=== PATIENT | male | born 1935 | race American Indian/Alaskan Native ===

== ENCOUNTER 2018-06-23 12:01 | Inpatient (IN) | payer MEDICARE ==
[2018-06-23 12:03] VITALS: BMI 32.5
--- NOTE | 2018-06-23 12:34 | ED PDOC ---
Arrival/HPI - General Chief Complaint: Dizziness/Lightheaded Time Seen by Provider: 06/23/18 12:03 Historian: Patient, Spouse - History of Present Illness Narrative History of Present Illness (Text): 06/23/18 12:33 83 year old male, whose past medical history includes hypertension, hyperlipidemia, and arthritis, presenting to the emergency department complaining of dizziness for the past 3 weeks. He reports near syncopal episodes whenever attempting to stand or ambulate unassisted. He admits falling yesterday on his knees, but denies any head injury, neck pain or loss of consciousness. Patient reports he was seen in [facility] last week for similar complaint, was observed for 2 days and was discharged with Tramadol for secondary left sided leg pain. Patient reports secondary tingling sensation in his fingers and generalized weakness. He denies fevers, chills, headache, chest pain, shortness of breath, dyspnea on exertion, cough, abdominal pain, nausea, vomiting, diarrhea, back pain, neck pain, or any other complaint. PMD: Dr. Serna Symptom Onset: Gradual Symptom Course: Unchanged Activities at Onset: Light Context: Home Past Medical History - Provider Review Nursing Documentation Reviewed: Yes - Travel History Have you recently traveled outside [place] w/in the past 3 mons?: No - Infectious Disease Hx of Infectious Diseases: None - Cardiac Hx Cardiac Disorders: Yes Hx Hypertension: Yes - Pulmonary Hx Respiratory Disorders: No - Neurological Hx Neurological Disorder: No - HEENT Hx HEENT Disorder: No - Renal Hx Renal Disorder: No - Endocrine/Metabolic Hx Endocrine Disorders: No - Hematological/Oncological Hx Blood Disorders: No - Integumentary Hx Dermatological Disorder: No - Musculoskeletal/Rheumatological Hx Musculoskeletal Disorders: Yes Hx Arthritis: Yes - Gastrointestinal Hx Gastrointestinal Disorders: No - Genitourinary/Gynecological Hx Genitourinary Disorders: No - Psychiatric Hx Psychophysiologic Disorder: No Hx Substance Use: No - Surgical History Hx Orthopedic Surgery: Yes (L knee, R, knee, L shoulder, R shoulder) Family/Social History - Physician Review Nursing Documentation Reviewed: Yes Family/Social History: No Known Family HX Smoking Status: Never Smoked Hx Alcohol Use: No Hx Substance Use: No Allergies/Home Meds Allergies/Adverse Reactions: Allergies No Known Allergies Allergy (Verified 06/23/18 18:54) Home Medications: Home Meds Medication Instructions Recorded Confirmed RX: Labetalol [Trandate] 200 mg PO BID 06/23/18 06/23/18 RX: Meclizine [Meclizine*] 25 mg PO TID PRN 06/23/18 06/23/18 Simvastatin [Zocor] 20 mg PO DAILY 06/23/18 06/23/18 Tamsulosin [Flomax] 0.4 mg PO DAILY 06/23/18 06/23/18 Tramadol HCl [Ultram] 50 mg PO Q12 PRN 06/23/18 06/23/18 Review of Systems - Physician Review All systems were reviewed & negative as marked: Yes - Review of Systems Constitutional: Other (generalized weakness ). absent: Fevers Respiratory: absent: SOB, Cough Cardiovascular: absent: Chest Pain Gastrointestinal: absent: Diarrhea, Nausea, Vomiting Musculoskeletal: absent: Back Pain, Neck Pain Neurological: Dizziness. absent: Headache Physical Exam Vital Signs Reviewed: Yes Temperature: Afebrile Blood Pressure: Normal Pulse: Regular Respiratory Rate: Normal Appearance: Positive for: Well-Appearing, Non-Toxic, Comfortable Mental Status: Positive for: Alert and Oriented X 3 - Systems Exam Head: Present: Atraumatic, Normocephalic Pupils: Present: PERRL Extroacular Muscles: Present: EOMI Conjunctiva: Present: Normal Mouth: Present: Moist Mucous Membranes Neck: Present: Normal Range of Motion Respiratory/Chest: Present: Clear to Auscultation, Good Air Exchange. No: Respiratory Distress, Accessory Muscle Use Cardiovascular: Present: Regular Rate and Rhythm, Normal S1, S2. No: Murmurs Abdomen: Present: Tenderness (tenderness to the left lower quadrant ), Distention. No: Peritoneal Signs Back: Present: Normal Inspection Upper Extremity: Present: Normal Inspection. No: Cyanosis, Edema Lower Extremity: Present: Normal Inspection. No: Edema Neurological: Present: GCS=15, CN II-XII Intact, Speech Normal, Motor Func Grossly Intact (5/5 motor strength upper and lower extremities), Normal Sensory Function, Other (no protonator drift noted, finger to nose test is normal ) Skin: Present: Warm, Dry, Normal Color. No: Rashes Psychiatric: Present: Alert, Oriented x 3, Normal Insight, Normal Concentration Medical Decision Making ED Course and Treatment: 06/23/18 12:34 Impression: 83 year old male who presents to the emergency department complaining of dizziness. Differential Diagnosis included but are not limited to: --BPPV --Posterior circulation stroke --KIKO Plan: -- VBG -- CT of Abdomen and Pelvis -- CT of head w/o contrast -- Labs -- Antivert -- IV fluids -- Urinalysis -- Reassess and disposition Progress Notes: 06/23/18 14:04 Labs reviewed with leukocytosis of 12.9 noted and elevated creatinine of 3.2. Thrombocytosis noted of 502. CTH pending. CT a/p changed to w/o IV contrast due to renal profile. 06/23/18 15:[address] Razo(covering for Dr. Jacobs) who accepts patient under her service. - Lab Interpretations I have reviewed the lab results: Yes - RAD Interpretation Narrative RAD Interpretations (Text): 06/23/18 15:[address] reviewed, shows: Impression: No acute intracranial abnormality. moderate chronic microangiopathic changes and mild age-related global parenchymal volume loss. [employer] Service Technician: Radiologist - Scribe Statement The provider has reviewed the documentation as recorded by the Scribe Beata Pop Provider Scribe Attestation: All medical record entries made by the Scribe were at my direction and personally dictated by me. I have reviewed the chart and agree that the record accurately reflects my personal performance of the history, physical exam, medical decision making, and the department course for this patient. I have also personally directed, reviewed, and agree with the discharge instructions and disposition. Disposition/Present on Arrival - Present on Arrival Any Indicators Present on Arrival: No History of DVT/PE: No History of Uncontrolled Diabetes: No Urinary Catheter: No History of Decub. Ulcer: No History Surgical Site Infection Following: None - Disposition Have Diagnosis and Disposition been Completed?: Yes Diagnosis: KIKO (acute kidney injury), Thrombocytosis, Fall Disposition: HOSPITALIZED Disposition Time: 14:30 Patient Problems: Current Active Problems Problem Status Onset KIKO (acute kidney injury) Acute Fall Acute Thrombocytosis Acute Condition: IMPROVED
[2018-06-23] MEDS ORDERED: Sodium Chloride 0.9% 1,000 ML IV STA (12:55)
[2018-06-23 13:30] LABS: VENOUS BLOOD GAS BASE EXCESS -2.6 mmol/L (0.0-2.0); VENOUS BLOOD GAS PO2 34 mm/Hg (30-55); VENOUS BLOOD PH 7.34 (7.32-7.43)
[2018-06-23 13:39] LABS: INR 1.41; PARTIAL THROMBOPLASTIN TIME 24.5 Seconds (25.1-36.5); PROTHROMBIN TIME 16.3 SECONDS (9.4-12.5)
[2018-06-23 13:43] LABS: BASO # 0.02 K/mm3 (0.0-2.0); BASO % 0.2 % (0.0-3.0); EOS # 0.2 (0.0-0.7); EOS % 1.6 % (1.5-5.0); GRAN # 10.61 (1.4-6.5); GRAN % 82.4 % (50.0-68.0); HEMOGLOBIN 8.7 g/dL (14.0-18.0); LYMPH # 0.8 (1.2-3.4); LYMPH % 6.3 % (22.0-35.0); MEAN CELL VOLUME 94.5 fl (80.0-105.0); MEAN CORPUSCULAR HEMOGLOBIN 29.7 pg (25.0-35.0); MEAN CORPUSCULAR HGB CONC 31.4 g/dl (31.0-37.0); MEAN PLATELET VOLUME 8.8 fl (7.0-11.0); MONO # 1.2 (0.1-0.6); MONO % 9.5 % (1.0-6.0); RBC 2.93 10^6/uL (3.5-6.1); RED CELL DISTRIBUTION WIDTH 13.2 % (11.5-14.5); WHITE BLOOD COUNT 12.9 10^3/uL (4.5-11.0)
[2018-06-23 13:51] LABS: ALB/GLOB RATIO 0.8 (1.1-1.8); ALBUMIN 3.9 g/dL (3.0-4.8); CALCIUM 9.7 mg/dL (8.4-10.5); TROPONIN I 0.02 ng/mL
--- NOTE | 2018-06-23 14:53 | CT ---
Date of service: 06/23/2018 PROCEDURE: CT HEAD WITHOUT CONTRAST. HISTORY: dizziness COMPARISON: None available. TECHNIQUE: Axial computed tomography images were obtained through the head/brain without intravenous contrast. Radiation dose: Total exam DLP = 998.18 mGy-cm. This CT exam was performed using one or more of the following dose reduction techniques: Automated exposure control, adjustment of the mA and/or kV according to patient size, and/or use of iterative reconstruction technique. FINDINGS: HEMORRHAGE: No intracranial hemorrhage. BRAIN: There are moderate chronic microangiopathic changes. There is no mass, mass effect or abnormal extra-axial fluid collection. There is no territorial infarction. The midline sagittal structures are normal. VENTRICLES: There is mild age-related global parenchymal volume loss and proportionate enlargement of the ventricles and cortical sulci. CALVARIUM: There is no calvarial fracture or extracranial soft tissue swelling. PARANASAL SINUSES: Predominantly clear. MASTOID AIR CELLS: Predominantly clear. OTHER FINDINGS: None. IMPRESSION: No acute intracranial abnormality. Moderate chronic microangiopathic changes and mild age-related global parenchymal volume loss.
--- NOTE | 2018-06-23 15:23 | RAD ---
Date of service: 06/23/2018 HISTORY: abdominal pain COMPARISON: No prior. FINDINGS: LUNGS: The right lung is well inflated and clear. There is a large left pleural effusion. PLEURA: No pleural effusions or pneumothorax. CARDIOVASCULAR: The heart is normal in size. No aortic atherosclerotic calcification present. OSSEOUS STRUCTURES: Within normal limits for the patient's age. VISUALIZED UPPER ABDOMEN: Normal. OTHER FINDINGS: None. IMPRESSION: Large left pleural effusion.
--- NOTE | 2018-06-23 15:50 | CT ---
Date of service: 06/23/2018 PROCEDURE: CT Abdomen and Pelvis without intravenous contrast HISTORY: distention and LLQ pain COMPARISON: None. TECHNIQUE: Technique. Contrast dose: Radiation dose: Total exam DLP = 940.06 mGy-cm. This CT exam was performed using one or more of the following dose reduction techniques: Automated exposure control, adjustment of the mA and/or kV according to patient size, and/or use of iterative reconstruction technique. FINDINGS: LOWER THORAX: Large left pleural effusion and atelectasis at the left lung base. LIVER: Unremarkable. No gross lesion or ductal dilatation. GALLBLADDER AND BILE DUCTS: Gallstones and/or sludge. PANCREAS: Unremarkable. No gross lesion or ductal dilatation. SPLEEN: Unremarkable. ADRENALS: Unremarkable. No mass. KIDNEYS AND URETERS: Bilateral renal cysts. No hydronephrosis. No solid mass. VASCULATURE: Unremarkable. No aortic aneurysm. Aortic calcifications. BOWEL: Colonic diverticulosis. No obstruction. No gross mural thickening. APPENDIX: Unremarkable. Normal appendix. PERITONEUM: Unremarkable. No free fluid. No free air. LYMPH NODES: Unremarkable. No enlarged lymph nodes. BLADDER: Unremarkable. REPRODUCTIVE: Brachytherapy seeds in prostate gland. BONES: No acute fracture. OTHER FINDINGS: None. IMPRESSION: Large left pleural effusion and atelectasis at the left lung base. No acute pathology in the abdomen and pelvis.
[2018-06-23] MEDS ORDERED: Dextrose 5%/0.45% NS 1,000 ML IV SCH (17:45)
[2018-06-23 19:08] LABS: TROPONIN I 0.02 ng/mL
--- NOTE | 2018-06-23 20:05 | HP ---
DATE OF EXAM: 06/23/2018 HISTORY OF PRESENT ILLNESS: The patient is 83-year-old, came to emergency room because of increasing dizziness. The patient states dizziness is going on for the last 3 weeks, was feeling lightheaded as if he is going to pass out. Denies any chest pain. No recent nausea, vomiting, or diarrhea. Yesterday, because of dizziness, he fell at home, never lost consciousness. The patient states he did go to [facility] almost a week ago and was told everything is okay; however, he was given some pain medication for his left leg pain. I spoke to Dr. Serna, who is his primary care doctor that according to him, he has been recently complaining of feeling dizzy. PAST MEDICAL HISTORY: He has significant past medical history of: 1. Hypertension, but recently has been stable. He used some labetalol, but Dr. Serna stopped that. 2. History of CA, prostate. 3. Chronic kidney disease. His last creatinine in office was 2.7. 4. Peptic ulcer disease. ALLERGIES: HE IS NOT ALLERGIC TO ANY MEDICATION. MEDICATIONS AT HOME: He is on Flomax 0.4 daily, Dyazide 37.5/25 daily, omeprazole 40 mg daily, simvastatin 20 mg daily. SOCIAL HISTORY: Denies smoking or drinking. PHYSICAL EXAMINATION GENERAL: The patient is awake, alert, oriented, able to communicate. VITAL SIGNS: He is afebrile, pulse 97, respirations 17, blood pressure 137/83. LUNGS: Bilateral fair airflow. No rhonchi or crackle. HEART: S1, S2 audible. ABDOMEN: Soft, nontender. No rebound. No guarding. NEUROLOGICAL: The patient is awake, alert, oriented, communicative. No focal deficit. LABORATORY EXAM: WBC 12.9, hemoglobin 8.7, hematocrit 27, platelet of 502. PT 16.3, INR 1.41 with PTT 24.5. Chemistry: Sodium 139, potassium 5.0, chloride 103, CO2 of 23, BUN 76, creatinine 3.2, blood sugar of 115. AST 67, ALT 66, alk phos is 130. CT scan of the abdomen and pelvis done. This shows large left pleural effusion and atelectasis at the left lung base. Otherwise, no pathology noted. ASSESSMENT: 1. Acute on chronic renal failure. 2. Left pleural effusion. 3. Acute on chronic kidney disease. 4. Hyperlipidemia. 5. History of hypertension, currently running normotensive. 6. History of cancer, prostate. PLAN: We will give him small dose of IV fluid. We will resume his medications including Flomax, Lipitor. Order for carotid Doppler. We will order for echocardiogram. Cardiology consult by Dr. Davila, Nephrology consult by Dr. Spivey, and Neuro consult by Dr. Cai has been requested. Tejinder Razo MD
--- NOTE | 2018-06-23 21:42 | CARD ---
APPROVED REPORT Date of service: 06/23/2018 EKG Measurement Heart [id number] <Conclusion> Sinus tachycardia Otherwise normal ECG
[2018-06-23] MEDS ORDERED: Pneumococcal 23-Valent Vaccine IM ONE (22:03)
[2018-06-23] MEDS ORDERED: Influenza Vaccine 60 mcg/0.5 mL SYR (4YR UP) IM ONE (22:03)
[2018-06-23 22:05] LABS: URINE BILIRUBIN NEGATIVE (NEGATIVE); URINE BLOOD NEGATIVE (NEGATIVE); URINE GLUCOSE (UA) NEGATIVE (NEGATIVE); URINE LEUKOCYTE ESTERASE NEGATIVE Leu/uL (NEGATIVE); URINE PROTEIN TRACE mg/dL (<30 mg/dL)
[2018-06-23 22:06] LABS: URINE APPEARANCE CLEAR (CLEAR); URINE COLOR YELLOW (YELLOW)
[2018-06-23 22:18] LABS: URINE RBC NEGATIVE /hpf (0-2); URINE WBC NEGATIVE /hpf (0-6)
[2018-06-24 07:49] LABS: ALB/GLOB RATIO 0.9 (1.1-1.8); ALBUMIN 3.4 g/dL (3.0-4.8); CALCIUM 8.9 mg/dL (8.4-10.5)
--- NOTE | 2018-06-24 09:14 | US ---
PROCEDURE: Bilateral carotid artery duplex ultrasound HISTORY: Carotid stenosis syncope PHYSICIAN(S): Milton Roca MD. TECHNIQUE: Duplex sonography and color-flow Doppler were used to evaluate the carotid bifurcations and limited segments of the vertebral arteries bilaterally. The exam is limited by tortuous vessels. FINDINGS: There is mild smooth heterogeneous plaque noted at the carotid bifurcations bilaterally. The peak systolic velocity in the proximal right internal carotid artery is 79 cm/sec. This corresponds to a 20 to 39% proximal right ICA stenosis. Normal systolic velocities are noted in the proximal right external carotid artery. There is antegrade flow in the small right vertebral artery. The peak systolic velocity in the proximal left internal carotid artery is 90 cm/sec. This corresponds to a 20 to 39% proximal left ICA stenosis. Normal systolic velocities are noted in the proximal left external carotid artery. There is antegrade flow in the left vertebral artery. IMPRESSION: 1. Bilateral 20-39% proximal ICA stenoses. 2. Antegrade flow in both vertebral arteries. 3. Limited study due to tortuous vessels
--- NOTE | 2018-06-24 11:40 | US ---
Date of service: 06/24/2018 PROCEDURE: Ultrasound of the Kidneys HISTORY: Chronic kidney disease. COMPARISON: 06/23/2018. CT abdomen and pelvis. TECHNIQUE: Sonogram of the kidneys. FINDINGS: RIGHT KIDNEY: Measures: 4.4 x 6.3 x 10.5 cm. Normal in size, contour and echogenicity. No stone, solid mass lesion or hydronephrosis visualized. Incidental finding(s): Two small renal cysts upper pole 1.3 x 1.1 cm. Lower pole cyst 1.2 x 0.8 cm. LEFT KIDNEY: Measures: 5.6 x 10.6 cm. Normal in size, contour and echogenicity. No stone, solid mass lesion or hydronephrosis visualized. Multiple (4) simple renal cysts, the largest in the midpole 2.2 x 2 cm. OTHER FINDINGS: None. IMPRESSION: Unremarkable renal sonogram.
--- NOTE | 2018-06-24 12:11 | CON ---
DATE: 06/24/2018 CARDIOLOGY CONSULTATION HISTORY: The patient is an 83-year-old male, who presents with dyspnea and dizziness. The patient was unable to go to the doctor's office because of his progressive dizziness and shortness of breath. PAST MEDICAL HISTORY: The patient's past medical history is notable for renal insufficiency. He is on multiple medications. In addition, the patient suffers from hypercholesterolemia. He denies angina. Denies previous myocardial infarction. No diabetes mellitus noted. SOCIAL HISTORY: The patient does not currently smoke. REVIEW OF SYSTEMS: Fourteen-point review of systems is reviewed in detail. He complains of pedal edema, occasional chest pain with progressive shortness of breath. PHYSICAL EXAMINATION: VITAL SIGNS: Blood pressure is 130/90, heart rate is in the 90s, normal sinus rhythm. NECK: Negative JVD. LUNGS: Decreased breath sounds bilaterally. HEART: Reveals S1, S2 with a 2/6 systolic ejection murmur. EXTREMITIES: No edema noted. EKG shows no acute changes. LABORATORY DATA: Hemoglobin is 8.7. Chemistries, BUN and creatinine are 81 and 3.8. The troponins are negative x2. IMPRESSION: 1. Pleural effusion. 2. Congestive heart failure. 3. Renal insufficiency. 4. Anemia. 5. Hypertension. 6. Dyspnea. PLAN: Given these findings, we will check his echocardiogram. We will discuss with Dr. Razo about possible tapping his left pleural effusion. Milton Davila MD
--- NOTE | 2018-06-24 13:55 | MRI ---
Date of service: 06/24/2018 PROCEDURE: MRI BRAIN WITHOUT CONTRAST HISTORY: persistant dizziness COMPARISON: None available. TECHNIQUE: Multiplanar, multisequence MR images of the brain were obtained without intravenous contrast enhancement. FINDINGS: HEMORRHAGE: None DWI: No evidence of an acute or early subacute infarction. BRAIN PARENCHYMA: No mass effect or edema. [id number] atrophy and moderate white matter changes likely represent chronic microvascular ischemic disease. VENTRICLES: Unremarkable. No hydrocephalus. CRANIUM: Unremarkable. ORBITS: Grossly unremarkable. PARANASAL SINUSES/MASTOIDS: Clear VASCULAR SYSTEM: Skull base flow voids intact. OTHER FINDINGS: None. IMPRESSION: No evidence of acute infarct or intracranial hemorrhage. No evidence of mass lesion mass effect or midline shift. Volume loss and white matter changes likely represent chronic microvascular ischemic disease.
--- NOTE | 2018-06-24 16:07 | CON ---
DATE: 06/24/2018 NEUROLOGY CONSULT CHIEF COMPLAINT: Dizziness. HISTORY OF PRESENT ILLNESS: This is an 83-year-old -[place] male with a past medical history of hypertension, history of prostate cancer, chronic kidney disease with his baseline creatinine of 2.7, peptic ulcer disease, who came in with episodes of dizziness in terms of mild spinning sensation of room with lightheadedness. He had a carotid Doppler, which showed 29%-39% proximal ICA stenosis with antegrade flow in the vertebral arteries. CAT scan of the head showed no acute intracranial abnormality. His MRI of the brain showed no acute abnormality, some chronic ischemic changes throughout. He has left-sided pleural effusion and acute on chronic kidney disease, for which his electrolytes have been managed. Cardiology is on board. No focal weakness of the extremities as he is mildly deconditioned. PAST MEDICAL HISTORY: As above. ALLERGIES: NO KNOWN DRUG ALLERGIES. SOCIAL HISTORY: No illicit drug use, smoking or EtOH abuse. REVIEW OF SYSTEMS: Fourteen-point review of systems is as per HPI. FAMILY HISTORY: Noncontributory. MEDICATIONS: Reviewed by nurse's reconciliation sheet. PHYSICAL EXAMINATION: GENERAL: The patient is seen in bed, in no acute distress. VITAL SIGNS: Temperature of 98.3, pulse rate is 97, blood pressure of 130/89, respiratory rate 20, and oxygen saturation 97% on room air. HEENT: Atraumatic, normocephalic. PERRLA. Extraocular muscles intact. NECK: Supple. No JVD. No adenopathy noted. LUNGS: Clear to auscultation. No adventitious sounds. HEART: S1 and S2. Normal rate and rhythm. No murmurs, rubs or gallops. ABDOMEN: Soft, nontender, nondistended. Bowel sounds present. EXTREMITIES: No clubbing, no cyanosis. Peripheral pulses are 2+ felt bilaterally. NEUROLOGIC: The patient is alert and oriented to person, place, month and year. Recall after five minutes is 0/3. Poor attention span, slow thought process. Cranial nerves II through XII are intact. Motor exam: Moves all extremities equally. No pronator drift seen. Sensory: Light touch, pinprick, proprioception and vibration are intact. DTRs are 2+ throughout and 1 at both knees and ankles. Coordination: Yemaxs-sr-hizu intact. No dysmetria noted. Gait is deferred for now. LABORATORY DATA: Sodium is 138, potassium 4.7, chloride 107, carbon dioxide 21, BUN of 81, creatinine of 2.6, random glucose of 113. IMPRESSION: Dizziness, this was most likely secondary to underlying generalized medical condition such as acute on chronic kidney disease, possible mild congestive heart failure, and left-sided pleural effusion. In addition, he has some mild positional vertigo. RECOMMENDATIONS: At this time, I recommend: 1. therapy as an outpatient. 2. Keep blood pressure between 130's to 140's systolic and diastolic 70's to 80's. 3. Monitor electrolytes and correct accordingly. 4. Avoid hypertensive acceleration or hypotensive episodes. 5. PT/OT evaluation and salt restriction diet. Thank you for this consult. Bandar Cai MD
--- NOTE | 2018-06-24 17:55 | CARD ---
APPROVED REPORT Date of service: 06/24/2018 EXAM: Two-dimensional and M-mode echocardiogram with Doppler and color Doppler. INDICATION Dizziness and Vertigo 2D DIMENSIONS Left Atrium (2D)3.8 (1.6-4.0cm)IVSd1.5 (0.7-1.1cm) LVDd3.8 (3.9-5.9cm)PWd1.3 (0.7-1.1cm) M-Mode DIMENSIONS Aortic Root3.50 (2.2-3.7cm)Aortic Cusp Exc.2.10 (1.5-2.0cm) Aortic Valve AoV Peak Xqqbozir076.0cm/[place] Peak GR.6mmHg Mitral Valve E/A ratio0.0 TDI E/Lateral E'0.0E/Medial E'0.0 Pulmonary Valve PV Peak Bhaxldwh39.1cm/sPV Peak Grad.2mmHg Tricuspid Valve TR Peak [id number]/sRAP [id number] Peak Gr.11mmHg [id number] LEFT VENTRICLE The left ventricle is normal size. There is mild to moderate concentric left ventricular hypertrophy. The left ventricular function is normal. The left ventricular ejection fraction is within the normal range. There is normal LV segmental wall motion. Transmitral Doppler flow pattern is Grade I-abnormal relaxation pattern. RIGHT VENTRICLE The right ventricle is normal size. There is normal right ventricular wall thickness. The right ventricular systolic function is normal. ATRIA The left atrium size is normal. The right atrium size is normal. AORTIC VALVE The aortic valve is not well visualized. No aortic regurgitation is present. There is no aortic valvular stenosis. MITRAL VALVE The mitral valve is normal in structure. There is no mitral valve regurgitation noted. There is no mitral valve stenosis. TRICUSPID VALVE The tricuspid valve is normal in structure. There is no tricuspid valve regurgitation noted. PULMONIC VALVE The pulmonary valve is normal in structure. There is no pulmonic valvular regurgitation. GREAT VESSELS The aortic root is normal in size. PERICARDIAL EFFUSION There is large left pleural effusion. There is a trace pericardial effusion. <Conclusion> The left ventricular function is normal. The left ventricular ejection fraction is within the normal range. There is normal LV segmental wall motion. Transmitral Doppler flow pattern is Grade I-abnormal relaxation pattern. There is large left pleural effusion.
--- NOTE | 2018-06-24 18:51 | CARD ---
APPROVED REPORT Date of service: 06/24/2018 INDICATION Congestive Heart Failure EVALUATE EF PROCEDURE The above named patient recieved 29.3 millicuries of Tc99m tagged red blood cells intravenously. After achieving equilibrium, gated imaging of 16/frame/cycle was performed utillizing Gamma camera interfaced with a digital computer and gated device. Gated imaging was then performed in the left anterior oblique, anterior, and the left lateral projections. Findings Calculated LV Ejection Fraction is 52%. Impressions Calculated Ejection Fraction is 52 %.
--- NOTE | 2018-06-24 18:53 | PN ---
DATE: 06/24/2018 SUBJECTIVE: The patient is 83 years old, seen and examined, seemed to be short of breath. We will discontinue IV fluids. He complained of generalized weakness. PHYSICAL EXAMINATION: VITAL SIGNS: He is afebrile, pulse 97, respirations 20, and blood pressure 130/89. LUNGS: Bilateral decreased breath sounds, more so on the right lower lung area. HEART: S1 and S2 audible. ABDOMEN: Soft, obese, and nontender. No rebound and no guarding. NEUROLOGIC: The patient is awake, alert, and oriented, able to communicate. EXTREMITIES: Bilateral legs showed no edema. LABORATORY DATA: WBC is 12.9, hemoglobin 8.7, hematocrit 27.7, and platelets 502. Chemistry: Sodium 138, potassium 4.7, chloride 107, CO2 of 21, BUN 81, creatinine 3.6, blood sugar 113, AST 65, and ALT 59. CT scan of the head shows moderate chronic microangiopathic changes and age-related global parenchymal volume loss. Carotid Doppler is negative. CT scan of the abdomen and pelvis is done and shows large left pleural effusion and atelectasis in the left lung base. A renal ultrasound was done that shows no abnormal findings. Echocardiogram is pending. ASSESSMENT: 1. [id number] renal failure. His baseline creatinine is 2.7. I spoke to Dr. Serna, who is the primary care for this patient. 2. Large left pleural effusion. 3. History of hypertension. 4. Dizziness, etiology unclear. PLAN: We will discontinue IV fluid. I will give him a dose of Lasix. I will get MRI of the brain. Discussed with Dr. Davila, who will order for MUGA scan to see LV function. Awaiting nephrology evaluation, and follow up electrolytes in a.m. Tejinder Razo MD
[2018-06-25 06:29] LABS: ALB/GLOB RATIO 0.9 (1.1-1.8); ALBUMIN 3.6 g/dL (3.0-4.8); CALCIUM 9.2 mg/dL (8.4-10.5)
[2018-06-25 06:37] LABS: BASO # 0.02 K/mm3 (0.0-2.0); BASO % 0.2 % (0.0-3.0); EOS # 0.4 (0.0-0.7); EOS % 3.8 % (1.5-5.0); GRAN # 7.87 (1.4-6.5); GRAN % 78.4 % (50.0-68.0); HEMOGLOBIN 7.7 g/dL (14.0-18.0); LYMPH # 0.8 (1.2-3.4); MEAN CELL VOLUME 94.1 fl (80.0-105.0); MEAN CORPUSCULAR HEMOGLOBIN 28.6 pg (25.0-35.0); MEAN CORPUSCULAR HGB CONC 30.4 g/dl (31.0-37.0); MEAN PLATELET VOLUME 8.6 fl (7.0-11.0); MONO % 9.6 % (1.0-6.0); RBC 2.69 10^6/uL (3.5-6.1); RED CELL DISTRIBUTION WIDTH 13.4 % (11.5-14.5)
[2018-06-25 11:33] LABS: IRON 27 ug/dL (45-180)
[2018-06-25 11:42] LABS: % IRON SATURATION 12 % (20-55); TOTAL IRON BINDING CAPACITY 233 ug/dL (261-462)
--- NOTE | 2018-06-25 14:05 | PN ---
DATE: 06/25/2018 SUBJECTIVE: The patient complained of weakness. PHYSICAL EXAMINATION: VITAL SIGNS: Blood pressure is 133/73, heart rate is 100. NECK: Negative JVD. LUNGS: Decreased breath sounds bilaterally. HEART: Reveals S1, S2. EXTREMITIES: Without edema. LABORATORY DATA: Hemoglobin is 7.7. Chemistries: BUN and creatinine is 81 and 3.5. MUGA scan shows an ejection fraction of 52%. IMPRESSION: 1. Marked weakness. 2. Progressive anemia. 3. Renal insufficiency. 4. Hypertension. 5. Dyspnea. 6. Good LV systolic function by MUGA scan. Given these findings, we will discuss with Dr. Razo about a pleural tap as well as packed red blood cells transfusion. Milton Davila MD
--- NOTE | 2018-06-25 14:30 | CT ---
Date of service: 06/25/2018 CT chest without IV contrast Indication: sob Technique: Contiguous axial images were obtained through the chest without intravenous contrast enhancement. Sagittal and coronal reconstructions were generated and reviewed. This CT exam was performed using 1 or more of the following dose reduction techniques: Automated exposure control, adjustment of the MAA and/or kV according to patient size, and/or use of iterative reconstruction technique. Radiation dose (DLP): 775.51 MGy-cm. Comparison: Chest x-ray performed 06/23/18 Findings: Visualized portions of the inferior thyroid gland appear unremarkable. The unenhanced mediastinal and hilar vascular structures appear grossly unremarkable. The heart appears within normal limits of size. Emphysematous changes. Large left pleural effusion and associated consolidation with sparing left lung apex. Limited visualization of the noncontrast upper abdomen appears grossly unremarkable. Bilateral gynecomastia. Degenerative changes of the spine. Impression: Emphysematous changes. Large left pleural effusion and associated consolidation with sparing left lung apex.
[2018-06-25] MEDS ORDERED: Albuterol-Ipratrop 3 mg / 0.5 (3 ml) UD IH PRN (17:55)
[2018-06-25] MEDS: Albuterol-Ipratrop 3 mg / 0.5 (3 ml) UD IH SCH (20:07)
[2018-06-25] MEDS: MethylPREDNISolone 40 mg Vial IV SCH (21:43)
--- NOTE | 2018-06-25 22:26 | PN ---
DATE: 06/25/2018 SUBJECTIVE: The patient is an 83 years old, seen and examined, has shortness of breath, has left upper quadrant discomfort. Neurologically, he is awake and alert, able to communicate. PHYSICAL EXAMINATION: VITAL SIGNS: The patient had temperature of 100, pulse 102, respirations 18, and blood pressure 132/78. LUNGS: Bilateral fair airflow. No rhonchi or crackle. However, he has decreased breath sounds at bases, left more than the right. EXTREMITIES: Bilateral leg +1 edema. LABORATORY DATA: WBC 10, hemoglobin 10.7, hematocrit 25.3, and platelets 421. PT 16.3, INR 1.41. Chemistry: Sodium 138, potassium 4.8, chloride 107, CO2 of 22, BUN 81, creatinine 3.5, blood sugar of 106, iron 27, TIBC 233. CT scan of the chest shows large left pleural effusion. MRI of the brain is unremarkable. Echocardiogram shows LVH and MUGA scan shows ejection fraction of 52%. ASSESSMENT: 1. Symptomatic anemia. 2. Large left pleural effusion. 3. Hypertension. 4. Chronic kidney disease. PLAN: The patient will receive one blood transfusion today and get second one tomorrow. We will start him on nebulizer treatment. I spoke to Dr. Milton Roca. We will schedule for thoracentesis on Wednesday. Follow up with CBC and CMP in a.m. Start him on small dose of Solu-Medrol. Tejinder Razo MD
[2018-06-26] MEDS: Albuterol-Ipratrop 3 mg / 0.5 (3 ml) UD IH SCH ×4 (01:03→19:47)
[2018-06-26 07:09] LABS: EOS % 0.1 % (1.5-5.0); GRAN # 7.8 (1.4-6.5); GRAN % 89.8 % (50.0-68.0); HEMOGLOBIN 8.4 g/dL (14.0-18.0); LYMPH # 0.5 (1.2-3.4); LYMPH % 5.8 % (22.0-35.0); MEAN CELL VOLUME 93.7 fl (80.0-105.0); MEAN CORPUSCULAR HEMOGLOBIN 29.4 pg (25.0-35.0); MEAN CORPUSCULAR HGB CONC 31.3 g/dl (31.0-37.0); MEAN PLATELET VOLUME 8.5 fl (7.0-11.0); MONO # 0.4 (0.1-0.6); MONO % 4.3 % (1.0-6.0); RBC 2.86 10^6/uL (3.5-6.1); RED CELL DISTRIBUTION WIDTH 13.3 % (11.5-14.5); WHITE BLOOD COUNT 8.7 10^3/uL (4.5-11.0)
[2018-06-26 08:23] LABS: ALB/GLOB RATIO 0.9 (1.1-1.8); ALBUMIN 3.6 g/dL (3.0-4.8); CALCIUM 9.4 mg/dL (8.4-10.5)
[2018-06-26] MEDS ORDERED: Sod Polystyrene Sulf 15 gm/60 ml Susp PO ONE (09:31)
[2018-06-26] MEDS: MethylPREDNISolone 40 mg Vial IV SCH ×2 (09:43→21:45)
[2018-06-26] MEDS ORDERED: Albuterol 0.5% Inhal Sol (2.5 mg/0.5 ml) UD IH STA (10:58)
[2018-06-26] MEDS ORDERED: Morphine 4 mg/ml ISec IVP PRN (14:49)
[2018-06-26] MEDS: Morphine 2 mg/ml ISec IVP PRN (15:12)
[2018-06-26] MEDS ORDERED: Iohexol 350 MG/100 ML VIAL ONE (17:48)
--- NOTE | 2018-06-26 21:59 | PN ---
DATE: 06/26/2018 SUBJECTIVE: The patient is an 83 years old. Seen and examined. Complained of left upper quadrant pain. Had a bowel movement earlier. Also has shortness of breath. Has received one blood transfusion yesterday. PHYSICAL EXAMINATION: VITAL SIGNS: Afebrile, pulse 113, respirations 20, and blood pressure 170/91. LUNGS: Bilateral fair airflow in upper lung region, decreased at left base. HEART: S1 and S2 audible, tachycardic. ABDOMEN: Soft. Left upper quadrant discomfort. NEUROLOGIC: The patient is awake and alert, able to communicate. EXTREMITIES: Bilateral legs, no edema. LABORATORY EXAMINATION: WBC 8.7, hemoglobin 8.4, hematocrit 26.8, and platelets 414. Chemistry: Sodium 137, potassium 5.9, chloride 104, CO2 of 22, BUN 86, creatinine 3.2, and blood sugar of 130. CT scan of the chest shows large left pleural effusion. ASSESSMENT AND PLAN: 1. Generalized weakness. 2. Left pleural effusion. 3. Acute on chronic renal failure. 4. Abdominal pain, etiology unclear. 5. History of chronic obstructive pulmonary disease. Plan is because the CT of the abdomen and pelvis . He is on intravenous Lasix. Analgesic as needed. Request for Protonix. Gastrointestinal evaluation has been requested. Also request for nephrology consult. We will follow up his electrolytes in a.m. Tejinder Razo MD
[2018-06-27] MEDS: Albuterol-Ipratrop 3 mg / 0.5 (3 ml) UD IH SCH ×4 (01:07→19:18)
--- NOTE | 2018-06-27 01:22 | CON ---
DATE: 06/26/2018 REASON FOR CONSULTATION: Acute kidney injury, hyperkalemia. HISTORY OF PRESENT ILLNESS: An 83-year-old male previously unknown to me. The patient was admitted to the hospital on 06/23 with complaints of dizziness for 3 weeks. The patient reported that he was admitted to [facility] for the same complaints. He was worked up and was discharged home. As per the ER notes he also complained of some left-sided leg pain. He was given tramadol. He denies any fever or chills. He denies any shortness of breath. He denies any abdominal pain, but currently he is complaining of left lower quadrant pain, especially when he coughs. He denies any chest tightness. At the time of presentation, he was found to have elevated BUN and creatinine of 3.2, BUN of 76. But today his BUN is 86 and his creatinine is 3.2 and a potassium of 5.9. His baseline creatinine as per the PMD's note is around 2.7. A consultation is requested for acute kidney injury. PAST MEDICAL AND SURGICAL HISTORY: Hypertension. The patient denies any history of diabetes. Complains of arthritis; prostate cancer; chronic kidney disease, stage III/IV; peptic ulcer disease. FAMILY HISTORY: Noncontributory. SOCIAL HISTORY: He is an ex-smoker, quit many years ago, no alcohol use, no IV drug abuse. He is , he has eight kids. ALLERGIES: NO KNOWN DRUG ALLERGIES. MEDICATIONS AT HOME: Flomax 0.4, Dyazide /25, omeprazole 40, simvastatin 20. REVIEW OF SYSTEMS: All systems are reviewed, pertinent positives as mentioned in history of presenting illness, rest unremarkable. PHYSICAL EXAMINATION GENERAL: Obese elderly male lying in bed, currently appears to be in mild to moderate distress because of pain in the left lower quadrant. VITAL SIGNS: Blood pressure 170/91, repeat blood pressure 117/76, heart rate 122, respiratory rate 20, temperature 98. HEENT: Normocephalic, atraumatic, positive pallor. NECK: Supple, no JVD. LUNGS: Bilateral equal air entry, bilateral equal expansion, no rales appreciated. CARDIAC: S1, S2, regular rate and rhythm, no murmur, no rub. ABDOMEN: Obese, distended, soft, nontender, bowel sounds present. EXTREMITIES: No lower extremity edema. LABORATORY DATA: Sodium 137, potassium 5.9, chloride 104, CO2 of 22, BUN 86, creatinine 3.2, glucose 130, calcium 9.4, AST 69, ALT 58, albumin 3.7. Iron saturation 12, iron 27, ferritin 919. Urinalysis: Yellow, clear, pH 6.0, specific gravity 1.025, protein trace, glucose negative, ketones negative. WBC 8.7, hemoglobin 8.4, hematocrit 27, platelets 414. Status post 1 unit of PRBCs yesterday. ASSESSMENT 1. Acute kidney injury superimposed on chronic kidney disease, stage IV. 2. Hyperkalemia. 3. Severe anemia, hemoglobin has dropped from 9 to 7.7. 4. Hypertension. 5. Suspect gastrointestinal bleed. 6. Dizziness ? PLAN 1. Check stool occult. 2. Monitor H and H. 3. GI evaluation. 4. Avoid nephrotoxins. 5. Continue amlodipine for hypertension. 6. Hold Lasix. 7. Monitor daily electrolytes. 8. Monitor urine output. Jackelin Spivey MD
[2018-06-27 06:29] LABS: GRAN # 15.17 (1.4-6.5); GRAN % 93.3 % (50.0-68.0); HEMOGLOBIN 7.9 g/dL (14.0-18.0); LYMPH # 0.6 (1.2-3.4); LYMPH % 3.9 % (22.0-35.0); MEAN CELL VOLUME 93.8 fl (80.0-105.0); MEAN PLATELET VOLUME 8.8 fl (7.0-11.0); MONO # 0.5 (0.1-0.6); MONO % 2.8 % (1.0-6.0); PLATELET COUNT 422 10^3/uL (120.0-450.0); RBC 2.72 10^6/uL (3.5-6.1); RED CELL DISTRIBUTION WIDTH 13.6 % (11.5-14.5); WHITE BLOOD COUNT 16.3 10^3/uL (4.5-11.0)
[2018-06-27 07:19] LABS: ALB/GLOB RATIO 0.9 (1.1-1.8); ALBUMIN 3.4 g/dL (3.0-4.8); CALCIUM 8.8 mg/dL (8.4-10.5)
[2018-06-27 08:22] LABS: ATYPICAL LYMPHOCYTE 1 % (0.0-0.0); LYMPHOCYTE 3 % (22.0-35.0); MONOCYTE 3 % (1.0-6.0); NEUTROPHIL 93 % (50.0-70.0); PLATELET ESTIMATE NORMAL (NORMAL)
[2018-06-27] MEDS: MethylPREDNISolone 40 mg Vial IV SCH ×2 (10:34→21:40)
[2018-06-27] MEDS: Morphine 2 mg/ml ISec IVP PRN (10:35)
--- NOTE | 2018-06-27 11:13 | CP.PCM.CON ---
<[place] - Last Filed: 06/27/18 11:06> History of Present Illness - History of Present Illness History of Present Illness: PGY6 GI Fellow Consult Note Patient is an 83yo male with PMHx significant for prostate cancer s/p brachytherapy, CKD, HTN, hyperlipidemia and osteoarthritis who presented to the ED with complaint of dizziness. The patient states that for the last several weeks he has had recurrent episodes of dizziness and nausea. Was admitted to [facility] and evaluated but discharged without significant improvement in symptoms. Denies any palpitations, shortness of breath, syncopal episodes, vomiting, sick contacts. Our service has been consulted for acute onset abdominal pain. Yesterday, the patient stated that he suddenly noticed left upper quadrant abdominal pain when coughing. He was given a laxative for presumed constipation but passing bowel movement did not seem to improve the discomfort. Symptoms are worsened with coughing and deep inspiration. No bloody bowel movements or melena noted. 12 system ROS performed and negative except where stated PMHx: See HPI PSHx: Prostate radioactive seed implants FHx: Discussed with patient and he denies any significant family history Social: Denies tobacco, EtOH or illicit drug use Past Patient History - Infectious Disease Hx of Infectious Diseases: None - Past Social History Smoking Status: Never Smoked - CARDIAC Hx Cardiac Disorders: Yes (CAD) Hx Hypertension: Yes - PULMONARY Hx Respiratory Disorders: No - NEUROLOGICAL Hx Neurological Disorder: No - HEENT Hx HEENT Problems: No - RENAL Hx Chronic Kidney Disease: No - ENDOCRINE/METABOLIC Hx Endocrine Disorders: No - HEMATOLOGICAL/ONCOLOGICAL Hx Blood Disorders: No - INTEGUMENTARY Hx Dermatological Problems: No - MUSCULOSKELETAL/RHEUMATOLOGICAL Hx Musculoskeletal Disorders: Yes Hx Arthritis: Yes - GASTROINTESTINAL Hx Gastrointestinal Disorders: No - GENITOURINARY/GYNECOLOGICAL Hx Genitourinary Disorders: No - PSYCHIATRIC Hx Psychophysiologic Disorder: No Hx Substance Use: No - SURGICAL HISTORY Hx Orthopedic Surgery: Yes (L knee, R, knee, L shoulder, R shoulder) Meds Allergies/Adverse Reactions: Allergies Allergy/AdvReac Type Severity Reaction Status Date / Time No Known Allergies Allergy Verified 06/23/18 18:54 - Medications Medications: Current Medications Acetaminophen (Tylenol 325mg Tab) 650 mg PO Q6H PRN PRN Reason: Fever >100.4 F Last Admin: 06/26/18 04:38 Dose: 650 mg Albuterol/Ipratropium (Duoneb 3 Mg/0.5 Mg (3 Ml) Ud) 3 ml IH Q2H PRN PRN Reason: Shortness of Breath Albuterol/Ipratropium (Duoneb 3 Mg/0.5 Mg (3 Ml) Ud) 3 ml IH [id number] [facility] Last Admin: 06/27/18 07:52 Dose: 3 ml Amlodipine Besylate (Norvasc) 10 mg PO DAILY [facility] Last Admin: 06/27/18 10:34 Dose: 10 mg Atorvastatin Calcium (Lipitor) 10 mg PO DAILY [facility] Last Admin: 06/27/18 10:34 Dose: 10 mg Furosemide (Lasix) 40 mg IVP DAILY [facility] Last Admin: 06/26/18 09:43 Dose: 40 mg Methylprednisolone (Solu-Medrol) 30 mg IV Q12 [facility] Last Admin: 06/27/18 10:34 Dose: 30 mg Morphine Sulfate (Morphine) 2 mg IVP Q4H PRN PRN Reason: Pain, severe (8-10) Last Admin: 06/27/18 10:35 Dose: 2 mg Pantoprazole Sodium (Protonix Inj) 40 mg IVP DAILY [facility] Last Admin: 06/27/18 10:34 Dose: 40 mg Tamsulosin HCl (Flomax) 0.4 mg PO HS [facility] Last Admin: 06/26/18 21:45 Dose: 0.4 mg Physical Exam - Constitutional Appears: Non-toxic, No Acute Distress - Eye Exam Eye Exam: EOMI, PERRL - ENT Exam ENT Exam: Mucous Membranes Moist - Respiratory Exam Respiratory Exam: Decreased Breath Sounds (L>R), Rales. absent: Clear to Auscultation Bilateral, Rhonchi, Wheezes - Cardiovascular Exam Cardiovascular Exam: Tachycardia, REGULAR RHYTHM, +S1, +S2 - GI/Abdominal Exam GI & Abdominal Exam: Normal Bowel Sounds, Soft. absent: Distended, Firm, G uarding, Hernia, Organomegaly, Rigid, Tenderness - Extremities Exam Extremities exam: Positive for: normal inspection. Negative for: pedal edema - Neurological Exam Neurological exam: Alert, Oriented x3 - Psychiatric Exam Psychiatric exam: Normal Affect, Normal Mood - Skin Skin Exam: Dry, Warm Results - Vital Signs Recent Vital Signs: Last Vital Signs Temp 97.9 F 06/27/18 08:12 Pulse 98 H 06/27/18 08:12 Resp 20 06/27/18 08:12 BP 124/72 06/27/18 10:34 Pulse Ox 95 06/27/18 08:12 - Labs Result Diagrams: 06/27/18 05:45 06/27/18 05:45 Labs: Laboratory Results - last 24 hr 06/27/18 06/27/18 05:45 05:45 WBC 16.3 H D RBC 2.72 L Hgb 7.9 L Hct 25.5 L MCV 93.8 MCH 29.0 MCHC 31.0 RDW 13.6 Plt Count 422 MPV 8.8 Gran % 93.3 H Lymph % (Auto) 3.9 L Zapata % (Auto) 2.8 Eos % (Auto) 0.0 L Baso % (Auto) 0.0 Gran # 15.17 H Lymph # (Auto) 0.6 L [place] # (Auto) 0.5 Eos # (Auto) 0.0 Baso # (Auto) 0.00 Neutrophils % (Manual) 93 H Lymphocytes % (Manual) 3 L Atypical Lymphs % 1 H Monocytes % (Manual) 3 Platelet Evaluation Normal Sodium 137 Potassium 5.0 Chloride 102 Carbon Dioxide 23 Anion Gap 17 BUN 89 H Creatinine 3.3 H Est GFR ( Amer) 22 Est GFR (Non-Af Amer) 18 Random Glucose 147 H Calcium 8.8 Total Bilirubin 0.5 AST 53 ALT 55 Alkaline Phosphatase 93 Total Protein 7.4 Albumin 3.4 Globulin 4.0 Albumin/Globulin Ratio 0.9 L Assessment & Plan - Assessment and Plan (Free Text) Assessment: Patient is an 83yo male with PMHx significant for prostate cancer s/p brachytherapy, CKD, HTN, hyperlipidemia and osteoarthritis who presented to the ED with complaint of dizziness -Large left pleural effusion -Left sided abdominal pain 2/2 above -Dizziness -Anemia Plan: -No overt GI bleeding and HGB relatively unchanged day-to-day on CBC since admission -In light of very large left pleural effusion, suspect LUQ abdominal pain 2/2 collection -IR consulted for thoracentesis -Miralax 17g PO QHS PRN constipation -EGD/Colonoscopy can be offered to patient electively as an outpatient once acute medical issues resolve -Diet as tolerated - Date & Time Date: 06/27/18 Time: 08:30 <Kirk Eastman V - Last Filed: 06/28/18 00:00> Meds - Medications Medications: Current Medications Acetaminophen (Tylenol 325mg Tab) 650 mg PO Q6H PRN PRN Reason: Fever >100.4 F Last Admin: 06/26/18 04:38 Dose: 650 mg Albuterol/Ipratropium (Duoneb 3 Mg/0.5 Mg (3 Ml) Ud) 3 ml IH Q2H PRN PRN Reason: Shortness of Breath Albuterol/Ipratropium (Duoneb 3 Mg/0.5 Mg (3 Ml) Ud) 3 ml IH [id number] [facility] Last Admin: 06/27/18 19:18 Dose: 3 ml Amlodipine Besylate (Norvasc) 10 mg PO DAILY [facility] Last Admin: 06/27/18 10:34 Dose: 10 mg Atorvastatin Calcium (Lipitor) 10 mg PO DAILY [facility] Last Admin: 06/27/18 10:34 Dose: 10 mg Clonidine HCl (Catapres) 0.1 mg PO Q8 PRN PRN Reason: Other Last Admin: 06/27/18 16:05 Dose: 0.1 mg Furosemide (Lasix) 40 mg IVP DAILY [facility] Last Admin: 06/26/18 09:43 Dose: 40 mg Methylprednisolone (Solu-Medrol) 30 mg IV Q12 [facility] Last Admin: 06/27/18 21:40 Dose: 30 mg Morphine Sulfate (Morphine) 2 mg IVP Q4H PRN PRN Reason: Pain, severe (8-10) Last Admin: 06/27/18 10:35 Dose: 2 mg Pantoprazole Sodium (Protonix Ec Tab) 40 mg PO ACB MELECIO Tamsulosin HCl (Flomax) 0.4 mg PO HS [facility] Last Admin: 06/27/18 21:40 Dose: 0.4 mg Results - Vital Signs Recent Vital Signs: Last Vital Signs Temp 97.6 F 06/27/18 18:55 Pulse 98 H 06/27/18 18:55 Resp 20 06/27/18 18:55 BP 150/74 06/27/18 18:55 Pulse Ox 95 06/27/18 17:08 - Labs Result Diagrams: 06/27/18 05:45 06/27/18 05:45 Labs: Laboratory Results - last 24 hr 06/25/18 06/27/18 06/27/18 12:20 05:45 05:45 WBC 16.3 H D RBC 2.72 L Hgb 7.9 L Hct 25.5 L MCV 93.8 MCH 29.0 MCHC 31.0 RDW 13.6 Plt Count 422 MPV 8.8 Gran % 93.3 H Lymph % (Auto) 3.9 L Zapata % (Auto) 2.8 Eos % (Auto) 0.0 L Baso % (Auto) 0.0 Gran # 15.17 H Lymph # (Auto) 0.6 L Z[place] # (Auto) 0.5 Eos # (Auto) 0.0 Baso # (Auto) 0.00 Neutrophils % (Manual) 93 H Lymphocytes % (Manual) 3 L Atypical Lymphs % 1 H Monocytes % (Manual) 3 Platelet Evaluation Normal Sodium 137 Potassium 5.0 Chloride 102 Carbon Dioxide 23 Anion Gap 17 BUN 89 H Creatinine 3.3 H Est GFR ( Amer) 22 Est GFR (Non-Af Amer) 18 Random Glucose 147 H Calcium 8.8 Total Bilirubin 0.5 AST 53 ALT 55 Alkaline Phosphatase 93 Total Protein 7.4 Albumin 3.4 Globulin 4.0 Albumin/Globulin Ratio 0.9 L Fluid Source Fluid Appearance Fluid WBC Fluid RBC Fluid Tot Cell Count Fluid Mononuclear Cell Fl Polymorphonucl Cell Fluid Comment Thoracentesis Fluid pH Stool Occult Blood Blood Type A POSITIVE Antibody Screen Negative Crossmatch See Detail BBK History Checked No verified bt 06/27/18 06/27/18 06/27/18 11:10 13:30 13:30 WBC RBC Hgb Hct MCV MCH MCHC RDW Plt Count MPV Gran % Lymph % (Auto) Zapata % (Auto) Eos % (Auto) Baso % (Auto) Gran # Lymph # (Auto) Zapata # (Auto) Eos # (Auto) Baso # (Auto) Neutrophils % (Manual) Lymphocytes % (Manual) Atypical Lymphs % Monocytes % (Manual) Platelet Evaluation Sodium Potassium Chloride Carbon Dioxide Anion Gap BUN Creatinine Est GFR ( Amer) Est GFR (Non-Af Amer) Random Glucose Calcium Total Bilirubin AST ALT Alkaline Phosphatase Total Protein Albumin Globulin Albumin/Globulin Ratio Fluid Source Pleural Fluid Appearance Bloody Fluid WBC 1160.0 H Fluid RBC 339310.0 H Fluid Tot Cell Count 100 H Fluid Mononuclear Cell 75.8 H Fl Polymorphonucl Cell 24.2 H Fluid Comment Red Thoracentesis Fluid pH 8.0 Stool Occult Blood Negative Blood Type Antibody Screen Crossmatch BBK History Checked Attending/Attestation - Attestation I have personally seen and examined this patient.: Yes I have fully participated in the care of the patient.: Yes I have reviewed all pertinent clinical information: Yes Notes (Text): p 06/28/18 00:00
--- NOTE | 2018-06-27 12:34 | CT ---
Date of service: 06/26/2018 PROCEDURE: CT Abdomen and Pelvis with contrast HISTORY: abdominal pain COMPARISON: Abdomen pelvis CT without contrast 06/23/2018. TECHNIQUE: Helical CT of the abdomen and pelvis was performed following oral contrast administration only. Intravenous contrast was not administered as per referring physician request. Coronal and sagittal reformats were generated. Contrast dose: None Radiation dose: Total exam DLP = 841.23 mGy-cm. This CT exam was performed using one or more of the following dose reduction techniques: Automated exposure control, adjustment of the mA and/or kV according to patient size, and/or use of iterative reconstruction technique. FINDINGS: LOWER THORAX: Reiteration of gross left pleural effusion with none on the right. Overall effusion may have increased in volume in the interval as the mediastinum shifted over toward the right somewhat, indicating tension. No definite pericardial effusion. Marked elevation right hemidiaphragm is reiterated. LIVER: Stable lucencies anterior and posterior sub segments of the left lobe liver medially. Remainder liver is unremarkable. GALLBLADDER AND BILE DUCTS: Diminished in volume. No radiodense choledocholithiasis. Artifacted by respiratory motion. PANCREAS: Unremarkable. No gross lesion or ductal dilatation. SPLEEN: Unremarkable. ADRENALS: Unremarkable. No mass. KIDNEYS AND URETERS: Two left renal cysts unchanged. No obstructive uropathy bilaterally. No suspicious right parenchymal findings in this unenhanced CT exam. VASCULATURE: Nonaneurysmal abdominal aortic calcific atherosclerotic changes are identified. BOWEL: Extensive sigmoid diverticulosis is appreciate without acute interval changes. Nonobstructive bowel gas pattern. Opacified small bowel loops appear unremarkable. A few diverticular seen related to the cecum which are unremarkable otherwise. Stomach is unremarkable APPENDIX: Normal appendix. PERITONEUM: Unremarkable. No free fluid. No free air. LYMPH NODES: Unremarkable. No enlarged lymph nodes. BLADDER: Unremarkable. REPRODUCTIVE: Multifocal radiation seed implants are seen in the prostate gland once again. BONES: No acute fracture. OTHER FINDINGS: None. IMPRESSION: 1. No suspicious interval abdomen or pelvic findings. Sigmoid diverticulosis remains nonacute appearing. 2. No ascites, mesenteric edema, free intra peritoneal gas collection or abscess in the abdomen or pelvis. 3. Two stable left lobe hepatic lucencies unchanged in size. 4. Prominent left pleural effusion under an element of tension with rightward mediastinal shift now identified. Further clinical correlation is advised. 5. Lesser findings as discussed above. Findings discussed with Dr. Razo with written down and read back verification 06/26/2018 12:20 p.m.. Preliminary report provided by Ramiro, 06/26/2018 9:42 p.m..
[2018-06-27 13:47] LABS: BODY FLUID TYPE PLEURAL
[2018-06-27 14:19] LABS: BF GROSS APPEARANCE BLOODY (CLEAR); BODY FLUID TOTAL COUNT 100 (0-0)
--- NOTE | 2018-06-27 18:31 | PN ---
DATE: 06/27/2018 CARDIOLOGY FOLLOWUP SUBJECTIVE: The patient is comfortable today. PHYSICAL EXAMINATION VITAL SIGNS: Blood pressure 122/81, heart rates in the 90s. NECK: Negative JVD. LUNGS: Decreased breath sounds. HEART: Reveal S1, S2. EXTREMITIES: Without change. LABORATORY DATA: Hemoglobin is 7.9. INR is 1.41. IMPRESSION: 1. End-stage renal disease. 2. Weakness. 3. Marked pleural effusion. 4. Hypertension. 5. Dyspnea. Given these findings, the patient is for pleural tap today. This should help his breathing. Milton Davila MD
--- NOTE | 2018-06-27 20:24 | US ---
PROCEDURE: Ultrasound guided left thoracentesis. CLINICAL HISTORY: Large left pleural effusion with shortness of breath. Distant history prostate CA without metastatic disease. Needs diagnostic and therapeutic thoracentesis. Evaluate for malignancy. PHYSICIAN(S): Milton Roca MD. TECHNIQUE: The relative risks and indications of the procedure were explained to the patient and consent obtained. The patient was placed in a sitting position on the stretcher and sonography of the right chest performed. This revealed a moderate to large leftpleural effusion. A left posterolateral intercostal approach was selected and the area prepped and draped usual sterile fashion. 1% Xylocaine was used to anesthetize the skin and soft tissues. A 7 Mauritian thoracentesis catheter was trocared into the left pleural cavity and 2000 cc of serosanguineous fluid aspirated. The appropriate labs were sent. IMPRESSION: 1. Ultrasound guided left thoracentesis. 2000 cc of serosanguineous fluid was aspirated. The appropriate labs were sent.
--- NOTE | 2018-06-27 23:17 | PN ---
DATE: 06/27/2018 SUBJECTIVE: The patient is seen lying in bed. He is awake, he is alert, and he is comfortable. He had thoracentesis done earlier today, 2000 mL of serosanguineous fluid was aspirated. He feels much more comfortable today. He still complains of some left lower quadrant pain when he coughs much improved. PHYSICAL EXAMINATION: GENERAL: Elderly male lying in bed. VITAL SIGNS: Blood pressure 150/74, heart rate 98, respiratory rate 20, and temperature 97.6. HEENT: Normocephalic, atraumatic, positive pallor. NECK: Supple, no JVD. LUNGS: Bilateral equal air entry, bilateral equal expansion. CARDIAC: S1 and S2, regular rate and rhythm, no murmur, no rub. ABDOMEN: Obese, distended, soft, tenderness in the left lower quadrant. Bowel sounds present. EXTREMITIES: No lower extremity edema. INTAKE AND OUTPUT: 1640/1050 plus 2000 mL removed from pleural cavity. LABORATORY DATA: WBC 16, hemoglobin 7.9, hematocrit 25.5, and platelets 422. Sodium 137, potassium 5, chloride 102, CO2 of 23, BUN 89, creatinine 3.3, glucose 147, and calcium 8.8. AST 53, ALT 55, and albumin 3.4. CURRENT MEDICATIONS: DuoNeb, Flomax, Lasix on hold, Lipitor, morphine, amlodipine 10, Protonix 40, Solu-Medrol 30 IV every 12 hours, and Tylenol. ASSESSMENT: 1. Acute kidney injury superimposed on chronic kidney disease stage III. 2. Large left pleural effusion, status post thoracentesis. 3. Severe anemia, ?gastrointestinal blood loss 4. Hyperkalemia secondary to blood loss. 5. Hypertension. PLAN: 1. Agree with blood transfusion. 2. Add clonidine 0.1 mg every 8 hours p.r.n. for blood pressure greater than 160. 3. Continue to hold Lasix. 4. Monitor urine output. 5. Daily labs. Jackelin Spivey MD
--- NOTE | 2018-06-28 00:15 | PN ---
DATE: 06/27/2018 SUBJECTIVE: The patient is 83 years old. Seen and examined. Complained of left lower quadrant discomfort. No nausea or vomiting. No diarrhea. Complained of shortness of breath. PHYSICAL EXAMINATION: VITAL SIGNS: Afebrile, pulse 98, respirations 20, blood pressure 150/74. LUNGS: Bilateral good airflow in the upper lung region. Decreased breath sounds in the left base. HEART: S1 and S2 audible. ABDOMEN: Soft, obese, nontender. No rebound. No guarding. Palpable discomfort in the left lower quadrant area. EXTREMITIES: Bilateral legs, no edema. LABORATORY EXAMINATION: WBC 16.3, hemoglobin 7.9, hematocrit 25, platelets 422. Chemistry: Sodium 137, potassium 4, chloride 102, CO2 of 23, BUN 89, creatinine 3.3, blood sugar of 147. He had a CT scan of the abdomen and pelvis done that shows large left pleural effusion, and he underwent thoracentesis and had 2 L of fluid removed. ASSESSMENT: 1. Acute on chronic renal failure. 2. Renal insufficiency. 3. Generalized weakness. 4. History of hypertension. 5. Abdominal pain, probably passive congestion. 6. Chronic obstructive pulmonary disease. PLAN: Continue on nebulizer treatment and intravenous steroids. Physical therapy evaluation has been requested. We will also request for TCU evaluation. He will receive one blood transfusion. We will follow up with CBC and CMP. We will request for TCU evaluation and physical therapy. If accepted, can be transferred to TCU. Tejinder Razo MD
[2018-06-28] MEDS: Albuterol-Ipratrop 3 mg / 0.5 (3 ml) UD IH SCH ×4 (01:24→20:59)
[2018-06-28 07:17] LABS: EOS % 0.1 % (1.5-5.0); GRAN # 11.37 (1.4-6.5); HEMOGLOBIN 8.6 g/dL (14.0-18.0); LYMPH # 0.4 (1.2-3.4); LYMPH % 3.5 % (22.0-35.0); MEAN CELL VOLUME 91.7 fl (80.0-105.0); MEAN CORPUSCULAR HEMOGLOBIN 28.6 pg (25.0-35.0); MEAN CORPUSCULAR HGB CONC 31.2 g/dl (31.0-37.0); MEAN PLATELET VOLUME 8.7 fl (7.0-11.0); MONO # 0.8 (0.1-0.6); MONO % 6.4 % (1.0-6.0); RBC 3.01 10^6/uL (3.5-6.1); RED CELL DISTRIBUTION WIDTH 14.1 % (11.5-14.5); WHITE BLOOD COUNT 12.6 10^3/uL (4.5-11.0)
[2018-06-28 07:38] LABS: ALB/GLOB RATIO 0.9 (1.1-1.8); ALBUMIN 3.5 g/dL (3.0-4.8); CALCIUM 9.2 mg/dL (8.4-10.5)
--- NOTE | 2018-06-28 08:18 | RAD ---
Date of service: 06/27/2018 HISTORY: S/P Thoracentesis-lt COMPARISON: Portable chest 06/23/2018. FINDINGS: LUNGS: Right chest remains clear. Left pleural effusion diminished though significant in overall size. Improved aeration mid to superior left lung. No pneumothorax bilaterally. PLEURA: As above. CARDIOVASCULAR: No aortic atherosclerotic calcification present. Normal cardiac size. No pulmonary vascular congestion. OSSEOUS STRUCTURES: No significant abnormalities. VISUALIZED UPPER ABDOMEN: Normal. OTHER FINDINGS: None. IMPRESSION: Diminished left pleural effusion with none on the right. No pneumothorax bilaterally.
[2018-06-28] MEDS: Pantoprazole 40 mg EC Tab PO SCH (09:10)
[2018-06-28] MEDS: MethylPREDNISolone 40 mg Vial IV SCH ×2 (09:11→22:00)
--- NOTE | 2018-06-28 11:49 | CP.PCM.PN ---
<[place] - Last Filed: 06/28/18 11:45> Subjective - Date & Time of Evaluation Date of Evaluation: 06/28/18 Time of Evaluation: 08:45 - Subjective Subjective: PGY6 GI Fellow Progress Note Patient seen and examined bedside this morning. The patient states that his abdominal discomfort is improved following thoracentesis. No events overnight. Tolerating diet and passing BM. 12 system ROS performed and negative except where stated. Objective - Vital Signs/Intake and Output Vital Signs (last 24 hours): Temp Pulse Resp BP Pulse Ox 98 F 83 20 151/79 H 96 06/28/18 08:53 06/28/18 08:53 06/28/18 08:53 06/28/18 09:10 06/28/18 08:53 - Medications Medications: Current Medications Acetaminophen (Tylenol 325mg Tab) 650 mg PO Q6H PRN PRN Reason: Fever >100.4 F Last Admin: 06/26/18 04:38 Dose: 650 mg Albuterol/Ipratropium (Duoneb 3 Mg/0.5 Mg (3 Ml) Ud) 3 ml IH Q2H PRN PRN Reason: Shortness of Breath Albuterol/Ipratropium (Duoneb 3 Mg/0.5 Mg (3 Ml) Ud) 3 ml IH [id number] [facility] Last Admin: 06/28/18 08:07 Dose: 3 ml Amlodipine Besylate (Norvasc) 10 mg PO DAILY [facility] Last Admin: 06/28/18 09:10 Dose: 10 mg Atorvastatin Calcium (Lipitor) 10 mg PO DAILY [facility] Last Admin: 06/28/18 09:10 Dose: 10 mg Clonidine HCl (Catapres) 0.1 mg PO Q8 PRN PRN Reason: Other Last Admin: 06/27/18 16:05 Dose: 0.1 mg Furosemide (Lasix) 40 mg IVP DAILY [facility] Last Admin: 06/26/18 09:43 Dose: 40 mg Methylprednisolone (Solu-Medrol) 30 mg IV Q12 [facility] Last Admin: 06/28/18 09:11 Dose: 30 mg Morphine Sulfate (Morphine) 2 mg IVP Q4H PRN PRN Reason: Pain, severe (8-10) Last Admin: 06/27/18 10:35 Dose: 2 mg Pantoprazole Sodium (Protonix Ec Tab) 40 mg PO ACB [facility] Last Admin: 06/28/18 09:10 Dose: 40 mg Tamsulosin HCl (Flomax) 0.4 mg PO HS [facility] Last Admin: 06/27/18 21:40 Dose: 0.4 mg - Labs Labs: 06/28/18 06:30 06/28/18 06:30 PT 16.3 SECONDS (9.4-12.5) H 06/23/18 13:20 INR 1.41 06/23/18 13:20 APTT 24.5 Seconds (25.1-36.5) L 06/23/18 13:20 - Constitutional Appears: No Acute Distress - Eye Exam Eye Exam: EOMI, PERRL - ENT Exam ENT Exam: Mucous Membranes Moist - Respiratory Exam Respiratory Exam: Decreased Breath Sounds (L>R), Rales. absent: Rhonchi, Wheezes - Cardiovascular Exam Cardiovascular Exam: RRR, +S1, +S2 - GI/Abdominal Exam GI & Abdominal Exam: Soft, Normal Bowel Sounds. absent: Distended, Firm, Guar ding, Rigid, Tenderness, Organomegaly - Extremities Exam Extremities Exam: Normal Inspection. absent: Pedal Edema - Neurological Exam Neurological Exam: Alert, Awake, Oriented x3 - Psychiatric Exam Psychiatric exam: Normal Affect, Normal Mood - Skin Skin Exam: Dry, Warm Assessment and Plan - Assessment and Plan (Free Text) Assessment: Patient is an 83yo male with PMHx significant for prostate cancer s/p brachytherapy, CKD, HTN, hyperlipidemia and osteoarthritis who presented to the ED with complaint of dizziness -Large left pleural effusion -Left sided abdominal pain 2/2 above -Dizziness -Anemia Plan: -No overt GI bleeding and HGB relatively unchanged day-to-day on CBC since admission -Suspect discomfort 2/2 large left pleural effusion, diaphragm irritation -Ongoing work up for large effusion, 2L thoracentesis performed yesterday -Miralax 17g PO QHS PRN constipation -Elective EGD/Colonoscopy as an outpatient once acute medical issues resolve -Diet as tolerated <Raiza,Kovil V - Last Filed: 06/28/18 15:59> Objective - Vital Signs/Intake and Output Vital Signs (last 24 hours): Temp Pulse Resp BP Pulse Ox 98 F 83 20 151/79 H 96 06/28/18 08:53 06/28/18 08:53 06/28/18 08:53 06/28/18 09:10 06/28/18 08:53 - Medications Medications: Current Medications Acetaminophen (Tylenol 325mg Tab) 650 mg PO Q6H PRN PRN Reason: Fever >100.4 F Last Admin: 06/26/18 04:38 Dose: 650 mg Albuterol/Ipratropium (Duoneb 3 Mg/0.5 Mg (3 Ml) Ud) 3 ml IH Q2H PRN PRN Reason: Shortness of Breath Albuterol/Ipratropium (Duoneb 3 Mg/0.5 Mg (3 Ml) Ud) 3 ml IH [id number] [facility] Last Admin: 06/28/18 13:40 Dose: 3 ml Amlodipine Besylate (Norvasc) 10 mg PO DAILY [facility] Last Admin: 06/28/18 09:10 Dose: 10 mg Atorvastatin Calcium (Lipitor) 10 mg PO DAILY [facility] Last Admin: 06/28/18 09:10 Dose: 10 mg Clonidine HCl (Catapres) 0.1 mg PO Q8 PRN PRN Reason: Other Last Admin: 06/27/18 16:05 Dose: 0.1 mg Furosemide (Lasix) 40 mg IVP DAILY [facility] Last Admin: 06/26/18 09:43 Dose: 40 mg Methylprednisolone (Solu-Medrol) 20 mg IV Q12 [facility] Morphine Sulfate (Morphine) 2 mg IVP Q4H PRN PRN Reason: Pain, severe (8-10) Last Admin: 06/27/18 10:35 Dose: 2 mg Pantoprazole Sodium (Protonix Ec Tab) 40 mg PO ACB [facility] Last Admin: 06/28/18 09:10 Dose: 40 mg Tamsulosin HCl (Flomax) 0.4 mg PO HS [facility] Last Admin: 06/27/18 21:40 Dose: 0.4 mg - Labs Labs: 06/28/18 06:30 06/28/18 06:30 PT 16.3 SECONDS (9.4-12.5) H 06/23/18 13:20 INR 1.41 06/23/18 13:20 APTT 24.5 Seconds (25.1-36.5) L 06/23/18 13:20 Attending/Attestation - Attestation I have personally seen and examined this patient.: Yes I have fully participated in the care of the patient.: Yes I have reviewed all pertinent clinical information, including history, physical exam and plan: Yes Notes (Text): This is an addendum to GI progress report dictated by the GI Fellow. The patient was seen and examined earlier. Medical records, lab studies, imagings were reviewed. Last 24 hours events reviewed. Agreed with the above treatment plan as outlined in GI Fellow 's notes with the addition of the following Feels better. Status post thoracentesis nearly 2 liters sanguineous fluid aspirated from left chest. Anemia status post transfusion of 2 units of PRBC. Continue PPI. Followup hemoglobin. Endoscopic evaluation once medically more optimized. 06/28/18 15:56
--- NOTE | 2018-06-28 14:23 | PN ---
CARDIOLOGY FOLLOWUP DATE: 06/28/2018 SUBJECTIVE: The patient is status post thoracentesis. His breathing is better. PHYSICAL EXAMINATION VITAL SIGNS: Blood pressure 151/80, heart rates in the 80's NECK: Negative JVD. LUNGS: Decreased breath sounds. HEART: S1 and S2. EXTREMITIES: Without edema. LABORATORY DATA: Hemoglobin 8.6. BUN and creatinine are 89 and 2.9. ASSESSMENT: 1. Status post thoracentesis. 2. Hypertension. 3. Renal insufficiency. 4. History of prostate cancer. PLAN: His breathing is much improved after thoracentesis. We will need to wait for analysis of the pleural fluid. Chest x-ray post thoracentesis reveals no pneumothorax. Milton Davila MD
--- NOTE | 2018-06-28 15:02 | PN ---
DATE: 06/28/2018 SUBJECTIVE: The patient is a 83-year-old, seen and examined. He is starting to feel lot better since he has fluid drained, bleeding is better. His left lower quadrant pain is improved, eating and tolerating, gets short of breath very easily. PHYSICAL EXAMINATION: VITAL SIGNS: He is afebrile, pulse 83, respirations 20, and blood pressure 115/79. LUNGS: Bilateral fair air flow, decreased at left base. HEART: S1 and S2 audible. ABDOMEN: Soft, obese, and nontender. No rebound. No guarding. NEUROLOGIC: The patient is awake, alert, oriented, communicative. Moves all extremities. LABORATORY DATA: WBC 12.6, hemoglobin 8.6, hematocrit 27.6, and platelets 412. Chemistry; sodium 136, potassium 5.3, chloride 104, CO2 of 23, BUN 89, creatinine 2.9. Blood sugar of 122. followed by thoracentesis, negative for hemothorax. CT scan of the abdomen and pelvis shows large left pleural effusion. ASSESSMENT: 1. [id number] renal failure, improving. 2. Hyperkalemia. 3. History of hypertension and currently also running hypertensive regarding patient's PMD, was on labetalol, but has been discontinuing lately. PLAN: The patient was given one blood transfusion yesterday, continue nebulizer treatment and encourage physical therapy and we will make disposition plan and the patient need to go to subacute rehab or TCU and cutdown his IV steroid also. We will follow up patient in a.m. Tejinder Razo MD
[2018-06-28] MEDS ORDERED: Sod Polystyrene Sulf 15 gm/60 ml Susp PO ONE (16:28)
[2018-06-28] MEDS: Iron Complex Polysacch 150mg Cap PO SCH (18:29)
--- NOTE | 2018-06-28 19:22 | PN ---
DATE: 06/28/2018 SUBJECTIVE: The patient is currently seen lying comfortable supine in bed. He is status post thoracentesis with removal of 2 L of fluid. He states his breathing is better. His creatinine had fallen down to 2.9, his baseline in the outpatient setting is 2.7. The patient states that he does not know why he has chronic kidney disease. He does have a history of hypertension of many years' duration. MEDICATIONS: Medication list reviewed. The patient is currently on clonidine, DuoNeb, Flomax, Lasix is on hold, Lipitor, morphine, Norvasc, Protonix, Solu-Medrol, and Tylenol p.r.n. OBJECTIVE: INTAKE AND OUTPUT. Intake is 1640 and output is 1050. VITAL SIGNS: Blood pressure is presently 151/79, temperature 98, respiratory rate 20 with a pulse of 83. HEENT: Shows him to be normocephalic and atraumatic. Conjunctivae are pale. Sclerae nonicteric. NECK: Supple. No neck vein distention. CHEST: Clear to auscultation and percussion. No rales, rhonchi or wheezing. Slight decreased breath sounds at the left base. CARDIOVASCULAR: Shows a regular rate and rhythm without audible murmurs, rubs or gallops. ABDOMEN: Soft. Bowel sounds normal. No rebound, guarding or masses. EXTREMITIES: Show no lower extremity cyanosis, clubbing or edema. LABORATORY DATA AND IMAGING STUDIES: CBC today white blood cell count 12.6, hemoglobin 8.6 with a platelet count of 412,000. The patient is status post total of 2 units of packed red blood cells. Stools are negative for blood. Chemistries; sodium 153, potassium is improved at 5.3, chloride 104 with a CO2 of 23, BUN is 89 with a creatinine of 2.9. BUN remains slightly above baseline levels secondary to steroids and diuretics. Glucose is 122. Iron saturations were 12%. Liver enzymes are normal. Albumin is 3.5. Urine showed trace protein. Pleural fluid showed a large amount of white blood cells and red blood cells. Remainder of analysis is pending. Microbiology; pleural fluid Gram-stains were negative. No growth at 24 hours. ASSESSMENT: 1. Acute renal failure superimposed on chronic kidney disease stage III. The patient has no knowledge of why he might have chronic kidney disease, perhaps secondary to underlying hypertension. The patient remained slightly prerenal. He had been receiving diuretics and steroids. 2. Status post large left pleural effusion, status post thoracentesis with removal of 2 L of fluid. Complete analysis is pending. 3. History of severe anemia. Stool guaiacs are negative. Iron saturations are low at 12%. The patient likely will require a gastrointestinal workup for stabilization. He did receive 2 units of packed red blood cells. His hemoglobin improved from 7.7 and is now 8.6 and stable. 4. Hyperkalemia perhaps secondary to blood loss. The patient's potassium level was elevated to 5.9, it is now 5. The patient should continue a low potassium diet given the fact that he is on a renal diet. 5. History of hypertension. Blood pressure control is improving. The patient remains on clonidine p.r.n., Lasix, and Norvasc. He had received labetalol in the outpatient setting. 6. History of prostate cancer, stable. 7. Normal echocardiogram with no significant valvular pathology. Ejection fraction is normal. The patient does have [id number] concentric left ventricular hypertrophy. PLAN: 1. Continue to monitor labs. 2. Await analysis of pleural fluid. 3. Start oral iron supplements. 4. Check phosphorus level given his history of chronic kidney disease. 5. Enforce a renal diet/2 g potassium diet. 6. The patient will likely follow up in the outpatient setting with a sedimentationist he had seen in [place] and continue follow up with Dr. Serna. Marty Au MD MTDD
[2018-06-29] MEDS: Albuterol-Ipratrop 3 mg / 0.5 (3 ml) UD IH SCH ×4 (03:20→19:52)
[2018-06-29] MEDS: Pantoprazole 40 mg EC Tab PO SCH ×2 (05:24→08:03)
[2018-06-29 06:56] LABS: HEMOGLOBIN 8.3 g/dL (14.0-18.0); MEAN CELL VOLUME 92.1 fl (80.0-105.0); MEAN CORPUSCULAR HEMOGLOBIN 28.6 pg (25.0-35.0); MEAN CORPUSCULAR HGB CONC 31.1 g/dl (31.0-37.0); MEAN PLATELET VOLUME 8.8 fl (7.0-11.0); RBC 2.9 10^6/uL (3.5-6.1); RED CELL DISTRIBUTION WIDTH 13.7 % (11.5-14.5); WHITE BLOOD COUNT 11.5 10^3/uL (4.5-11.0)
[2018-06-29 07:39] LABS: ALB/GLOB RATIO 0.9 (1.1-1.8)
[2018-06-29] MEDS ORDERED: Sod Polystyrene Sulf 15 gm/60 ml Susp PO ONE (08:38)
[2018-06-29] MEDS: MethylPREDNISolone 40 mg Vial IV SCH ×2 (09:31→21:41)
[2018-06-29] MEDS: Iron Complex Polysacch 150mg Cap PO SCH (09:32)
--- NOTE | 2018-06-29 11:57 | PN ---
DATE: 06/29/2018 SUBJECTIVE: The patient's breathing is much improved on physical exam. PHYSICAL EXAMINATION: VITAL SIGNS: Blood pressure is 156/76, heart rate is in the 90s. NECK: Negative JVD. LUNGS: Decreased breath sounds. HEART: Reveal S1, S2. EXTREMITIES: Without edema. LABORATORY DATA: Hemoglobin is 8.3. Chemistries, BUN and creatinine is 82 and 2.4. IMPRESSION: 1. Dyspnea much improved after thoracentesis 2. Hypertension. 3. Renal insufficiency. 4. History of prostate cancer. Given these findings, we will add clonidine to his regimen 0.1 twice daily for better blood pressure control. Milton Davila MD
--- NOTE | 2018-06-29 23:43 | PN ---
DATE: 06/29/2018 SUBJECTIVE: The patient is 83-year-old. Seen and examined. Doing lot better. Still has left lower quadrant pain. Shortness of breath is better, but gets short of breath on walking. Has generalized weakness. PHYSICAL EXAMINATION: VITAL SIGNS: He is afebrile, pulse 103, respirations 20, blood pressure 150/82. LUNGS: Bilateral fair air flow. Decreased breath sounds at the left base. HEART: S1, S2, audible. Tachycardic. ABDOMEN: Soft, obese. Nontender. No rebound. No guarding. NEUROLOGIC: He is awake, alert, oriented. Able to communicate. Moves all extremities. LABORATORY DATA: WBC 11.5, hemoglobin 8.3, hematocrit 26.7, platelet 406. Chemistries: Sodium 136, potassium 5.3, chloride 104, CO2 24, BUN 82, creatinine 4.4, blood sugar 129. ASSESSMENT: 1. Generalized weakness. Neurologic workup negative. MRI of the brain and carotid Doppler are unremarkable. 2. Left pleural effusion, status post thoracentesis, fluid drained. 3. Acute on chronic renal failure. 4. Anemia, multifactorial, status post blood transfusion. 5. Hyperkalemia. PLAN: We will give him one dose of Kayexalate. We will continue to monitor medications. His insurance does not cover his acceptance to TCU, so subacute rehab is being arranged. We will follow up with CBC and CMP in a.m. again. Encouraged ambulation. Discussed with the patient's granddaughter, who is third-year medical student, Linda, and explained to her in detail that he still need workup as outpatient including endoscopy, colonoscopy. Dedicated CT scan of the chest and stress test as outpatient. We will re-evaluate the patient in a.m. I will order for bilateral leg Doppler. Rule out DVT, in fact the patient is not very ambulatory. Tejinder Razo MD
--- NOTE | 2018-06-29 23:51 | PN ---
DATE: 06/29/2018 SUBJECTIVE: The patient is seen sitting in bed. He is awake. He is alert. He is comfortable. He complains of cough. He complains of some left lower quadrant abdominal pain. PHYSICAL EXAMINATION: GENERAL: Elderly male sitting in bed. VITAL SIGNS: Blood pressure 162/82, heart rate 103, respiratory rate 20, and temperature 98.2. HEENT: Normocephalic, atraumatic, positive pallor. NECK: Supple, no JVD. LUNGS: Bilateral equal air entry, decreased breath sounds at left side. Right clear to auscultation. CARDIAC: S1 and S2, regular rate and rhythm, no murmur, no rub. ABDOMEN: Obese, distended, soft, and tenderness in the left lower quadrant. INTAKE AND OUTPUT: Not charted. LABORATORY DATA: WBC 11.5, hemoglobin 8.3, hematocrit 26, and platelets 406. Sodium 136, potassium 5.3, chloride 104, CO2 of 24, BUN 82, creatinine 2.4, glucose 129, calcium 9, phosphorus 5, magnesium 2.2, and albumin 3. Fluid pathology negative for malignant cells. CURRENT MEDICATIONS: Clonidine 0.1. p.o. t.i.d., DuoNeb, Flomax, Lasix 40 IV daily on hold, Lipitor, morphine, amlodipine 10, Protonix 40, Solu-Medrol, Tylenol, and Kayexalate 15 g ordered by PMD. ASSESSMENT: 1. Resolved acute kidney injury. 2. Mild hyperkalemia, no intervention needed. 3. Large left pleural effusion, status post thoracentesis, 2 L of fluid drained. 4. History of prostate cancer. 5. Uncontrolled hypertension. 6. Severe anemia likely secondary to bloody pleural effusion. PLAN: 1. Agree with clonidine. 2. Continue amlodipine. 3. No treatment needed for mild hyperkalemia, avoid Kayexalate. 4. Discharge planning. Jackelin Spivey MD
[2018-06-30] MEDS: Albuterol-Ipratrop 3 mg / 0.5 (3 ml) UD IH SCH ×3 (01:05→13:51)
[2018-06-30 06:11] VITALS: RESP 20; O2SAT 94
[2018-06-30 06:48] LABS: HEMOGLOBIN 8.7 g/dL (14.0-18.0); MEAN CELL VOLUME 92.7 fl (80.0-105.0); MEAN CORPUSCULAR HEMOGLOBIN 28.9 pg (25.0-35.0); MEAN CORPUSCULAR HGB CONC 31.2 g/dl (31.0-37.0); MEAN PLATELET VOLUME 8.6 fl (7.0-11.0); RBC 3.01 10^6/uL (3.5-6.1); RED CELL DISTRIBUTION WIDTH 13.7 % (11.5-14.5); WHITE BLOOD COUNT 11.9 10^3/uL (4.5-11.0)
[2018-06-30 07:48] LABS: ALB/GLOB RATIO 0.9 (1.1-1.8); ALBUMIN 3.3 g/dL (3.0-4.8); CALCIUM 9.2 mg/dL (8.4-10.5)
[2018-06-30] MEDS: Pantoprazole 40 mg EC Tab PO SCH (08:41)
--- NOTE | 2018-06-30 09:41 | US ---
HISTORY: Leg pain and swelling. Evaluate for DVT PHYSICIAN(S): Milton Roca MD. TECHNIQUE: Duplex sonography and color-flow Doppler with graded compression were used to evaluate the deep venous systems of both lower extremities. FINDINGS: The visualized deep venous systems of both lower extremities are sonographically normal and compressible. Normal wave forms and augmentation are seen. There is no sonographic evidence for deep venous thrombosis in the visualized segments of both lower extremities. IMPRESSION: No sonographic evidence for deep venous thrombosis in the visualized segments of both lower extremities.
[2018-06-30] MEDS: Iron Complex Polysacch 150mg Cap PO SCH (10:00)
[2018-06-30] MEDS: MethylPREDNISolone 40 mg Vial IV SCH (10:01)
[2018-06-30 14:38] VITALS: BP 150/78; PULSE 80; TEMP 98
--- NOTE | 2018-06-30 15:44 | PN ---
DATE: 06/30/2018 SUBJECTIVE: The patient is without shortness of breath at rest. PHYSICAL EXAMINATION: VITAL SIGNS: Blood pressure 142/70, heart rate in the 80s. NECK: Negative JVD. LUNGS: Decreased breath sounds. HEART: Regular S1, S2. EXTREMITIES: Without edema. LABORATORY DATA: Hemoglobin is 8.7. Chemistries, BUN and creatinine 72 and 2.2. IMPRESSION: 1. Status post thoracentesis for large pericardial effusion. 2. Hypertension. 3. Renal insufficiency. 4. History of prostate cancer. 5. Weakness. Given these findings, the patient's pleural effusion cannot be explained by his left ventricular dysfunction is a his left ventricle is within normal limits and he has no pulmonary hypertension. We will need some will need to wait for results of the pleural fluid analysis. Milton Davila MD
--- NOTE | 2018-07-01 08:23 | PN ---
DATE: 06/30/2018 SUBJECTIVE: The patient is seen sitting in bed. He is awake. He is alert. He is comfortable. He complains of some cough. He complains of some left-sided abdominal pain. PHYSICAL EXAMINATION: GENERAL: Elderly male sitting in bed. VITAL SIGNS: Blood pressure 150/78, heart rate 80, respiratory rate 18, temperature 98. HEENT: Normocephalic, atraumatic, positive pallor. NECK: Supple. No JVD. CARDIOPULMONARY: S1 and S2. Regular rate and rhythm. No murmur. No rub. LUNGS: Bilateral equal entry, decubitus on the left side. ABDOMEN: Obese, distended, soft, mild tenderness in the left side. Bowel sounds present. EXTREMITIES: Trace lower extremity edema. INTAKE AND OUTPUT: 600/1000. LABORATORY DATA: WBC 11.9, hemoglobin 8.7, hematocrit 28, platelets 379. Sodium 138, potassium 4.7, chloride 105, CO2 25, BUN 71, creatinine 2.2, glucose 124, calcium 9.2, albumin 3.3. Pleural fluid culture, no growth. Lower extremity ultrasound, no DVT. CURRENT MEDICATIONS: Catapres, 0.1 b.i.d., DuoNeb, Ferrex, Flomax, Lasix 40 IV daily on hold, Lipitor 10, morphine, amlodipine 10, prednisone 20, Protonix 40, Solu-Medrol, Tylenol. ASSESSMENT: 1. Acute kidney injury superimposed on chronic kidney disease stage III/IV, resolved acute kidney injury. 2. Hyperkalemia, resolved. 3. Anemia severe, acute on chronic, partly secondary to the hemothorax ?. 4. History of prostate cancer. 5. Hypertension. 6. Hyperphosphatemia. PLAN: 1. Currently renal parameters are back to baseline. 2. Hyperkalemia has resolved. 3. No objection to discharge, the patient needs outpatient followup with renal. Jackelin Spivey MD
--- NOTE | 2018-07-01 08:27 | DS ---
HISTORY OF PRESENT ILLNESS: The patient is an 83-year-old, seen and examined, doing a lot better. Shortness of breath is much better. Weakness is better. Getting ready to be discharged to [place] today. The patient was initially admitted with dizziness. He was found to have large pleural effusion. He was also found to be anemic; he received 2 blood transfusions. He had left chest pleural effusion tapped and 2 L of fluid was drained. The patient was also evaluated by music writer, had MUGA scan done, ejection fraction of 51%. The patient also was found to have [id number] renal failure; Nephrology has been following the case also. PHYSICAL EXAMINATION: GENERAL: Today, he is awake, alert, oriented, communicative. VITAL SIGNS: He is afebrile, pulse 57, respirations 20, blood pressure 142/70. LUNGS: Bilateral fair airflow decreased at left base. HEART: S1 and S2 audible. ABDOMEN: Soft, obese, nontender. No rebound. No guarding. NEUROLOGIC: The patient is awake, alert, oriented, communicative. LABORATORY DATA: WBC is 11.9, hemoglobin 8.7, hematocrit 27.9, platelet 379. Chemistry; sodium 138, potassium 4.7, chloride 105, CO2 of 25, BUN 71, creatinine 2.2, blood sugar of 124. ASSESSMENT: 1. Dizziness probably secondary to chronic hypoxia. 2. Left pleural effusion status post thoracentesis, 2 L fluid removed. 3. [id number] renal failure. 4. Chronic anemia. 5. History of hypertension. PLAN: We will continue the patient on nebulizer treatment. He is on iron supplementation. We will continue Flomax. He is on Lasix; it was held because of his worsening renal failure. He is on Lipitor, amlodipine. We will continue prednisone for 5 more days. Continue on Protonix. The patient will be discharged today to subacute rehab and after that he will follow up with Dr. Serna. I spoke to the patient's granddaughter, Linda, at great length who is a third year medical student. Again this time, need workup as outpatient including endoscopy, colonoscopy, and stress test, and good close followup with local company flatbed truck driver. Tejinder Razo MD [facility] # [id number]
== END 2018-06-30 15:44 | DRG 683 ==
LOC: ED 12:01 → ERH 14:32 → 3RSO 18:05
PROVIDERS: ADMIT Internal Medicine; ATTEND Internal Medicine
PROC: 30233N1 Transfusion of Nonautologous Red Blood Cells into Peripheral Vein, Percutaneous Approach (ICD-10-PCS; 2018-06-25)
PROC: 0W9B3ZX Drainage of Left Pleural Cavity, Percutaneous Approach, Diagnostic (ICD-10-PCS; principal; 2018-06-27)
DX: N17.9 Acute kidney failure, unspecified (principal); J90 Pleural effusion, not elsewhere classified; I13.2 Hypertensive heart and chronic kidney disease with heart failure and with stage 5 chronic kidney disease, or end stage renal disease; I50.9 Heart failure, unspecified; N18.4 Chronic kidney disease, stage 4 (severe); E87.5 Hyperkalemia; I65.23 Occlusion and stenosis of bilateral carotid arteries; D64.9 Anemia, unspecified; R09.02 Hypoxemia; R42 Dizziness and giddiness; E78.00 Pure hypercholesterolemia, unspecified; E78.5 Hyperlipidemia, unspecified; J44.9 Chronic obstructive pulmonary disease, unspecified; M19.90 Unspecified osteoarthritis, unspecified site; E83.39 Other disorders of phosphorus metabolism; Z85.46 Personal history of malignant neoplasm of prostate; Z87.891 Personal history of nicotine dependence; Z79.899 Other long term (current) drug therapy; Z87.11 Personal history of peptic ulcer disease

== ENCOUNTER 2018-07-12 00:51 | Inpatient (IN) | payer MEDICARE ==
[2018-07-12 00:51] VITALS: BMI 32.5
--- NOTE | 2018-07-12 01:15 | ED PDOC ---
Arrival/HPI - General Chief Complaint: Abnormal Labs Time Seen by Provider: 07/12/18 00:57 Historian: Patient - History of Present Illness Narrative History of Present Illness (Text): 07/12/18 01:07 83 year old male, whose past medical history includes hypertension, hx prostate CA, Chronic Kidney Disease, Peptic ulcer disease, Renal Disease, Anemia, and history of left pleural effusion s/p thoracentesis, [facility] emergency department from [facility] for abnormal labs and left-sided abdominal discomfort,and some increased shortness of breath at times.Patient denies any fever, chills, chest pain, nausea, vomiting, diarrhea, urinary symptoms, back pain, neck pain, headache, dizziness, or any other complaints. Symptom Onset: Gradual Symptom Course: Unchanged Activities at Onset: Light Context: Home ([facility]) Past Medical History - Provider Review Nursing Documentation Reviewed: Yes - Infectious Disease Hx of Infectious Diseases: None - Cardiac Hx Cardiac Disorders: Yes (CAD) Hx Hypertension: Yes - Pulmonary Hx Respiratory Disorders: No - Neurological Hx Neurological Disorder: No - HEENT Hx HEENT Disorder: No - Renal Hx Renal Disorder: No - Endocrine/Metabolic Hx Endocrine Disorders: No - Hematological/Oncological Hx Blood Disorders: No - Integumentary Hx Dermatological Disorder: No - Musculoskeletal/Rheumatological Hx Musculoskeletal Disorders: Yes Hx Arthritis: Yes - Gastrointestinal Hx Gastrointestinal Disorders: No - Genitourinary/Gynecological Hx Genitourinary Disorders: No - Psychiatric Hx Psychophysiologic Disorder: No Hx Substance Use: No - Surgical History Hx Orthopedic Surgery: Yes (L knee, R, knee, L shoulder, R shoulder) Family/Social History - Physician Review Nursing Documentation Reviewed: Yes Family/Social History: No Known Family HX Smoking Status: Never Smoked Hx Alcohol Use: No Hx Substance Use: No Allergies/Home Meds Allergies/Adverse Reactions: Allergies No Known Allergies Allergy (Verified 06/23/18 18:54) Home Medications: Home Meds Medication Instructions Recorded Confirmed Tamsulosin [Flomax] 0.4 mg PO DAILY 06/23/18 06/23/18 Tramadol HCl [Ultram] 50 mg PO Q12 PRN 06/23/18 06/23/18 Review of Systems - Physician Review All systems were reviewed & negative as marked: Yes - Review of Systems Constitutional: absent: Fevers, Other (Chills) Respiratory: absent: SOB Cardiovascular: absent: Chest Pain Gastrointestinal: Abdominal Pain. absent: Diarrhea, Nausea, Vomiting Genitourinary Male: absent: Dysuria, Frequency, Hematuria Musculoskeletal: absent: Back Pain, Neck Pain Neurological: absent: Headache, Dizziness Physical Exam Vital Signs Reviewed: Yes Vital Signs Pulse Resp BP Pulse Ox 07/12/18 01:00 109 H 18 117/73 97 Blood Pressure: Normal Pulse: Tachycardic Respiratory Rate: Normal Appearance: Positive for: Well-Appearing, Non-Toxic, Comfortable Pain Distress: None Mental Status: Positive for: Alert and Oriented X 3 - Systems Exam Head: Present: Atraumatic, Normocephalic Pupils: Present: PERRL Extroacular Muscles: Present: EOMI Conjunctiva: Present: Normal Mouth: Present: Moist Mucous Membranes Neck: Present: Normal Range of Motion Respiratory/Chest: Present: Decreased Breath Sounds (decrease breath sounds in the left lung field). No: Respiratory Distress, Accessory Muscle Use Cardiovascular: Present: Regular Rate and Rhythm, Normal S1, S2. No: Murmurs Abdomen: Present: Tenderness (palpable tenderness to the left abdomen). No: Distention, Peritoneal Signs Back: Present: Normal Inspection Upper Extremity: Present: Normal Inspection. No: Cyanosis, Edema Lower Extremity: Present: Normal Inspection. No: Edema Neurological: Present: GCS=15, CN II-XII Intact, Speech Normal Skin: Present: Warm, Dry, Normal Color. No: Rashes Psychiatric: Present: Alert, Oriented x 3, Normal Insight, Normal Concentration Medical Decision Making ED Course and Treatment: 07/12/18 01:07 Impression: 83 year old male presents for evaluation of abnormal labs and abdominal discomfort. PE shows palpable tenderness to left abdomen and decrease breath sounds to the left lung field. Plan: -- Labs -- EKG -- Chest X-ray -- Lasix, IV Fluids -- CT Chest, Abdomen and Pelvis w/o Contrast -- Reassess and disposition Prior Visits: Notes and results from previous visits were reviewed. Progress Notes: 07/12/18 02:01 EKG shows sinus tachycardic at 106 BPM with 1st depress AV block. Non-specific ST/T changes. Interpreted by me. 07/12/18 03:03 CXR Impression: As read by me, left-sided pleural effusion. EXAM: CT of the chest, abdomen and pelvis without contrast Electronically signed on Jul 12, 2018 3:55:05 AM EST by: Guanako Echevarria M.D. Impression: 1. Stable large left-sided pleural effusion. Infiltrate/atelectasis of the left lung is noted. Underlying pneumonia cannot be excluded 2. Moderate bilateral emphysema. 3. Cholelithiasis without evidence of acute cholecystitis. 4. Low attenuation lesions within the liver and left kidney is stable, likely representing simple cysts. 5. No obstructive or inflammatory bowel changes. Sigmoid diverticulosis without evidence of diverticulitis. 6. Moderate spondylosis of the spine as described. 07/12/18 04:[address] Yeung covering Dr. Razo who is aware and agrees with the plan. Accepts patient into Dr. Razo's service. Case had been discussed earlier with who recommended transfusion of 1 unit PRBC given patients Hg level. - Lab Interpretations I have reviewed the lab results: Yes - RAD Interpretation Automotive Refinisher: ED Physician - EKG Interpretation Interpreted by ED Physician: Yes Type: 12 lead EKG - Scribe Statement The provider has reviewed the documentation as recorded by the Monicaibremigio Jean Provider Scribe Attestation: All medical record entries made by the Scribe were at my direction and personally dictated by me. I have reviewed the chart and agree that the record accurately reflects my personal performance of the history, physical exam, medical decision making, and the department course for this patient. I have also personally directed, reviewed, and agree with the discharge instructions and disposition. Disposition/Present on Arrival - Present on Arrival Any Indicators Present on Arrival: No History of DVT/PE: No History of Uncontrolled Diabetes: No Urinary Catheter: No History of Decub. Ulcer: No History Surgical Site Infection Following: None - Disposition Have Diagnosis and Disposition been Completed?: Yes Diagnosis: Pleural effusion, Anemia, Renal insufficiency, Abdominal pain Disposition: HOSPITALIZED Disposition Time: 04:33 Patient Plan: Admission Patient Problems: Current Active Problems Problem Status Onset Anemia Acute Pleural effusion Acute Condition: STABLE Referrals: Tayo Serna MD [Primary Care Provider] - Follow up with primary Forms: [employer] (Kyrgyz)
[2018-07-12] MEDS ORDERED: Sodium Chloride 0.9% 1,000 ML IV SCH (01:30)
[2018-07-12 01:44] LABS: HEMOGLOBIN 7.9 g/dL (14.0-18.0); MEAN CELL VOLUME 93.5 fl (80.0-105.0); MEAN CORPUSCULAR HEMOGLOBIN 28.6 pg (25.0-35.0); MEAN CORPUSCULAR HGB CONC 30.6 g/dl (31.0-37.0); MEAN PLATELET VOLUME 8.3 fl (7.0-11.0); RBC 2.76 10^6/uL (3.5-6.1); RED CELL DISTRIBUTION WIDTH 14.2 % (11.5-14.5); WHITE BLOOD COUNT 9.6 10^3/uL (4.5-11.0)
[2018-07-12 01:51] LABS: INR 1.28; PARTIAL THROMBOPLASTIN TIME 27.3 Seconds (25.1-36.5); PROTHROMBIN TIME 14.7 SECONDS (9.4-12.5)
[2018-07-12 02:02] LABS: ALB/GLOB RATIO 0.9 (1.1-1.8); ALBUMIN 3.3 g/dL (3.0-4.8); CALCIUM 8.9 mg/dL (8.4-10.5)
[2018-07-12 09:42] LABS: HEMOGLOBIN 8.8 g/dL (14.0-18.0); MEAN CELL VOLUME 91.3 fl (80.0-105.0); MEAN CORPUSCULAR HEMOGLOBIN 28.4 pg (25.0-35.0); MEAN CORPUSCULAR HGB CONC 31.1 g/dl (31.0-37.0); MEAN PLATELET VOLUME 8.4 fl (7.0-11.0); RBC 3.1 10^6/uL (3.5-6.1); RED CELL DISTRIBUTION WIDTH 14.6 % (11.5-14.5); WHITE BLOOD COUNT 8.9 10^3/uL (4.5-11.0)
[2018-07-12 09:50] LABS: ALBUMIN 3.4 g/dL (3.0-4.8); CALCIUM 8.8 mg/dL (8.4-10.5)
[2018-07-12] MEDS: Iron Complex Polysacch 150mg Cap PO SCH (10:01)
--- NOTE | 2018-07-12 10:19 | RAD ---
Date of service: 07/12/2018 HISTORY: abdominal pain COMPARISON: Chest radiograph dated 06/27/2018. FINDINGS: LUNGS: Left lung atelectasis and/or consolidation PLEURA: Increased size of now large left pleural effusion. No appreciable pneumothorax. CARDIOVASCULAR: Aortic atherosclerotic calcifications. Cardiomediastinal silhouette stably enlarged OSSEOUS STRUCTURES: Unchanged. VISUALIZED UPPER ABDOMEN: Normal. OTHER FINDINGS: None. IMPRESSION: Increased size of now large left pleural effusion.
--- NOTE | 2018-07-12 10:35 | CARD ---
APPROVED REPORT Date of service: 07/12/2018 EKG Measurement Heart [id number] VA 250P [id number] <Conclusion> Sinus tachycardia with 1st degree AV block T wave abnormality, consider lateral ischemia Abnormal ECG
--- NOTE | 2018-07-12 10:48 | CT ---
Date of service: 07/12/2018 PROCEDURE: CT Chest, Abdomen and Pelvis without intravenous contrast HISTORY: sob/abdominal pain COMPARISON: CT chest dated 06/25/2018; CT scan of the abdomen and pelvis dated 06/26/2018 TECHNIQUE: Radiation dose: Total exam DLP = 1363.0 mGy-cm. This CT exam was performed using one or more of the following dose reduction techniques: Automated exposure control, adjustment of the mA and/or kV according to patient size, and/or use of iterative reconstruction technique. FINDINGS: CT CHEST WITHOUT CONTRAST: LUNGS: Partial left upper and complete left lower lobe atelectasis. Low density within the medial portion of the collapsed left lower lobe which may be related to necrosis. No nodule, mass or consolidation. MEDIASTINUM: Shift to the right due to volume of left pleural effusion. Normal caliber aorta and pulmonary arterial trunk. Normal size heart. LYMPH NODES: Unremarkable. PLEURA: Large left pleural effusion. Similar appearance of probable blood products posteriorly and inferiorly BONES: Unremarkable. OTHER FINDINGS: None. CT ABDOMEN AND PELVIS: LIVER: Stable left hepatic lobe cyst. No gross lesion or ductal dilatation. GALLBLADDER AND BILE DUCTS: Cholelithiasis without gallbladder wall thickening or pericholecystic fluid. PANCREAS: Unremarkable. No gross lesion or ductal dilatation. SPLEEN: Unremarkable. ADRENALS: Unremarkable. No mass. KIDNEYS AND URETERS: Stable left midpole renal cyst. No hydronephrosis. No solid mass. VASCULATURE: No aortic atherosclerotic calcification or mural plaque present. Unremarkable. No aortic aneurysm. BOWEL: Colonic diverticulosis. No obstruction. No gross mural thickening. APPENDIX: Normal appendix. PERITONEUM: Unremarkable. No free fluid. No free air. LYMPH NODES: Unremarkable. No enlarged lymph nodes. BLADDER: Unremarkable. REPRODUCTIVE: Radiation seeds within the prostate.. BONES: Degenerative changes. No acute fracture. OTHER FINDINGS: None. IMPRESSION: Large left pleural effusion causing mild mediastinal shift to the right. Small areas of high density within the posterior inferior aspect of the pleural effusions may be related to blood products. Complete left lower lobe and partial left upper lobe atelectasis. Small area of low density within the medial portion of the collapsed left lower lobe which may be related to necrosis. Additional stable findings as above.
[2018-07-12] MEDS: Pantoprazole 40 mg EC Tab PO SCH (12:42)
[2018-07-12 14:20] LABS: IRON 21 ug/dL (45-180)
[2018-07-12 14:30] LABS: % IRON SATURATION 9 % (20-55); TOTAL IRON BINDING CAPACITY 227 ug/dL (261-462)
--- NOTE | 2018-07-12 15:42 | HP ---
DATE OF EXAM: 07/12/2018 CHIEF COMPLAINT AND HISTORY OF PRESENT ILLNESS: This is an 83-year-old male, who is coming into the hospital sent in from [facility]. The patient had abnormal labs and was sent in for further evaluation. The patient says that he has been having worsening shortness of breath. He does have a history of left-sided pleural effusion that was tapped a few weeks ago when he was in the hospital by Dr. Milton Roca. He also has a history of prostate cancer, hypertension, CKD. The patient says that he feels that his abdomen is bloated. He has no nausea, no vomiting, no fevers or chills. No headaches. The patient has the weakness in the arms and legs. He says he has been eating okay. He does not feel he is doing well with physical therapy because he sometimes is not able to participate. He says he has not seen a lung doctor for his effusions. The patient had been at in the past as well for some of his symptoms. REVIEW OF SYSTEMS: All review of symptoms are within normal limits except as mentioned. ALLERGIES: NO KNOW DRUG ALLERGIES. PAST MEDICAL HISTORY: 1. Prostate cancer status post brachytherapy. 2. CKD. 3. Osteoarthritis. 4. Dyslipidemia. PAST SURGICAL HISTORY: Prostate . HOME MEDICATIONS: Nebulizer treatments with DuoNebs, tamsulosin, Lasix, prednisone, Tylenol, iron, atorvastatin, amlodipine and tramadol. PRIMARY DOCTOR: Dr. Serna. PHYSICAL EXAMINATION: VITAL SIGNS: Temperature is 98.3, pulse of 100, blood pressure is 144/84, respirations 20. Height is 6 feet, weight is 225 pounds, BMI is 30.5. GENERAL: The patient is lying in bed, comfortable, and in no acute distress. HEENT: Atraumatic and normocephalic. Anicteric sclerae. Moist mucosa. [place] conjunctivae. No oral lesions. NECK: No JVD, anterior and posterior adenopathy, thyromegaly, or bruits. CARDIOVASCULAR: S1 and S2 regular. No murmurs, rubs or gallops. LUNGS: Left-sided decreased air entry. Right-sided good air entry; no wheezing, rales or rhonchi. Lungs are clear. ABDOMEN: Bowel sounds are positive. Soft, nontender and mild distention. No hepatosplenomegaly. No rebound and no guarding. EXTREMITIES: No cyanosis, clubbing, or edema. NEUROLOGIC: No facial asymmetry. Tongue is midline. No uvula deviation. Power is 5/5 upper extremities and lower extremities. Sensation intact in upper extremities and lower extremities. PSYCHIATRIC: She is awake, alert and oriented x3. No anxiety or depression. She has normal affect. GENITOURINARY: No CVA tenderness. VASCULAR: 2+ pulses in the carotid pulses and pedal pulses. SKIN: No erythema or nodules SPINE: Shows normal curvature. LABORATORY DATA: Sodium is 135, potassium is 5.3, creatinine is 2.4, alkaline phosphatase is 68. White count of 9.6, hemoglobin 7.9, platelet count is 221. INR is 1.28. CT of the chest shows a large left-sided pleural effusion. Bilateral emphysema with cholelithiasis. There is a lesion in the liver and left kidney representing simple cyst with moderate spondylosis of the spine. EKG: Shows sinus tachycardia at 106. There are no ST changes. QTC is 462. ASSESSMENT: 1. Acute anemia. Unknown etiology, possibly from chronic kidney disease. 2. Chronic kidney disease stage III. 3. Left-sided pleural effusion. 4. Hypertension. 5. Prostate cancer. 6. Benign prostatic hyperplasia. 7. Dyslipidemia. PLAN: The patient is going to be admitted to the hospital. The patient had acute anemia possibly from underlying prostate cancer plus or minus CKD. The patient was given 1 unit of transfusion. Chest x-ray that was done that I reviewed also showed a large left-sided pleural effusion. The patient had about 2 liters of fluid removed about 2 weeks ago. The patient was sent to [facility] for subacute rehab. The patient is going to need further evaluation for the pleural effusion that is recurrent. I will get Pulmonary to evaluate the patient. The patient will most likely need Dr. Milton Roca to do another tap. The patient is on Flomax for his BPH, this will be continued. I will continue the patient on iron. The patient was given IV fluids. I will discontinue the patient's IV fluids at this point. The patient is on tramadol for pain. The patient is on a heart-healthy diet. He will need repeat blood work tomorrow. I will continue his blood pressure medication with Norvasc. The patient is going to need physical therapy. He was placed on telemetry. I will discontinue telemetry. Christopher Yeung MD [facility] # [id number]
[2018-07-13] MEDS: Pantoprazole 40 mg EC Tab PO SCH (05:58)
[2018-07-13 07:11] LABS: HEMOGLOBIN 8.6 g/dL (14.0-18.0); MEAN CELL VOLUME 92.1 fl (80.0-105.0); MEAN CORPUSCULAR HEMOGLOBIN 28.5 pg (25.0-35.0); MEAN CORPUSCULAR HGB CONC 30.9 g/dl (31.0-37.0); MEAN PLATELET VOLUME 8.6 fl (7.0-11.0); RBC 3.02 10^6/uL (3.5-6.1); RED CELL DISTRIBUTION WIDTH 14.8 % (11.5-14.5); WHITE BLOOD COUNT 10.1 10^3/uL (4.5-11.0)
[2018-07-13 07:23] LABS: ALB/GLOB RATIO 0.9 (1.1-1.8); ALBUMIN 3.3 g/dL (3.0-4.8); CALCIUM 8.8 mg/dL (8.4-10.5)
[2018-07-13] MEDS: Iron Complex Polysacch 150mg Cap PO SCH (09:08)
--- NOTE | 2018-07-13 14:04 | CP.PCM.CON ---
<Ignacio Mendoza - Last Filed: 07/13/18 18:27> History of Present Illness - History of Present Illness History of Present Illness: Ignacio Mendoza DO, PGY1. GI consult note for Dr Eastman 83 y/o male with PMH of prostate cancer s/p brachytherapy, CKD, HTN, HLD, GERD and osteoarthritis admitted to [facility] for left chest/abdominal pain. Patient states that abdominal pain started few weeks ago on left side in LUQ and LLQ areas, 8/10 at worst, intermittent, pinching in quality, not related to food ingestion, with no alleviating or exacerbation factors. Patient was admitted to [facility] with the same symptoms and was found to have pleural effusion, s/p thoracocentesis 2L of fluid that was negative for infection. Patient was also transfused 2 units of PRBC. Patient was discharge to [facility] but soon he started to feel same symptoms again with SOB, LANGE and abdominal pain that's getting worse. He admits to recent 20 pound weight loss in the past few weeks, muscles weakness, fatigue but no fever or other constitutional symptoms. He reported vomiting x1 yesterday that was bloody, nausea. He denied changes of bowel movement, blood per rectum, chest pain, leg swelling. patient denied liver disease, heart disease, h/o TB, recent travel or sick contacts. ROS reviewed with pertinent positives as above PMH: as above PSH: b/l knee surgery, b/l shoulder surgery Meds: as per EMR All: NKDA SH: former smoker, used to smoke 1ppd x20 years, quit 25 years ago. denied alcohol or drug use. 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 FH: non contributory Endo: had EGD/CSPY >10 years ago with normal results Past Patient History - Infectious Disease Hx of Infectious Diseases: None - Past Social History Smoking Status: Never Smoked - CARDIAC Hx Cardiac Disorders: Yes Hx Angina: No Hx Cardia Arrhythmia: No Hx Circulatory Problems: No Hx Congestive Heart Failure: No Hx Heart Murmur: No Hx Heart Transplant: No Hx Hypercholesterolemia: Yes Hx Hypertension: Yes Hx Internal Defibrillator: No Hx Mitral Valve Prolapse: No Hx Pacemaker: No Hx Peripheral Edema: No Hx Peripheral Vascular Disease: No - PULMONARY Hx Respiratory Disorders: Yes (pleural effusion) Hx Asthma: No Hx Bronchitis: No Hx Chronic Obstructive Pulmonary Disease (COPD): No Hx Emphysema: No Hx Pneumonia: No Hx Respiratory Aspiration: No Hx Respiratory Tract Infection: No Hx Sleep Apnea: No Hx Tuberculosis: No - NEUROLOGICAL Hx Neurological Disorder: Yes Hx Alzheimer's Disease: No HX Cerebrovascular Accident: No Hx Dementia: No Hx Dizziness: Yes Hx Meningitis: No Hx Migraine: No Hx Parkinson's Disease: No Hx Seizures: No Hx Transient Ischemic Attacks (TIA): No - HEENT Hx HEENT Problems: Yes Hx Blind: No Hx Cataracts: Yes Hx Deafness: No Hx Difficulty Chewing: No Hx Epistaxis: No Hx Glaucoma: No Hx Macular Degeneration: No - RENAL Hx Chronic Kidney Disease: No - ENDOCRINE/METABOLIC Hx Endocrine Disorders: No Hx Adrenal Cancer: No Hx Diabetes Insipidus: No Hx Diabetes Mellitus Type 1: No Hx Diabetes Mellitus Type 2: No Hx Hyperthyroidism: No Hx Hypothyroidism: No Hx Systemic Lupus Erythematosus: No - HEMATOLOGICAL/ONCOLOGICAL Hx Blood Disorders: Yes Hx AIDS: No Hx Anemia: Yes Hx Cancer: Yes (prostate) Hx Chemotherapy: No Hx Cirrhosis: No Hx Hemophilia: No Hx Hepatitis A: No Hx Hepatitis B: No Hx Hepatitis C: No Hx Human Immunodeficiency Virus (HIV): No Hx Metastesis: No Hx Shingles: No Hx Sickle Cell Disease: No Hx Unexplained Bleeding: No - INTEGUMENTARY Hx Dermatological Problems: No Hx Basil Cell: No Hx Eczema: No Hx Melanoma: No Hx Psoriasis: No Hx Squamous Cell: No - MUSCULOSKELETAL/RHEUMATOLOGICAL Hx Musculoskeletal Disorders: Yes Hx Arthritis: Yes Hx Back Pain: No Hx Degenerative Joint Disease: No Hx Falls: Yes Hx Fractures: No Hx Gout: No Hx Herniated Disk: No Hx Myasthenia Gravis: No Hx Osteoarthritis: No Hx Osteomyelitis: No Hx Osteoporosis: No Hx Rhabdomyolysis: No Hx Spinal Stenosis: No Hx Unsteady Gait: Yes - GASTROINTESTINAL Hx Gastrointestinal Disorders: Yes Hx Colostomy: No Hx Crohn's Disease: No Hx Diverticulitis: No Hx Gall Bladder Disease: No Hx Gastroesophageal Reflux: Yes Hx Ileostomy: No Hx Liver Failure: No Hx Pancreatitis: No HX Swallowing Problems: No Hx Ulcer: No - GENITOURINARY/GYNECOLOGICAL Hx Genitourinary Disorders: No Hx Hematuria: No Hx Incontinence: No Hx Prostate Problems: No Hx Sexually Transmitted Disorders: No Hx Urinary Tract Infection: No - PSYCHIATRIC Hx Psychophysiologic Disorder: No Hx Anxiety: No Hx Bipolar Disorder: No Hx Depression: No Hx Emotional Abuse: No Hx Hallucinations: No Hx Panic Symptoms: No Hx Paranoia: No Hx Post Traumatic Stress Disorder: No Hx Psychosis: No Hx Physical Abuse: No Hx Schizophrenia: No Hx Sexual Abuse: No Hx Substance Use: No - SURGICAL HISTORY Hx Surgeries: Yes Hx Amputation: No Hx Appendectomy: No Hx Cardiac Catheterization: No Hx Cholecystectomy: No Hx Coronary Stent: No Hx Gastric Bypass Surgery: No Hx Hysterectomy: No Hx Joint Replacement: No Hx Kidney Transplant: No Hx Liver Transplant: No Hx Mastectomy: No Hx Musculoskeletal Surgery: No Hx Open Heart Surgery: No Hx Orthopedic Surgery: Yes (b/ shoulder, b/l knee) Hx Splenectomy: No Hx Valve Replacement: No Meds Allergies/Adverse Reactions: Allergies Allergy/AdvReac Type Severity Reaction Status Date / Time No Known Allergies Allergy Verified 06/23/18 18:54 - Medications Medications: Current Medications Amlodipine Besylate (Norvasc) 10 mg PO DAILY [facility] Last Admin: 07/13/18 09:09 Dose: 10 mg Atorvastatin Calcium (Lipitor) 10 mg PO DIN [facility] Last Admin: 07/12/18 17:26 Dose: 10 mg Ondansetron HCl (Zofran Inj) 4 mg IVP Q4H PRN PRN Reason: Nausea/Vomiting Last Admin: 07/13/18 06:01 Dose: 4 mg Pantoprazole Sodium (Protonix Ec Tab) 40 mg PO 0600 [facility] Last Admin: 07/13/18 05:58 Dose: 40 mg Polysaccharide Iron Complex (Ferrex-150) 150 mg PO DAILY [facility] Last Admin: 07/13/18 09:08 Dose: 150 mg Tamsulosin HCl (Flomax) 0.4 mg PO DAILY [facility] Last Admin: 07/13/18 09:08 Dose: 0.4 mg Tramadol HCl (Ultram) 50 mg PO Q6 PRN PRN Reason: Pain, moderate (4-7) Last Admin: 07/12/18 17:26 Dose: 50 mg Physical Exam - Constitutional Appears: Well, No Acute Distress - Head Exam Head Exam: ATRAUMATIC, NORMAL INSPECTION, NORMOCEPHALIC - Eye Exam Eye Exam: EOMI, Normal appearance, PERRL Pupil Exam: NORMAL ACCOMODATION, PERRL - ENT Exam ENT Exam: Mucous Membranes Moist, Normal Exam - Neck Exam Neck exam: Positive for: Normal Inspection - Respiratory Exam Respiratory Exam: Clear to Auscultation Bilateral, NORMAL BREATHING PATTERN - Cardiovascular Exam Cardiovascular Exam: REGULAR RHYTHM, +S1, +S2. absent: Gallop, Rubs - GI/Abdominal Exam GI & Abdominal Exam: Distended, Normal Bowel Sounds, Soft, Tenderness (left abdomen ). absent: Firm, Guarding, Mass, Organomegaly, Rebound - Extremities Exam Extremities exam: Positive for: normal capillary refill, normal inspection, pedal pulses present - Back Exam Back exam: NORMAL INSPECTION - Neurological Exam Neurological exam: Alert, CN II-XII Intact, Oriented x3, Reflexes Normal - Psychiatric Exam Psychiatric exam: Normal Affect, Normal Mood - Skin Skin Exam: Dry, Intact, Normal Color, Warm Results - Vital Signs Recent Vital Signs: Last Vital Signs Temp 99.2 F 07/13/18 12:00 Pulse 83 07/13/18 12:00 Resp 20 07/13/18 12:00 BP 135/72 07/13/18 12:00 Pulse Ox 98 07/13/18 06:00 - Labs Result Diagrams: 07/13/18 06:45 07/13/18 06:45 Labs: Laboratory Results - last 24 hr 07/12/18 07/12/18 07/13/18 10:26 10:26 06:45 WBC 10.1 RBC 3.02 L Hgb 8.6 L Hct 27.8 L MCV 92.1 MCH 28.5 MCHC 30.9 L RDW 14.8 H Plt Count 233 MPV 8.6 Sodium Potassium Chloride Carbon Dioxide Anion Gap BUN Creatinine Est GFR ( Amer) Est GFR (Non-Af Amer) Random Glucose Calcium Iron 21 L TIBC 227 L % Saturation 9 L Ferritin 986.0 Total Bilirubin AST ALT Alkaline Phosphatase Total Protein Albumin Globulin Albumin/Globulin Ratio 07/13/18 06:45 WBC RBC Hgb Hct MCV MCH MCHC RDW Plt Count MPV Sodium 136 Potassium 5.3 H Chloride 106 Carbon Dioxide 23 Anion Gap 12 BUN 51 H Creatinine 2.7 H Est GFR ( Amer) 28 Est GFR (Non-Af Amer) 23 Random Glucose 103 Calcium 8.8 Iron TIBC % Saturation Ferritin Total Bilirubin 0.7 AST 50 ALT 49 Alkaline Phosphatase 73 Total Protein 6.9 Albumin 3.3 Globulin 3.6 Albumin/Globulin Ratio 0.9 L Assessment & Plan - Assessment and Plan (Free Text) Assessment: 83 y/o male with PMH of prostate cancer s/p brachytherapy, CKD, HTN, HLD, GERD and osteoarthritis admitted to [facility] for left chest/abdominal pain left pleaual effusion s/p thoracocentesis with 2L of fluid and 2 units of PRBC transfusion 2 weeks ago recurrent plearal effusion acute anemia s/p 1 unit of PRBC transfusion prostate ca s/p brachytherapy HTN CKD Plan: -patient is hemodynamically stable, afebrile, tolerating regular diet, in NAD -CT chest, abdomen and pelvis: left large pleural effusion. no acute intra abdominal pathology -IR consulted for thoracocentesis -continue PPI, zofran -patient needs EGD/CSPY at later time after thoracocentesis -it is important to r/o malignancy in this case given h/o prostate cancer and recurrent pleural effusion Case reviewed and plan discussed with Dr Raiza Mendoza, <Kirk Eastman V - Last Filed: 07/13/18 23:07> Meds - Medications Medications: Current Medications Amlodipine Besylate (Norvasc) 10 mg PO DAILY [facility] Last Admin: 07/13/18 09:09 Dose: 10 mg Atorvastatin Calcium (Lipitor) 10 mg PO DIN [facility] Last Admin: 07/13/18 16:50 Dose: 10 mg Ondansetron HCl (Zofran Inj) 4 mg IVP Q4H PRN PRN Reason: Nausea/Vomiting Last Admin: 07/13/18 06:01 Dose: 4 mg Pantoprazole Sodium (Protonix Ec Tab) 40 mg PO 0600 [facility] Last Admin: 07/13/18 05:58 Dose: 40 mg Polysaccharide Iron Complex (Ferrex-150) 150 mg PO DAILY [facility] Last Admin: 07/13/18 09:08 Dose: 150 mg Tamsulosin HCl (Flomax) 0.4 mg PO DAILY [facility] Last Admin: 07/13/18 09:08 Dose: 0.4 mg Tramadol HCl (Ultram) 50 mg PO Q6 PRN PRN Reason: Pain, moderate (4-7) Last Admin: 07/12/18 17:26 Dose: 50 mg Results - Vital Signs Recent Vital Signs: Last Vital Signs Temp 99.7 F H 07/13/18 17:50 Pulse 85 07/13/18 17:50 Resp 20 07/13/18 17:50 BP 159/79 H 07/13/18 17:50 Pulse Ox 98 07/13/18 06:00 - Labs Result Diagrams: 07/13/18 06:45 07/13/18 06:45 Labs: Laboratory Results - last 24 hr 07/13/18 07/13/18 06:45 06:45 WBC 10.1 RBC 3.02 L Hgb 8.6 L Hct 27.8 L MCV 92.1 MCH 28.5 MCHC 30.9 L RDW 14.8 H Plt Count 233 MPV 8.6 Sodium 136 Potassium 5.3 H Chloride 106 Carbon Dioxide 23 Anion Gap 12 BUN 51 H Creatinine 2.7 H Est GFR ( Amer) 28 Est GFR (Non-Af Amer) 23 Random Glucose 103 Calcium 8.8 Total Bilirubin 0.7 AST 50 ALT 49 Alkaline Phosphatase 73 Total Protein 6.9 Albumin 3.3 Globulin 3.6 Albumin/Globulin Ratio 0.9 L Attending/Attestation - Attestation I have personally seen and examined this patient.: Yes I have fully participated in the care of the patient.: Yes I have reviewed all pertinent clinical information: Yes Notes (Text): This is an addendum to Resident consult report dictated..The patient was seen and examined earlier. Medical records, lab studies, imagings were reviewed. Last 24 hours events reviewed. Agreed with the above treatment plan as outlined in resident's notes with the addition of the following 07/13/18 23:06
--- NOTE | 2018-07-13 15:29 | PN ---
DATE: 07/13/2018 SUBJECTIVE: The patient is 83 years old, known to me from previous admission, was transferred from [facility] because of abdominal discomfort and occasional shortness of breath, feeling weak. The patient was found to be anemic, so he was transferred, had received blood transfusions, still has shortness of breath, scheduled for thoracentesis today. PHYSICAL EXAMINATION: VITAL SIGNS: He is afebrile, pulse 104, respirations 20, blood pressure 168/70. LUNGS: Decreased breath sounds in the left lower lung area. HEART: S1, S2, audible. ABDOMEN: Soft, obese. Nontender. No rebound. No guarding. NEUROLOGIC: The patient is awake, alert, oriented. Able to communicate. Bilateral leg, no edema. LABORATORY DATA: WBC 7.1, hemoglobin 8.6, hematocrit 27.8, platelet 233. Chemistries: Sodium 136, potassium 5.3, chloride 106, CO2 23, BUN 51, creatinine 2.7, blood sugar 103. ASSESSMENT: 1. Symptomatic anemia. 2. Exertional shortness of breath. 3. Large left pleural effusion, etiology has been unclear. 4. Renal insufficiency. 5. Non-insulin dependent diabetes. 6. Hyperlipidemia. 7. History of cancer of prostate. PLAN: We will continue the patient on current medication. He is scheduled for thoracentesis today, we will get Dr. Eastman's input. We need to do anemia workup and follow up the patient. Tejinder Razo MD
--- NOTE | 2018-07-13 15:54 | CON ---
DATE: 07/13/2018 PULMONARY CONSULTATION REASON FOR THIS PULMONARY CONSULTATION: Pleural effusion. REFERRING PHYSICIAN: Christopher Yeung MD HISTORY OF PRESENT ILLNESS: The patient is a chronically ill 83-year-old male, with past medical history significant for left pleural effusion (status post thoracentesis 2 weeks ago), hypertension, history of prostate cancer, chronic kidney disease, peptic ulcer disease, who [facility] - with increasing shortness of breath at rest and dyspnea on exertion for the past 3 days. The patient also states to a minimal nonproductive cough. There is no history of chest pain, coughing up of blood, or chest pain - brought on with deep respirations. There is no history of temperatures, chills, or infectious exposure. There is no history of night sweats, weight loss, or appetite change prior to the above events. No history of leg or calf pains. No history of syncope or diaphoresis. No history of recent travel or trauma. REVIEW OF SYSTEMS: The patient does state to some abdominal bloating. No nausea, vomiting, or diarrhea. No acute urinary symptoms. No new musculoskeletal complaints. Rest of the review of systems is negative. ALLERGIES: NO KNOWN ALLERGIES. SOCIAL HISTORY: Positive for former tobacco usage. No alcohol. FAMILY HISTORY: No inheritable diseases. HOME MEDICATIONS: Include Norvasc, Ultram, Flomax, Lipitor, prednisone, Catapres, Lasix, DuoNebs. PHYSICAL EXAMINATION: GENERAL: The patient appears comfortable this morning. He is not short of breath at rest. VITAL SIGNS: Temperature is 98.2, pulse 104, respirations 18/20, blood pressure 168/77. Oxygen saturation on nasal cannula is 98%. HEENT: Normocephalic, atraumatic. No JVD. CARDIOVASCULAR: Systolic ejection murmur at the lower left sternal border. No S3 gallop. LUNGS: Decreased breath sounds - left lower lobe. No rhonchi. No wheezing. EXTREMITIES: Mild edema. No cyanosis. No clubbing. Calves are nontender to palpation. GI: Abdomen is soft, nontender, and nondistended. Bowel sounds are positive. SKIN: No acute rash. NEUROLOGIC: Exam limited at the present time. PERTINENT LABORATORY DATA: CAT scan of the chest, abdomen, and pelvis was done. There is, again, a large left pleural effusion - with adjacent compressive atelectasis. There is no nodule, mass, or consolidation noted. There is no lymphadenopathy. CBC: White count 10.1K, hemoglobin 8.6, hematocrit 27.8, platelets of 233,000. Complete metabolic profile: Potassium 5.3, BUN 51, creatinine 2.7. Rest of the metabolic profile is within normal limits. IMPRESSION: 1. Recurrent left pleural effusion. 2. Chronic kidney disease. 3. Anemia. 4. Hypertension. PLAN: I did discuss the case with the night nurse at length. I have also reviewed the chart at length, and discussed the case with the patient at length. The patient is a chronically ill 83-year-old male, who [facility] because of increasing pulmonary symptoms for the past 3 days. I did review the CAT scan of the chest. There is again a large left pleural effusion noted. The patient did have a thoracentesis (approximately 2 liters) on 06/27/2018. The cytology was negative for malignant cells. Dr. Milton Roca (Interventional Radiology) has been called on the case for consultation/repeat thoracentesis.. The patient does state to feeling better this morning - compared to the past few days. Again, Dr. Milton Roca has been called on the case for removal of the pleural effusion. I will discuss the case with Dr. Milton Roca later this morning. I will also discuss the case with the attending physician later this morning. Thank you very much for this pulmonary consultation. Keegan Hadley MD MTDTk
--- NOTE | 2018-07-13 19:53 | US ---
PROCEDURE: Ultrasound guided left thoracentesis. CLINICAL HISTORY: Recurrent large left pleural effusion with shortness of breath history prostate CA PHYSICIAN(S): Milton Roca MD. TECHNIQUE: The relative risks and indications of the procedure were explained to the patient and consent obtained. The patient was placed in a sitting position on the stretcher and sonography of the left chest performed. This revealed a moderate to large leftpleural effusion. A left posterolateral intercostal approach was selected and the area prepped and draped usual sterile fashion. 1% Xylocaine was used to anesthetize the skin and soft tissues. A 7 Icelandic thoracentesis catheter was trocared into the left pleural cavity and 1600 ccof bloody fluid aspirated. A cytology specimen was sent IMPRESSION: 1. Ultrasound guided left thoracentesis. 1600 cc of bloody fluid was aspirated. A cytology specimen was sent
[2018-07-14] MEDS: Pantoprazole 40 mg EC Tab PO SCH (05:46)
[2018-07-14 07:21] LABS: BASO # 0.02 K/mm3 (0.0-2.0); BASO % 0.3 % (0.0-3.0); EOS # 0.2 (0.0-0.7); GRAN # 6.49 (1.4-6.5); GRAN % 82.7 % (50.0-68.0); HEMOGLOBIN 8.5 g/dL (14.0-18.0); LYMPH # 0.7 (1.2-3.4); LYMPH % 8.4 % (22.0-35.0); MEAN CELL VOLUME 91.7 fl (80.0-105.0); MEAN CORPUSCULAR HEMOGLOBIN 28.1 pg (25.0-35.0); MEAN CORPUSCULAR HGB CONC 30.6 g/dl (31.0-37.0); MEAN PLATELET VOLUME 8.6 fl (7.0-11.0); MONO # 0.5 (0.1-0.6); MONO % 6.6 % (1.0-6.0); RBC 3.03 10^6/uL (3.5-6.1); RED CELL DISTRIBUTION WIDTH 14.3 % (11.5-14.5); WHITE BLOOD COUNT 7.9 10^3/uL (4.5-11.0)
[2018-07-14 07:51] LABS: ALB/GLOB RATIO 0.9 (1.1-1.8); ALBUMIN 3.2 g/dL (3.0-4.8); CALCIUM 8.8 mg/dL (8.4-10.5)
--- NOTE | 2018-07-14 08:24 | CP.PCM.PN ---
<Ignacio Mendoza - Last Filed: 07/14/18 18:42> Subjective - Date & Time of Evaluation Date of Evaluation: 07/14/18 Time of Evaluation: 07:25 - Subjective Subjective: Ignacio Mendoza DO, PGY1. GI progress note for Dr Eastman Patient seen and examined at bedside. No acute events overnight. SOB improved s/p thoracocentesis of 1.6L bloody fluid yesterday. Tolerating his regular diet. No BM for 2 days. He feels abdominal bloating. Denied vomiting, diarrhea, fever, chills, blood per rectum Objective - Vital Signs/Intake and Output Vital Signs (last 24 hours): Temp Pulse Resp BP Pulse Ox 97.0 F L 102 H 18 162/81 H 97 07/14/18 06:00 07/14/18 06:00 07/14/18 06:00 07/14/18 06:00 07/14/18 06:00 - Medications Medications: Current Medications Amlodipine Besylate (Norvasc) 10 mg PO DAILY [facility] Last Admin: 07/13/18 09:09 Dose: 10 mg Atorvastatin Calcium (Lipitor) 10 mg PO DIN [facility] Last Admin: 07/13/18 16:50 Dose: 10 mg Docusate Sodium (Colace) 100 mg PO BID [facility] Ondansetron HCl (Zofran Inj) 4 mg IVP Q4H PRN PRN Reason: Nausea/Vomiting Last Admin: 07/13/18 06:01 Dose: 4 mg Pantoprazole Sodium (Protonix Ec Tab) 40 mg PO 0600 [facility] Last Admin: 07/14/18 05:46 Dose: 40 mg Polysaccharide Iron Complex (Ferrex-150) 150 mg PO DAILY [facility] Last Admin: 07/13/18 09:08 Dose: 150 mg Simethicone (Mylicon Liq) 40 mg PO QID [facility] Tamsulosin HCl (Flomax) 0.4 mg PO DAILY [facility] Last Admin: 07/13/18 09:08 Dose: 0.4 mg Tramadol HCl (Ultram) 50 mg PO Q6 PRN PRN Reason: Pain, moderate (4-7) Last Admin: 07/12/18 17:26 Dose: 50 mg - Labs Labs: 07/14/18 06:45 07/14/18 06:45 PT 14.7 SECONDS (9.4-12.5) H 07/12/18 01:34 INR 1.28 07/12/18 01:34 APTT 27.3 Seconds (25.1-36.5) 07/12/18 01:34 - Constitutional Appears: Well, No Acute Distress - Head Exam Head Exam: ATRAUMATIC, NORMAL INSPECTION, NORMOCEPHALIC - Eye Exam Eye Exam: EOMI, Normal appearance, PERRL Pupil Exam: NORMAL ACCOMODATION, PERRL - ENT Exam ENT Exam: Mucous Membranes Moist, Normal Exam - Neck Exam Neck Exam: Full ROM, Normal Inspection. absent: Lymphadenopathy - Respiratory Exam Respiratory Exam: Clear to Ausculation Bilateral, NORMAL BREATHING PATTERN - Cardiovascular Exam Cardiovascular Exam: REGULAR RHYTHM, +S1, +S2. absent: Gallop, Rubs, Murmur - GI/Abdominal Exam GI & Abdominal Exam: Distended (air distension with abdominal percussion), Soft, Normal Bowel Sounds. absent: Tenderness, Organomegaly, Pulsatile Mass, Rebound - Back Exam Back Exam: NORMAL INSPECTION - Neurological Exam Neurological Exam: Alert, Awake, CN II-XII Intact, Oriented x3 - Psychiatric Exam Psychiatric exam: Normal Affect, Normal Mood - Skin Skin Exam: Dry, Intact, Normal Color, Warm Assessment and Plan - Assessment and Plan (Free Text) Assessment: 83 y/o male with PMH of prostate cancer s/p brachytherapy, CKD, HTN, HLD, GERD and osteoarthritis [place] [facility] [place] chest/abdominal pain left pleaual effusion s/p thoracocentesis with 2L of fluid and 2 units of PRBC transfusion 2 weeks ago recurrent plearal effusion acute anemia s/p 1 unit of PRBC transfusion prostate ca s/p brachytherapy HTN CKD Plan: -patient is hemodynamically stable, afebrile, tolerating regular diet, in NAD, SOB improved but still have abd discomfort with air distension during exam -CT chest, abdomen and pelvis: left large pleural effusion. no acute intra abdominal pathology -s/p thoracocentesis with 1.6L of bloody fluid aspirated. f/u cytology (07/13/17) -continue PPI, zofran -started on simethicone -patient needs EGD/CSPY at later time after thoracocentesis -it is important to r/o malignancy in this case given h/o prostate cancer and recurrent pleural effusion Case reviewed and plan discussed with Dr Raiza Mendoza, DO <Kirk Eastman V - Last Filed: 07/14/18 23:44> Objective - Vital Signs/Intake and Output Vital Signs (last 24 hours): Temp Pulse Resp BP Pulse Ox 99.4 F 106 H 20 126/71 97 07/14/18 18:00 07/14/18 18:00 07/14/18 18:00 07/14/18 18:00 07/14/18 06:00 Intake and Output: 07/14/18 07/15/18 18:59 06:59 Intake Total 940 Output Total 600 Balance 340 - Medications Medications: Current Medications Albuterol/Ipratropium (Duoneb 3 Mg/0.5 Mg (3 Ml) Ud) 3 ml IH [id number] [facility] Last Admin: 07/14/18 20:34 Dose: 3 ml Albuterol/Ipratropium (Duoneb 3 Mg/0.5 Mg (3 Ml) Ud) 3 ml IH Q2H PRN PRN Reason: Shortness of Breath Amlodipine Besylate (Norvasc) 10 mg PO DAILY [facility] Last Admin: 07/14/18 09:19 Dose: 10 mg Atorvastatin Calcium (Lipitor) 10 mg PO DIN [facility] Last Admin: 07/14/18 17:49 Dose: 10 mg Docusate Sodium (Colace) 100 mg PO BID [facility] Last Admin: 07/14/18 17:49 Dose: 100 mg Methylprednisolone (Solu-Medrol) 20 mg IV Q12 [facility] Last Admin: 07/14/18 21:17 Dose: 20 mg Ondansetron HCl (Zofran Inj) 4 mg IVP Q4H PRN PRN Reason: Nausea/Vomiting Last Admin: 07/13/18 06:01 Dose: 4 mg Pantoprazole Sodium (Protonix Ec Tab) 40 mg PO 0600 [facility] Last Admin: 07/14/18 05:46 Dose: 40 mg Polysaccharide Iron Complex (Ferrex-150) 150 mg PO DAILY [facility] Last Admin: 07/14/18 09:20 Dose: 150 mg Simethicone (Mylicon Liq) 40 mg PO QID [facility] Last Admin: 07/14/18 21:17 Dose: 1 dose Tamsulosin HCl (Flomax) 0.4 mg PO DAILY [facility] Last Admin: 07/14/18 09:20 Dose: 0.4 mg Tramadol HCl (Ultram) 50 mg PO Q6 PRN PRN Reason: Pain, moderate (4-7) Last Admin: 07/12/18 17:26 Dose: 50 mg - Labs Labs: 07/14/18 06:45 07/14/18 06:45 PT 14.7 SECONDS (9.4-12.5) H 07/12/18 01:34 INR 1.28 07/12/18 01:34 APTT 27.3 Seconds (25.1-36.5) 07/12/18 01:34 Attending/Attestation - Attestation I have personally seen and examined this patient.: Yes I have fully participated in the care of the patient.: Yes I have reviewed all pertinent clinical information, including history, physical exam and plan: Yes Notes (Text): This is an addendum to GI followup report dictated by the Machine Shop Specialist. The patient was seen and evaluated earlier. Medical records, lab studies, imagings were reviewed. Last 24 hours events reviewed. Agreed with the above treatment plan as outlined in Machine Shop Specialist 's notes with the addition of the following 07/14/18 23:43
[2018-07-14] MEDS: Iron Complex Polysacch 150mg Cap PO SCH (09:20)
[2018-07-14] MEDS: Simethicone 40 mg/0.6 ml Liquid (30 ml) PO SCH ×4 (11:33→21:17)
--- NOTE | 2018-07-14 11:37 | RAD ---
Date of service: 07/14/2018 HISTORY: lt thora COMPARISON: 07/12/2018 TECHNIQUE: Chest PA and lateral FINDINGS: LUNGS: No active pulmonary disease. PLEURA: Large left pleural effusion slightly decreased from prior study. No pneumothorax CARDIOVASCULAR: No aortic atherosclerotic calcification present. Normal cardiac size. No pulmonary vascular congestion. OSSEOUS STRUCTURES: No significant abnormalities. VISUALIZED UPPER ABDOMEN: Normal. OTHER FINDINGS: None. IMPRESSION: Large left pleural effusion slightly decreased from prior study. No pneumothorax
--- NOTE | 2018-07-14 12:48 | PN ---
DATE: 07/14/2018 SUBJECTIVE: The patient appears comfortable this morning. He is not short of breath at rest. PHYSICAL EXAMINATION: VITAL SIGNS: Temperature 98.8, pulse 74, respirations 18/20, blood pressure 154/89. Oxygen saturation on nasal cannula is 98%. HEENT: Normocephalic, atraumatic. NECK: No JVD. CARDIOVASCULAR: Systolic ejection murmur at the lower left sternal border. No S3 gallop. LUNGS: Improved breath sounds - left lower lobe. No rhonchi. No wheezing. EXTREMITIES: Mild edema. No cyanosis. No clubbing. Calves are nontender to palpation. GASTROINTESTINAL: Abdomen is soft, nontender and nondistended. Bowel sounds are positive. SKIN: No acute rash. NEUROLOGIC: Limited at the present time. IMPRESSION: 1. Recurrent left pleural effusion. 2. Chronic kidney disease. 3. Anemia. 4. Hypertension. PLAN: The patient appears much more comfortable this morning. He is not short of breath at rest. He does state to feeling much, much better overall. I did discuss the case with the night nurse at length. The night nurse stated the patient had an uneventful night. The patient did undergo a thoracentesis with Dr. Milton Roca yesterday. I did review the note by Dr. Roca. Apparently, 1600 mL of bloody fluid were obtained, and sent for additional studies (Cytology). We are awaiting the results. I will discuss the case with Dr. Phillips (Pathology) later today. Clinical status of the patient is certainly improved - compared to the initial presentation. However, given the above, the patient's future status/prognosis does appear very guarded. I will discuss the above with the attending physician. Keegan Hadley MD MTDD
--- NOTE | 2018-07-14 19:04 | CP.PCM.CON ---
History of Present Illness - History of Present Illness History of Present Illness: THoracic surgery 83 y/o male with PMH of prostate cancer s/p brachytherapy, CKD, HTN, HLD, GERD and osteoarthritis came with SOB, weakness and dizziness for few weeks. Pt is found to have large L side pleural effusion. THoracenthesis is performed on 06/27 and 07/13. There was 1.6L of bloody fluids from 07/13. Patient was also transfused 2 units of PRBC. Cytology shows no malignant cells and shows mesothelial cells, histiocytes. Pt continues to have L pleural effusion. PT also complains of L sided abdominal pain. Denies fever diarrhea. He admits to recent 20 pound weight loss in the past few weeks. Per record, pt had bloody emesis. He denied changes of bowel movement, blood per rectum, chest pain, leg swelling. patient denied liver disease, heart disease, h/o TB, recent travel or sick contacts. PMH: prostate cancer s/p brachytherapy, CKD, HTN, HLD, GERD and osteoarthritis PSH: b/l knee surgery, b/l shoulder surgery SH: former smoker, used to smoke 1ppd x20 years, quit 25 years ago. denied alcohol or drug use. 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 FH: non contributory Review of Systems - Review of Systems Review of Systems: See HPI Past Patient History - Infectious Disease Hx of Infectious Diseases: None - Past Social History Smoking Status: Never Smoked - CARDIAC Hx Cardiac Disorders: Yes Hx Angina: No Hx Cardia Arrhythmia: No Hx Circulatory Problems: No Hx Congestive Heart Failure: No Hx Heart Murmur: No Hx Heart Transplant: No Hx Hypercholesterolemia: Yes Hx Hypertension: Yes Hx Internal Defibrillator: No Hx Mitral Valve Prolapse: No Hx Pacemaker: No Hx Peripheral Edema: No Hx Peripheral Vascular Disease: No - PULMONARY Hx Respiratory Disorders: Yes (pleural effusion) Hx Asthma: No Hx Bronchitis: No Hx Chronic Obstructive Pulmonary Disease (COPD): No Hx Emphysema: No Hx Pneumonia: No Hx Respiratory Aspiration: No Hx Respiratory Tract Infection: No Hx Sleep Apnea: No Hx Tuberculosis: No - NEUROLOGICAL Hx Neurological Disorder: Yes Hx Alzheimer's Disease: No HX Cerebrovascular Accident: No Hx Dementia: No Hx Dizziness: Yes Hx Meningitis: No Hx Migraine: No Hx Parkinson's Disease: No Hx Seizures: No Hx Transient Ischemic Attacks (TIA): No - HEENT Hx HEENT Problems: Yes Hx Blind: No Hx Cataracts: Yes Hx Deafness: No Hx Difficulty Chewing: No Hx Epistaxis: No Hx Glaucoma: No Hx Macular Degeneration: No - RENAL Hx Chronic Kidney Disease: No - ENDOCRINE/METABOLIC Hx Endocrine Disorders: No Hx Adrenal Cancer: No Hx Diabetes Insipidus: No Hx Diabetes Mellitus Type 1: No Hx Diabetes Mellitus Type 2: No Hx Hyperthyroidism: No Hx Hypothyroidism: No Hx Systemic Lupus Erythematosus: No - HEMATOLOGICAL/ONCOLOGICAL Hx Blood Disorders: Yes Hx AIDS: No Hx Anemia: Yes Hx Cancer: Yes (prostate) Hx Chemotherapy: No Hx Cirrhosis: No Hx Hemophilia: No Hx Hepatitis A: No Hx Hepatitis B: No Hx Hepatitis C: No Hx Human Immunodeficiency Virus (HIV): No Hx Metastesis: No Hx Shingles: No Hx Sickle Cell Disease: No Hx Unexplained Bleeding: No - INTEGUMENTARY Hx Dermatological Problems: No Hx Basil Cell: No Hx Eczema: No Hx Melanoma: No Hx Psoriasis: No Hx Squamous Cell: No - MUSCULOSKELETAL/RHEUMATOLOGICAL Hx Musculoskeletal Disorders: Yes Hx Arthritis: Yes Hx Back Pain: No Hx Degenerative Joint Disease: No Hx Falls: Yes Hx Fractures: No Hx Gout: No Hx Herniated Disk: No Hx Myasthenia Gravis: No Hx Osteoarthritis: No Hx Osteomyelitis: No Hx Osteoporosis: No Hx Rhabdomyolysis: No Hx Spinal Stenosis: No Hx Unsteady Gait: Yes - GASTROINTESTINAL Hx Gastrointestinal Disorders: Yes Hx Colostomy: No Hx Crohn's Disease: No Hx Diverticulitis: No Hx Gall Bladder Disease: No Hx Gastroesophageal Reflux: Yes Hx Ileostomy: No Hx Liver Failure: No Hx Pancreatitis: No HX Swallowing Problems: No Hx Ulcer: No - GENITOURINARY/GYNECOLOGICAL Hx Genitourinary Disorders: No Hx Hematuria: No Hx Incontinence: No Hx Prostate Problems: No Hx Sexually Transmitted Disorders: No Hx Urinary Tract Infection: No - PSYCHIATRIC Hx Psychophysiologic Disorder: No Hx Anxiety: No Hx Bipolar Disorder: No Hx Depression: No Hx Emotional Abuse: No Hx Hallucinations: No Hx Panic Symptoms: No Hx Paranoia: No Hx Post Traumatic Stress Disorder: No Hx Psychosis: No Hx Physical Abuse: No Hx Schizophrenia: No Hx Sexual Abuse: No Hx Substance Use: No - SURGICAL HISTORY Hx Surgeries: Yes Hx Amputation: No Hx Appendectomy: No Hx Cardiac Catheterization: No Hx Cholecystectomy: No Hx Coronary Stent: No Hx Gastric Bypass Surgery: No Hx Hysterectomy: No Hx Joint Replacement: No Hx Kidney Transplant: No Hx Liver Transplant: No Hx Mastectomy: No Hx Musculoskeletal Surgery: No Hx Open Heart Surgery: No Hx Orthopedic Surgery: Yes (b/ shoulder, b/l knee) Hx Splenectomy: No Hx Valve Replacement: No Meds Allergies/Adverse Reactions: Allergies Allergy/AdvReac Type Severity Reaction Status Date / Time No Known Allergies Allergy Verified 06/23/18 18:54 - Medications Medications: Current Medications Amlodipine Besylate (Norvasc) 10 mg PO DAILY [facility] Last Admin: 07/14/18 09:19 Dose: 10 mg Atorvastatin Calcium (Lipitor) 10 mg PO DIN [facility] Last Admin: 07/14/18 17:49 Dose: 10 mg Docusate Sodium (Colace) 100 mg PO BID [facility] Last Admin: 07/14/18 17:49 Dose: 100 mg Ondansetron HCl (Zofran Inj) 4 mg IVP Q4H PRN PRN Reason: Nausea/Vomiting Last Admin: 07/13/18 06:01 Dose: 4 mg Pantoprazole Sodium (Protonix Ec Tab) 40 mg PO 0600 [facility] Last Admin: 07/14/18 05:46 Dose: 40 mg Polysaccharide Iron Complex (Ferrex-150) 150 mg PO DAILY [facility] Last Admin: 07/14/18 09:20 Dose: 150 mg Simethicone (Mylicon Liq) 40 mg PO QID [facility] Last Admin: 07/14/18 17:47 Dose: 1 dose Tamsulosin HCl (Flomax) 0.4 mg PO DAILY [facility] Last Admin: 07/14/18 09:20 Dose: 0.4 mg Tramadol HCl (Ultram) 50 mg PO Q6 PRN PRN Reason: Pain, moderate (4-7) Last Admin: 07/12/18 17:26 Dose: 50 mg Physical Exam - Constitutional Appears: No Acute Distress - Head Exam Head Exam: ATRAUMATIC, NORMAL INSPECTION, NORMOCEPHALIC - Eye Exam Eye Exam: EOMI, Normal appearance, PERRL Pupil Exam: NORMAL ACCOMODATION, PERRL - ENT Exam ENT Exam: Mucous Membranes Moist, Normal Exam - Neck Exam Neck exam: Positive for: Normal Inspection - Respiratory Exam Respiratory Exam: NORMAL BREATHING PATTERN. absent: Accessory Muscle Use, Respiratory Distress - Cardiovascular Exam Cardiovascular Exam: REGULAR RHYTHM - GI/Abdominal Exam GI & Abdominal Exam: Soft, Tenderness. absent: Distended, Firm, Guarding, Hernia, Rigid - Extremities Exam Extremities exam: Positive for: full ROM, normal inspection - Back Exam Back exam: NORMAL INSPECTION - Neurological Exam Neurological exam: Alert, CN II-XII Intact, Normal Gait, Oriented x3, Reflexes Normal - Psychiatric Exam Psychiatric exam: Normal Affect, Normal Mood - Skin Skin Exam: Dry, Intact, Normal Color, Warm Results - Vital Signs Recent Vital Signs: Last Vital Signs Temp 99.4 F 07/14/18 18:00 Pulse 106 H 07/14/18 18:00 Resp 20 07/14/18 18:00 BP 126/71 07/14/18 18:00 Pulse Ox 97 07/14/18 06:00 - Labs Result Diagrams: 07/14/18 06:45 07/14/18 06:45 Labs: Laboratory Results - last 24 hr 07/14/18 07/14/18 06:45 06:45 WBC 7.9 D RBC 3.03 L Hgb 8.5 L Hct 27.8 L MCV 91.7 MCH 28.1 MCHC 30.6 L RDW 14.3 Plt Count 231 MPV 8.6 Gran % 82.7 H Lymph % (Auto) 8.4 L Briscoe % (Auto) 6.6 H Eos % (Auto) 2.0 Baso % (Auto) 0.3 Gran # 6.49 Lymph # (Auto) 0.7 L [place]iscoe # (Auto) 0.5 Eos # (Auto) 0.2 Baso # (Auto) 0.02 Sodium 136 Potassium 4.8 Chloride 106 Carbon Dioxide 25 Anion Gap 11 BUN 53 H Creatinine 2.7 H Est GFR ( Amer) 28 Est GFR (Non-Af Amer) 23 Random Glucose 85 Calcium 8.8 Total Bilirubin 0.7 AST 52 ALT 46 Alkaline Phosphatase 70 Total Protein 6.6 Albumin 3.2 Globulin 3.4 Albumin/Globulin Ratio 0.9 L Assessment & Plan - Assessment and Plan (Free Text) Assessment: L Recurrent pleural effusion w h/o Prostate CA. Likely malignant pleural effusion s/p thoracentesis 06/27 2L s/p thoracentesis 07/13 1.6L bloody Post tap CXR 07/14 moderate L pleural effusion, L atelectasis Cytology: no malignant cells. Histiocyte, mesothelial cells. -f/u Repeat chest CT to see if there is a rind or free flowing fluids -Based on patients functional status, pt would benefit from pleurodesis or pleurx catheter for sx relief. -Pt family and pt are agreeable for surgical intervention -Possible VATs pleurodesis with bx to r/o malignant effusion ATUL singer
[2018-07-14] MEDS ORDERED: Albuterol-Ipratrop 3 mg / 0.5 (3 ml) UD IH PRN (19:56)
[2018-07-14] MEDS: Albuterol-Ipratrop 3 mg / 0.5 (3 ml) UD IH SCH (20:34)
[2018-07-14] MEDS: MethylPREDNISolone 40 mg Vial IV SCH (21:17)
--- NOTE | 2018-07-15 01:29 | PN ---
DATE: 07/14/2018 SUBJECTIVE: The patient is an 83-year-old, seen and examined. Had thoracentesis done yesterday; 1600 mL fluid removed. The patient states he feels much comfortable. His belly pain is improved. He is still short of breath. PHYSICAL EXAMINATION VITAL SIGNS: He is afebrile. Pulse 106, respirations 20, blood pressure 126/71. LUNGS: Decreased breath sound in the left lower lung. HEART: S1 and S2 audible, tachycardic. ABDOMEN: Soft, obese, nontender. No rebound, no guarding. NEUROLOGICAL: The patient is awake, alert, oriented, communicative. Moves all extremities. LABORATORY DATA: WBC is 7.9, hemoglobin 8.5, hematocrit 27.8, platelets 231. Chemistries: Sodium 136, potassium 4.8, chloride 106, CO2 of 25, BUN 53, creatinine 2.7, blood sugar 85. ASSESSMENT: 1. Exertional dyspnea because of large pleural effusion and underlying atelectasis. 2. Hypertension. 3. Chronic kidney disease. 4. History of cancer of the prostate, status post brachytherapy. 5. Chronic anemia. PLAN: I discussed with Dr. Milton Roca. We will continue the patient on nebulizer treatment. I will order for AFP, CEA level and PSA for the morning and start him on small dose of steroid. Thoracic surgical evaluation has been requested. Family will discuss with them also that how comfortable they feel. The patient's one family member is a medical student. I will discuss with them also that if they want this procedure done here or they want him to be transferred out. Tejinder Razo MD
[2018-07-15] MEDS: Albuterol-Ipratrop 3 mg / 0.5 (3 ml) UD IH SCH ×4 (01:47→19:54)
[2018-07-15] MEDS: Pantoprazole 40 mg EC Tab PO SCH (08:13)
--- NOTE | 2018-07-15 08:57 | CP.PCM.PN ---
Subjective - Date & Time of Evaluation Date of Evaluation: 07/15/18 Time of Evaluation: 08:52 - Subjective Subjective: Surgery Progress note- Dr. Hernandez Patient seen and examined at bedside. no new complaints at this time. Denies chest pain, shortness of breath. tolerating regular diet. + OOB and ambulation. Denies fevers, chills Objective - Vital Signs/Intake and Output Vital Signs (last 24 hours): Temp Pulse Resp BP Pulse Ox 97.6 F 93 H 21 151/77 H 94 L 07/15/18 05:53 07/15/18 05:53 07/15/18 05:53 07/15/18 05:53 07/15/18 07:24 Intake and Output: 07/15/18 07/15/18 06:59 18:59 Intake Total 1240 Output Total 1100 Balance 140 - Medications Medications: Current Medications Albuterol/Ipratropium (Duoneb 3 Mg/0.5 Mg (3 Ml) Ud) 3 ml IH [id number] [facility] Last Admin: 07/15/18 07:21 Dose: 3 ml Albuterol/Ipratropium (Duoneb 3 Mg/0.5 Mg (3 Ml) Ud) 3 ml IH Q2H PRN PRN Reason: Shortness of Breath Amlodipine Besylate (Norvasc) 10 mg PO DAILY [facility] Last Admin: 07/14/18 09:19 Dose: 10 mg Atorvastatin Calcium (Lipitor) 10 mg PO DIN [facility] Last Admin: 07/14/18 17:49 Dose: 10 mg Docusate Sodium (Colace) 100 mg PO BID [facility] Last Admin: 07/14/18 17:49 Dose: 100 mg Methylprednisolone (Solu-Medrol) 20 mg IV Q12 [facility] Last Admin: 07/14/18 21:17 Dose: 20 mg Ondansetron HCl (Zofran Inj) 4 mg IVP Q4H PRN PRN Reason: Nausea/Vomiting Last Admin: 07/13/18 06:01 Dose: 4 mg Pantoprazole Sodium (Protonix Ec Tab) 40 mg PO 0600 [facility] Last Admin: 07/15/18 08:13 Dose: 40 mg Polysaccharide Iron Complex (Ferrex-150) 150 mg PO DAILY [facility] Last Admin: 07/14/18 09:20 Dose: 150 mg Simethicone (Mylicon Liq) 40 mg PO QID [facility] Last Admin: 07/14/18 21:17 Dose: 1 dose Tamsulosin HCl (Flomax) 0.4 mg PO DAILY [facility] Last Admin: 07/14/18 09:20 Dose: 0.4 mg Tramadol HCl (Ultram) 50 mg PO Q6 PRN PRN Reason: Pain, moderate (4-7) Last Admin: 07/12/18 17:26 Dose: 50 mg - Labs Labs: 07/14/18 06:45 07/14/18 06:45 PT 14.7 SECONDS (9.4-12.5) H 07/12/18 01:34 INR 1.28 07/12/18 01:34 APTT 27.3 Seconds (25.1-36.5) 07/12/18 01:34 - Constitutional Appears: Non-toxic, No Acute Distress - Head Exam Head Exam: ATRAUMATIC - Eye Exam Eye Exam: EOMI. absent: Scleral icterus - ENT Exam ENT Exam: Mucous Membranes Moist - Respiratory Exam Respiratory Exam: Decreased Breath Sounds, NORMAL BREATHING PATTERN. absent: Accessory Muscle Use, Respiratory Distress - Cardiovascular Exam Cardiovascular Exam: REGULAR RHYTHM. absent: Bradycardia, Tachycardia - GI/Abdominal Exam GI & Abdominal Exam: Soft. absent: Distended, Firm, Guarding, Rigid, Tenderness - Neurological Exam Neurological Exam: Alert, Awake, Oriented x3 - Psychiatric Exam Psychiatric exam: Normal Affect - Skin Skin Exam: Intact, Warm Assessment and Plan - Assessment and Plan (Free Text) Assessment: 83M w/ recurrent L pleural effusion Plan: - f/u CT scan - management pending results of imaging - maintain O2 saturation > 92% - surgical intervention pending - further recs per Dr. Mary Melendez PGY2
[2018-07-15] MEDS: Iron Complex Polysacch 150mg Cap PO SCH (09:15)
[2018-07-15] MEDS: MethylPREDNISolone 40 mg Vial IV SCH ×2 (09:16→21:48)
--- NOTE | 2018-07-15 09:31 | PN ---
DATE: 07/15/2018 PULMONARY NOTE SUBJECTIVE: The patient appears comfortable this morning. He is not short of breath at rest. OBJECTIVE: VITAL SIGNS: Temperature is 97.6, pulse 93, respirations 18/20, blood pressure 151/77. Oxygen saturation on nasal cannula is 95%. HEENT: Normocephalic, atraumatic. NECK: No JVD. CARDIOVASCULAR: Systolic ejection murmur at the lower left sternal border. No S3 gallop. LUNGS: Decreased breath sounds - left lower lobe (improved from admission). No rhonchi. No wheezing. EXTREMITIES: Mild edema. No cyanosis, no clubbing. Calves are nontender to palpation. GASTROINTESTINAL: Abdomen is soft, nontender, and nondistended. Bowel sounds are positive. SKIN: No acute rash. NEUROLOGIC: Limited at the present time. PERTINENT LABORATORY DATA: CAT scan of the chest was repeated yesterday and reviewed. There remains a large left pleural effusion (decreased from the previous study) with adjacent compressive atelectasis. The left lower lobe bronchi reveal no evidence of endobronchial obstruction. In addition, there is no lymphadenopathy. IMPRESSION: 1. Recurrent left pleural effusion. 2. Chronic kidney disease. 3. Anemia. 4. Hypertension. PLAN: The patient appears comfortable this morning. He is not short of breath at rest. He does state to feeling better overall. I did discuss the case with night nurse at length. The night nurse stated the patient had an uneventful night. I did have a long discussion with Dr. Milton Roca (Interventional Radiology) last night - regarding the patient's clinical status and CAT scan findings. As above, there is no evidence of endobronchial obstruction or tumor mass in the lungs. There remains a large left pleural effusion with abnormal pleural surface. I did discuss the case with Dr. Phillips (Pathology) at length yesterday. If the cytopathology (on the thoracentesis) is unrevealing, I would consider a cardiothoracic evaluation for video-assisted thorascopic surgery. There was a consultation done by one of the surgical residents last night. Inputs are noted. We are awaiting input from the thoracic surgeon. Clinical status of the patient is improved - compared to the initial presentation. However, given the above, the future status/prognosis for this patient remains very guarded. I will discuss the above with the attending physician. Keegan Hadley MD [facility] # [id number] [facility]UDA[facility]
[2018-07-15] MEDS: Simethicone 40 mg/0.6 ml Liquid (30 ml) PO SCH ×4 (11:41→21:49)
[2018-07-15] MEDS ORDERED: Magnesium Sulfate 1 gm in D5W 1 GM/100 ML BAG IV ONE (12:13)
--- NOTE | 2018-07-15 13:24 | CT ---
Date of service: 07/14/2018 PROCEDURE: CT Chest without contrast HISTORY: pre-op. post tap for pleural effusion COMPARISON: 07/12/2018 TECHNIQUE: Contiguous axial images were obtained through the chest without intravenous contrast enhancement. Sagittal and coronal reconstructions were performed. Radiation dose: Total exam DLP = 841.55 mGy-cm. This CT exam was performed using one or more of the following dose reduction techniques: Automated exposure control, adjustment of the mA and/or kV according to patient size, and/or use of iterative reconstruction technique. FINDINGS: LUNGS: There is atelectasis in the left lower lobe adjacent to the large effusion. There is no obvious endobronchial obstruction. MEDIASTINUM: Unremarkable thoracic aorta. No aneurysm. Normal sized heart. Main pulmonary artery unremarkable. No vascular congestion. No lymphadenopathy. Minimal aortic calcification PLEURA: There is a slight decrease in the size of the left effusion. A large effusion persists. BONES: No fracture. No destructive lesion. UPPER ABDOMEN: Grossly unremarkable. OTHER FINDINGS: The report concurs with the preliminary [facility] report IMPRESSION: There is atelectasis in the left lower lobe adjacent to the large effusion. There is no obvious endobronchial obstruction. Slight decrease in the size of the left effusion.
--- NOTE | 2018-07-15 13:26 | CP.PCM.PN ---
Subjective - Date & Time of Evaluation Date of Evaluation: 07/15/18 Time of Evaluation: 10:45 - Subjective Subjective: S&E at bedside, chart reviewed, no acute overnight events reported. No N/V or abdominal pain, or overt GI bleed. No BM x2 days, passing flatus. No SOB or chest pain. Ct scan of chest noted. Left pleural effusion decrease, LLL consolidation, atelectasis, ? mass or pneumonia. Objective - Vital Signs/Intake and Output Vital Signs (last 24 hours): Temp Pulse Resp BP Pulse Ox 98.4 F 102 H 18 133/73 94 L 07/15/18 12:00 07/15/18 12:00 07/15/18 12:00 07/15/18 12:00 07/15/18 07:24 Intake and Output: 07/15/18 07/15/18 06:59 18:59 Intake Total 1240 Output Total 1100 Balance 140 - Medications Medications: Current Medications Albuterol/Ipratropium (Duoneb 3 Mg/0.5 Mg (3 Ml) Ud) 3 ml IH [id number] [facility] Last Admin: 07/15/18 07:21 Dose: 3 ml Albuterol/Ipratropium (Duoneb 3 Mg/0.5 Mg (3 Ml) Ud) 3 ml IH Q2H PRN PRN Reason: Shortness of Breath Amlodipine Besylate (Norvasc) 10 mg PO DAILY [facility] Last Admin: 07/15/18 09:15 Dose: 10 mg Atorvastatin Calcium (Lipitor) 10 mg PO DIN [facility] Last Admin: 07/14/18 17:49 Dose: 10 mg Docusate Sodium (Colace) 100 mg PO BID [facility] Last Admin: 07/15/18 09:15 Dose: 100 mg Magnesium Sulfate/Dextrose (Magnesium Sulfate 1 Gm/100 Ml D5w) 1 gm in 100 mls @ 100 mls/hr IV ONCE ONE Stop: 07/15/18 13:12 Methylprednisolone (Solu-Medrol) 20 mg IV Q12 [facility] Last Admin: 07/15/18 09:16 Dose: 20 mg Ondansetron HCl (Zofran Inj) 4 mg IVP Q4H PRN PRN Reason: Nausea/Vomiting Last Admin: 07/13/18 06:01 Dose: 4 mg Pantoprazole Sodium (Protonix Ec Tab) 40 mg PO 0600 [facility] Last Admin: 07/15/18 08:13 Dose: 40 mg Polyethylene Glycol (Miralax) 17 gm PO ONCE ONE Stop: 07/15/18 14:01 Polysaccharide Iron Complex (Ferrex-150) 150 mg PO DAILY [facility] Last Admin: 07/15/18 09:15 Dose: 150 mg Simethicone (Mylicon Liq) 40 mg PO QID [facility] Last Admin: 07/15/18 11:41 Dose: 1 dose Tamsulosin HCl (Flomax) 0.4 mg PO DAILY [facility] Last Admin: 07/15/18 09:16 Dose: 0.4 mg Tramadol HCl (Ultram) 50 mg PO Q6 PRN PRN Reason: Pain, moderate (4-7) Last Admin: 07/12/18 17:26 Dose: 50 mg - Labs Labs: 07/14/18 06:45 07/14/18 06:45 PT 14.7 SECONDS (9.4-12.5) H 07/12/18 01:34 INR 1.28 07/12/18 01:34 APTT 27.3 Seconds (25.1-36.5) 07/12/18 01:34 - Constitutional Appears: No Acute Distress - Eye Exam Eye Exam: PERRL. absent: Scleral icterus - ENT Exam ENT Exam: Mucous Membranes Moist - Neck Exam Neck Exam: Normal Inspection - Respiratory Exam Respiratory Exam: NORMAL BREATHING PATTERN. absent: Respiratory Distress - Cardiovascular Exam Cardiovascular Exam: +S1, +S2 - GI/Abdominal Exam GI & Abdominal Exam: Distended, Soft, Normal Bowel Sounds. absent: Guarding, Tenderness, Rebound - Extremities Exam Extremities Exam: absent: Calf Tenderness, Pedal Edema - Neurological Exam Neurological Exam: Alert, Awake, Oriented x3 Assessment and Plan - Assessment and Plan (Free Text) Assessment: ASSESSMENT: Recurrent pleural effusion, L pleural effusion, s/p thorocentesis Hepatic lesion, stable as reported on ct scan Anemia, s/p PRBC GERD H/o Prostate Cancer, s/p brachetherapy Constipation PLAN: continue Colace BID, no BM, will give a dose of Miralax today if no BM this afternoon continue PPI diet as tolerated would benefit from EGD/colon when optimal pulmonary FU monitor h/h and for overt GI bleeding Seen and discussed w/ Dr. Thakkar covering Dr. Eastman.
[2018-07-15] MEDS ORDERED: POLYETHYLENE GLYCOL 3350 17 GM/Dose PACKET PO ONE (14:00)
--- NOTE | 2018-07-15 15:37 | PN ---
DATE: 07/15/2018 SUBJECTIVE: The patient is 83-year-old, seen and examined. He states he feels lot better. Shortness of breath is better. Still has left upper quadrant and middle quadrant pain, but much better than before. Denies any nausea or vomiting. Does complain of constipation. PHYSICAL EXAMINATION: VITAL SIGNS: The patient is afebrile. Pulse 72, respirations 18 and blood pressure 123/73. LUNGS: Decreased breath sounds at the left base. There is soft crackle. HEART: S1 and S2 audible. ABDOMEN: Soft, obese and nontender. No rebound. No guarding. NEUROLOGIC: The patient is awake, alert, oriented and communicative. LABORATORY DATA: Had CT scan of the chest done, discussed with . There is some irregular requiring video-assisted thoracoscopy. Surgical team was consulted, I spoke to Dr. Melendez, who will discuss with cardiothoracic surgeon to evaluate the patient. Laboratory exam otherwise CEA is 1.4 and PSA is 0.1. ASSESSMENT: 1. Left pleural effusion status post thoracentesis, 1600 mL fluid was removed. Awaiting for CAT scan results. Awaiting for followup CT scan of the chest. 2. History of carcinoma of prostate. 3. Chronic kidney disease. 4. Hypertension. 5. Hyperlipidemia. 6. Deconditioning, difficulty walking. 7. Constipation. PLAN: We will continue patient on IV steroids, continue on nebulizer treatment. Awaiting thoracic surgeon's evaluation. Awaiting thoracentesis, pleural fluid cytology results and we will reevaluate patient in a.m. Tejinder Razo MD
--- NOTE | 2018-07-15 16:38 | PCM.PROC ---
Procedures Attestation:: I certify that I have explained the specified Operation(s) or Procedure(s), risks, benefits and reasonable alternatives to the Patient and/or other person responsible. The opportunity was given to ask questions and all questions answered - Chest Tube Chest Tube Location: Lateral Chest Left, Mid-Axillary Left Size of Tube (cm): 4 Chest Tube Procedure: Chlorhexidine Tube Sutured to Skin: Yes Sterile Dressing Applied: Yes Anesthesia: Lidocaine 1% Volume Anesthetic (mls): 5 Incision Made With: #11 blade Post Procedure: sutured to skin, sterile dressing applied, air occlusive dressing Tube Drainage: fluid Amount of Initial Drainage: 200 Post Procedure CXR?: Yes Patient Tolerated Procedure: Yes
[2018-07-15 16:53] LABS: BODY FLUID TYPE PLEURAL/THORACENTESI
--- NOTE | 2018-07-15 17:14 | RAD ---
Date of service: 07/15/2018 HISTORY: s/p L pigtail Relevant interventional procedure(s): 07/13/2018 left thoracentesis with retrieval of 1.6 L of fluid COMPARISON: Postprocedural chest radiographs including 07/14/2018 FINDINGS: LUNGS: Low lung volumes. Atelectasis/infiltrate a new finding right lung. Stable left lower lobe and lingular infiltrate. PLEURA: Stable left pleural effusion. No pneumothorax. CARDIOVASCULAR: No atherosclerotic calcification present Normal. OSSEOUS STRUCTURES: No significant abnormalities. VISUALIZED UPPER ABDOMEN: Normal. OTHER FINDINGS: None. IMPRESSION: Low lung volumes are contributing to findings in the right lung/right lower lobe. Stable findings left lung. Stable left pleural effusion.
[2018-07-15 17:27] LABS: BF GROSS APPEARANCE BLOODY (CLEAR); BODY FLUID TOTAL COUNT 100 (0-0)
[2018-07-16] MEDS: Albuterol-Ipratrop 3 mg / 0.5 (3 ml) UD IH SCH ×4 (01:38→21:45)
[2018-07-16] MEDS: Pantoprazole 40 mg EC Tab PO SCH (06:51)
--- NOTE | 2018-07-16 07:16 | CP.PCM.PN ---
Subjective - Date & Time of Evaluation Date of Evaluation: 07/16/18 Time of Evaluation: 07:13 - Subjective Subjective: CT Surgery Progress Note for Dr. James This 83M was seen and examined this AM at bedside no acute events overnight. Denies chest pain or SOB. CT output 100 upon insertion 1200cc serosanguinous output total on suction without air leaks. Objective - Vital Signs/Intake and Output Vital Signs (last 24 hours): Temp Pulse Resp BP Pulse Ox 100.6 F H 91 H 20 143/71 96 07/16/18 06:00 07/16/18 06:00 07/16/18 06:00 07/16/18 06:00 07/16/18 06:00 Intake and Output: 07/16/18 07/16/18 06:59 18:59 Intake Total 540 Output Total 800 Balance -260 - Medications Medications: Current Medications Albuterol/Ipratropium (Duoneb 3 Mg/0.5 Mg (3 Ml) Ud) 3 ml IH [id number] [facility] Last Admin: 07/16/18 01:38 Dose: Not Given Albuterol/Ipratropium (Duoneb 3 Mg/0.5 Mg (3 Ml) Ud) 3 ml IH Q2H PRN PRN Reason: Shortness of Breath Amlodipine Besylate (Norvasc) 10 mg PO DAILY [facility] Last Admin: 07/15/18 09:15 Dose: 10 mg Atorvastatin Calcium (Lipitor) 10 mg PO DIN [facility] Last Admin: 07/15/18 18:00 Dose: 10 mg Docusate Sodium (Colace) 100 mg PO BID [facility] Last Admin: 07/15/18 18:00 Dose: 100 mg Methylprednisolone (Solu-Medrol) 20 mg IV Q12 [facility] Last Admin: 07/15/18 21:48 Dose: 20 mg Ondansetron HCl (Zofran Inj) 4 mg IVP Q4H PRN PRN Reason: Nausea/Vomiting Last Admin: 07/13/18 06:01 Dose: 4 mg Pantoprazole Sodium (Protonix Ec Tab) 40 mg PO 0600 [facility] Last Admin: 07/16/18 06:51 Dose: 40 mg Polysaccharide Iron Complex (Ferrex-150) 150 mg PO DAILY [facility] Last Admin: 07/15/18 09:15 Dose: 150 mg Simethicone (Mylicon Liq) 40 mg PO QID [facility] Last Admin: 07/15/18 21:49 Dose: 40 mg Tamsulosin HCl (Flomax) 0.4 mg PO DAILY [facility] Last Admin: 07/15/18 09:16 Dose: 0.4 mg Tramadol HCl (Ultram) 50 mg PO Q6 PRN PRN Reason: Pain, moderate (4-7) Last Admin: 07/12/18 17:26 Dose: 50 mg - Labs Labs: 07/14/18 06:45 07/14/18 06:45 PT 14.7 SECONDS (9.4-12.5) H 07/12/18 01:34 INR 1.28 07/12/18 01:34 APTT 27.3 Seconds (25.1-36.5) 07/12/18 01:34 - Constitutional Appears: Non-toxic, No Acute Distress - Head Exam Head Exam: ATRAUMATIC, NORMOCEPHALIC - Eye Exam Eye Exam: EOMI - ENT Exam ENT Exam: Mucous Membranes Moist - Respiratory Exam Respiratory Exam: NORMAL BREATHING PATTERN - Cardiovascular Exam Cardiovascular Exam: +S1, +S2 - GI/Abdominal Exam GI & Abdominal Exam: Soft. absent: Tenderness - Neurological Exam Neurological Exam: Alert, Awake - Psychiatric Exam Psychiatric exam: Normal Affect, Normal Mood - Skin Skin Exam: Dry, Intact Assessment and Plan - Assessment and Plan (Free Text) Assessment: 83M with pleural effusions POD#1 s/p thoracostomy with pigtail Monitor outputs follow up AM CXR Continue medical management per primary team Further recs per Dr. Erika Aparicio PGY3
--- NOTE | 2018-07-16 08:12 | PN ---
DATE: 07/16/2018 PULMONARY NOTE SUBJECTIVE: The patient appears comfortable this morning. He is not short of breath at rest. PHYSICAL EXAMINATION: VITALS: The temperature is 100.6, pulse 91, respirations 18-20, and blood pressure 143/71. Oxygen saturation on nasal cannula is 96-98%. HEENT: Normocephalic, atraumatic. No JVD. CARDIOVASCULAR: Systolic ejection murmur at the lower left sternal border. No S3 gallop. LUNGS: Decreased breath sounds - left lower lobe. Minimal crackles, right base. No rhonchi. No wheezing. EXTREMITIES: Mild edema. No cyanosis, no clubbing. Calves are nontender to palpation. GASTROINTESTINAL: Abdomen is soft, nontender, and nondistended. Bowel sounds are positive. SKIN: No acute rash. NEUROLOGIC EXAM: Limited at the present time. PERTINENT LABORATORY DATA: Chest x-ray was done yesterday afternoon and reviewed. The left pleural effusion remains large and is not significantly changed from the previous film. There is now a minimal infiltrate noted at the right base. IMPRESSION: 1. Recurrent left pleural effusion. 2. Rule out pneumonia - right lower lobe. 3. Chronic kidney disease. 4. Anemia. PLAN: The patient appears comfortable this morning. He is not short of breath at rest. He does state to feeling better overall. I did discuss the case with the night nurse at length. Apparently, a chest tube was placed - with approximately 1000 mL of fluid drainage. As noted above, the patient also had a low-grade temperature this morning. I did review the chest x-ray done yesterday afternoon. The chest x-ray done yesterday afternoon is not significantly changed - as far as the left pleural effusion is concerned. However, as above, there is a new small right lower lobe infiltrate. Given the new finding on chest x-ray, and low grade temperatures, I will consult Dr. Bonilla for antibiotic usage. Inputs by Surgery are noted. We are awaiting the cytopathology on the pleural fluid. If the cytopathology (on the pleural fluid) is negative, video-assisted thorascopic surgery should be done. Thoracic intervention may still be warranted (even if the pleural fluid is positive), as the effusion does appear partially loculated. Clinical status of the patient appears very guarded at this point in time. I did have a long discussion with Dr. Razo yesterday. I will also discuss the case with her today. Keegan Hadley MD JUDA[facility]
[2018-07-16] MEDS: Iron Complex Polysacch 150mg Cap PO SCH (10:39)
[2018-07-16] MEDS: MethylPREDNISolone 40 mg Vial IV SCH ×2 (10:40→22:13)
[2018-07-16] MEDS: Meropenem IV 1 gm in NS 1 GM/50 ML BAG IVPB SCH ×2 (10:53→22:13)
[2018-07-16] MEDS: Simethicone 40 mg/0.6 ml Liquid (30 ml) PO SCH ×4 (11:40→22:12)
[2018-07-16] MEDS: POLYETHYLENE GLYCOL 3350 17 GM/Dose PACKET PO SCH ×2 (11:40→18:32)
[2018-07-16 12:12] LABS: URINE APPEARANCE CLEAR (CLEAR); URINE BILIRUBIN NEGATIVE (NEGATIVE); URINE BLOOD TRACE-LYSED (NEGATIVE); URINE COLOR YELLOW (YELLOW); URINE GLUCOSE (UA) NEGATIVE (NEGATIVE); URINE LEUKOCYTE ESTERASE NEGATIVE Leu/uL (NEGATIVE); URINE PROTEIN NEGATIVE mg/dL (<30 mg/dL); URINE UROBILINOGEN 0.2 E.U./dL (<1 E.U./dL)
[2018-07-16 12:16] LABS: URINE RBC 0 - 2 /hpf (0-2); URINE WBC 0 - 2 /hpf (0-6)
--- NOTE | 2018-07-16 12:35 | RAD ---
Date of service: 07/16/2018 HISTORY: comparison COMPARISON: 07/15/2018 FINDINGS: LUNGS: No active pulmonary disease. PLEURA: There is a moderate to large left pleural effusion extending along the left chest wall. This is unchanged. CARDIOVASCULAR: No aortic atherosclerotic calcification present. Mild cardiomegaly no pulmonary vascular congestion. OSSEOUS STRUCTURES: No significant abnormalities. VISUALIZED UPPER ABDOMEN: Normal. OTHER FINDINGS: None. IMPRESSION: There is a moderate to large left pleural effusion extending along the left chest wall. This is unchanged.
--- NOTE | 2018-07-16 17:15 | CON ---
DATE OF CONSULTATION: 07/16/2018 The patient was seen earlier today in 272. CHIEF COMPLAINT: Possible pneumonia times several days. HISTORY OF PRESENT ILLNESS: This is an 83-year-old male with a history of hypertension, prostate cancer, kidney disease, peptic ulcer disease, anemia, history of left pleural effusion, has had thoracentesis, [facility] with left-sided abdominal discomfort and shortness of breath. Infectious disease consultation requested for possible pneumonia. PAST MEDICAL HISTORY: Significant for anemia, kidney disease, hypertension, coronary artery disease, prostate cancer, peptic ulcer disease, arthritis, and cataracts. PAST SURGICAL HISTORY: Significant for a knee surgery and bilateral shoulder surgery. MEDICATIONS AT HOME: Include the patient to be on tamsulosin, Lasix, inhalers, Lipitor. ALLERGIES: THE PATIENT HAS NO KNOWN ALLERGIES. REVIEW OF SYSTEMS: The patient has low-grade fevers. The patient has been admitted since 07/12/2018; however, he had a fever today. The patient has been having shortness of breath and weakness and no fevers earlier, did have some fevers at home. No abdominal pain, diarrhea, or constipation. Review of systems reveals the patient has a 14-point review of systems as noted. PHYSICAL EXAMINATION: GENERAL: The patient is in bed, no acute distress, mild shortness of breath. VITAL SIGNS: Temperature of 100.6, heart rate of 110, respiratory rate of 21 yesterday and 20 today, blood pressure is 127/70. HEENT: Unremarkable. NECK: Supple. LUNGS: Decreased breath sounds. HEART: Normal S1, S2. ABDOMEN: Soft, nontender. LABORATORY EXAMINATION: White count of 7.9, hemoglobin of 8, platelets of 231,000, and coagulation is noted. Chemistries reveal the creatinine is 2.7 and the patient has had high creatinine in 06/2018. Pleural fluid reveals a white count of 945, cell count is 100, and 76% monos, unable to see a pH on the pleural fluid. No LDH is available on the pleural fluid and no protein is available on the pleural fluid. Dr. Hadley's progress note from today is reviewed. He states that there is now an infiltrate noted new at the right base and a chest tube is noted. Chest x-ray is reviewed. The patient had a CAT scan, which is also reviewed. Review of microbiology reveals the pleural fluid cultures are pending. CAT scan of the chest is also reviewed. ASSESSMENT AND PLAN: This is an 83-year-old male with hypertension, coronary artery disease, prostate disease, kidney disease, peptic ulcer disease, anemia, arthritis, and cataract, who was admitted with diagnosis of pleural effusion, etiology of which is not entirely clear. We will discuss with Dr. Hadley. #1 is sepsis with right lower lobe healthcare-associated pneumonia in a patient with effusion and chest tube placement. We will order pancultures, blood cultures, urine cultures. We will start the patient on meropenem and doxycycline, pending panculture results. We will also do vasculitis, Goodpasture's and Nell's workup in the patient with renal disease and lung disease. We will make further recommendations upon availability. We will follow with you. Case discussed with the nursing staff caring for this patient. Juan Bonilla MD
--- NOTE | 2018-07-16 17:48 | PN ---
DATE: 07/16/2018 This note is for Dr. Eastman, Dr. Thakkar covering. SUBJECTIVE: The patient is sitting in a chair, comfortable. He underwent a left chest tube placement yesterday for hemorrhagic pleural effusion. He states that his abdominal pain is improved. He denies any nausea or vomiting. PHYSICAL EXAMINATION: VITAL SIGNS: Reveal temperature of 100.6, blood pressure 147/73, heart rate 91. HEENT: Reveal sclerae to be white. Conjunctivae pale. NECK: Supple. CHEST: Reveal decreased breath sounds at the left lung field. There are some scattered rhonchi on the right. HEART: Reveals a regular rate and rhythm. He has a chest tube in his left thorax. ABDOMEN: Soft, nontender. EXTREMITIES: No edema. LABORATORY DATA: Reveal white blood cell count 7.9, hemoglobin 8.5. Chemistries reveal BUN 53, creatinine 2.7. CEA is 1.4. PSA is less than 0.1 AFB is 2.1 IMPRESSION: A 83-year-old male with a hemorrhagic left pleural effusion with secondary abdominal pain status post left chest tube placement. RECOMMENDATIONS: 1. Await results of cytology from his pleural effusion. 2. Follow CBC. 3. Continue supportive care. Robert Thakkar MD
--- NOTE | 2018-07-16 18:28 | PN ---
DATE: 07/16/2018 SUBJECTIVE: The patient is an 83-year-old seen and examined, sitting in chair, seems to be comfortable with less shortness of breath. The patient has video-assisted thoracoscopy and chest tube placement yesterday by a surgical coder. PHYSICAL EXAMINATION GENERAL: He is awake, alert, oriented and communicative. VITAL SIGNS: He is afebrile, pulse 104, respirations 20, blood pressure 165/75. LUNGS: Decreased breath sounds in the left base. HEART: S1, S2, audible. ABDOMEN: Soft, obese. Nontender. No rebound. No guarding. NEUROLOGIC: The patient is awake, alert, oriented and communicative. EXTREMITIES: Bilateral leg, no edema. LABORATORY DATA: There is no new lab available today, we will order for tomorrow. ASSESSMENT AND PLAN: 1. Left pleural effusion status post thoracentesis followed by chest tube placement, awaiting cytology report. 2. Chronic anemia, etiology unclear. 3. Chronic kidney disease. 4. Hypertension. PLAN: Currently, the patient is on doxycycline as per IDs recommendation. He is getting nebulizer treatment. He is on meropenem. We will continue on IV steroid. We will follow up patient. Tejinder Razo MD
[2018-07-17] MEDS: Pantoprazole 40 mg EC Tab PO SCH (05:35)
[2018-07-17] MEDS: Albuterol-Ipratrop 3 mg / 0.5 (3 ml) UD IH SCH ×3 (07:31→19:54)
--- NOTE | 2018-07-17 07:58 | PN ---
DATE: 07/17/2018 PULMONARY NOTE SUBJECTIVE: The patient appears more comfortable this morning. He is not short of breath at rest. PHYSICAL EXAMINATION: VITALS: Temperature is 98.6, pulse 98, respirations 18, blood pressure 160/79. Oxygen saturation on nasal cannula is 96%. HEENT: Normocephalic, atraumatic. No JVD. CARDIOVASCULAR: Systolic ejection murmur at the lower left sternal border. No S3 gallop. LUNGS: Decreased breath sounds - left lower lobe. Less crackles - right base. No rhonchi. No wheezing. EXTREMITIES: Mild edema. No cyanosis, no clubbing. Calves are nontender to palpation. GASTROINTESTINAL: Abdomen is soft, nontender, and nondistended. Bowel sounds are positive. SKIN: No acute rash. NEUROLOGIC: Exam limited at the present time. PERTINENT LABORATORY DATA: Chest x-ray was done this morning and reviewed. There is now resolution of the previously seen right lower lobe infiltrate. There is also a decrease in the left pleural effusion. Official results are pending. IMPRESSION: 1. Recurrent left pleural effusion. 2. Rule out pneumonia - right lower lobe - resolved. 3. Chronic kidney disease. 4. Anemia. PLAN: The patient appears more comfortable this morning. He is not short of breath at rest. He does state to feeling much better overall. I did discuss the case with the night nurse at length. The night nurse stated that the patient had a very good night. Approximately 550 mL have been drained from the chest catheter over the past day. I did review the chest x-ray from this morning. Again, official results are pending. The previously seen right lower lobe infiltrate has primarily resolved. There is also a decrease in the left pleural effusion. There remains a mild contralateral tracheal shift. Input by the surgical team is also noted. Again, we are awaiting the pleural fluid cytology results. Hopefully, we will have some results tomorrow. Again, the patient may very well need thorascopic surgery - depending on the clinical status and cytology results. Clinical status of the patient shows definite improvement - compared to the initial presentation. However, given the above, the future status/prognosis for this patient does remain very guarded. I will discuss the above with the attending physician. Keegan Hadley MD [facility] # [id number]
--- NOTE | 2018-07-17 08:15 | CP.PCM.PN ---
Subjective - Date & Time of Evaluation Date of Evaluation: 07/17/18 Time of Evaluation: 08:12 - Subjective Subjective: CT Surgery Progress Note- Dr. James Pt seen and examined this AM at bedside no acute events overnight. Denies chest pain or SOB. CT 200cc serosanguinous output over 24 hours. on suction no air leaks. Objective - Vital Signs/Intake and Output Vital Signs (last 24 hours): Temp Pulse Resp BP Pulse Ox 98.6 F 98 H 20 160/79 H 96 07/17/18 06:00 07/17/18 06:00 07/17/18 06:00 07/17/18 06:00 07/17/18 06:00 Intake and Output: 07/17/18 07/17/18 06:59 18:59 Intake Total 270 Output Total 1620 180 Balance -1350 -180 - Medications Medications: Current Medications Albuterol/Ipratropium (Duoneb 3 Mg/0.5 Mg (3 Ml) Ud) 3 ml IH [id number] [facility] Last Admin: 07/17/18 07:31 Dose: 3 ml Albuterol/Ipratropium (Duoneb 3 Mg/0.5 Mg (3 Ml) Ud) 3 ml IH Q2H PRN PRN Reason: Shortness of Breath Amlodipine Besylate (Norvasc) 10 mg PO DAILY [facility] Last Admin: 07/16/18 10:39 Dose: 10 mg Atorvastatin Calcium (Lipitor) 10 mg PO DIN [facility] Last Admin: 07/16/18 18:32 Dose: 10 mg Docusate Sodium (Colace) 100 mg PO BID [facility] Last Admin: 07/16/18 18:32 Dose: 100 mg Doxycycline Hyclate 100 mg/ (Sodium Chloride) 100 mls @ 100 mls/hr IVPB Q12 [facility]; Protocol Stop: 07/25/18 10:01 Last Admin: 07/16/18 22:11 Dose: 100 mls/hr Meropenem (Merrem Iv 1 Gm Premix) 1 gm in 50 mls @ 100 mls/hr IVPB Q12 [facility]; Protocol Stop: 07/25/18 10:01 Last Admin: 07/16/18 22:13 Dose: 100 mls/hr Methylprednisolone (Solu-Medrol) 20 mg IV Q12 [facility] Last Admin: 07/16/18 22:13 Dose: 20 mg Ondansetron HCl (Zofran Inj) 4 mg IVP Q4H PRN PRN Reason: Nausea/Vomiting Last Admin: 07/13/18 06:01 Dose: 4 mg Pantoprazole Sodium (Protonix Ec Tab) 40 mg PO 0600 [facility] Last Admin: 07/17/18 05:35 Dose: 40 mg Polyethylene Glycol (Miralax) 17 gm PO BID [facility] Last Admin: 07/16/18 18:32 Dose: Not Given Polysaccharide Iron Complex (Ferrex-150) 150 mg PO DAILY [facility] Last Admin: 07/16/18 10:39 Dose: 150 mg Simethicone (Mylicon Liq) 40 mg PO QID [facility] Last Admin: 07/16/18 22:12 Dose: 40 mg Tamsulosin HCl (Flomax) 0.4 mg PO DAILY [facility] Last Admin: 07/16/18 10:40 Dose: 0.4 mg Tramadol HCl (Ultram) 50 mg PO Q6 PRN PRN Reason: Pain, moderate (4-7) Last Admin: 07/12/18 17:26 Dose: 50 mg - Labs Labs: 07/14/18 06:45 07/14/18 06:45 PT 14.7 SECONDS (9.4-12.5) H 07/12/18 01:34 INR 1.28 07/12/18 01:34 APTT 27.3 Seconds (25.1-36.5) 07/12/18 01:34 - Constitutional Appears: Non-toxic, No Acute Distress - Head Exam Head Exam: ATRAUMATIC - Eye Exam Eye Exam: EOMI. absent: Scleral icterus - ENT Exam ENT Exam: Mucous Membranes Moist - Respiratory Exam Respiratory Exam: NORMAL BREATHING PATTERN. absent: Accessory Muscle Use, Respiratory Distress Additional comments: Pigtial in place w/ serosang output, no airleak detected - Cardiovascular Exam Cardiovascular Exam: REGULAR RHYTHM, +S1, +S2. absent: Bradycardia, Tachycardia - GI/Abdominal Exam GI & Abdominal Exam: Soft. absent: Distended, Firm, Guarding, Rigid, Tenderness - Extremities Exam Extremities Exam: absent: Calf Tenderness - Neurological Exam Neurological Exam: Alert, Awake, Oriented x3 - Psychiatric Exam Psychiatric exam: Normal Affect - Skin Skin Exam: Intact, Warm Assessment and Plan - Assessment and Plan (Free Text) Assessment: 83M with pleural effusions s/p thoracostomy with pigtail on 07/15/18 Plan: Monitor outputs f/u AM CXR path and cytology pending Further recs per Dr. Erika Melendez PGY2
--- NOTE | 2018-07-17 10:30 | RAD ---
Date of service: 07/17/2018 HISTORY: comparison COMPARISON: 07/16/2018 FINDINGS: LUNGS: No active pulmonary disease. PLEURA: Large left pleural effusion unchanged CARDIOVASCULAR: No aortic atherosclerotic calcification present. Mild cardiomegaly no pulmonary vascular congestion. OSSEOUS STRUCTURES: No significant abnormalities. VISUALIZED UPPER ABDOMEN: Normal. OTHER FINDINGS: None. IMPRESSION: Large left pleural effusion unchanged
[2018-07-17] MEDS: POLYETHYLENE GLYCOL 3350 17 GM/Dose PACKET PO SCH ×2 (10:35→17:46)
[2018-07-17] MEDS: Iron Complex Polysacch 150mg Cap PO SCH (10:35)
[2018-07-17] MEDS: MethylPREDNISolone 40 mg Vial IV SCH ×2 (10:37→22:35)
[2018-07-17] MEDS: Meropenem IV 1 gm in NS 1 GM/50 ML BAG IVPB SCH ×2 (11:38→22:32)
[2018-07-17] MEDS: Simethicone 40 mg/0.6 ml Liquid (30 ml) PO SCH ×3 (11:47→22:37)
--- NOTE | 2018-07-18 01:50 | PN ---
DATE: 07/17/2018 SUBJECTIVE: The patient is bed, in no acute distress, nontoxic. PHYSICAL EXAMINATION: VITAL SIGNS: Temperature is 98, blood pressure is 150/70, respiratory rate is 16, heart rate of 98. HEENT: Unremarkable. NECK: Supple. LUNGS: Have decreased breath sounds. HEART: Normal, S1, S2. ABDOMEN: Soft. LABORATORY DATA: Examination reveals a white count of 7.9, hemoglobin is 8. Procalcitonin is 0.59. Microbiology reveals blood cultures no growth, urine culture no growth. The sputum culture is pending. ASSESSMENT AND PLAN: An 83-year-old male with history of hypertension, prostate cancer, kidney disease, peptic ulcer disease, anemia, history of left pleural effusion, thoracentesis, admitted from the [facility] with left-sided abdominal discomfort. The patient's left pleural effusion which was described grossly as bloody sepsis, healthcare-associated pneumonia in a patient with chest tube and chronic left effusion which is bloody, most likely a malignancy although cytology is pending. We will follow with you. Juan Bonilla MD
[2018-07-18] MEDS: Albuterol-Ipratrop 3 mg / 0.5 (3 ml) UD IH SCH ×4 (04:59→19:25)
[2018-07-18] MEDS: Pantoprazole 40 mg EC Tab PO SCH (05:33)
[2018-07-18 07:19] LABS: BASO # 0.01 K/mm3 (0.0-2.0); BASO % 0.1 % (0.0-3.0); EOS % 0.1 % (1.5-5.0); GRAN # 8.06 (1.4-6.5); GRAN % 85.4 % (50.0-68.0); HEMOGLOBIN 8.5 g/dL (14.0-18.0); LYMPH # 0.7 (1.2-3.4); LYMPH % 7.1 % (22.0-35.0); MEAN CELL VOLUME 90.8 fl (80.0-105.0); MEAN CORPUSCULAR HEMOGLOBIN 28.1 pg (25.0-35.0); MEAN CORPUSCULAR HGB CONC 30.9 g/dl (31.0-37.0); MEAN PLATELET VOLUME 8.3 fl (7.0-11.0); MONO # 0.7 (0.1-0.6); MONO % 7.3 % (1.0-6.0); RBC 3.03 10^6/uL (3.5-6.1); WHITE BLOOD COUNT 9.4 10^3/uL (4.5-11.0)
--- NOTE | 2018-07-18 08:08 | CP.PCM.PN ---
Subjective - Date & Time of Evaluation Date of Evaluation: 07/18/18 Time of Evaluation: 08:06 - Subjective Subjective: Surgery Pt seen and examined. No acute events. Drain in place. 200cc overnight. 400cc 24hrs. ss. Resting comfortably. Denies SOB, CP. Objective - Vital Signs/Intake and Output Vital Signs (last 24 hours): Temp Pulse Resp BP Pulse Ox 98.6 F 100 H 16 152/75 H 95 07/17/18 22:00 07/17/18 22:00 07/17/18 22:00 07/17/18 22:00 07/17/18 22:00 Intake and Output: 07/18/18 07/18/18 06:59 18:59 Intake Total 0 Output Total 525 Balance -525 - Medications Medications: Current Medications Albuterol/Ipratropium (Duoneb 3 Mg/0.5 Mg (3 Ml) Ud) 3 ml IH [id number] [facility] Last Admin: 07/18/18 08:00 Dose: 3 ml Albuterol/Ipratropium (Duoneb 3 Mg/0.5 Mg (3 Ml) Ud) 3 ml IH Q2H PRN PRN Reason: Shortness of Breath Amlodipine Besylate (Norvasc) 10 mg PO DAILY [facility] Last Admin: 07/17/18 10:36 Dose: 10 mg Atorvastatin Calcium (Lipitor) 10 mg PO DIN [facility] Last Admin: 07/17/18 17:46 Dose: 10 mg Docusate Sodium (Colace) 100 mg PO BID [facility] Last Admin: 07/17/18 17:46 Dose: 100 mg Doxycycline Hyclate 100 mg/ (Sodium Chloride) 100 mls @ 100 mls/hr IVPB Q12 [facility]; Protocol Stop: 07/25/18 10:01 Last Admin: 07/17/18 22:33 Dose: 100 mls/hr Meropenem (Merrem Iv 1 Gm Premix) 1 gm in 50 mls @ 100 mls/hr IVPB Q12 [facility]; Protocol Stop: 07/25/18 10:01 Last Admin: 07/17/18 22:32 Dose: 100 mls/hr Methylprednisolone (Solu-Medrol) 20 mg IV Q12 [facility] Last Admin: 07/17/18 22:35 Dose: 20 mg Ondansetron HCl (Zofran Inj) 4 mg IVP Q4H PRN PRN Reason: Nausea/Vomiting Last Admin: 07/13/18 06:01 Dose: 4 mg Pantoprazole Sodium (Protonix Ec Tab) 40 mg PO 0600 [facility] Last Admin: 07/18/18 05:33 Dose: 40 mg Polyethylene Glycol (Miralax) 17 gm PO BID [facility] Last Admin: 07/17/18 17:46 Dose: 17 gm Polysaccharide Iron Complex (Ferrex-150) 150 mg PO DAILY [facility] Last Admin: 07/17/18 10:35 Dose: 150 mg Simethicone (Mylicon Liq) 40 mg PO QID [facility] Last Admin: 07/17/18 22:37 Dose: 40 mg Tamsulosin HCl (Flomax) 0.4 mg PO DAILY [facility] Last Admin: 07/17/18 10:35 Dose: 0.4 mg Tramadol HCl (Ultram) 50 mg PO Q6 PRN PRN Reason: Pain, moderate (4-7) Last Admin: 07/17/18 10:37 Dose: 50 mg - Labs Labs: 07/18/18 06:55 07/14/18 06:45 PT 14.7 SECONDS (9.4-12.5) H 07/12/18 01:34 INR 1.28 07/12/18 01:34 APTT 27.3 Seconds (25.1-36.5) 07/12/18 01:34 - Constitutional Appears: No Acute Distress - Head Exam Head Exam: ATRAUMATIC, NORMAL INSPECTION, NORMOCEPHALIC - Eye Exam Eye Exam: EOMI, Normal appearance, PERRL Pupil Exam: NORMAL ACCOMODATION, PERRL - ENT Exam ENT Exam: Mucous Membranes Moist, Normal Exam - Neck Exam Neck Exam: Full ROM - Respiratory Exam Respiratory Exam: NORMAL BREATHING PATTERN Additional comments: L chest drain in place 200cc ss 12hrs . No leak - Cardiovascular Exam Cardiovascular Exam: REGULAR RHYTHM - GI/Abdominal Exam GI & Abdominal Exam: Soft, Normal Bowel Sounds. absent: Distended, Tenderness - Neurological Exam Neurological Exam: Alert, Awake, CN II-XII Intact, Normal Gait, Oriented x3 - Psychiatric Exam Psychiatric exam: Normal Affect, Normal Mood - Skin Skin Exam: Dry, Intact, Normal Color, Warm Assessment and Plan - Assessment and Plan (Free Text) Assessment: 83M with pleural effusions s/p thoracostomy with pigtail on 07/15/18 Plan: Monitor outputs f/u AM CXR f/u Chest CT path pending Further recs per Dr. James
--- NOTE | 2018-07-18 08:58 | PN ---
DATE: 07/15/2018 An addendum to a progress note on Gaston Morris performed by aDnielle Talley APN. This progress note is for Dr. Eastman, Dr. Thakkar covering. I have personally examined this patient myself. The patient denies any further abdominal pain or overt GI bleeding. The patient has a hemorrhagic pleural effusion status post thoracentesis. His abdominal pain is most likely secondary to the pleural effusion and has improved. I agree with Danielle Talley' assessment and recommendations. Robert Thakkar MD
[2018-07-18] MEDS: Iron Complex Polysacch 150mg Cap PO SCH (09:09)
[2018-07-18] MEDS: MethylPREDNISolone 40 mg Vial IV SCH ×2 (09:11→22:15)
[2018-07-18] MEDS: POLYETHYLENE GLYCOL 3350 17 GM/Dose PACKET PO SCH ×2 (09:12→17:33)
[2018-07-18] MEDS: Meropenem IV 1 gm in NS 1 GM/50 ML BAG IVPB SCH ×2 (09:12→21:13)
[2018-07-18 09:28] LABS: ALB/GLOB RATIO 0.9 (1.1-1.8); ALBUMIN 3.1 g/dL (3.0-4.8); CALCIUM 9.4 mg/dL (8.4-10.5)
--- NOTE | 2018-07-18 09:35 | PN ---
DATE: 07/18/2018 SUBJECTIVE: The patient appears comfortable this morning. He is not short of breath at rest. PHYSICAL EXAMINATION: VITAL SIGNS: (Last noted in the computer): Temperature is 98.6, pulse this morning is 88, respiratory rate 16/18, blood pressure 152/75. Oxygen saturation on nasal cannula is 95%. HEENT: Normocephalic, atraumatic. NECK: No JVD. CARDIOVASCULAR: Systolic ejection murmur at the lower left sternal border. No S3 gallop. LUNGS: Decreased breath sounds - left lower lobe. Minimal/less crackles - right base. No rhonchi. No wheezing. EXTREMITIES: Mild edema. No cyanosis. No clubbing. Calves are nontender to palpation. GI: Abdomen is soft, nontender and nondistended. Bowel sounds are positive. SKIN: No acute rash. NEUROLOGIC: Exam limited at the present time. PERTINENT LABORATORY DATA: Chest x-ray was done this morning and reviewed. The chest x-ray shows a persistent left pleural effusion with mild contralateral tracheal shift. There is no obvious right lower lobe infiltrate. IMPRESSION: 1. Recurrent left pleural effusion. 2. Possible right lower lobe pneumonia - now resolved. 3. Chronic kidney disease. 4. Anemia. PLAN: The patient appears quite comfortable this morning. He is not short of breath at rest. He does state to feeling much better overall. I discussed the case with the night nurse at length. The night nurse stated the patient had a good night. Approximately 200 mL of fluid has drained over the past shift. I did review the chest x-ray from this morning. A persistent left pleural effusion remains, with a mild contralateral tracheal shift. There is no obvious right lower lobe infiltrate. A repeat CT scan has been ordered for today. Input by the surgical team is noted. Pleural fluid cytology - is still pending. I will discuss the case with Dr. Phillips (Pathology) later this morning. Clinical status of the patient is certainly improved - compared to his initial presentation. However, given the above, the future status/prognosis of this patient does remain guarded. I will discuss the above with the attending physician. Keegan Hadley MD [facility] # [id number]
--- NOTE | 2018-07-18 09:45 | PN ---
DATE: 07/17/2018 SUBJECTIVE: The patient is 83-year-old, seen and examined, lying in bed, still has mild shortness of breath, but better than before. PHYSICAL EXAMINATION: VITAL SIGNS: He is afebrile, pulse 100, respirations 16, and blood pressure 145/76. LUNGS: Bilateral upper lung region fair flow, but decreased breath sounds on the left lower lung region. CHEST: Reveals draining hemorrhagic fluid. EXTREMITIES: Bilateral legs no edema. LABORATORY DATA: Procalcitonin 0.59. Urine culture and blood cultures are negative. ASSESSMENT: 1. Left pleural effusion, status post chest tube placement, initially 1600 mL fluid was drained. The patient is still draining blood tinged fluid. 2. Chronic obstructive pulmonary disease. 3. Hypertension. 4. Chronic kidney disease. PLAN: Awaiting pathology and cytology report, I will order for CBC and CMP for morning. Highly suspicious for malignancy. Chronic anemia, multifactorial. Once we have the pathology report available, we will make further management plan. Tejindre Razo MD
[2018-07-18] MEDS: Simethicone 40 mg/0.6 ml Liquid (30 ml) PO SCH ×4 (10:00→22:28)
--- NOTE | 2018-07-18 10:04 | RAD ---
Date of service: 07/18/2018 HISTORY: comparison COMPARISON: 07/17/2018 FINDINGS: LUNGS: No active pulmonary disease. PLEURA: Slight decrease in large left effusion CARDIOVASCULAR: No aortic atherosclerotic calcification present. Mild cardiomegaly no pulmonary vascular congestion. OSSEOUS STRUCTURES: No significant abnormalities. VISUALIZED UPPER ABDOMEN: Normal. OTHER FINDINGS: None. IMPRESSION: Slight decrease in large left pleural effusion
[2018-07-18] MEDS ORDERED: Albuterol 0.083% Inhal Sol (2.5 mg/3 mL) UD INH STA (10:06)
[2018-07-18] MEDS ORDERED: Sod Polystyrene Sulf 15 gm/60 ml Susp PO ONE ×3 (10:08→15:45)
[2018-07-18] MEDS ORDERED: Insulin Regular 1 UNITS/0.01 ML ML IV STA (10:09)
[2018-07-18] MEDS ORDERED: Dextrose 50% SYRINGE Inj (50 ml) IVP ONE (10:11)
--- NOTE | 2018-07-18 10:39 | CON ---
DATE: 07/18/2018 REASON FOR CONSULTATION: Left pleural effusion, recurrent; possible mesothelioma. HISTORY OF PRESENT ILLNESS: Mr. Morris is an 83-year-old male sent to the [facility] from [facility] for evaluation for progressive shortness of breath. CT of chest, abdomen, and pelvis showed partial collapse of the left lung with left-sided pleural effusion and mediastinal shift. He underwent thoracocentesis. Pleural fluid cytology is pending. He also has history of prostate cancer in the remote past, had radioactive seed implanted. PSA is not elevated during this admission. Shortness of breath has decreased after thoracocentesis. He is being followed by Pulmonary Dr. Hadley. PAST MEDICAL HISTORY: Recurrent left-sided pleural effusion, prostate cancer, hypertension, chronic kidney disease, osteoarthritis, and dyslipidemia. PAST SURGICAL HISTORY: Seed implant in the prostate. HOME MEDICATIONS: Nebulizer, DuoNeb, tamsulosin, Lasix, prednisone, atorvastatin, amlodipine, and tramadol. REVIEW OF SYSTEMS: As per HPI. Rest of 12-point review of systems reviewed negative. PHYSICAL EXAMINATION: GENERAL: Comfortable in bed, in no acute distress. VITAL SIGNS: Temperature 98.3, heart rate 100 per minute, blood pressure 140/80, and respiratory 16 per minute. HEENT: Pallor positive. NECK: No lymphadenopathy. CHEST: Air entry decreased on the left side. No rhonchi. No crepitation. ABDOMEN: Soft and nontender. No hepatosplenomegaly. EXTREMITIES: No edema. NEUROLOGY: Alert and oriented x3. No focal, sensory, or motor deficits. SKIN: No petechiae. No rash. SPINE: Nontender. LABORATORY DATA: Sodium 135, potassium 5.3, and . Hemoglobin 8.5, hematocrit 27.5, and platelet 322. Creatinine 2.7. LFTs within normal limits. Iron 21, iron saturation 9%. Legionella negative. Pleural fluid cytology showed increased RBC. ASSESSMENT: 1. Recurrent left-sided pleural effusion, status post thoracocentesis. 2. Hypertension. 3. History of prostate cancer. 4. Anemia, chronic. PLAN: Pleural fluid cytology awaited. He might need pleural biopsy for definitive diagnosis. He has anemia, multifactorial iron deficiency. Blood iron is 26, iron saturation 9% only, also related to chronic kidney disease with elevated creatinine of 2.7. We will replace the iron, 100 mg IV iron for three days. He might need erythropoietin support to maintain normal hemoglobin. Chronic kidney disease; creatinine is stable at 2.7 during this hospitalization. History of prostate cancer, status post seed implant in the prostate. PSA is less than 0.1, it is unlikely he has metastatic prostate cancer in the lung. Thank you Dr. Razo for allowing us to participate in Mr. Morris's care. Nyiah Greenwood MD
--- NOTE | 2018-07-18 13:27 | CARD ---
APPROVED REPORT Date of service: 07/18/2018 EKG Measurement Heart [id number] <Conclusion> Normal sinus rhythm Normal ECG
--- NOTE | 2018-07-18 13:49 | CT ---
Date of service: 07/18/2018 PROCEDURE: CT Chest without contrast HISTORY: comparison COMPARISON: 07/14/2018 TECHNIQUE: Contiguous axial images were obtained through the chest without intravenous contrast enhancement. Sagittal and coronal reconstructions were performed. Radiation dose: Total exam DLP = 581.4 mGy-cm. This CT exam was performed using one or more of the following dose reduction techniques: Automated exposure control, adjustment of the mA and/or kV according to patient size, and/or use of iterative reconstruction technique. FINDINGS: LUNGS: There is a significant decrease in the size of the left pleural effusion after placement of a drainage catheter. There is improved atelectasis adjacent to the fusion MEDIASTINUM: Unremarkable thoracic aorta. No aneurysm. Normal sized heart. Main pulmonary artery unremarkable. No vascular congestion. No lymphadenopathy. Aortic calcification PLEURA: As above BONES: No fracture. No destructive lesion. UPPER ABDOMEN: Grossly unremarkable. OTHER FINDINGS: IMPRESSION: Decreased size of left pleural effusion after placement of catheter. A moderate effusion remains. There is improved atelectasis of the adjacent lung.
[2018-07-18 15:50] LABS: ALB/GLOB RATIO 0.9 (1.1-1.8); ALBUMIN 3.1 g/dL (3.0-4.8); CALCIUM 9.1 mg/dL (8.4-10.5)
--- NOTE | 2018-07-18 16:49 | CP.PCM.PN ---
Subjective - Date & Time of Evaluation Date of Evaluation: 07/18/18 Time of Evaluation: 09:40 - Subjective Subjective: Shortness of breath at rest has improved, no fevers, no nausea, no chest pain. Objective - Vital Signs/Intake and Output Vital Signs (last 24 hours): Temp Pulse Resp BP Pulse Ox 98.2 F 100 H 18 166/90 H 95 07/18/18 06:00 07/18/18 06:00 07/18/18 06:00 07/18/18 09:30 07/18/18 06:00 Intake and Output: 07/18/18 07/18/18 06:59 18:59 Intake Total 0 Output Total 525 Balance -525 - Medications Medications: Current Medications Albuterol/Ipratropium (Duoneb 3 Mg/0.5 Mg (3 Ml) Ud) 3 ml IH [id number] [facility] Last Admin: 07/18/18 13:43 Dose: Not Given Albuterol/Ipratropium (Duoneb 3 Mg/0.5 Mg (3 Ml) Ud) 3 ml IH Q2H PRN PRN Reason: Shortness of Breath Amlodipine Besylate (Norvasc) 10 mg PO DAILY [facility] Last Admin: 07/18/18 09:30 Dose: 10 mg Atorvastatin Calcium (Lipitor) 10 mg PO DIN [facility] Last Admin: 07/17/18 17:46 Dose: 10 mg Docusate Sodium (Colace) 100 mg PO BID [facility] Last Admin: 07/18/18 09:09 Dose: 100 mg Doxycycline Hyclate 100 mg/ (Sodium Chloride) 100 mls @ 100 mls/hr IVPB Q12 [facility]; Protocol Stop: 07/25/18 10:01 Last Admin: 07/18/18 09:11 Dose: 100 mls/hr Meropenem (Merrem Iv 1 Gm Premix) 1 gm in 50 mls @ 100 mls/hr IVPB Q12 [facility]; Protocol Stop: 07/25/18 10:01 Last Admin: 07/18/18 09:12 Dose: 100 mls/hr Iron Sucrose 200 mg/ Sodium (Chloride) 110 mls @ 110 mls/hr IVPB DAILY [facility] Stop: 07/20/18 10:00 Last Admin: 07/18/18 11:04 Dose: 110 mls/hr Sodium Chloride (Sodium Chloride 0.9%) 1,000 mls @ 125 mls/hr IV .Q8H [facility] Methylprednisolone (Solu-Medrol) 20 mg IV Q12 [facility] Last Admin: 07/18/18 09:11 Dose: 20 mg Ondansetron HCl (Zofran Inj) 4 mg IVP Q4H PRN PRN Reason: Nausea/Vomiting Last Admin: 07/13/18 06:01 Dose: 4 mg Pantoprazole Sodium (Protonix Ec Tab) 40 mg PO 0600 [facility] Last Admin: 07/18/18 05:33 Dose: 40 mg Polyethylene Glycol (Miralax) 17 gm PO BID [facility] Last Admin: 07/18/18 09:12 Dose: 17 gm Polysaccharide Iron Complex (Ferrex-150) 150 mg PO DAILY [facility] Last Admin: 07/18/18 09:09 Dose: 150 mg Simethicone (Mylicon Liq) 40 mg PO QID [facility] Last Admin: 07/18/18 14:00 Dose: 40 mg Tamsulosin HCl (Flomax) 0.4 mg PO DAILY [facility] Last Admin: 07/18/18 09:09 Dose: 0.4 mg Tramadol HCl (Ultram) 50 mg PO Q6 PRN PRN Reason: Pain, moderate (4-7) Last Admin: 07/17/18 10:37 Dose: 50 mg - Labs Labs: 07/18/18 06:55 07/18/18 15:30 PT 14.7 SECONDS (9.4-12.5) H 07/12/18 01:34 INR 1.28 07/12/18 01:34 APTT 27.3 Seconds (25.1-36.5) 07/12/18 01:34 - Constitutional Appears: Chronically Ill - Head Exam Head Exam: NORMAL INSPECTION - Neck Exam Neck Exam: absent: Meningismus - Respiratory Exam Respiratory Exam: Decreased Breath Sounds - Cardiovascular Exam Cardiovascular Exam: +S1, +S2 - GI/Abdominal Exam GI & Abdominal Exam: Soft. absent: Tenderness Assessment and Plan - Assessment and Plan (Free Text) Plan: Assessment Sepsis due to right lower lobe HCAP left sided pleural effusion S/P chest tube placement, R/O malignancy HTN prostate CA PUD chronic anemia Plan continue Doxycycline and Merrem day 3 for 4-7 days pleural effusion is bloody - follow up cytology and pathology
[2018-07-19] MEDS: Albuterol-Ipratrop 3 mg / 0.5 (3 ml) UD IH SCH ×4 (01:11→19:23)
[2018-07-19] MEDS: Sodium Chloride 0.9% 1,000 ML IV SCH ×2 (03:56→18:30)
[2018-07-19] MEDS: Pantoprazole 40 mg EC Tab PO SCH (05:51)
[2018-07-19 07:04] LABS: BASO # 0.01 K/mm3 (0.0-2.0); BASO % 0.1 % (0.0-3.0); EOS % 0.4 % (1.5-5.0); GRAN # 8.41 (1.4-6.5); GRAN % 83.6 % (50.0-68.0); HEMOGLOBIN 8.1 g/dL (14.0-18.0); LYMPH # 0.7 (1.2-3.4); LYMPH % 7.4 % (22.0-35.0); MEAN CELL VOLUME 90.7 fl (80.0-105.0); MEAN CORPUSCULAR HEMOGLOBIN 27.9 pg (25.0-35.0); MEAN CORPUSCULAR HGB CONC 30.8 g/dl (31.0-37.0); MEAN PLATELET VOLUME 8.4 fl (7.0-11.0); MONO # 0.9 (0.1-0.6); MONO % 8.5 % (1.0-6.0); RBC 2.9 10^6/uL (3.5-6.1); WHITE BLOOD COUNT 10.1 10^3/uL (4.5-11.0)
[2018-07-19 07:05] LABS: INR 1.3; PARTIAL THROMBOPLASTIN TIME 25.3 Seconds (25.1-36.5)
[2018-07-19 07:37] LABS: ALB/GLOB RATIO 0.9 (1.1-1.8); CALCIUM 8.9 mg/dL (8.4-10.5)
[2018-07-19] MEDS: Meropenem IV 1 gm in NS 1 GM/50 ML BAG IVPB SCH ×3 (07:44→21:08)
--- NOTE | 2018-07-19 08:09 | PN ---
DATE: 07/18/2018 SUBJECTIVE: The patient is 83 years old, seen and examined, lying in bed, seems to be comfortable, complaining of generalized weakness, complaining of mild shortness of breath. PHYSICAL EXAMINATION: GENERAL: Otherwise, awake, alert, oriented, communicative. VITAL SIGNS: He is afebrile, pulse 100, respirations 19, blood pressure 166/90. LUNGS: Decreased breath sounds at bases, right more than the left. HEART: S1 and S2 audible. ABDOMEN: Soft, obese, nontender. No rebound. No guarding. NEUROLOGICAL: The patient is awake, alert, oriented, communicative. LABORATORY DATA: WBC is 9.4, hemoglobin 8.5, hematocrit 27, platelets 322. Chemistries: Sodium 137, potassium 6.1, chloride 108, CO2 25, BUN 45, creatinine 2, blood sugar 204. ASSESSMENT: 1. Right pleural effusion seems to be hemorrhagic, rule out malignancy. 2. Chronic anemia. 3. Hypertension. 4. Chronic kidney disease. 5. History of carcinoma of prostate. 6. Chronic anemia seems to be multifactorial. 7. Hyperkalemia. PLAN: The patient is given cholestyramine, will be given another dose around 3 o'clock. Then we will follow up with chem-7 at 6 p.m. The patient will be n.p.o. after midnight. The plan is for possible video-assisted laparoscopy. We will follow up this patient in the a.m. Tejinder Razo MD
--- NOTE | 2018-07-19 08:35 | PN ---
DATE: 07/19/2018 PULMONARY NOTE SUBJECTIVE: The patient appears more comfortable this morning. He is not short of breath at rest. OBJECTIVE: VITALS: Temperature is 98.2, pulse this morning is 88, respiratory rate 18, blood pressure 147/85. Oxygen saturation on room air is 95%. HEENT: Normocephalic, atraumatic. No JVD. CARDIOVASCULAR: Systolic ejection murmur at the lower left sternal border. No S3 gallop. LUNGS: Somewhat improved breath sounds - left lower lobe. No rhonchi. No wheezing. EXTREMITIES: Mild edema. No cyanosis, no clubbing. Calves are nontender to palpation. GASTROINTESTINAL: Abdomen is soft, nontender, and nondistended. Bowel sounds are positive. SKIN: No acute rash. NEUROLOGIC: Limited at the present time. PERTINENT LABORATORY DATA: CAT scan of the chest was done yesterday and reviewed. There is a significant decrease in the size of the left pleural effusion - compared to the initial CAT scan. There is also a significant decrease in the adjacent compressive atelectasis. The lower lobe bronchi appear patent. A moderate left pleural effusion remains - possibly partially loculated. Pleural fluid cytology on the initial thoracentesis - negative for malignant cells. IMPRESSION: 1. Recurrent left pleural effusion. 2. Chronic kidney disease. 3. Anemia. 4. Hypertension. PLAN: The patient appears much more comfortable this morning. He is not short of breath at rest. He does state to feeling much better overall. I did discuss the case with the night nurse at length. The night nurse stated the patient had an uneventful night. Approximately 800 mL of drainage is reported over the past shift. I did review the CAT scan of the chest - done yesterday. There is certainly a decrease in left pleural effusion, as well as a significant decrease in the adjacent compressive atelectasis. Again, the left lower lobe bronchi appear patent. A moderate (possibly partially loculated) left pleural effusion remains. We are awaiting additional decisions by Surgery/Cardiothoracic surgery. Their input is noted. Clinical status of the patient is certainly improved - compared to his initial presentation. However, given the above, the future status/prognosis for this patient definitely remains guarded. I will discuss the above with the attending physician. Keegan Hadley MD [facility] # [id number] JUDAH
[2018-07-19] MEDS ORDERED: Midazolam 2 MG/2 ML VIAL ONE (11:32)
[2018-07-19] MEDS ORDERED: Propofol 10 mg/ml Inj (20 ML) ONE (11:32)
[2018-07-19] MEDS: Bupivacaine 0.25% 50 ML INJ IJ ONE ×2 (11:54→12:14)
[2018-07-19] MEDS: Bupivacaine Liposomal Inj 20 ml ONE ×2 (11:56→12:14)
[2018-07-19] MEDS: Lidocaine 1% Inj (20ml) ONE ×2 (11:56→12:14)
--- NOTE | 2018-07-19 12:34 | PCM.SURG1 ---
Surgeon's Initial Post Op Note - Surgeon's Notes Surgeon: Naya School Bus Mechanic: Katie PGY4 Type of Anesthesia: IV Sedation, Local Pre-Operative Diagnosis: Recurrent L side pleural effusion Operative Findings: serosang pleural fluid Post-Operative Diagnosis: same Operation Performed: Removal of pigtail catheter, pleural bx, placement of pleurex catheter Specimen/Specimens Removed: Parietal pleura Estimated Blood Loss: EBL {In ML}: 10 Blood Products Given: N/A Drains Used: Chest Tubes (pleurex catheter) Post-Op Condition: Good Date of Surgery/Procedure: 07/19/18 Time of Surgery/Procedure: 12:34
[2018-07-19] MEDS ORDERED: Lactated Ringer's 1,000 ML IV SCH (12:45)
--- NOTE | 2018-07-19 13:53 | RAD ---
Date of service: 07/19/2018 HISTORY: s/p Pleurex catheter COMPARISON: 07/18/2018 FINDINGS: LUNGS: The right lung is clear. There is airspace disease in the left lower lobe.. PLEURA: Status post left Pleurex catheter, interval decrease in size of left pleural effusion with residual small effusion. No pneumothorax. CARDIOVASCULAR: Persistent mild cardiomegaly. No aortic atherosclerotic calcification present. OSSEOUS STRUCTURES: Within normal limits for the patient's age. VISUALIZED UPPER ABDOMEN: Normal. OTHER FINDINGS: None. IMPRESSION: Status post left Pleurex catheter, interval decrease in size of left pleural effusion with residual small effusion and subsegmental atelectasis/pneumonia in the left lower lobe.
[2018-07-19] MEDS: Simethicone 40 mg/0.6 ml Liquid (30 ml) PO SCH ×4 (14:00→22:29)
--- NOTE | 2018-07-19 16:52 | RAD ---
Date of service: 07/19/2018 PROCEDURE: Fluoroscopy up to 1 hr HISTORY: ASPIRA CATH. INSERTION (LT. SIDE) COMPARISON: TECHNIQUE: 90.6 sec of fluoro time. Cumulative dose 0.559 mGy meter squared. Five images submitted FINDINGS: The study shows placement of a catheter in the left lower chest IMPRESSION: As above
[2018-07-19] MEDS: Iron Complex Polysacch 150mg Cap PO SCH (17:37)
[2018-07-19] MEDS: MethylPREDNISolone 40 mg Vial IV SCH ×2 (17:54→21:07)
[2018-07-19] MEDS: POLYETHYLENE GLYCOL 3350 17 GM/Dose PACKET PO SCH ×2 (18:11→18:13)
--- NOTE | 2018-07-19 19:30 | PN ---
DATE: 07/19/2018 SUBJECTIVE: He is comfortable in bed, in no acute distress. Underwent Aspira catheter placement. Today, chest tube removed. CT chest done yesterday showed decreasing pleural effusion. Pleural fluid cytology is negative for malignancy. Denies any chest pain. MEDICATIONS: Reviewed. PHYSICAL EXAMINATION GENERAL: In no acute distress. VITAL SIGNS: Temperature 98.5, heart rate 80 per minute, blood pressure 140/70 and respiratory is 16 per minute. HEENT: Pallor positive. NECK: No lymphadenopathy. CHEST: Air entry decreased on the left side. Aspira catheter draining serosanguineous fluid. ABDOMEN: Soft and nontender. EXTREMITY: No edema. CREDIT COLLECTIONS CLERK: Alert and oriented x3. No focal sensory motor deficit. LABORATORY DATA: White count 10, hemoglobin 8.1, hematocrit 26.3 and platelet 348. Sodium 139, potassium 5.1, creatinine 2. PSA is less than 0.1. ASSESSMENT AND PLAN: 1. Left pleural effusion status post Aspira catheter placement. Pleural fluid cytology negative for malignant cells. He will need pleural biopsy. We will discuss with cardiothoracic surgery. Discussed with surgical product sales consultant today. Waiting to hear back from the team regarding the plan for pleural biopsy. He has severe iron deficiency anemia. We will continue to replete IV iron 200 mg for 3 days IV over 1 hour. 2. Chronic kidney disease stable. 3. History of prostate cancer. No active issues right now, in complete remission status post radiotherapy seed implant in prostate. Thank you, Dr. Razo, for allowing us to participate in Mr. Morris's care. Niyah Greenwood MD
--- NOTE | 2018-07-19 20:09 | PN ---
DATE: 07/19/2018 SUBJECTIVE: The patient is in bed in no acute distress. PHYSICAL EXAMINATION: VITAL SIGNS: Temperature is 97, blood pressure is 150/80, respiratory 16. HEENT: Unremarkable. NECK: Supple. HEART: Normal S1, S2. LUNGS: Have decreased breath sounds. ABDOMEN: Soft and nontender. LABORATORY DATA: Reveals the patient with white count of 10,000, hemoglobin of 8. Platelets are noted. Chemistries reveals a creatinine of 2.0, procalcitonin 0.59. Urinalysis is noted and pleural fluid is reviewed. HIV is negative. Urine Legionella antigen is negative and DERECK is negative. Microbiology reveals the cultures are negative. Urine culture and blood cultures negative and the are negative. ASSESSMENT AND PLAN: The patient is a 83-year-old with sepsis due to right lower lobe healthcare-associated pneumonia, left-sided pleural effusion, status post chest tube placement, rule out malignancy, hypertension, prostate cancer, chronic anemia and peptic ulcer disease, on doxycycline and meropenem day #4. The patient is also on Solu-Medrol. We will follow with you. Juan Bonilla MD
--- NOTE | 2018-07-19 21:43 | PN ---
DATE: 07/19/2018 SUBJECTIVE: The patient is an 83-year-old seen and examined, complained of generalized weakness, complained of shortness of breath. PHYSICAL EXAMINATION: VITAL SIGNS: The patient is afebrile, pulse 96, respiration 18, blood pressure 165/81. HEART: S1 and S2 audible. LUNGS: Decreased breath sounds on left lung base. ABDOMEN: Soft, obese, and nontender. No rebound. No guarding. NEUROLOGIC: The patient is awake, alert, oriented, communicative. LABORATORY DATA: WBC 10.1, hemoglobin 8.1, hematocrit 26.3, platelet of 348. Chemistry, sodium 139, potassium 5.1, chloride 108, CO2 23 and 45, creatinine 2.0, blood sugar of 109. Blood culture, urine cultures are negative. ASSESSMENT: 1. Left pleural effusion, status post thoracentesis followed by chest tube insertion, has bloody hemorrhagic drain. 2. History of cancer of the prostate. 3. History of acute on chronic renal failure and chronic obstructive pulmonary disease. PLAN: The patient is currently on IV antibiotic, IV steroids. He was scheduled for PleurX catheter placement today and hopefully we will get pleural biopsy. We will continue on nebulizer treatment. I will monitor his CBC, CMP and potassium level in a.m. Tejinder Razo MD
[2018-07-20] MEDS: Albuterol-Ipratrop 3 mg / 0.5 (3 ml) UD IH SCH ×4 (01:11→20:50)
[2018-07-20] MEDS: Pantoprazole 40 mg EC Tab PO SCH (06:13)
[2018-07-20 06:46] LABS: BASO # 0.01 K/mm3 (0.0-2.0); BASO % 0.1 % (0.0-3.0); EOS % 0.3 % (1.5-5.0); GRAN # 8.8 (1.4-6.5); GRAN % 81.2 % (50.0-68.0); HEMOGLOBIN 8.2 g/dL (14.0-18.0); LYMPH % 9.3 % (22.0-35.0); MEAN CELL VOLUME 91.2 fl (80.0-105.0); MEAN CORPUSCULAR HEMOGLOBIN 27.7 pg (25.0-35.0); MEAN CORPUSCULAR HGB CONC 30.4 g/dl (31.0-37.0); MEAN PLATELET VOLUME 8.2 fl (7.0-11.0); MONO % 9.1 % (1.0-6.0); RBC 2.96 10^6/uL (3.5-6.1); RED CELL DISTRIBUTION WIDTH 14.3 % (11.5-14.5); WHITE BLOOD COUNT 10.8 10^3/uL (4.5-11.0)
[2018-07-20 07:11] LABS: ALB/GLOB RATIO 0.9 (1.1-1.8); ALBUMIN 2.9 g/dL (3.0-4.8); CALCIUM 8.9 mg/dL (8.4-10.5)
--- NOTE | 2018-07-20 08:19 | PN ---
DATE: 07/20/2018 PULMONARY NOTE SUBJECTIVE: The patient appears quite comfortable this morning. He is not short of breath at rest. PHYSICAL EXAMINATION: VITALS: Temperature is 98.3, pulse is 80, respiratory rate 18, blood pressure 153/79. Oxygen saturation on nasal cannula is 97%. HEENT: Normocephalic, atraumatic. No JVD. CARDIOVASCULAR: Systolic ejection murmur at the lower left sternal border. No S3 gallop. LUNGS: Improved breath sounds - left lower lobe. No rhonchi. No wheezing. EXTREMITIES: Mild edema. No cyanosis, no clubbing. Calves are nontender to palpation. GASTROINTESTINAL: Abdomen is soft, nontender, and nondistended. Bowel sounds are positive. SKIN: No acute rash. NEUROLOGIC: Exam limited at the present time. PERTINENT LABORATORY DATA: Chest x-ray was done yesterday and reviewed. There is a significant decrease in the left pleural effusion. The pleural effusion is now small. There is also just minimal atelectasis noted at the left base. The chest x-ray has improved significantly overall. IMPRESSION: 1. Recurrent left pleural effusion. 2. Chronic kidney disease. 3. Anemia. 4. Hypertension. PLAN: The patient appears very comfortable this morning. He is not short of breath at rest. He does state to feeling much, much better overall. I did discuss the case with the night nurse at length. The night nurse stated that the patient had an uneventful night. I have also reviewed the notes. A PleurX catheter was placed yesterday. I did review the last chest x-ray done. There is a significant decrease in the left pleural effusion noted. There is also a significant decrease in the atelectasis at the left base. Again, the patient is status post PleurX catheter placement. I will discuss further plans with Surgery. At this point in time, we have no etiology for this very large, bloody effusion. I have also reviewed the note by Oncology (Dr. Greenwood). Clinical status of the patient is significantly improved - compared to the initial presentation. However, given the above, the future status/prognosis for this patient does remain guarded. I will discuss the above with Surgery this morning. I will also discuss the above with the attending physician later this morning. Keegan Hadley MD [facility] # [id number] JUDAH
--- NOTE | 2018-07-20 08:26 | CP.PCM.PN ---
Subjective - Date & Time of Evaluation Date of Evaluation: 07/20/18 Time of Evaluation: 08:23 - Subjective Subjective: Surgery: Dr. James Pt seen and examined. Resting comfortably in bed. No complaints overnight. Breathing improved. Objective - Vital Signs/Intake and Output Vital Signs (last 24 hours): Temp Pulse Resp BP Pulse Ox 98.3 F 64 20 153/79 H 93 L 07/19/18 22:13 07/19/18 22:13 07/19/18 22:13 07/19/18 22:13 07/19/18 22:13 Intake and Output: 07/20/18 07/20/18 06:59 18:59 Intake Total 480 Output Total 1000 Balance -520 - Medications Medications: Current Medications Acetaminophen (Tylenol 325mg Tab) 650 mg PO Q6H PRN PRN Reason: Pain, Mild (1-3) Albuterol/Ipratropium (Duoneb 3 Mg/0.5 Mg (3 Ml) Ud) 3 ml IH [id number] [facility] Last Admin: 07/20/18 07:49 Dose: 3 ml Albuterol/Ipratropium (Duoneb 3 Mg/0.5 Mg (3 Ml) Ud) 3 ml IH Q2H PRN PRN Reason: Shortness of Breath Amlodipine Besylate (Norvasc) 10 mg PO DAILY [facility] Last Admin: 07/19/18 17:54 Dose: Not Given Atorvastatin Calcium (Lipitor) 10 mg PO DIN [facility] Last Admin: 07/19/18 18:13 Dose: 10 mg Docusate Sodium (Colace) 100 mg PO BID [facility] Last Admin: 07/19/18 18:13 Dose: 100 mg Doxycycline Hyclate 100 mg/ (Sodium Chloride) 100 mls @ 100 mls/hr IVPB Q12 [facility]; Protocol Stop: 07/25/18 10:01 Last Admin: 07/19/18 21:19 Dose: 100 mls/hr Meropenem (Merrem Iv 1 Gm Premix) 1 gm in 50 mls @ 100 mls/hr IVPB Q12 [facility]; Protocol Stop: 07/25/18 10:01 Last Admin: 07/19/18 21:08 Dose: 100 mls/hr Iron Sucrose 200 mg/ Sodium (Chloride) 110 mls @ 110 mls/hr IVPB DAILY [facility] Stop: 07/20/18 10:00 Last Admin: 07/19/18 17:55 Dose: 110 mls/hr Ibuprofen (Motrin Tab) 600 mg PO Q6H PRN PRN Reason: Pain, moderate (4-7) Methylprednisolone (Solu-Medrol) 20 mg IV Q12 [facility] Last Admin: 07/19/18 21:07 Dose: 20 mg Ondansetron HCl (Zofran Inj) 4 mg IVP Q4H PRN PRN Reason: Nausea/Vomiting Last Admin: 07/13/18 06:01 Dose: 4 mg Pantoprazole Sodium (Protonix Ec Tab) 40 mg PO 0600 [facility] Last Admin: 07/20/18 06:13 Dose: 40 mg Polyethylene Glycol (Miralax) 17 gm PO BID [facility] Last Admin: 07/19/18 18:13 Dose: 17 gm Polysaccharide Iron Complex (Ferrex-150) 150 mg PO DAILY [facility] Last Admin: 07/19/18 17:37 Dose: Not Given Simethicone (Mylicon Liq) 40 mg PO QID [facility] Last Admin: 07/19/18 22:29 Dose: 40 mg Tamsulosin HCl (Flomax) 0.4 mg PO DAILY [facility] Last Admin: 07/19/18 17:37 Dose: Not Given Tramadol HCl (Ultram) 50 mg PO Q6 PRN PRN Reason: Pain, severe (8-10) Last Admin: 07/19/18 18:17 Dose: 50 mg - Labs Labs: 07/20/18 06:10 07/20/18 06:10 PT 15.0 SECONDS (9.4-12.5) H 07/19/18 06:30 INR 1.30 07/19/18 06:30 APTT 25.3 Seconds (25.1-36.5) 07/19/18 06:30 - Constitutional Appears: Non-toxic, No Acute Distress - Head Exam Head Exam: ATRAUMATIC, NORMOCEPHALIC - Eye Exam Eye Exam: EOMI - ENT Exam ENT Exam: Mucous Membranes Moist - Neck Exam Neck Exam: Full ROM - Respiratory Exam Respiratory Exam: NORMAL BREATHING PATTERN. absent: Accessory Muscle Use, Respiratory Distress Additional comments: L side pleurex catheter in place. Dressing C/D/I - GI/Abdominal Exam GI & Abdominal Exam: Soft. absent: Distended, Firm, Guarding, Rigid, Tenderness - Extremities Exam Extremities Exam: absent: Calf Tenderness, Pedal Edema - Neurological Exam Neurological Exam: Alert, Awake, Oriented x3 Assessment and Plan - Assessment and Plan (Free Text) Assessment: 83M w. recurrent L side pleural effusion, s/p Pleural bx and placement of pleurex catheter, POD#1 -F/U AM CXR, if stable pt clear for D/C from surgical stand point -Pt can have catheter drained by VNS 1x/week -F/U out pt in office in 1-2 weeks -d/w attending Katie PGY4
[2018-07-20] MEDS: POLYETHYLENE GLYCOL 3350 17 GM/Dose PACKET PO SCH ×2 (09:23→18:04)
[2018-07-20] MEDS: Meropenem IV 1 gm in NS 1 GM/50 ML BAG IVPB SCH (09:23)
[2018-07-20] MEDS: Iron Complex Polysacch 150mg Cap PO SCH (09:23)
[2018-07-20] MEDS: Simethicone 40 mg/0.6 ml Liquid (30 ml) PO SCH ×4 (09:24→21:55)
[2018-07-20] MEDS: MethylPREDNISolone 40 mg Vial IV SCH ×2 (09:25→21:55)
--- NOTE | 2018-07-20 11:56 | RAD ---
Date of service: 07/20/2018 HISTORY: comparison COMPARISON: Multiple serial examinations preceding the most recent study: July 19, 2018. FINDINGS: LUNGS: Persistent consolidative changes left lung. PLEURA: Stable findings in the left pleural space, the left PleurX catheter unchanged in position. No pneumothorax identified. CARDIOVASCULAR: No atherosclerotic or calcified plaque identified. No significant interval change compared to the prior examination(s). OSSEOUS STRUCTURES: No significant abnormalities. VISUALIZED UPPER ABDOMEN: Normal. OTHER FINDINGS: None. IMPRESSION: Stable findings in the left pleural space and left lung.
--- NOTE | 2018-07-20 14:38 | CP.PCM.PN ---
Subjective - Date & Time of Evaluation Date of Evaluation: 07/20/18 Time of Evaluation: 14:35 - Subjective Subjective: ID Progress note PGY-[address] Bonilla Pt states breathing was the same. tolerated plerux placement and bx yesterday. (+) dizziness, worsen after blood drawn, Per RN, primary team aware of dizziness. No cough. No other acute complaint per 12 point ROS Objective - Vital Signs/Intake and Output Vital Signs (last 24 hours): Temp Pulse Resp BP Pulse Ox 98.7 F 101 H 20 142/81 99 07/20/18 14:22 07/20/18 14:22 07/20/18 14:22 07/20/18 14:22 07/20/18 14:22 Intake and Output: 07/20/18 07/20/18 06:59 18:59 Intake Total 480 Output Total 1000 Balance -520 - Medications Medications: Current Medications Acetaminophen (Tylenol 325mg Tab) 650 mg PO Q6H PRN PRN Reason: Pain, Mild (1-3) Albuterol/Ipratropium (Duoneb 3 Mg/0.5 Mg (3 Ml) Ud) 3 ml IH [id number] [facility] Last Admin: 07/20/18 13:43 Dose: 3 ml Albuterol/Ipratropium (Duoneb 3 Mg/0.5 Mg (3 Ml) Ud) 3 ml IH Q2H PRN PRN Reason: Shortness of Breath Amlodipine Besylate (Norvasc) 10 mg PO DAILY [facility] Last Admin: 07/20/18 09:25 Dose: 10 mg Atorvastatin Calcium (Lipitor) 10 mg PO DIN [facility] Last Admin: 07/19/18 18:13 Dose: 10 mg Docusate Sodium (Colace) 100 mg PO BID [facility] Last Admin: 07/20/18 09:23 Dose: 100 mg Doxycycline Hyclate (Doryx) 100 mg PO Q12 [facility]; Protocol Stop: 07/27/18 22:01 Ibuprofen (Motrin Tab) 600 mg PO Q6H PRN PRN Reason: Pain, moderate (4-7) Methylprednisolone (Solu-Medrol) 20 mg IV Q12 [facility] Last Admin: 07/20/18 09:25 Dose: 20 mg Ondansetron HCl (Zofran Inj) 4 mg IVP Q4H PRN PRN Reason: Nausea/Vomiting Last Admin: 07/13/18 06:01 Dose: 4 mg Pantoprazole Sodium (Protonix Ec Tab) 40 mg PO 0600 [facility] Last Admin: 07/20/18 06:13 Dose: 40 mg Polyethylene Glycol (Miralax) 17 gm PO BID [facility] Last Admin: 07/20/18 09:23 Dose: 17 gm Polysaccharide Iron Complex (Ferrex-150) 150 mg PO DAILY [facility] Last Admin: 07/20/18 09:23 Dose: 150 mg Simethicone (Mylicon Liq) 40 mg PO QID [facility] Last Admin: 07/20/18 09:24 Dose: 40 mg Tamsulosin HCl (Flomax) 0.4 mg PO DAILY [facility] Last Admin: 07/20/18 09:23 Dose: 0.4 mg Tramadol HCl (Ultram) 50 mg PO Q6 PRN PRN Reason: Pain, severe (8-10) Last Admin: 07/20/18 09:26 Dose: 50 mg - Labs Labs: 07/20/18 06:10 07/20/18 06:10 PT 15.0 SECONDS (9.4-12.5) H 07/19/18 06:30 INR 1.30 07/19/18 06:30 APTT 25.3 Seconds (25.1-36.5) 07/19/18 06:30 - Constitutional Appears: No Acute Distress - Head Exam Head Exam: ATRAUMATIC, NORMAL INSPECTION, NORMOCEPHALIC - Eye Exam Eye Exam: EOMI, Normal appearance, PERRL. absent: Scleral icterus Pupil Exam: NORMAL ACCOMODATION - ENT Exam ENT Exam: Mucous Membranes Moist - Neck Exam Additional comments: supple - Respiratory Exam Respiratory Exam: Decreased Breath Sounds (L), Clear to Ausculation Bilateral, Rhonchi, Wheezes (mild). absent: Rales - Cardiovascular Exam Cardiovascular Exam: REGULAR RHYTHM, +S1, +S2 - GI/Abdominal Exam GI & Abdominal Exam: Soft. absent: Tenderness - Back Exam Back Exam: absent: CVA tenderness (L), CVA tenderness (R) Additional comments: dressing d/c/i - Neurological Exam Neurological Exam: Alert, Awake, Oriented x3 - Skin Skin Exam: Dry, Warm Assessment and Plan - Assessment and Plan (Free Text) Plan: Mr Morris, 83 M, with PMH of prostate cancer s/p brachytherapy, CKD, HTN, HLD, GERD and osteoarthritis admitted for left chest/abdominal pain. He had recurrent L pleural effusion, s/p thoracocentesis #1 (06/27/18) and #2 (07/13/18). He had L pleural biopsy, removal of pleural catheter, insertion of aspira catheter (07/19/18) A: Sepsis due to RLL HCAP complicated by recurrent pleural effusion R/O malignancy Recurrent L side pleural effusion, bloody - improving s/p Pleural biopsy and placement of aspira catheter, POD#1 Severe iron deficiency anemia on venofar CKD Hx prostate cancer s/p radiotherapy seed implant P: Merem and doxy day 5 On solumedrol per pulm follow on pleural biopsy lab/imaging: Pleural fluid: Neg for malignant cells x 2 (06/2018, 07/13/18) Pleural biopsy:____pending___ Procalc 0.59 HIV, Legionella, DERECK: negative UCx, BCx: neg
--- NOTE | 2018-07-20 16:49 | PN ---
DATE: 07/20/2018 SUBJECTIVE: The patient is in bed, in no acute distress, nontoxic. PHYSICAL EXAMINATION: VITAL SIGNS: Temperature is 98, blood pressure is 150/70, and respiratory rate 18. HEENT: Unremarkable. NECK: Supple. LUNGS: Decreased breath sounds. HEART: Normal S1 and S2. ABDOMEN: Soft. LABORATORY DATA: Examination reveals a white count of 10,000, hemoglobin of 8, and platelets of 322. Chemistry reveals a BUN of 46 and creatinine of 1.8. Urinalysis is noted. ASSESSMENT AND PLAN: An 83-year-old male with sepsis, right lower lobe healthcare-associated pneumonia with a left-sided pleural effusion, status post chest tube placement with bloody effusion, prostate cancer, chronic anemia, must rule out underlying malignancy as the cause. Today is day #5 of doxycycline and meropenem. We will change the doxycycline to p.o. The patient is also on meropenem. He has elevated procalcitonin of 0.59. Most likely, we will discontinue the antibiotics tomorrow, at least the meropenem, today is day #5. Juan Bonilla MD
--- NOTE | 2018-07-20 23:32 | PN ---
DATE: 07/20/2018 SUBJECTIVE: The patient is 83 years old. Seen and examined. Seems to be much comfortable. No nausea or vomiting. No diarrhea. Eating and tolerating. He still feels weak and he can walk. PHYSICAL EXAMINATION: VITAL SIGNS: He is afebrile, pulse 101, respiration 20, blood pressure 142/81. LUNG: Bilateral fair airflow. No rhonchi or crackle. He has decreased breath sounds at the left lower lung area. HEART: S1 and S2 audible. ABDOMEN: Soft, obese, and nontender. No rebound. No guarding. NEUROLOGIC: He is awake, alert, oriented, communicative. LABORATORY EXAMINATION: WBC 10.8, hemoglobin 8.2, hematocrit 27, platelet of 322. Chemistry: Sodium 138, potassium 5.1, chloride 107, CO2 of 23, BUN 46, creatinine 1.8, blood sugar of 99. Blood culture, urine cultures and pleural fluid cultures are pending. ASSESSMENT: 1. Left pleural effusion, status post pleural biopsy and PleurX catheter placement. 2. Chronic kidney disease. 3. Hyperkalemia. 4. Recurrent pleural effusion. 5. Hypertension. 6. Chronic kidney disease. 7. Anemia. PLAN: Currently, the patient is on meropenem and doxycycline. He is on IV steroid. He is on nebulizer treatment. The patient will follow up pleural biopsy. We will reach out to the facility. They can drain retained pleural effusion through PleurX. Then, he will be transferred to . Tejinder Razo MD
[2018-07-21] MEDS: Albuterol-Ipratrop 3 mg / 0.5 (3 ml) UD IH SCH ×4 (01:04→20:11)
[2018-07-21] MEDS: Pantoprazole 40 mg EC Tab PO SCH (05:56)
--- NOTE | 2018-07-21 08:37 | PN ---
DATE: 07/21/2018 SUBJECTIVE: The patient appears very comfortable this morning. He is not short of breath at rest. PHYSICAL EXAMINATION: VITAL SIGNS: Last temperature recorded is 98.7, pulse this morning is 80, respiratory rate 18/20, blood pressure 142/81. Oxygen saturation on nasal cannula is 99%. HEENT: Normocephalic, atraumatic. No JVD. CARDIOVASCULAR: Systolic ejection murmur at the lower left sternal border. No S3 gallop. LUNGS: Improved breath sounds - left lower lobe. No rhonchi. No wheezing. EXTREMITIES: Mild edema. No cyanosis, no clubbing. Calves are nontender to palpation. GASTROINTESTINAL: Abdomen is soft, nontender and nondistended. Bowel sounds are positive. SKIN: No acute rash. NEUROLOGIC: Exam limited at the present time. PERTINENT LABORATORY DATA: Chest x-ray was done yesterday and reviewed. The chest x-ray is similar to the day before, but significantly improved overall. IMPRESSION: 1. Recurrent left pleural effusion. 2. Chronic kidney disease. 3. Anemia. 4. Hypertension. PLAN: The patient appears very comfortable this morning. He is not short of breath at rest. He does state to feeling much, much better overall. I did discuss the case with the night nurse at length. The night nurse stated that the patient had a good night. I did review the last chest x-ray done. The chest x-ray done yesterday is similar to the previous x-ray, but significantly improved from the initial films. I did review the notes by Surgery. The patient is status post PleurX catheter placement. The patient is also status post pleural biopsy. We are awaiting the results. Clinical status of the patient is significantly improved - compared to the initial presentation. However, given the above, the future status/prognosis for this patient remains guarded. I did discuss the case with the son at length yesterday. I will discuss the above with the attending physician this morning. Keegan Hadley MD JUDAH
[2018-07-21] MEDS: Iron Complex Polysacch 150mg Cap PO SCH (10:49)
[2018-07-21] MEDS: POLYETHYLENE GLYCOL 3350 17 GM/Dose PACKET PO SCH ×2 (10:49→17:38)
[2018-07-21] MEDS: MethylPREDNISolone 40 mg Vial IV SCH (10:50)
[2018-07-21] MEDS ORDERED: HYDROmorphone 1 mg/ml ISec IVP STA (12:31)
[2018-07-21] MEDS: Simethicone 40 mg/0.6 ml Liquid (30 ml) PO SCH ×3 (13:35→21:23)
--- NOTE | 2018-07-21 14:54 | PN ---
DATE: 07/21/2018 SUBJECTIVE: Mr. Gaston Morris was seen earlier today in 566, bed 3. No fevers and chills. PHYSICAL EXAMINATION: VITAL SIGNS: On exam, temperature is 98, blood pressure is 140/80, respiratory rate of 18. HEENT: Examination of HEENT is unremarkable. NECK: Supple. LUNGS: Have decreased breath sounds. HEART: Normal S1, S2. ABDOMEN: Soft. LABORATORY DATA: Laboratory examination reveals a white count of 10,000, hemoglobin of 8, BUN of 46, creatinine of 1.8. Urinalysis is noted and immunology is noted. Serology is negative. Microbiology reveals acid fast is not seen. Review of orders reveals the patient to be on doxycycline, prednisone and Solu-Medrol. The patient's meropenem was discontinued by pharmacy and Dr. Hadley's note is reviewed from today. ASSESSMENT/PLAN: This is a 83-year-old with sepsis, right lower lobe healthcare-associated pneumonia with the chest tube placement, bloody effusion and history of prostate cancer, chronic anemia, probable underlying malignancy. We will discontinue the antibiotics and thus far the cultures have been negative. Cytology is pending. We will follow the patient off of antibiotics. Juan Bonilla MD
[2018-07-21] MEDS ORDERED: HYDROmorphone 1 mg/ml ISec IVP PRN (17:50)
[2018-07-22] MEDS: Albuterol-Ipratrop 3 mg / 0.5 (3 ml) UD IH SCH ×3 (01:27→13:10)
[2018-07-22] MEDS: Pantoprazole 40 mg EC Tab PO SCH (05:48)
--- NOTE | 2018-07-22 09:51 | PN ---
DATE: 07/22/2018 SUBJECTIVE: The patient appears very comfortable this morning. He is not short of breath at rest. PHYSICAL EXAMINATION: VITAL SIGNS (Last noted in the computer): Temperature 98.6, pulse 96, respirations 18/20, blood pressure 139/72. Oxygen saturation on nasal cannula is 98-99%. HEENT: Normocephalic, atraumatic. NECK: No JVD. CARDIOVASCULAR: Systolic ejection murmur at the lower left sternal border. No S3 gallop. LUNGS: Improved breath sounds - left lower lobe. No rhonchi. No wheezing. EXTREMITIES: Mild edema. No cyanosis. No clubbing. Calves are nontender to palpation. GI: Abdomen is soft, nontender and nondistended. Bowel sounds are positive. SKIN: No acute rash. NEUROLOGIC: Exam limited at the present time of IMPRESSION: 1. Recurrent left pleural effusion. 2. Chronic kidney disease. 3. Anemia. 4. Hypertension. PLAN: The patient appears very comfortable this morning. He is not short of breath at rest. He does state to feeling much better overall. On physical exam, there is no significant bronchospasm noted. In addition, the alveolar-arterial gradient is now much less. I will continue with the current nebulizer treatments for now. Inputs by Surgery are noted. The patient is status post PleurX catheter placement, as well as pleural biopsy. We are awaiting the pleural biopsy pathology results. I will meet with Dr. Phillips (Pathology) later this morning. Depending on the results, we will await additional decisions by Cardiothoracic Surgery. Clinical status of the patient is significantly improved - compared to his initial presentation. However, given the above, the future status/prognosis for this patient remains guarded. I will discuss the above with the attending physician. Keegan Hadley MD JUDAH
[2018-07-22] MEDS: POLYETHYLENE GLYCOL 3350 17 GM/Dose PACKET PO SCH (10:23)
[2018-07-22] MEDS: Iron Complex Polysacch 150mg Cap PO SCH (10:24)
[2018-07-22] MEDS: Simethicone 40 mg/0.6 ml Liquid (30 ml) PO SCH ×2 (10:48→13:22)
[2018-07-22 12:00] VITALS: RESP 20; TEMP 98.6
[2018-07-22] MEDS ORDERED: Oxycodone/Acetaminophen 5/325 mg Tab PO PRN (12:39)
--- NOTE | 2018-07-22 13:40 | CP.PCM.PN ---
Subjective - Date & Time of Evaluation Date of Evaluation: 07/22/18 Time of Evaluation: 10:55 - Subjective Subjective: Comfortable, afebrile, not in distress. Objective - Vital Signs/Intake and Output Vital Signs (last 24 hours): Temp Pulse Resp BP Pulse Ox 98.6 F 96 H 20 139/72 98 07/21/18 22:37 07/21/18 22:37 07/21/18 22:37 07/21/18 22:37 07/21/18 22:37 Intake and Output: 07/21/18 07/22/18 18:59 06:59 Output Total 600 Balance -600 - Medications Medications: Current Medications Acetaminophen (Tylenol 325mg Tab) 650 mg PO Q6H PRN PRN Reason: Pain, Mild (1-3) Albuterol/Ipratropium (Duoneb 3 Mg/0.5 Mg (3 Ml) Ud) 3 ml IH [id number] [facility] Last Admin: 07/22/18 01:27 Dose: Not Given Albuterol/Ipratropium (Duoneb 3 Mg/0.5 Mg (3 Ml) Ud) 3 ml IH Q2H PRN PRN Reason: Shortness of Breath Amlodipine Besylate (Norvasc) 10 mg PO DAILY [facility] Last Admin: 07/21/18 10:49 Dose: 10 mg Atorvastatin Calcium (Lipitor) 10 mg PO DIN [facility] Last Admin: 07/21/18 16:51 Dose: 10 mg Docusate Sodium (Colace) 100 mg PO BID [facility] Last Admin: 07/21/18 17:38 Dose: 100 mg Hydromorphone HCl (Dilaudid) 1 mg IVP Q4H PRN PRN Reason: Pain, moderate (4-7) Ondansetron HCl (Zofran Inj) 4 mg IVP Q4H PRN PRN Reason: Nausea/Vomiting Last Admin: 07/13/18 06:01 Dose: 4 mg Pantoprazole Sodium (Protonix Ec Tab) 40 mg PO 0600 [facility] Last Admin: 07/22/18 05:48 Dose: 40 mg Polyethylene Glycol (Miralax) 17 gm PO BID [facility] Last Admin: 07/21/18 17:38 Dose: 17 gm Polysaccharide Iron Complex (Ferrex-150) 150 mg PO DAILY [facility] Last Admin: 07/21/18 10:49 Dose: 150 mg Simethicone (Mylicon Liq) 40 mg PO QID [facility] Last Admin: 07/21/18 21:23 Dose: 40 mg Tamsulosin HCl (Flomax) 0.4 mg PO DAILY [facility] Last Admin: 07/21/18 10:49 Dose: 0.4 mg Tramadol HCl (Ultram) 50 mg PO Q6 PRN PRN Reason: Pain, severe (8-10) Last Admin: 07/20/18 09:26 Dose: 50 mg - Labs Labs: 07/20/18 06:10 07/20/18 06:10 PT 15.0 SECONDS (9.4-12.5) H 07/19/18 06:30 INR 1.30 07/19/18 06:30 APTT 25.3 Seconds (25.1-36.5) 07/19/18 06:30 - Constitutional Appears: Chronically Ill - Head Exam Head Exam: NORMAL INSPECTION - Neck Exam Neck Exam: absent: Meningismus - Respiratory Exam Respiratory Exam: Decreased Breath Sounds - Cardiovascular Exam Cardiovascular Exam: +S1, +S2 - GI/Abdominal Exam GI & Abdominal Exam: Soft. absent: Tenderness Assessment and Plan - Assessment and Plan (Free Text) Plan: Assessment S/P sepsis due to right lower lobe HCAP left sided pleural effusion S/P chest tube placement, R/O malignancy HTN prostate CA PUD chronic anemia Plan continue to monitor off antibiotics since he is at risk for nosocomial infections
[2018-07-22 13:55] LABS: CALCIUM 9.3 mg/dL (8.4-10.5)
[2018-07-22 16:11] VITALS: O2SAT 98
[2018-07-22 16:49] VITALS: BP 145/80; PULSE 100
--- NOTE | 2018-07-23 00:13 | DS ---
HISTORY OF PRESENT ILLNESS: The patient is an 83-year-old, seen and examined, doing well, eating and tolerating. No nausea or vomiting. No diarrhea. Appetite is fair. PHYSICAL EXAMINATION: VITAL SIGNS: He is afebrile, pulse 100, respirations 20, and blood pressure 137/81. LUNGS: Decreased breath sounds at the left lower lung area. HEART: S1 and S2 audible. ABDOMEN: Soft, obese, and nontender. No rebound. No guarding. NEUROLOGIC: He is awake and alert, able to communicate, moves all extremities, and has generalized weakness. Had Aspira catheter placed 2 days ago after he had pleural biopsy done. ASSESSMENT: 1. Large left pleural effusion, status post Aspira catheter placement. 2. Acute on chronic kidney disease. 3. Hypertension. 4. Hyperlipidemia. 5. Generalized weakness. 6. Chronic anemia. PLAN: The patient will be discharged back to the subacute rehab, Percocet as needed. He is off of antibiotic. We will follow up his pleural biopsy and further management will be done as outpatient after he goes to [facility]. Tejinder Razo MD
== END 2018-07-22 18:03 | DRG 186 ==
LOC: ED 00:51 → ERH 04:21 → 2RSO 04:56 → 5RNO 07-17 16:01
PROVIDERS: ADMIT Internal Medicine; ATTEND Internal Medicine
PROC: 30233N1 Transfusion of Nonautologous Red Blood Cells into Peripheral Vein, Percutaneous Approach (ICD-10-PCS; 2018-07-12)
PROC: 0W9B3ZX Drainage of Left Pleural Cavity, Percutaneous Approach, Diagnostic (ICD-10-PCS; 2018-07-13)
PROC: 0BBP3ZX Excision of Left Pleura, Percutaneous Approach, Diagnostic (ICD-10-PCS; principal; 2018-07-19 10:30)
PROC: 0B9P30Z Drainage of Left Pleura with Drainage Device, Percutaneous Approach (ICD-10-PCS; 2018-07-19 10:30)
DX: J90 Pleural effusion, not elsewhere classified (principal); A41.9 Sepsis, unspecified organism; J18.1 Lobar pneumonia, unspecified organism; J44.0 Chronic obstructive pulmonary disease with (acute) lower respiratory infection; J98.11 Atelectasis; N18.3 Chronic kidney disease, stage 3 (moderate); I12.9 Hypertensive chronic kidney disease with stage 1 through stage 4 chronic kidney disease, or unspecified chronic kidney disease; E11.22 Type 2 diabetes mellitus with diabetic chronic kidney disease; E11.36 Type 2 diabetes mellitus with diabetic cataract; E87.5 Hyperkalemia; N40.0 Benign prostatic hyperplasia without lower urinary tract symptoms; M47.9 Spondylosis, unspecified; K59.00 Constipation, unspecified; K21.9 Gastro-esophageal reflux disease without esophagitis; I25.10 Atherosclerotic heart disease of native coronary artery without angina pectoris; D50.9 Iron deficiency anemia, unspecified; E78.00 Pure hypercholesterolemia, unspecified; E78.5 Hyperlipidemia, unspecified; Z87.11 Personal history of peptic ulcer disease; Z85.46 Personal history of malignant neoplasm of prostate; Z87.891 Personal history of nicotine dependence

== ENCOUNTER 2018-07-30 17:12 | Inpatient (IN) | payer MEDICARE ==
[2018-07-30 17:20] VITALS: BMI 28.2
--- NOTE | 2018-07-30 17:32 | ED PDOC ---
Arrival/HPI - General Chief Complaint: Abnormal Labs Time Seen by Provider: 07/30/18 17:15 Historian: Patient - History of Present Illness Narrative History of Present Illness (Text): 07/30/18 17:26 83 year old male, whose past medical history includes recurrent left sided pleural effusion, hypertension, hx prostate CA, Chronic Kidney Disease, Peptic ulcer disease, Anemia presents to the emergency department from [facility] for abnormal labs. Hemoglobin reported as less than 8. Pt states he takes iron pills daily. Has been experiencing intermittent lightheadedness and SOB for the last 3-4 days, worse with ambulation and changes in position. Denies dizziness or SOB currently. Last admitted 07/12/18 for SOB secondary to left sided pleural effusion. Left sided chest tube placed 07/19/18, which is still in place. Discharged 07/22/18. Currently c/o pain at left chest tube insertion site. Patient denies any fever, chills, chest pain, palpitations, nausea, vomiting, diarrhea, abdominal pain, cough, congestion, urinary symptoms, back pain, neck pain, headache, vision changes, numbness, weakness, paresthesias, or any other complaints. PMD: Dr. Serna Heme/Onc: Dr. Greenwood Past Medical History - Provider Review Nursing Documentation Reviewed: Yes - Infectious Disease Hx of Infectious Diseases: None - Cardiac Hx Pacemaker: No - Pulmonary Hx Respiratory Disorders: Yes (pleural effusion) Hx Asthma: No Hx Bronchitis: No Hx Chronic Obstructive Pulmonary Disease (COPD): No Hx Emphysema: No Hx Pneumonia: No Hx Respiratory Aspiration: No Hx Respiratory Tract Infection: No Hx Sleep Apnea: No Hx Tuberculosis: No - Neurological Hx Neurological Disorder: Yes Hx Alzheimer's Disease: No HX Cerebrovascular Accident: No Hx Dementia: No Hx Dizziness: Yes Hx Meningitis: No Hx Migraine: No Hx Parkinson's Disease: No Hx Seizures: No Hx Transient Ischemic Attacks (TIA): No - HEENT Hx HEENT Disorder: Yes Hx Blind: No Hx Cataracts: Yes Hx Deafness: No Hx Difficulty Chewing: No Hx Epistaxis: No Hx Glaucoma: No Hx Macular Degeneration: No - Renal Hx Renal Disorder: No - Endocrine/Metabolic Hx Endocrine Disorders: No Hx Adrenal Cancer: No Hx Diabetes Insipidus: No Hx Diabetes Mellitus Type 1: No Hx Diabetes Mellitus Type 2: No Hx Hyperthyroidism: No Hx Hypothyroidism: No Hx Systemic Lupus Erythematosus: No - Hematological/Oncological Hx Blood Transfusions: Yes Hx Blood Transfusion Reaction: No - Integumentary Hx Dermatological Disorder: No Hx Basal Cell Carcinoma: No Hx Eczema: No Hx Melanoma: No Hx Psoriasis: No Hx Squamous Cell Carcinoma: No - Musculoskeletal/Rheumatological Hx Musculoskeletal Disorders: Yes - Gastrointestinal Hx Gastrointestinal Disorders: Yes Hx Colostomy: No Hx Crohn's Disease: No Hx Diverticulitis: No Hx Gall Bladder Disease: No Hx Gastroesophageal Reflux: Yes Hx Ileostomy: No Hx Liver Failure: No Hx Pancreatitis: No HX Swallowing Problems: No - Genitourinary/Gynecological Hx Genitourinary Disorders: No Hx Hematuria: No Hx Incontinence: No Hx Prostate Problems: No Hx Sexually Transmitted Diseases: No Hx Urinary Tract Infection: No - Psychiatric Hx Emotional Abuse: No Hx Physical Abuse: No Hx Substance Use: No - Surgical History Hx Amputation: No Hx Appendectomy: No Hx Cardiac Catheterization: No Hx Cholecystectomy: No Hx Coronary Stent: No Hx Gastric Bypass Surgery: No Hx Hysterectomy: No Hx Joint Replacement: No Hx Kidney Transplant: No Hx Liver Transplant: No Hx Mastectomy: No Hx Musculoskeletal Surgery: No Hx Open Heart Surgery: No Hx Orthopedic Surgery: Yes (b/ shoulder, b/l knee) Hx Splenectomy: No Hx Valve Replacement: No - Anesthesia Hx Anesthesia Reactions: No Hx Malignant Hyperthermia: No Family/Social History - Physician Review Nursing Documentation Reviewed: Yes Family/Social History: No Known Family HX Smoking Status: Never Smoked Hx Alcohol Use: No Hx Substance Use: No Allergies/Home Meds Allergies/Adverse Reactions: Allergies No Known Allergies Allergy (Verified 07/30/18 21:03) Review of Systems - Physician Review All systems were reviewed & negative as marked: Yes - Review of Systems Constitutional: Fatigue, Weight Change (weight loss over the last few months) Eyes: Normal. absent: Vision Changes ENT: Normal. absent: Sore Throat, Sinus Congestion Respiratory: SOB (intermittent when ambulating). absent: Cough, Sputum Cardiovascular: Other (lightheadedness). absent: Chest Pain, Palpitations, Calf Pain, Syncope Gastrointestinal: Normal. absent: Abdominal Pain, Stool Changes, Constipation, Diarrhea, Nausea, Vomiting, Appetite Changes Genitourinary Male: Normal. absent: Dysuria, Frequency Musculoskeletal: Other (pain at left chest tube insertion site). absent: Arthralgias, Back Pain Skin: Other (left sided chest tube in place). absent: Rash Neurological: Normal. absent: Headache, Dizziness Endocrine: Normal Hemo/Lymphatic: Normal Psychiatric: Normal Physical Exam Vital Signs Reviewed: Yes Vital Signs Temp Pulse Resp BP Pulse Ox 07/30/18 21:00 98.1 F 104 H 17 156/93 H 07/30/18 20:52 105 H 16 166/72 H 98 07/30/18 20:24 159/79 H 07/30/18 20:15 99.1 F 99 H 17 159/79 H 07/30/18 20:00 98.2 F 101 H 16 150/83 07/30/18 19:13 104 H 16 156/78 H 99 07/30/18 17:13 98.2 F 111 H 16 149/82 99 Temperature: Afebrile Blood Pressure: Normal Pulse: Tachycardic Respiratory Rate: Normal Appearance: Positive for: Well-Appearing, Non-Toxic, Comfortable Pain Distress: None Mental Status: Positive for: Alert and Oriented X 3 - Systems Exam Head: Present: Atraumatic, Normocephalic Pupils: Present: PERRL Extroacular Muscles: Present: EOMI Conjunctiva: Present: Normal Mouth: Present: Moist Mucous Membranes Nose (External): Present: Atraumatic Neck: Present: Normal Range of Motion. No: Meningeal Signs, MIDLINE TENDERNESS, Lymphadenopathy Respiratory/Chest: Present: Decreased Breath Sounds (left sided), Other (left sided chest tube in place, dressing intact, no signs of secondary infection). No: Respiratory Distress, Accessory Muscle Use Cardiovascular: Present: Regular Rate and Rhythm, Normal S1, S2, Peripheal Pulses Present. No: Murmurs Abdomen: Present: Normal Bowel Sounds. No: Tenderness, Distention, Peritoneal Signs, Rebound, Guarding Rectal: Present: Normal Rectal Tone. No: Occult Blood, Rectal Tenderness, Gross Blood, Hemorrhoids Back: Present: Normal Inspection. No: Midline Tenderness, Paraspinal Tenderness Upper Extremity: Present: Normal Inspection, Normal ROM, NORMAL PULSES, Neurovascularly Intact, Capillary Refill < 2s. No: Cyanosis, Edema Lower Extremity: Present: Normal Inspection, NORMAL PULSES, Normal ROM, Neurovascularly Intact, Capillary Refill < 2 s. No: Edema Neurological: Present: GCS=15, CN II-XII Intact, Speech Normal, Motor Func Grossly Intact, Normal Sensory Function, Gait Normal Skin: Present: Warm, Dry, Normal Color. No: Rashes Lymphatic: No: Cervical Adenopathy Psychiatric: Present: Alert, Oriented x 3, Normal Insight, Normal Concentration, Normal Affect, Normal Mood Medical Decision Making ED Course and Treatment: 07/30/18 18:05 Initial Plan: * CBC, CMP * Coags * Mg, Phos * UA * Type and Crossmatch * VBG * EKG * CXR EKG shows rate 108, sinus tach; normal intervals; no STEMI, nonspecific ST/T changes [address] Razo who was made aware of patient's probable admission. Advises consult with Dr. Jensen. 1844 Labwork significant for hgb 7.2, hct 23.5, wbc 13.9, k 5.2, BUN 34 creat 1.5 IV Zosyn and Vanco ordered secondary to recent admission Albuterol, bicarb, dextrose, and insulin ordered for hyperkalemia Risks vs. benefits of blood transfusion discussed with patient, who verbalizes understanding. Consent for transfusion obtained. Urinalysis shows trace blood and leuk esterase troponin neg coags unremarkable lactate < 2 CXR read by me as left sided pleural effusion with probable left sided pneumonia (HAP) [address] Razo and updated her on diagnostic testing results. Agrees with plan of care and orders for hyperkalemia and blood transfusion. Accepts patient for inpatient telemetry admission with diagnosis of PNA, Anemia, Pleural Effusion, and Hyperkalemia. Pt is tachycardic and on oxygen with symptoms of SOB, discussed ruling out PE. Requests call to Dr Greenwood, who is familiar with pt care. [address] Greenwood, who states she has low suspicion for PE. Recommends prophylactic lovenox at 40sc daily and asks for lasix 20mg IVP before each unit of PRBC. - Lab Interpretations Lab Results: 07/30/18 18:15 07/30/18 18:15 Lab Results 07/30/18 19:12: pO2 135 H, VBG pH 7.41, VBG pCO2 40.0, VBG HCO3 25.4, VBG Total CO2 26.6, VBG O2 Sat (Calc) 100.2 H, VBG Base Excess 0.7, VBG Potassium 5.1, Glucose 123 H, Lactate 1.5, FiO2 21.0, Sodium 136.0, Chloride 105.0, Venous Blood Potassium 5.1 07/30/18 18:56: Influenza Typ A,B (EIA) Negative for flu a/b 07/30/18 18:56: Urine Color Yellow, Urine Appearance Clear, Urine pH 6.0, Ur Specific Varnell 1.020, Urine Protein Trace H, Urine Glucose (UA) Negative, Urine Ketones Negative, Urine Blood Trace-lysed H, Urine Nitrate Negative, Urine Bilirubin Negative, Urine Urobilinogen 0.2, Ur Leukocyte Esterase Trace H, Urine RBC 0 - 2, Urine WBC 0 - 2, Ur Epithelial Cells None 07/30/18 18:15: Blood Type A POSITIVE, Antibody Screen Negative, Crossmatch See Detail, BBK History Checked Patient has bt 07/30/18 18:15: Sodium 138, Potassium 5.2 H, Chloride 103, Carbon Dioxide 26, Anion Gap 14, BUN 34 H, Creatinine 1.5, Est GFR ( Amer) 54, Est GFR (Non- Af Amer) 45, Random Glucose 120 H, Calcium 9.6, Phosphorus 4.2, Magnesium 2.0, Total Bilirubin 0.3, AST 36, ALT 41, Alkaline Phosphatase 81, Total Protein 7.0, Albumin 3.3, Globulin 3.7, Albumin/Globulin Ratio 0.9 L 07/30/18 18:15: PT 15.2 H, INR 1.33 07/30/18 18:15: WBC 13.9 H D, RBC 2.59 L, Hgb 7.2 L, Hct 23.5 L, MCV 90.7, MCH 2 7.8, MCHC 30.6 L, RDW 14.8 H, Plt Count 341, MPV 8.3, Gran % 93.4 H, Lymph % (Auto) 3.2 L, Waller % (Auto) 3.2, Eos % (Auto) 0.1 L, Baso % (Auto) 0.1, Gran # 12.97 H, Lymph # (Auto) 0.4 L, Waller # (Auto) 0.4, Eos # (Auto) 0.0, Baso # (Auto) 0.01, Neutrophils % (Manual) 92 H, Lymphocytes % (Manual) 4 L, Monocytes % (Manual) 4, Platelet Evaluation Normal, Hypochromasia Slight I have reviewed the lab results: Yes Interpretation: Abnormal lab values - RAD Interpretation Narrative RAD Interpretations (Text): CXR: Large left sided pleural effusion with possible left sided basilar pneumonia 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 Physician - EKG Interpretation EKG Interpretation (Text): Rate 108, sinus tachycardia; normal intervals; no STEMI, nonspecific ST/T changes Interpreted by ED Physician: Yes Type: 12 lead EKG Comparison: Com.w/previous EKG Disposition/Present on Arrival - Present on Arrival Any Indicators Present on Arrival: No History of DVT/PE: No History of Uncontrolled Diabetes: No Urinary Catheter: No History Surgical Site Infection Following: None - Disposition Have Diagnosis and Disposition been Completed?: Yes Diagnosis: Pleural effusion, Anemia, Leukocytosis, Hyperkalemia, Pneumonia Disposition: HOSPITALIZED Disposition Time: 19:45 Patient Plan: Admission, Telemetry Patient Problems: Current Active Problems Problem Status Onset Anemia Acute Hyperkalemia Acute Leukocytosis Acute Pleural effusion Acute Pneumonia Acute Condition: STABLE
[2018-07-30 18:38] LABS: BASO # 0.01 K/mm3 (0.0-2.0); BASO % 0.1 % (0.0-3.0); EOS % 0.1 % (1.5-5.0); GRAN # 12.97 (1.4-6.5); GRAN % 93.4 % (50.0-68.0); HEMOGLOBIN 7.2 g/dL (14.0-18.0); LYMPH # 0.4 (1.2-3.4); LYMPH % 3.2 % (22.0-35.0); MEAN CELL VOLUME 90.7 fl (80.0-105.0); MEAN CORPUSCULAR HEMOGLOBIN 27.8 pg (25.0-35.0); MEAN CORPUSCULAR HGB CONC 30.6 g/dl (31.0-37.0); MEAN PLATELET VOLUME 8.3 fl (7.0-11.0); MONO # 0.4 (0.1-0.6); MONO % 3.2 % (1.0-6.0); PLATELET COUNT 341 10^3/uL (120.0-450.0); RBC 2.59 10^6/uL (3.5-6.1); RED CELL DISTRIBUTION WIDTH 14.8 % (11.5-14.5); WHITE BLOOD COUNT 13.9 10^3/uL (4.5-11.0)
[2018-07-30 18:43] LABS: INR 1.33; PROTHROMBIN TIME 15.2 SECONDS (9.4-12.5)
[2018-07-30] MEDS ORDERED: Piperacillin/Tazobact 3.375 gm 100 ML IVPB STA (18:45)
[2018-07-30] MEDS ORDERED: Vancomycin 1gm in NS 250ml 1 GM/250 ML BAG IVPB STA (18:45)
[2018-07-30 18:48] LABS: ALB/GLOB RATIO 0.9 (1.1-1.8); ALBUMIN 3.3 g/dL (3.0-4.8); CALCIUM 9.6 mg/dL (8.4-10.5)
[2018-07-30 18:57] LABS: HYPOCHROMIA SLIGHT; LYMPHOCYTE 4 % (22.0-35.0); MONOCYTE 4 % (1.0-6.0); NEUTROPHIL 92 % (50.0-70.0); PLATELET ESTIMATE NORMAL (NORMAL)
[2018-07-30 19:00] LABS: URINE BILIRUBIN NEGATIVE (NEGATIVE); URINE BLOOD TRACE-LYSED (NEGATIVE); URINE GLUCOSE (UA) NEGATIVE (NEGATIVE); URINE LEUKOCYTE ESTERASE TRACE Leu/uL (NEGATIVE); URINE PROTEIN TRACE mg/dL (<30 mg/dL); URINE UROBILINOGEN 0.2 E.U./dL (<1 E.U./dL)
[2018-07-30 19:01] LABS: URINE APPEARANCE CLEAR (CLEAR); URINE COLOR YELLOW (YELLOW)
[2018-07-30 19:06] LABS: URINE RBC 0 - 2 /hpf (0-2); URINE WBC 0 - 2 /hpf (0-6)
[2018-07-30 19:18] LABS: VENOUS BLOOD GAS BASE EXCESS 0.7 mmol/L (0.0-2.0); VENOUS BLOOD GAS PO2 135 mm/Hg (30-55); VENOUS BLOOD PH 7.41 (7.32-7.43)
[2018-07-30] MEDS ORDERED: Albuterol 0.083% Inhal Sol (2.5 mg/3 mL) UD INH STA (19:40)
[2018-07-30] MEDS ORDERED: Dextrose 50% SYRINGE Inj (50 ml) IVP STA (19:41)
[2018-07-30] MEDS ORDERED: Sodium Bicarbonate (8.4%) 50 Meq Syringe IVP ONE ×2 (19:42→20:21)
[2018-07-30] MEDS ORDERED: Insulin Regular 1 UNITS/0.01 ML ML SC STA (19:42)
[2018-07-30] MEDS ORDERED: Enoxaparin 30 mg Syringe SC SCH (20:00)
[2018-07-30] MEDS ORDERED: Albuterol-Ipratrop 3 mg / 0.5 (3 ml) UD IH PRN (21:06)
[2018-07-30] MEDS: Oxycodone/Acetaminophen 5/325 mg Tab PO PRN (22:03)
[2018-07-30] MEDS ORDERED: Influenza Vaccine 60 mcg/0.5 mL SYR (4YR UP) IM ONE (22:12)
[2018-07-30] MEDS ORDERED: Pneumococcal 23-Valent Vaccine IM ONE (22:12)
--- NOTE | 2018-07-31 02:11 | HP ---
DATE OF EXAM: 07/30/2018 HISTORY OF PRESENT ILLNESS: The patient is an 83-year-old who was sent from [facility] because of low hemoglobin of 7.1. The patient has been complaining of feeling tired, weak, and short of breath. There is no fever or chills. Complained of some sinus pressure and feeling of crackling in the ears. The patient has 2 admissions in the past because of recurrent left pleural effusion and abdominal pain. The patient had thoracentesis done twice; first time, he had 2 L fluid drained and second time 1600 mL fluid drained and after that, he had Aspira catheter placed. Complaining of having generalized weakness, otherwise, no fever or chills. No history of nausea or vomiting. Does complain of constipation. PAST MEDICAL HISTORY: Significant for: 1. Hypertension. 2. Chronic kidney disease. 3. Anemia. 4. Hypertension. 5. History of CA prostate, status post surgical excision. ALLERGIES: NOT ALLERGIC TO ANY MEDICATIONS. MEDICATIONS IN THE CORRECTION: He is on Percocet. He is on clonidine 0.1 three times a day, Norvasc 10 mg daily, Flomax 0.4 daily, Colace 100 mg twice a day, Lipitor 10 mg daily, nebulizer treatment. He is on Flomax 0.4 daily and MiraLAX daily for constipation. SOCIAL HISTORY: He used to be a smoker in the remote past. 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 REVIEW OF SYSTEMS: Generalized weakness, easy fatigability, and shortness of breath. PHYSICAL EXAMINATION: GENERAL: He is awake, alert, oriented, able to communicate. VITAL SIGNS: He is afebrile, pulse 104, respirations 17, blood pressure 156/93. LUNGS: Decreased breath sounds at the bases, left more than the right. HEART: S1 and S2 audible. ABDOMEN: Soft, nontender, obese. No hepatosplenomegaly. NEUROLOGICAL: The patient is awake, alert, oriented, communicative. EXTREMITIES: Bilateral legs, no edema. LABORATORY EXAMINATION: WBC 13.9, hemoglobin 7.2, hematocrit 23.5, platelets 341. PT 15.2, INR 1.33. Chemistry: Sodium 138, potassium 5.2, chloride 103, CO2 of 26, BUN 34, creatinine 1.5, blood sugar of 120. Urinalysis shows trace blood and trace leukocytes. Flu test is negative. ASSESSMENT: 1. Symptomatic anemia, etiology is still unclear for anemia. 2. Recurrent pleural effusion, etiology unclear. 3. Hypertension. 4. Chronic kidney disease. 5. Chronic obstructive pulmonary disease. PLAN: The patient will receive 2 blood transfusions. Start him on nebulizer treatment. Treat him for hyperkalemia, history of CA prostate. We will continue on Flomax. Followup CBC and CMP in a.m. Tejinder Razo MD
[2018-07-31 07:17] LABS: EOS # 0.1 (0.0-0.7); EOS % 0.5 % (1.5-5.0); GRAN # 10.61 (1.4-6.5); GRAN % 84.3 % (50.0-68.0); LYMPH # 1.2 (1.2-3.4); LYMPH % 9.2 % (22.0-35.0); MEAN CELL VOLUME 88.5 fl (80.0-105.0); MEAN CORPUSCULAR HEMOGLOBIN 27.9 pg (25.0-35.0); MEAN CORPUSCULAR HGB CONC 31.6 g/dl (31.0-37.0); MEAN PLATELET VOLUME 8.5 fl (7.0-11.0); MONO # 0.8 (0.1-0.6); RBC 3.4 10^6/uL (3.5-6.1); WHITE BLOOD COUNT 12.6 10^3/uL (4.5-11.0)
[2018-07-31] MEDS: Oxycodone/Acetaminophen 5/325 mg Tab PO PRN ×2 (07:34→13:12)
[2018-07-31 07:41] LABS: HEMOGLOBIN 9.5 g/dL (14.0-18.0)
[2018-07-31 07:47] LABS: ALB/GLOB RATIO 0.9 (1.1-1.8); ALBUMIN 3.2 g/dL (3.0-4.8); CALCIUM 9.5 mg/dL (8.4-10.5)
[2018-07-31] MEDS: Albuterol-Ipratrop 3 mg / 0.5 (3 ml) UD IH SCH ×3 (07:48→22:17)
[2018-07-31] MEDS: Enoxaparin 40 mg Syringe SC SCH (09:38)
[2018-07-31] MEDS: Cefepime 1gm in NS 100ml 1 GM/100 ML BAG IVPB SCH ×2 (09:39→21:31)
--- NOTE | 2018-07-31 12:54 | CP.PCM.CON ---
History of Present Illness - History of Present Illness History of Present Illness: 83 year old male with PMH of recurrent left sided pleural effusion, HTN, prostate CA, PUD, chronic anemia was brought back in to [place] because of SOB and some weakness for the past 3-4 days, associated with dry cough and occasional lightheadedness. He denies fever or chills, no nausea or vomiting, no chest pain, no abdominal pain, no diarrhea, no dysuria, no sore throat, no rhinorrhea. He has a left sided indwelling pleural catheter and they will drain fluid tomorrow. Infectious diseases consult is requested to see if the patient is having pneumonia. Review of Systems - Review of Systems All systems: reviewed and no additional remarkable complaints except (as per HPI) Past Patient History - Infectious Disease Hx of Infectious Diseases: None - Past Social History Smoking Status: Former Smoker - CARDIAC Hx Cardiac Disorders: No Hx Pacemaker: No - PULMONARY Hx Respiratory Disorders: Yes (pleural effusion) Hx Asthma: No Hx Bronchitis: No Hx Chronic Obstructive Pulmonary Disease (COPD): No Hx Emphysema: No Hx Pneumonia: No Hx Respiratory Aspiration: No Hx Respiratory Tract Infection: No Hx Sleep Apnea: No Hx Tuberculosis: No - NEUROLOGICAL Hx Neurological Disorder: Yes Hx Alzheimer's Disease: No HX Cerebrovascular Accident: No Hx Dementia: No Hx Dizziness: Yes Hx Meningitis: No Hx Migraine: No Hx Parkinson's Disease: No Hx Seizures: No Hx Transient Ischemic Attacks (TIA): No - HEENT Hx HEENT Problems: Yes Hx Blind: No Hx Cataracts: Yes Hx Deafness: No Hx Difficulty Chewing: No Hx Epistaxis: No Hx Glaucoma: No Hx Macular Degeneration: No - RENAL Hx Chronic Kidney Disease: No - ENDOCRINE/METABOLIC Hx Endocrine Disorders: No Hx Adrenal Cancer: No Hx Diabetes Insipidus: No Hx Diabetes Mellitus Type 1: No Hx Diabetes Mellitus Type 2: No Hx Hyperthyroidism: No Hx Hypothyroidism: No Hx Systemic Lupus Erythematosus: No - HEMATOLOGICAL/ONCOLOGICAL Hx Blood Disorders: Yes Hx Cancer: Yes (PROSTATE WITH CHEMO ,SEEDING AND RADIATION) Hx Chemotherapy: Yes - INTEGUMENTARY Hx Dermatological Problems: Yes Hx Basil Cell: No Hx Eczema: No Hx Melanoma: No Hx Psoriasis: No Hx Squamous Cell: No Other/Comment: 07-30-18 LEFT LATERAL SIDE OF CHEST W/ INSCISION-PLEURAL CATHETER - MUSCULOSKELETAL/RHEUMATOLOGICAL Hx Musculoskeletal Disorders: Yes Hx Falls: Yes Hx Unsteady Gait: Yes (CANE) - GASTROINTESTINAL Hx Gastrointestinal Disorders: Yes Hx Colostomy: No Hx Crohn's Disease: No Hx Diverticulitis: No Hx Gall Bladder Disease: No Hx Gastroesophageal Reflux: Yes Hx Ileostomy: No Hx Liver Failure: No Hx Pancreatitis: No HX Swallowing Problems: No - GENITOURINARY/GYNECOLOGICAL Hx Genitourinary Disorders: No Hx Hematuria: No Hx Incontinence: No Hx Prostate Problems: No Hx Sexually Transmitted Disorders: No Hx Urinary Tract Infection: No - PSYCHIATRIC Hx Psychophysiologic Disorder: Yes (SMOKED 1/2 PPD ,DRANK ALCOHOL -[email or web address].) Hx Emotional Abuse: No Hx Physical Abuse: No Hx Substance Use: No - SURGICAL HISTORY Hx Surgeries: Yes Hx Amputation: No Hx Appendectomy: No Hx Cardiac Catheterization: No Hx Cholecystectomy: No Hx Coronary Stent: No Hx Gastric Bypass Surgery: No Hx Hysterectomy: No Hx Joint Replacement: No Hx Kidney Transplant: No Hx Liver Transplant: No Hx Mastectomy: No Hx Musculoskeletal Surgery: No Hx Open Heart Surgery: No Hx Orthopedic Surgery: Yes (b/ shoulder, b/l knee) Hx Splenectomy: No Hx Valve Replacement: No - ANESTHESIA Hx Anesthesia Reactions: No Hx Malignant Hyperthermia: No Meds Allergies/Adverse Reactions: Allergies Allergy/AdvReac Type Severity Reaction Status Date / Time No Known Allergies Allergy Verified 07/30/18 21:03 - Medications Medications: Current Medications Albuterol/Ipratropium (Duoneb 3 Mg/0.5 Mg (3 Ml) Ud) 3 ml IH Q2H PRN PRN Reason: Shortness of Breath Albuterol/Ipratropium (Duoneb 3 Mg/0.5 Mg (3 Ml) Ud) 3 ml IH [id number] [facility] Amlodipine Besylate (Norvasc) 10 mg PO DAILY [facility] Atorvastatin Calcium (Lipitor) 10 mg PO DIN [facility] Last Admin: 07/30/18 22:03 Dose: 10 mg Clonidine HCl (Catapres) 0.1 mg PO TID [facility] Docusate Sodium (Colace) 100 mg PO BID [facility] Enoxaparin Sodium (Lovenox) 40 mg SC DAILY [facility]; Protocol Furosemide (Lasix) 20 mg IVP ONCE PRN PRN Reason: transfusion Last Admin: 07/30/18 20:24 Dose: 20 mg Furosemide (Lasix) 20 mg IVP ONCE PRN PRN Reason: transfusion Last Admin: 07/31/18 00:15 Dose: 20 mg Cefepime HCl (Maxipime 1gm) 1 gm in 100 mls @ 100 mls/hr IVPB Q12 [facility]; Protocol Oxycodone/Acetaminophen (Percocet 5/325 Mg Tab) 1 tab PO Q6H PRN PRN Reason: Pain, severe (8-10) Stop: 08/02/18 21:07 Last Admin: 07/30/18 22:03 Dose: 1 tab Tamsulosin HCl (Flomax) 0.4 mg PO DAILY [facility] Physical Exam - Constitutional Appears: Chronically Ill - Head Exam Head Exam: NORMAL INSPECTION - Neck Exam Neck exam: Negative for: Meningismus - Respiratory Exam Respiratory Exam: Decreased Breath Sounds Additional comments: left sided pleural catheter in place - Cardiovascular Exam Cardiovascular Exam: +S1, +S2 - GI/Abdominal Exam GI & Abdominal Exam: Soft. absent: Tenderness Results - Vital Signs Recent Vital Signs: Last Vital Signs Temp 97.7 F 07/31/18 05:31 Pulse 95 H 07/31/18 05:31 Resp 19 07/31/18 05:31 BP 161/88 H 07/31/18 05:31 Pulse Ox 98 07/31/18 05:31 - Labs Result Diagrams: 07/31/18 06:35 07/31/18 06:35 Labs: Laboratory Results - last 24 hr 07/30/18 07/30/18 07/30/18 18:15 18:15 18:15 WBC 13.9 H D RBC 2.59 L Hgb 7.2 L Hct 23.5 L MCV 90.7 MCH 27.8 MCHC 30.6 L RDW 14.8 H Plt Count 341 MPV 8.3 Gran % 93.4 H Lymph % (Auto) 3.2 L Bond % (Auto) 3.2 Eos % (Auto) 0.1 L Baso % (Auto) 0.1 Gran # 12.97 H Lymph # (Auto) 0.4 L Bond # (Auto) 0.4 Eos # (Auto) 0.0 Baso # (Auto) 0.01 Neutrophils % (Manual) 92 H Lymphocytes % (Manual) 4 L Monocytes % (Manual) 4 Platelet Evaluation Normal Hypochromasia Slight PT 15.2 H INR 1.33 pO2 VBG pH VBG pCO2 VBG HCO3 VBG Total CO2 VBG O2 Sat (Calc) VBG Base Excess VBG Potassium Glucose Lactate FiO2 Sodium 138 Potassium 5.2 H Chloride 103 Carbon Dioxide 26 Anion Gap 14 BUN 34 H Creatinine 1.5 Est GFR ( Amer) 54 Est GFR (Non-Af Amer) 45 Random Glucose 120 H Calcium 9.6 Phosphorus 4.2 Magnesium 2.0 Total Bilirubin 0.3 AST 36 ALT 41 Alkaline Phosphatase 81 Total Protein 7.0 Albumin 3.3 Globulin 3.7 Albumin/Globulin Ratio 0.9 L Venous Blood Potassium Urine Color Urine Appearance Urine pH Ur Specific [place] Urine Protein Urine Glucose (UA) Urine Ketones Urine Blood Urine Nitrate Urine Bilirubin Urine Urobilinogen Ur Leukocyte Esterase Urine RBC Urine WBC Ur Epithelial Cells Influenza Typ A,B (EIA) Blood Type Antibody Screen Crossmatch BBK History Checked 07/30/18 07/30/18 07/30/18 18:15 18:56 18:56 WBC RBC Hgb Hct MCV MCH MCHC RDW Plt Count MPV Gran % Lymph % (Auto) Bond % (Auto) Eos % (Auto) Baso % (Auto) Gran # Lymph # (Auto) Bond # (Auto) Eos # (Auto) Baso # (Auto) Neutrophils % (Manual) Lymphocytes % (Manual) Monocytes % (Manual) Platelet Evaluation Hypochromasia PT INR pO2 VBG pH VBG pCO2 VBG HCO3 VBG Total CO2 VBG O2 Sat (Calc) VBG Base Excess VBG Potassium Glucose Lactate FiO2 Sodium Potassium Chloride Carbon Dioxide Anion Gap BUN Creatinine Est GFR ( Amer) Est GFR (Non-Af Amer) Random Glucose Calcium Phosphorus Magnesium Total Bilirubin AST ALT Alkaline Phosphatase Total Protein Albumin Globulin Albumin/Globulin Ratio Venous Blood Potassium Urine Color Yellow Urine Appearance Clear Urine pH 6.0 Ur Specific [place] 1.020 Urine Protein Trace H Urine Glucose (UA) Negative Urine Ketones Negative Urine Blood Trace-lysed H Urine Nitrate Negative Urine Bilirubin Negative Urine Urobilinogen 0.2 Ur Leukocyte Esterase Trace H Urine RBC 0 - 2 Urine WBC 0 - 2 Ur Epithelial Cells None Influenza Typ A,B (EIA) Negative for flu a/b Blood Type A POSITIVE Antibody Screen Negative Crossmatch See Detail BBK History Checked Patient has bt 07/30/18 19:12 WBC RBC Hgb Hct MCV MCH MCHC RDW Plt Count MPV Gran % Lymph % (Auto) Bond % (Auto) Eos % (Auto) Baso % (Auto) Gran # Lymph # (Auto) Bond # (Auto) Eos # (Auto) Baso # (Auto) Neutrophils % (Manual) Lymphocytes % (Manual) Monocytes % (Manual) Platelet Evaluation Hypochromasia PT INR pO2 135 H VBG pH 7.41 VBG pCO2 40.0 VBG HCO3 25.4 VBG Total CO2 26.6 VBG O2 Sat (Calc) 100.2 H VBG Base Excess 0.7 VBG Potassium 5.1 Glucose 123 H Lactate 1.5 FiO2 21.0 Sodium 136.0 Potassium Chloride 105.0 Carbon Dioxide Anion Gap BUN Creatinine Est GFR ( Amer) Est GFR (Non-Af Amer) Random Glucose Calcium Phosphorus Magnesium Total Bilirubin AST ALT Alkaline Phosphatase Total Protein Albumin Globulin Albumin/Globulin Ratio Venous Blood Potassium 5.1 Urine Color Urine Appearance Urine pH Ur Specific [place] Urine Protein Urine Glucose (UA) Urine Ketones Urine Blood Urine Nitrate Urine Bilirubin Urine Urobilinogen Ur Leukocyte Esterase Urine RBC Urine WBC Ur Epithelial Cells Influenza Typ A,B (EIA) Blood Type Antibody Screen Crossmatch BBK History Checked Assessment & Plan - Assessment and Plan (Free Text) Plan: Assessment left sided pleural effusion S/P pleural catheter placement, R/O left sided HCAP history of sepsis due to right lower lobe HCAP HTN prostate CA PUD chronic anemia Plan gave a dose of IV Vancomycin and started cefepime pending blood cx, PCT; reviewed CXR; will follow up pleural fluid analysis and cultures will get Crypt Ag, Fungitell, serum Galactomannan will monitor clinically
--- NOTE | 2018-07-31 15:09 | CP.PCM.CON ---
<Alexia Santos - Last Filed: 07/31/18 15:03> History of Present Illness - History of Present Illness History of Present Illness: Gastroenterology Fellow/PGY6 Consult Note 83 year old male with PMH of Prostate cancer s/p brachytherapy, CKD, HTN, HLD, and recurrent left pleural effusion s/p Aspira catheter 07/19/18 presenting with shortness of breath. Patient notes recent discharge 07/22/18 after catheter placement for pleural effusion and denies drainage of fluid since discharge. Admits to associated catheter site discomfort. Denies nausea, vomiting, hematemesis abdominal pain, diarrhea, constipation, melena, hematochezia, or unintentional weight loss. Admits to darker stools since being on iron supplementation for the last month. Family History- denies stomach cancer, colon cancer Social History- former tobacco use; denies alcohol or illicit drug use Surgical History- prostate brachytherapy, orthropedic procedures of B/L knees and shoulders Review of Systems - Review of Systems Review of Systems: 12-point review of systems negative except for as above Past Patient History - Infectious Disease Hx of Infectious Diseases: None - Past Social History Smoking Status: Former Smoker - CARDIAC Hx Cardiac Disorders: No Hx Pacemaker: No - PULMONARY Hx Respiratory Disorders: Yes (pleural effusion) Hx Asthma: No Hx Bronchitis: No Hx Chronic Obstructive Pulmonary Disease (COPD): No Hx Emphysema: No Hx Pneumonia: No Hx Respiratory Aspiration: No Hx Respiratory Tract Infection: No Hx Sleep Apnea: No Hx Tuberculosis: No - NEUROLOGICAL Hx Neurological Disorder: Yes Hx Alzheimer's Disease: No HX Cerebrovascular Accident: No Hx Dementia: No Hx Dizziness: Yes Hx Meningitis: No Hx Migraine: No Hx Parkinson's Disease: No Hx Seizures: No Hx Transient Ischemic Attacks (TIA): No - HEENT Hx HEENT Problems: Yes Hx Blind: No Hx Cataracts: Yes Hx Deafness: No Hx Difficulty Chewing: No Hx Epistaxis: No Hx Glaucoma: No Hx Macular Degeneration: No - RENAL Hx Chronic Kidney Disease: No - ENDOCRINE/METABOLIC Hx Endocrine Disorders: No Hx Adrenal Cancer: No Hx Diabetes Insipidus: No Hx Diabetes Mellitus Type 1: No Hx Diabetes Mellitus Type 2: No Hx Hyperthyroidism: No Hx Hypothyroidism: No Hx Systemic Lupus Erythematosus: No - HEMATOLOGICAL/ONCOLOGICAL Hx Blood Disorders: Yes Hx Cancer: Yes (PROSTATE WITH CHEMO ,SEEDING AND RADIATION) Hx Chemotherapy: Yes - INTEGUMENTARY Hx Dermatological Problems: Yes Hx Basil Cell: No Hx Eczema: No Hx Melanoma: No Hx Psoriasis: No Hx Squamous Cell: No Other/Comment: 07-30-18 LEFT LATERAL SIDE OF CHEST W/ INSCISION-PLEURAL CATHETER - MUSCULOSKELETAL/RHEUMATOLOGICAL Hx Musculoskeletal Disorders: Yes Hx Falls: Yes Hx Unsteady Gait: Yes (CANE) - GASTROINTESTINAL Hx Gastrointestinal Disorders: Yes Hx Colostomy: No Hx Crohn's Disease: No Hx Diverticulitis: No Hx Gall Bladder Disease: No Hx Gastroesophageal Reflux: Yes Hx Ileostomy: No Hx Liver Failure: No Hx Pancreatitis: No HX Swallowing Problems: No - GENITOURINARY/GYNECOLOGICAL Hx Genitourinary Disorders: No Hx Hematuria: No Hx Incontinence: No Hx Prostate Problems: No Hx Sexually Transmitted Disorders: No Hx Urinary Tract Infection: No - PSYCHIATRIC Hx Psychophysiologic Disorder: Yes (SMOKED 1/2 PPD ,DRANK ALCOHOL -SCOTCH.QUIT.) Hx Emotional Abuse: No Hx Physical Abuse: No Hx Substance Use: No - SURGICAL HISTORY Hx Surgeries: Yes Hx Amputation: No Hx Appendectomy: No Hx Cardiac Catheterization: No Hx Cholecystectomy: No Hx Coronary Stent: No Hx Gastric Bypass Surgery: No Hx Hysterectomy: No Hx Joint Replacement: No Hx Kidney Transplant: No Hx Liver Transplant: No Hx Mastectomy: No Hx Musculoskeletal Surgery: No Hx Open Heart Surgery: No Hx Orthopedic Surgery: Yes (b/ shoulder, b/l knee) Hx Splenectomy: No Hx Valve Replacement: No - ANESTHESIA Hx Anesthesia Reactions: No Hx Malignant Hyperthermia: No Meds Allergies/Adverse Reactions: Allergies Allergy/AdvReac Type Severity Reaction Status Date / Time No Known Allergies Allergy Verified 07/30/18 21:03 - Medications Medications: Current Medications Albuterol/Ipratropium (Duoneb 3 Mg/0.5 Mg (3 Ml) Ud) 3 ml IH Q2H PRN PRN Reason: Shortness of Breath Albuterol/Ipratropium (Duoneb 3 Mg/0.5 Mg (3 Ml) Ud) 3 ml IH [id number] [facility] [place] Last Admin: 07/31/18 13:24 Dose: 3 ml Amlodipine Besylate (Norvasc) 10 mg PO DAILY [facility] [place] Last Admin: 07/31/18 09:38 Dose: 10 mg Atorvastatin Calcium (Lipitor) 10 mg PO DIN [facility] [place] Last Admin: 07/30/18 22:03 Dose: 10 mg Clonidine HCl (Catapres) 0.1 mg PO TID [facility] [place] Last Admin: 07/31/18 14:27 Dose: 0.1 mg Docusate Sodium (Colace) 100 mg PO BID [facility] [place] Last Admin: 07/31/18 09:38 Dose: 100 mg Enoxaparin Sodium (Lovenox) 40 mg SC DAILY [facility] [place]; Protocol Last Admin: 07/31/18 09:38 Dose: 40 mg Furosemide (Lasix) 20 mg IVP ONCE PRN PRN Reason: transfusion Last Admin: 07/30/18 20:24 Dose: 20 mg Furosemide (Lasix) 20 mg IVP ONCE PRN PRN Reason: transfusion Last Admin: 07/31/18 00:15 Dose: 20 mg Cefepime HCl (Maxipime 1gm) 1 gm in 100 mls @ 100 mls/hr IVPB Q12 [facility] [place]; Protocol Last Admin: 07/31/18 09:39 Dose: 100 mls/hr Oxycodone/Acetaminophen (Percocet 5/325 Mg Tab) 1 tab PO Q6H PRN PRN Reason: Pain, severe (8-10) Stop: 08/02/18 21:07 Last Admin: 07/31/18 13:12 Dose: 1 tab Tamsulosin HCl (Flomax) 0.4 mg PO DAILY [facility] [place] Last Admin: 07/31/18 09:38 Dose: 0.4 mg Physical Exam - Constitutional Appears: Non-toxic, No Acute Distress - Head Exam Head Exam: ATRAUMATIC, NORMOCEPHALIC - Eye Exam Eye Exam: EOMI, PERRL. absent: Scleral icterus Pupil Exam: PERRL. absent: Miosis, Mydriatic - ENT Exam ENT Exam: Mucous Membranes Moist, Normal Oropharynx - Neck Exam Neck exam: Positive for: Full Rom, Normal Inspection - Respiratory Exam Respiratory Exam: Decreased Breath Sounds. absent: Rales, Rhonchi, Wheezes Additional comments: decreased breath sounds of left lung field - Cardiovascular Exam Cardiovascular Exam: RRR, +S1, +S2. absent: Gallop, Rubs - GI/Abdominal Exam GI & Abdominal Exam: Normal Bowel Sounds, Soft. absent: Distended, Firm, Guarding, Organomegaly, Rebound, Rigid, Tenderness - Extremities Exam Extremities exam: Positive for: normal inspection. Negative for: pedal edema - Neurological Exam Neurological exam: Alert - Psychiatric Exam Psychiatric exam: Normal Affect, Normal Mood - Skin Skin Exam: Dry, Intact, Normal Color, Warm Results - Vital Signs Recent Vital Signs: Last Vital Signs Temp 97.9 F 07/31/18 12:00 Pulse 101 H 07/31/18 14:27 Resp 20 07/31/18 12:00 BP 152/85 H 07/31/18 14:27 Pulse Ox 98 07/31/18 05:31 - Labs Result Diagrams: 07/31/18 06:35 07/31/18 06:35 Labs: Laboratory Results - last 24 hr 07/30/18 07/30/18 07/30/18 18:15 18:15 18:15 WBC 13.9 H D RBC 2.59 L Hgb 7.2 L Hct 23.5 L MCV 90.7 MCH 27.8 MCHC 30.6 L RDW 14.8 H Plt Count 341 MPV 8.3 Gran % 93.4 H Lymph % (Auto) 3.2 L C[place] % (Auto) 3.2 Eos % (Auto) 0.1 L Baso % (Auto) 0.1 Gran # 12.97 H Lymph # (Auto) 0.4 L C[place] # (Auto) 0.4 Eos # (Auto) 0.0 Baso # (Auto) 0.01 Neutrophils % (Manual) 92 H Lymphocytes % (Manual) 4 L Monocytes % (Manual) 4 Platelet Evaluation Normal Hypochromasia Slight PT 15.2 H INR 1.33 pO2 VBG pH VBG pCO2 VBG HCO3 VBG Total CO2 VBG O2 Sat (Calc) VBG Base Excess VBG Potassium Glucose Lactate FiO2 Sodium 138 Potassium 5.2 H Chloride 103 Carbon Dioxide 26 Anion Gap 14 BUN 34 H Creatinine 1.5 Est GFR ( Amer) 54 Est GFR (Non-Af Amer) 45 Random Glucose 120 H Calcium 9.6 Phosphorus 4.2 Magnesium 2.0 Total Bilirubin 0.3 AST 36 ALT 41 Alkaline Phosphatase 81 Total Protein 7.0 Albumin 3.3 Globulin 3.7 Albumin/Globulin Ratio 0.9 L Carcinoembryonic Ag Venous Blood Potassium Urine Color Urine Appearance Urine pH Ur Specific [place] Urine Protein Urine Glucose (UA) Urine Ketones Urine Blood Urine Nitrate Urine Bilirubin Urine Urobilinogen Ur Leukocyte Esterase Urine RBC Urine WBC Ur Epithelial Cells Influenza Typ A,B (EIA) Blood Type Antibody Screen Crossmatch BBK History Checked 07/30/18 07/30/18 07/30/18 18:15 18:56 18:56 WBC RBC Hgb Hct MCV MCH MCHC RDW Plt Count MPV Gran % Lymph % (Auto) Crenshaw % (Auto) Eos % (Auto) Baso % (Auto) Gran # Lymph # (Auto) C[place] # (Auto) Eos # (Auto) Baso # (Auto) Neutrophils % (Manual) Lymphocytes % (Manual) Monocytes % (Manual) Platelet Evaluation Hypochromasia PT INR pO2 VBG pH VBG pCO2 VBG HCO3 VBG Total CO2 VBG O2 Sat (Calc) VBG Base Excess VBG Potassium Glucose Lactate FiO2 Sodium Potassium Chloride Carbon Dioxide Anion Gap BUN Creatinine Est GFR ( Amer) Est GFR (Non-Af Amer) Random Glucose Calcium Phosphorus Magnesium Total Bilirubin AST ALT Alkaline Phosphatase Total Protein Albumin Globulin Albumin/Globulin Ratio Carcinoembryonic Ag Venous Blood Potassium Urine Color Yellow Urine Appearance Clear Urine pH 6.0 Ur Specific [place] 1.020 Urine Protein Trace H Urine Glucose (UA) Negative Urine Ketones Negative Urine Blood Trace-lysed H Urine Nitrate Negative Urine Bilirubin Negative Urine Urobilinogen 0.2 Ur Leukocyte Esterase Trace H Urine RBC 0 - 2 Urine WBC 0 - 2 Ur Epithelial Cells None Influenza Typ A,B (EIA) Negative for flu a/b Blood Type A POSITIVE Antibody Screen Negative Crossmatch See Detail BBK History Checked Patient has bt 07/30/18 07/31/18 07/31/18 19:12 06:35 06:35 WBC 12.6 H RBC 3.40 L Hgb 9.5 L D Hct 30.1 L MCV 88.5 MCH 27.9 MCHC 31.6 RDW 15.0 H Plt Count 316 MPV 8.5 Gran % 84.3 H Lymph % (Auto) 9.2 L Crenshaw % (Auto) 6.0 Eos % (Auto) 0.5 L Baso % (Auto) 0.0 Gran # 10.61 H Lymph # (Auto) 1.2 Crenshaw # (Auto) 0.8 H Eos # (Auto) 0.1 Baso # (Auto) 0.00 Neutrophils % (Manual) Lymphocytes % (Manual) Monocytes % (Manual) Platelet Evaluation Hypochromasia PT INR pO2 135 H VBG pH 7.41 VBG pCO2 40.0 VBG HCO3 25.4 VBG Total CO2 26.6 VBG O2 Sat (Calc) 100.2 H VBG Base Excess 0.7 VBG Potassium 5.1 Glucose 123 H Lactate 1.5 FiO2 21.0 Sodium 136.0 Potassium Chloride 105.0 Carbon Dioxide Anion Gap BUN Creatinine Est GFR ( Amer) Est GFR (Non-Af Amer) Random Glucose Calcium Phosphorus Magnesium Total Bilirubin AST ALT Alkaline Phosphatase Total Protein Albumin Globulin Albumin/Globulin Ratio Carcinoembryonic Ag 1.6 Venous Blood Potassium 5.1 Urine Color Urine Appearance Urine pH Ur Specific [place] Urine Protein Urine Glucose (UA) Urine Ketones Urine Blood Urine Nitrate Urine Bilirubin Urine Urobilinogen Ur Leukocyte Esterase Urine RBC Urine WBC Ur Epithelial Cells Influenza Typ A,B (EIA) Blood Type Antibody Screen Crossmatch BBK History Checked 07/31/18 06:35 WBC RBC Hgb Hct MCV MCH MCHC RDW Plt Count MPV Gran % Lymph % (Auto) C[place] % (Auto) Eos % (Auto) Baso % (Auto) Gran # Lymph # (Auto) C[place] # (Auto) Eos # (Auto) Baso # (Auto) Neutrophils % (Manual) Lymphocytes % (Manual) Monocytes % (Manual) Platelet Evaluation Hypochromasia PT INR pO2 VBG pH VBG pCO2 VBG HCO3 VBG Total CO2 VBG O2 Sat (Calc) VBG Base Excess VBG Potassium Glucose Lactate FiO2 Sodium 138 Potassium 4.6 Chloride 103 Carbon Dioxide 28 Anion Gap 12 BUN 35 H Creatinine 1.6 H Est GFR ( Amer) 50 Est GFR (Non-Af Amer) 42 Random Glucose 85 Calcium 9.5 Phosphorus Magnesium Total Bilirubin 0.6 AST 36 ALT 34 Alkaline Phosphatase 76 Total Protein 7.0 Albumin 3.2 Globulin 3.7 Albumin/Globulin Ratio 0.9 L Carcinoembryonic Ag Venous Blood Potassium Urine Color Urine Appearance Urine pH Ur Specific [place] Urine Protein Urine Glucose (UA) Urine Ketones Urine Blood Urine Nitrate Urine Bilirubin Urine Urobilinogen Ur Leukocyte Esterase Urine RBC Urine WBC Ur Epithelial Cells Influenza Typ A,B (EIA) Blood Type Antibody Screen Crossmatch BBK History Checked Assessment & Plan - Assessment and Plan (Free Text) Assessment: 83 year old male with PMH of Prostate cancer s/p brachytherapy, CKD, HTN, HLD, and recurrent left pleural effusion s/p Aspira catheter 07/19/18 presenting with shortness of breath. GI consultation for anemia. Plan: -no overt signs of GI bleed -received 2 Units pRBCs -monitor H/H -PPI ACB -pulmonology managing pleural effusion -will benefit from EGD and colonoscopy once pulmonology clearance obtained and medically optimized <Kirk Eastman V - Last Filed: 07/31/18 23:53> Meds - Medications Medications: Current Medications Albuterol/Ipratropium (Duoneb 3 Mg/0.5 Mg (3 Ml) Ud) 3 ml IH Q2H PRN PRN Reason: Shortness of Breath Albuterol/Ipratropium (Duoneb 3 Mg/0.5 Mg (3 Ml) Ud) 3 ml IH [id number] [facility] [place] Last Admin: 07/31/18 22:17 Dose: 3 ml Amlodipine Besylate (Norvasc) 10 mg PO DAILY [facility] [place] Last Admin: 07/31/18 09:38 Dose: 10 mg Atorvastatin Calcium (Lipitor) 10 mg PO DIN [facility] [place] Last Admin: 07/31/18 17:47 Dose: 10 mg Clonidine HCl (Catapres) 0.1 mg PO TID [facility] [place] Last Admin: 07/31/18 17:47 Dose: 0.1 mg Docusate Sodium (Colace) 100 mg PO BID [facility] [place] Last Admin: 07/31/18 17:47 Dose: 100 mg Enoxaparin Sodium (Lovenox) 40 mg SC DAILY [facility] [place]; Protocol Last Admin: 07/31/18 09:38 Dose: 40 mg Furosemide (Lasix) 20 mg IVP ONCE PRN PRN Reason: transfusion Last Admin: 07/30/18 20:24 Dose: 20 mg Furosemide (Lasix) 20 mg IVP ONCE PRN PRN Reason: transfusion Last Admin: 07/31/18 00:15 Dose: 20 mg Cefepime HCl (Maxipime 1gm) 1 gm in 100 mls @ 100 mls/hr IVPB Q12 [facility] [place]; Protocol Last Admin: 07/31/18 21:31 Dose: 100 mls/hr Oxycodone/Acetaminophen (Percocet 5/325 Mg Tab) 1 tab PO Q6H PRN PRN Reason: Pain, severe (8-10) Stop: 08/02/18 21:07 Last Admin: 07/31/18 13:12 Dose: 1 tab Pantoprazole Sodium (Protonix Ec Tab) 40 mg PO 0600 [facility] [place] Tamsulosin HCl (Flomax) 0.4 mg PO DAILY [facility] [place] Last Admin: 07/31/18 09:38 Dose: 0.4 mg Results - Vital Signs Recent Vital Signs: Last Vital Signs Temp 97.7 F 07/31/18 17:15 Pulse 99 H 07/31/18 22:00 Resp 20 07/31/18 17:15 BP 127/86 07/31/18 17:47 Pulse Ox 98 07/31/18 05:31 - Labs Result Diagrams: 07/31/18 06:35 07/31/18 06:35 Labs: Laboratory Results - last 24 hr 07/30/18 07/31/18 07/31/18 18:15 06:35 06:35 WBC 12.6 H RBC 3.40 L Hgb 9.5 L D Hct 30.1 L MCV 88.5 MCH 27.9 MCHC 31.6 RDW 15.0 H Plt Count 316 MPV 8.5 Gran % 84.3 H Lymph % (Auto) 9.2 L C[place] % (Auto) 6.0 Eos % (Auto) 0.5 L Baso % (Auto) 0.0 Gran # 10.61 H Lymph # (Auto) 1.2 C[place]shaw # (Auto) 0.8 H Eos # (Auto) 0.1 Baso # (Auto) 0.00 Sodium Potassium Chloride Carbon Dioxide Anion Gap BUN Creatinine Est GFR ( Amer) Est GFR (Non-Af Amer) Random Glucose Calcium Total Bilirubin AST ALT Alkaline Phosphatase Total Protein Albumin Globulin Albumin/Globulin Ratio Carcinoembryonic Ag 1.6 Procalcitonin Blood Type A POSITIVE Antibody Screen Negative Crossmatch See Detail BBK History Checked Patient has bt 07/31/18 07/31/18 06:35 11:24 WBC RBC Hgb Hct MCV MCH MCHC RDW Plt Count MPV Gran % Lymph % (Auto) [place] % (Auto) Eos % (Auto) Baso % (Auto) Gran # Lymph # (Auto) [place] # (Auto) Eos # (Auto) Baso # (Auto) Sodium 138 Potassium 4.6 Chloride 103 Carbon Dioxide 28 Anion Gap 12 BUN 35 H Creatinine 1.6 H Est GFR ( Amer) 50 Est GFR (Non-Af Amer) 42 Random Glucose 85 Calcium 9.5 Total Bilirubin 0.6 AST 36 ALT 34 Alkaline Phosphatase 76 Total Protein 7.0 Albumin 3.2 Globulin 3.7 Albumin/Globulin Ratio 0.9 L Carcinoembryonic Ag Procalcitonin 0.51 H Blood Type Antibody Screen Crossmatch BBK History Checked Attending/Attestation - Attestation I have personally seen and examined this patient.: Yes I have fully participated in the care of the patient.: Yes I have reviewed all pertinent clinical information: Yes Notes (Text): This is an addendum to GI progress report dictated by the GI Fellow.The patient was seen and examined earlier. Medical records, lab studies, imagings were reviewed. Last 24 hours events reviewed. Agreed with the above treatment plan as outlined in GI Fellow 's notes with the addition of the following 07/31/18 23:53
--- NOTE | 2018-07-31 16:45 | CT ---
Date of service: 07/31/2018 PROCEDURE: CT Chest without contrast HISTORY: pleural effusion COMPARISON: 07/18/2018 TECHNIQUE: Contiguous axial images were obtained through the chest without intravenous contrast enhancement. Sagittal and coronal reconstructions were performed. Radiation dose (DLP): 736.74 mGy-cm. This CT exam was performed using one or more of the following dose reduction techniques: Automated exposure control, adjustment of the mA and/or kV according to patient size, and/or use of iterative reconstruction technique. FINDINGS: LUNGS: No pulmonary infiltrate. There is left lower lobe and lingular subsegmental atelectasis secondary to a large left pleural effusion. There is no pulmonary mass MEDIASTINUM: Unremarkable thoracic aorta. No aneurysm. Normal heart size. Trace pericardial effusion. Main pulmonary artery unremarkable. No vascular congestion. No lymphadenopathy. There is atherosclerotic calcification of thoracic aorta. PLEURA: There is a large left pleural effusion. There is soft tissue density in the posterior dependent left pleural space extending from approximately the T5 level to the T12 level. There is a small caliber left pleural drainage catheter. There is direct trans pleural invasion with destruction of several left posterior ribs, including posterior medial 11th rib, the posterior articulating portion of the 10th rib, and the posterior 9th rib. There sclerosis over a long segment of the left posterior 8th rib suspicious for metastasis. There is sclerosis also noted in the right posterior 8th rib overall long segment suspicious for metastasis. There is no destructive lesion of any right rib. There is a very small left pneumothorax. There is no right pleural effusion or pneumothorax.. BONES: See above regarding the ribs. There is no lytic or blastic vertebral lesion. There is a small sclerotic lesion of the inferior manubrium sternum, nonspecific UPPER ABDOMEN: Grossly unremarkable. 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 Small left pneumothorax. Small caliber left pleural drainage catheter. Left lower lobe and lingular subsegmental atelectasis.
--- NOTE | 2018-07-31 17:09 | RAD ---
Date of service: 07/30/2018 HISTORY: SOB COMPARISON: 07/20/2018 FINDINGS: LUNGS: No definite infiltrate. Cannot exclude consolidation at left base due to superimposed density of pleural effusion. PLEURA: Moderate to large left pleural effusion. No right pleural effusion. No pneumothorax. CARDIOVASCULAR: No aortic atherosclerotic calcification present. Normal cardiac size. No pulmonary vascular congestion. OSSEOUS STRUCTURES: No significant abnormalities. VISUALIZED UPPER ABDOMEN: Normal. OTHER FINDINGS: None. IMPRESSION: Moderate to large left pleural effusion. Cannot rule out left basilar consolidation.
--- NOTE | 2018-07-31 18:49 | PN ---
DATE: 07/31/2018 SUBJECTIVE: The patient is an 83-year-old, seen and examined. He states he feels lot better, since he got blood transfusion. He was feeling, very weak, tired and easily short of breath when he was doing physical therapy in [place]. The patient received three blood transfusion. PHYSICAL EXAMINATION: GENERAL: He is awake, alert and oriented, was able to eat better. VITAL SIGNS: He is afebrile. Pulse 101, respiration 20 and blood pressure 150/82. LUNGS: Decreased breath sounds left lower lung. HEART: S1 and S2, audible. Tachycardic. ABDOMEN: Soft, obese and nontender. No rebound. No guarding. NEUROLOGICAL: He is awake, alert and able to communicate. . LABORATORY DATA: WBC 12.6, hemoglobin 9.5, hematocrit 30 and platelet of 316. Chemistry; sodium 138, potassium 4.6, chloride 103, CO2 of 28, BUN 35, creatinine 1.6 and blood sugar of 85. Flu test is negative. ASSESSMENT: 1. Symptomatic anemia, status post blood transfusion, etiology unclear. 2. Hypertension. 3. Chronic kidney disease. 4. Recurrent pleural effusion, status post thoracentesis twice and had Aspira catheter placed. 5. History of cancer prostate. PLAN: We will continue the patient on nebulizer treatment. Continue him on stool softener. He is on Flomax. Continue on Lipitor. I will order for CT of the chest to see how much if he had reaccumulated the effusion. Tejinder Razo MD
[2018-08-01] MEDS: Albuterol-Ipratrop 3 mg / 0.5 (3 ml) UD IH SCH ×4 (02:47→22:18)
[2018-08-01] MEDS: Pantoprazole 40 mg EC Tab PO SCH (05:12)
[2018-08-01 06:47] LABS: BASO # 0.01 K/mm3 (0.0-2.0); BASO % 0.1 % (0.0-3.0); EOS # 0.2 (0.0-0.7); EOS % 1.3 % (1.5-5.0); GRAN # 11.21 (1.4-6.5); GRAN % 84.3 % (50.0-68.0); HEMOGLOBIN 9.4 g/dL (14.0-18.0); LYMPH % 7.2 % (22.0-35.0); MEAN CELL VOLUME 89.6 fl (80.0-105.0); MEAN CORPUSCULAR HEMOGLOBIN 27.8 pg (25.0-35.0); MEAN PLATELET VOLUME 8.4 fl (7.0-11.0); MONO % 7.1 % (1.0-6.0); RBC 3.38 10^6/uL (3.5-6.1); RED CELL DISTRIBUTION WIDTH 15.2 % (11.5-14.5); WHITE BLOOD COUNT 13.3 10^3/uL (4.5-11.0)
[2018-08-01 06:56] LABS: ALB/GLOB RATIO 0.9 (1.1-1.8); ALBUMIN 3.2 g/dL (3.0-4.8); CALCIUM 9.5 mg/dL (8.4-10.5)
--- NOTE | 2018-08-01 07:51 | CARD ---
APPROVED REPORT Date of service: 07/30/2018 EKG Measurement Heart [id number] <Conclusion> Sinus tachycardia Otherwise normal ECG
--- NOTE | 2018-08-01 09:39 | CP.PCM.PN ---
<Madi Flowers - Last Filed: 08/01/18 17:40> Subjective - Date & Time of Evaluation Date of Evaluation: 08/01/18 Time of Evaluation: 09:33 - Subjective Subjective: GI Progress Note for Dr. Eastman Patient seen and examined at bedside. No acute overnight events. Patient states that SOB and fatigue have improved. Patient states that Aspira catheter is uncomfortable. 12 point ROS reviewed and is negative other than what is stated. Objective - Vital Signs/Intake and Output Vital Signs (last 24 hours): Temp Pulse Resp BP Pulse Ox 99.6 F 104 H 19 124/79 95 08/01/18 05:52 08/01/18 05:52 08/01/18 05:52 08/01/18 05:52 08/01/18 05:52 Intake and Output: 08/01/18 08/01/18 06:59 18:59 Intake Total 280 Output Total 400 Balance -120 - Medications Medications: Current Medications Albuterol/Ipratropium (Duoneb 3 Mg/0.5 Mg (3 Ml) Ud) 3 ml IH Q2H PRN PRN Reason: Shortness of Breath Albuterol/Ipratropium (Duoneb 3 Mg/0.5 Mg (3 Ml) Ud) 3 ml IH [id number] [facility] Last Admin: 08/01/18 08:07 Dose: 3 ml Amlodipine Besylate (Norvasc) 10 mg PO DAILY [facility] Last Admin: 07/31/18 09:38 Dose: 10 mg Atorvastatin Calcium (Lipitor) 10 mg PO DIN [facility] Last Admin: 07/31/18 17:47 Dose: 10 mg Clonidine HCl (Catapres) 0.1 mg PO TID [facility] Last Admin: 07/31/18 17:47 Dose: 0.1 mg Docusate Sodium (Colace) 100 mg PO BID [facility] Last Admin: 07/31/18 17:47 Dose: 100 mg Enoxaparin Sodium (Lovenox) 40 mg SC DAILY [facility]; Protocol Last Admin: 07/31/18 09:38 Dose: 40 mg Furosemide (Lasix) 20 mg IVP ONCE PRN PRN Reason: transfusion Last Admin: 07/30/18 20:24 Dose: 20 mg Furosemide (Lasix) 20 mg IVP ONCE PRN PRN Reason: transfusion Last Admin: 07/31/18 00:15 Dose: 20 mg Cefepime HCl (Maxipime 1gm) 1 gm in 100 mls @ 100 mls/hr IVPB Q12 [facility]; Protocol Last Admin: 07/31/18 21:31 Dose: 100 mls/hr Oxycodone/Acetaminophen (Percocet 5/325 Mg Tab) 1 tab PO Q6H PRN PRN Reason: Pain, severe (8-10) Stop: 08/02/18 21:07 Last Admin: 07/31/18 13:12 Dose: 1 tab Pantoprazole Sodium (Protonix Ec Tab) 40 mg PO 0600 [facility] Last Admin: 08/01/18 05:12 Dose: 40 mg Tamsulosin HCl (Flomax) 0.4 mg PO DAILY [facility] Last Admin: 07/31/18 09:38 Dose: 0.4 mg - Labs Labs: 08/01/18 06:30 08/01/18 06:30 PT 15.2 SECONDS (9.4-12.5) H 07/30/18 18:15 INR 1.33 07/30/18 18:15 APTT 25.6 Seconds (25.1-36.5) 08/01/18 06:30 - Constitutional Appears: No Acute Distress - Head Exam Head Exam: NORMAL INSPECTION - Eye Exam Eye Exam: Normal appearance Pupil Exam: NORMAL ACCOMODATION - ENT Exam ENT Exam: Mucous Membranes Moist - Respiratory Exam Respiratory Exam: Decreased Breath Sounds (left base). absent: Rales, Rhonchi, Wheezes Additional comments: Aspira catheter in place left chest; no signs of leak, discharge, erythema - Cardiovascular Exam Cardiovascular Exam: RRR, +S1, +S2. absent: Gallop, Rubs, Murmur - GI/Abdominal Exam GI & Abdominal Exam: Soft. absent: Distended, Guarding, Tenderness, Rebound - Extremities Exam Extremities Exam: Normal Inspection - Back Exam Back Exam: NORMAL INSPECTION - Neurological Exam Neurological Exam: Alert, Awake, Oriented x3 - Psychiatric Exam Psychiatric exam: Normal Affect - Skin Skin Exam: Normal Color Assessment and Plan - Assessment and Plan (Free Text) Assessment: 83 year old male with PMH of Prostate cancer s/p brachytherapy, CKD, HTN, HLD, and recurrent left pleural effusion s/p Aspira catheter 07/19/18 presenting with shortness of breath. GI consultation for anemia. 1. Symptomatic Anemia Plan: -no overt signs of GI bleed -received 2 Units pRBCs with appropriate response -H/H stable since transfusion -PPI ACB -pulmonology managing pleural effusion -will benefit from EGD and colonoscopy once medically cleared and optimized by pulmonology Patient discussed in detail with Dr. Eastman. Getachew Flowers, DO PGY2 <Kirk Eastman V - Last Filed: 08/01/18 23:59> Objective - Vital Signs/Intake and Output Vital Signs (last 24 hours): Temp Pulse Resp BP Pulse Ox 100.8 F H 97 H 20 150/76 97 08/01/18 23:52 08/01/18 23:40 08/01/18 23:40 08/01/18 23:40 08/01/18 23:40 Intake and Output: 08/01/18 08/02/18 18:59 06:59 Intake Total 1200 Output Total 375 Balance 825 - Medications Medications: Current Medications Albuterol/Ipratropium (Duoneb 3 Mg/0.5 Mg (3 Ml) Ud) 3 ml IH Q2H PRN PRN Reason: Shortness of Breath Albuterol/Ipratropium (Duoneb 3 Mg/0.5 Mg (3 Ml) Ud) 3 ml IH [id number] [facility] Last Admin: 08/01/18 22:18 Dose: 3 ml Amlodipine Besylate (Norvasc) 10 mg PO DAILY [facility] Last Admin: 08/01/18 10:02 Dose: 10 mg Atorvastatin Calcium (Lipitor) 10 mg PO DIN [facility] Last Admin: 08/01/18 17:21 Dose: 10 mg Clonidine HCl (Catapres) 0.1 mg PO TID [facility] Last Admin: 08/01/18 17:21 Dose: 0.1 mg Docusate Sodium (Colace) 100 mg PO BID [facility] Last Admin: 08/01/18 17:21 Dose: 100 mg Enoxaparin Sodium (Lovenox) 40 mg SC DAILY [facility]; Protocol Last Admin: 08/01/18 10:03 Dose: 40 mg Furosemide (Lasix) 20 mg IVP ONCE PRN PRN Reason: transfusion Last Admin: 07/30/18 20:24 Dose: 20 mg Furosemide (Lasix) 20 mg IVP ONCE PRN PRN Reason: transfusion Last Admin: 07/31/18 00:15 Dose: 20 mg Cefepime HCl (Maxipime 1gm) 1 gm in 100 mls @ 100 mls/hr IVPB Q12 [facility]; Protocol Last Admin: 08/01/18 22:54 Dose: 100 mls/hr Oxycodone/Acetaminophen (Percocet 5/325 Mg Tab) 1 tab PO Q6H PRN PRN Reason: Pain, severe (8-10) Stop: 08/02/18 21:07 Last Admin: 08/01/18 10:14 Dose: 1 tab Pantoprazole Sodium (Protonix Ec Tab) 40 mg PO 0600 [facility] Last Admin: 08/01/18 05:12 Dose: 40 mg Tamsulosin HCl (Flomax) 0.4 mg PO DAILY [facility] Last Admin: 08/01/18 10:03 Dose: 0.4 mg - Labs Labs: 08/01/18 06:30 08/01/18 06:30 PT 15.2 SECONDS (9.4-12.5) H 07/30/18 18:15 INR 1.33 07/30/18 18:15 APTT 25.6 Seconds (25.1-36.5) 08/01/18 06:30 Attending/Attestation - Attestation I have personally seen and examined this patient.: Yes I have fully participated in the care of the patient.: Yes I have reviewed all pertinent clinical information, including history, physical exam and plan: Yes Notes (Text): gideon 08/01/18 23:59 p
[2018-08-01] MEDS: Enoxaparin 40 mg Syringe SC SCH (10:03)
[2018-08-01] MEDS: Cefepime 1gm in NS 100ml 1 GM/100 ML BAG IVPB SCH ×2 (10:03→22:54)
[2018-08-01] MEDS: Oxycodone/Acetaminophen 5/325 mg Tab PO PRN (10:14)
--- NOTE | 2018-08-01 15:45 | PN ---
DATE: 08/01/2018 SUBJECTIVE: The patient is 83-year-old, seen and examined, lying in bed, seems to be comfortable, complain of left upper quadrant pain and complain of mild shortness of breath. PHYSICAL EXAMINATION: VITAL SIGNS: He is afebrile. Pulse 112, respiration 20 and blood pressure 143/68. LUNGS: Decreased breath sounds bilaterally, left more than the right. Has Aspira Catheter in place left lower chest. EXTREMITIES: Bilateral leg no edema. LABORATORY DATA: WBC 13.3, hemoglobin 9.4, hematocrit 30 and platelets of 296. Sodium 135, potassium 4.8, chloride 103, CO2 of 27, BUN 35, creatinine 1.6 and blood sugar of 92. Flu test is negative. Urine positive for gram-negative rods. 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 ASSESSMENT: 1. Symptomatic anemia, status post blood transfusion. 2. Large left pleural effusion. 3. Hypertension. 4. Chronic kidney disease. PLAN: We will continue the patient on current medication. We will get left pleural effusion drained today. I spoke to Dr. Milton Roca if he will be able to do biopsy or we have to involve thoracic surgeon for VAT. Currently, he is on antibiotic. We will give him analgesic as needed. Followup his CBC and CMP in a.m. Tejinder Razo MD
[2018-08-02] MEDS: Albuterol-Ipratrop 3 mg / 0.5 (3 ml) UD IH SCH ×4 (03:22→19:57)
[2018-08-02] MEDS: Pantoprazole 40 mg EC Tab PO SCH (05:52)
[2018-08-02 06:38] LABS: BASO # 0.01 K/mm3 (0.0-2.0); BASO % 0.1 % (0.0-3.0); EOS # 0.2 (0.0-0.7); EOS % 1.4 % (1.5-5.0); GRAN # 11.82 (1.4-6.5); GRAN % 84.5 % (50.0-68.0); LYMPH # 1.1 (1.2-3.4); LYMPH % 8.1 % (22.0-35.0); MEAN CELL VOLUME 90.4 fl (80.0-105.0); MEAN CORPUSCULAR HGB CONC 30.9 g/dl (31.0-37.0); MEAN PLATELET VOLUME 8.4 fl (7.0-11.0); MONO # 0.8 (0.1-0.6); MONO % 5.9 % (1.0-6.0); RBC 3.22 10^6/uL (3.5-6.1); RED CELL DISTRIBUTION WIDTH 15.1 % (11.5-14.5)
[2018-08-02 07:22] LABS: ALB/GLOB RATIO 0.9 (1.1-1.8); ALBUMIN 3.1 g/dL (3.0-4.8); CALCIUM 9.3 mg/dL (8.4-10.5)
--- NOTE | 2018-08-02 08:46 | NM ---
Date of service: 08/01/2018 COMPARISON: Chest CT dated 07/31/2018 TECHNIQUE: 36.4 mCi technetium 99-m DTPA aerosol. 4.2 mCI technetium 99-m MAA administered intravenously. FINDINGS: VENTILATION COMPONENT: The CT shows a large left pleural effusion. There is diminished ventilation and perfusion in the left lower lobe PERFUSION COMPONENT: The ventilation and perfusion defects are matched. IMPRESSION: Lowprobability ventilation perfusion scan for pulmonary embolism.
--- NOTE | 2018-08-02 08:54 | CON ---
PULMONARY CONSULTATION DATE OF CONSULTATION: 08/02/2018 REASON FOR PULMONARY CONSULTATION: Left pleural effusion. REFERRING PHYSICIAN: Tejinder Razo MD HISTORY OF PRESENT ILLNESS: The patient is a chronically ill 83-year-old male, with past medical history significant for recurrent left-sided pleural effusion (status post multiple thoracenteses, status post PleurX catheter placement, status post pleural biopsy), history of prostate cancer, chronic kidney disease, hypertension, peptic ulcer disease, who presented to [facility] - originally on 07/30/2018 - after outpatient laboratory testing revealed a severe anemia (hemoglobin 7.1). The patient was then transferred to [facility] for additional evaluation and treatment. The patient is not short of breath at rest. He does state to some mild dyspnea on exertion. The patient also states to a minimal occasional cough with no sputum production. There is no history of chest pain, coughing up of blood, or chest pain - brought on with deep respirations. There is no history of temperatures, chills or infectious exposure. There is no history of night sweats, weight loss or appetite change prior to the above events. No history of calf pains. No history of syncope or diaphoresis. No history of recent travel or trauma. FAMILY HISTORY: No inheritable diseases. SOCIAL HISTORY: Positive for former tobacco usage. No alcohol. OUTPATIENT MEDICATIONS: Ultram, prednisone, Catapres, Norvasc, Flomax, Zofran, Lasix, Colace, Lipitor, DuoNebs, Tylenol. ALLERGIES: NO KNOWN ALLERGIES. REVIEW OF SYSTEMS: No history of nausea, vomiting or diarrhea. No acute urinary symptoms. No new neurologic complaints. Rest of the review of systems is negative. PHYSICAL EXAMINATION: GENERAL: The patient appears comfortable this morning. He is not short of breath at rest. He is not using accessory muscles for breathing. VITAL SIGNS: Temperature is 98.9, pulse 63, respirations 18, blood pressure 199/54. Oxygen saturation on nasal cannula is 97%. HEENT: Normocephalic, atraumatic. No JVD. CARDIOVASCULAR: Systolic ejection murmur at the lower left sternal border. No S3 gallop. LUNGS: Decreased breath sounds - left lower lobe. No rhonchi. No wheezing. EXTREMITIES: Mild edema. No cyanosis, no clubbing. Calves are nontender to palpation. GI: Abdomen is soft, nontender and nondistended. Bowel sounds are positive. SKIN: No acute rash. NEUROLOGIC: Exam limited at the present time. PERTINENT LABORATORY DATA: CAT scan of the chest was done on 07/31/2018 and reviewed. There is reaccumulation of a moderately large left pleural effusion. Adjacent to the pleural effusion is subsegmental compressive atelectasis. There is no pulmonary mass or nodule noted. There is no obvious endobronchial involvement. There is no lymphadenopathy. There is a possible soft tissue density in the posterior left pleural space - which appears to invade into some of the vertebrae. There are multiple posterior rib abnormalities - possibly consistent with metastatic disease. CBC: White count 14.0K, hemoglobin 9.0, hematocrit 29.1, platelets of 308,000. Initial hemoglobin 7.2. Complete metabolic profile: BUN 35, creatinine 1.6. Rest of the metabolic profile is within normal limits. IMPRESSION: 1. Severe anemia. 2. Recurrent left pleural effusion. 3. Rule out underlying malignancy. 4. Chronic kidney disease. PLAN: I did discuss the case with the nurse at length. I have also reviewed the chart at length, and discussed the case with the patient at length. The patient presented to [facility] - originally on 07/30/2018 - when outpatient laboratory testing revealed a severe anemia (hemoglobin 7.1). The patient was then transferred to [facility] for additional evaluation. As above, the patient does have a history of recurrent left pleural effusion. He is status post multiple thoracenteses, as well as status post pleural biopsy. All of the cytopathology results have been negative for malignancy. The patient is also status post PleurX catheter placement. CAT scan of the chest is noted above. Findings are explained in detail. It does appear that this pleural effusion may very well be malignant. Dr. Milton Roca (Interventional Radiology) has been called on the case for CAT scan guided biopsy. Depending on the results, video-assisted thorascopic surgery may be warranted. At this point in time, the patient does appear comfortable. There is no significant bronchospasm on physical exam. There is no significant alveolar-arterial gradient. I will continue the current nebulizer treatments for now. The patient also remains on antibiotic therapy. There are no temperatures noted. There is a mild leukocytosis. The patient does state to feeling much better - compared to his initial presentation. However, given the above, the future status/prognosis for this patient remains very guarded. I will discuss the above with Dr. Razo this morning. Thank you very much for this pulmonary consultation. Keegan Hadley MD JUDAH
[2018-08-02] MEDS: Oxycodone/Acetaminophen 5/325 mg Tab PO PRN (09:32)
[2018-08-02] MEDS: Cefepime 1gm in NS 100ml 1 GM/100 ML BAG IVPB SCH ×2 (09:33→21:47)
[2018-08-02] MEDS: Enoxaparin 40 mg Syringe SC SCH (09:34)
--- NOTE | 2018-08-02 13:17 | CP.PCM.PN ---
Subjective - Date & Time of Evaluation Date of Evaluation: 08/01/18 Time of Evaluation: 11:50 - Subjective Subjective: Not short of breath at rest, no cough currently but has occasionally, no chest pain, no fevers. Objective - Vital Signs/Intake and Output Vital Signs (last 24 hours): Temp Pulse Resp BP Pulse Ox 97.9 F 101 H 20 150/82 98 07/31/18 12:00 07/31/18 12:00 07/31/18 12:00 07/31/18 12:00 07/31/18 05:31 Intake and Output: 07/31/18 07/31/18 06:59 18:59 Intake Total 1420 Output Total 900 Balance 520 - Medications Medications: Current Medications Albuterol/Ipratropium (Duoneb 3 Mg/0.5 Mg (3 Ml) Ud) 3 ml IH Q2H PRN PRN Reason: Shortness of Breath Albuterol/Ipratropium (Duoneb 3 Mg/0.5 Mg (3 Ml) Ud) 3 ml IH [id number] [facility] Last Admin: 07/31/18 07:48 Dose: 3 ml Amlodipine Besylate (Norvasc) 10 mg PO DAILY [facility] Last Admin: 07/31/18 09:38 Dose: 10 mg Atorvastatin Calcium (Lipitor) 10 mg PO DIN [facility] Last Admin: 07/30/18 22:03 Dose: 10 mg Clonidine HCl (Catapres) 0.1 mg PO TID [facility] Last Admin: 07/31/18 09:38 Dose: 0.1 mg Docusate Sodium (Colace) 100 mg PO BID [facility] Last Admin: 07/31/18 09:38 Dose: 100 mg Enoxaparin Sodium (Lovenox) 40 mg SC DAILY [facility]; Protocol Last Admin: 07/31/18 09:38 Dose: 40 mg Furosemide (Lasix) 20 mg IVP ONCE PRN PRN Reason: transfusion Last Admin: 07/30/18 20:24 Dose: 20 mg Furosemide (Lasix) 20 mg IVP ONCE PRN PRN Reason: transfusion Last Admin: 07/31/18 00:15 Dose: 20 mg Cefepime HCl (Maxipime 1gm) 1 gm in 100 mls @ 100 mls/hr IVPB Q12 [facility]; Protocol Last Admin: 07/31/18 09:39 Dose: 100 mls/hr Oxycodone/Acetaminophen (Percocet 5/325 Mg Tab) 1 tab PO Q6H PRN PRN Reason: Pain, severe (8-10) Stop: 08/02/18 21:07 Last Admin: 07/31/18 07:34 Dose: 1 tab Tamsulosin HCl (Flomax) 0.4 mg PO DAILY [facility] Last Admin: 07/31/18 09:38 Dose: 0.4 mg - Labs Labs: 07/31/18 06:35 07/31/18 06:35 PT 15.2 SECONDS (9.4-12.5) H 07/30/18 18:15 INR 1.33 07/30/18 18:15 - Constitutional Appears: Chronically Ill - Head Exam Head Exam: NORMAL INSPECTION - Respiratory Exam Respiratory Exam: Decreased Breath Sounds - Cardiovascular Exam Cardiovascular Exam: +S1, +S2 - GI/Abdominal Exam GI & Abdominal Exam: Soft. absent: Tenderness Assessment and Plan - Assessment and Plan (Free Text) Plan: Assessment left sided pleural effusion S/P pleural catheter placement, R/O left sided HCAP history of sepsis due to right lower lobe HCAP HTN prostate CA PUD chronic anemia Plan gave a dose of IV Vancomycin and continue cefepime day 3 for 4-7 days pending blood cx; PCT is 0.51; reviewed CXR; patient will get biopsy again of pleura and may need thoracic surgery on board - discussed this with Dr. Hadley and Dr. Razo follow up Crypt Ag, Fungitell, serum Galactomannan will continue to monitor clinically
--- NOTE | 2018-08-02 16:05 | PN ---
DATE: 08/02/2018 SUBJECTIVE: The patient is 83-year-old, seen and examined. Spiked fever this morning, denies any chest pain. No shortness of breath. Complains of feeling tired. PHYSICAL EXAMINATION: VITAL SIGNS: The patient has temperature 100.3, pulse 110, respirations 18, and blood pressure 136/72. LUNGS: Bilateral decreased breath sounds right bases, left more than the right. HEART: S1 and S2 audible. ABDOMEN: Soft, obese and nontender. No rebound. No guarding. NEUROLOGIC: The patient is awake and alert; able to communicate. LABORATORY DATA: WBC 14, hemoglobin 9, hematocrit 29, and platelets of 308. Chemistry; sodium 138, potassium 5.4, chloride 103, CO2 of 28, BUN 41, creatinine 2.0, and blood sugar of 92. ASSESSMENT: 1. Left pleural effusion. 2. Symptomatic anemia. 3. Hypertension. 4. Chronic kidney disease status post blood transfusion. PLAN: The patient is going for possible biopsy and thoracentesis, and removal of Aspira catheter today. Tejinder Razo MD
[2018-08-03] MEDS: Albuterol-Ipratrop 3 mg / 0.5 (3 ml) UD IH SCH ×4 (01:00→20:58)
[2018-08-03] MEDS: Pantoprazole 40 mg EC Tab PO SCH (07:03)
[2018-08-03 08:49] LABS: BASO # 0.01 K/mm3 (0.0-2.0); BASO % 0.1 % (0.0-3.0); EOS # 0.2 (0.0-0.7); EOS % 1.1 % (1.5-5.0); GRAN # 12.08 (1.4-6.5); HEMOGLOBIN 8.9 g/dL (14.0-18.0); LYMPH # 2.1 (1.2-3.4); LYMPH % 13.9 % (22.0-35.0); MEAN CELL VOLUME 89.7 fl (80.0-105.0); MEAN CORPUSCULAR HEMOGLOBIN 27.9 pg (25.0-35.0); MEAN CORPUSCULAR HGB CONC 31.1 g/dl (31.0-37.0); MEAN PLATELET VOLUME 8.3 fl (7.0-11.0); MONO # 0.9 (0.1-0.6); MONO % 5.9 % (1.0-6.0); RBC 3.19 10^6/uL (3.5-6.1); RED CELL DISTRIBUTION WIDTH 14.9 % (11.5-14.5); WHITE BLOOD COUNT 15.3 10^3/uL (4.5-11.0)
[2018-08-03 09:00] LABS: ALB/GLOB RATIO 0.8 (1.1-1.8); ALBUMIN 3.1 g/dL (3.0-4.8)
[2018-08-03] MEDS: Enoxaparin 40 mg Syringe SC SCH (09:26)
[2018-08-03] MEDS: Cefepime 1gm in NS 100ml 1 GM/100 ML BAG IVPB SCH ×2 (09:27→21:00)
--- NOTE | 2018-08-03 10:32 | PN ---
DATE: 08/03/2018 SUBJECTIVE: The patient appears quite comfortable this morning. He is not short of breath at rest. PHYSICAL EXAMINATION: VITAL SIGNS: (Last noted in the computer): Temperature 98.8, pulse 94, respirations 18, blood pressure 142/77. Oxygen saturation on nasal cannula is 96-100%. HEENT: Normocephalic, atraumatic. NECK: No JVD. CARDIOVASCULAR: Systolic ejection murmur at the lower left sternal border. No S3 gallop. LUNGS: Decreased breath sounds - left lower lobe. No rhonchi. No wheezing. EXTREMITIES: Mild edema. No cyanosis. No clubbing. Calves are nontender to palpation. GI: Abdomen is soft, nontender and nondistended. Bowel sounds are positive. SKIN: No acute rash. NEUROLOGIC: Exam limited at the present time. IMPRESSION: 1. Severe anemia. 2. Recurrent left pleural effusion. 3. Rule out underlying malignancy. 4. Chronic kidney disease. PLAN: The patient appears quite comfortable this morning. He is not short of breath at rest. He does state to feeling better overall. On physical exam, there is no bronchospasm noted. In addition, there is no significant alveolar-arterial gradient. I will continue with the current nebulizer treatments for now. The patient remains on antibiotic therapy - as per Infectious Disease. Input by Dr. Stuart is noted. The patient is now afebrile. Repeat a.m. labs are pending. The patient is for a CAT scan guided biopsy later today with Dr. Milton Roca. Depending on the results, video-assisted thorascopic surgery may be warranted. Clinical status of the patient is certainly improved - compared to the initial presentation. However, again, given the above, the future status/prognosis for this patient remains very guarded. I will discuss the above with the attending physician. Keegan Hadley MD MTDD
[2018-08-03] MEDS: Oxycodone/Acetaminophen 5/325 mg Tab PO PRN (14:00)
--- NOTE | 2018-08-03 16:19 | PN ---
DATE: 08/03/2018 SUBJECTIVE: The patient has no complaints of any chest pain, no shortness of breath. No headaches or dizziness. PHYSICAL EXAMINATION VITAL SIGNS: Temperature is 98.2, pulse is 74, blood pressure is 135/73, respirations 19. GENERAL: The patient is lying in bed, flat, comfortable. HEENT: No oral lesion. Anicteric sclerae. Moist mucosa. NECK: No JVD, adenopathy, or thyromegaly. CARDIOVASCULAR: S1 and S2, regular. No murmurs, rubs, or gallops. LUNGS: Clear to auscultation bilaterally. No wheeze, rales, or rhonchi. ABDOMEN: Bowel sounds are positive, soft, nontender and nondistended. EXTREMITIES: No cyanosis, clubbing or edema. LABORATORY DATA: White count of 15.3, hemoglobin 8.9, creatinine is 2.0. ASSESSMENT: 1. Left pleural effusion. 2. Hypertension. 3. Prostate cancer. 4. Chronic anemia. 5. Dyslipidemia. 6. Chronic kidney disease, stage III. PLAN: The patient is currently receiving clonidine for hypertension. He is on Colace for constipation. He is going to be on Flomax for his BPH. The patient is on Lovenox for DVT prophylaxis and Lipitor for dyslipidemia. The patient is on liquid diet. He is being followed by Infectious Disease, I appreciate their note. The patient's white count remains elevated. The patient's creatinine is 2. Christopher Yeung MD
[2018-08-03] MEDS ORDERED: Midazolam 2 MG/2 ML VIAL ONE (17:14)
[2018-08-03] MEDS ORDERED: Lidocaine 1% Inj (20ml) ONE (17:15)
[2018-08-03] MEDS ORDERED: Sodium Chloride 0.45% 1,000 ML IV SCH (18:00)
--- NOTE | 2018-08-03 19:04 | CT ---
PROCEDURE: CT guided left pleural biopsy. HISTORY: Recurrent bloody left pleural effusion. Multi focal pleural mass with associated posterior wall invasion. Evaluate for malignancy PHYSICIAN(S): Milton Roca MD. TECHNIQUE: The relative risks and indications of the procedure were explained to the patient and his family and consent obtained. The patient was placed prone on the CT scanner and preliminary images through the lung bases obtained. Conscious sedation and monitoring were provided throughout the procedure by a nurse. There is an oblong 4 cm invasive left pleural mass posteriorly and inferiorly. A left posterior oblique approach was selected and the area prepped and draped in the usual sterile fashion. 1% Xylocaine was used to anesthetize the skin and soft tissues. A 17-gauge guiding needle was advanced into the 4 cm left pleural mass. Its position was confirmed with CT. Using coaxial technique, multiple core biopsies were obtained. The postprocedure images show no evidence of large pneumothorax or significant hemorrhage.. IMPRESSION: 1. CT-guided left pleural biopsy as described above.
--- NOTE | 2018-08-03 22:40 | CP.PCM.CON ---
History of Present Illness - History of Present Illness History of Present Illness: Pt. is a 83 year old male was recently discharged for [facility]. He had pleurex cath placed and had pleural biopsy done on last admission. Biopsy is negative for malignancy. Cytology is negative for malignancy. Pleurex cath is not draining. No fever cough. C/O fatigue. Review of Systems - Constitutional Constitutional: As Per HPI - EENT Eyes: absent: As Per HPI, Blind Spots, Blurred Vision, Change in Vision, Decreased Night Vision, Diplopia, Discharge, Dry Eye, Exophthalmos, Floaters, Irritation, Itchy Eyes, Loss of Peripheral Vision, Pain, Photophobia, Requires Corrective Lenses, Sees Flashes, Spots in Vision, Tunnel Vision, Other Visual Disturbances, Loss of Vision, Other Ears: absent: As Per HPI, Decreased Hearing, Ear Discharge, Ear Pain, Tinnitus, Abnormal Hearing, Disequilibrium, Dizziness, Other Nose/Mouth/Throat: absent: As Per HPI, Epistaxis, Nasal Congestion, Nasal Discharge, Nasal Obstruction, Nasal Trauma, Nose Pain, Post Nasal Drip, Sinus Pain, Sinus Pressure, Bleeding Gums, Change in Voice, Dental Pain, Dry Mouth, Dysphagia, Halitosis, Hoarsness, Lip Swelling, Mouth Lesions, Mouth Pain, Odynophagia, Sore Throat, Throat Swelling, Tongue Swelling, Facial Pain, Neck Pain, Neck Mass, Other - Cardiovascular Cardiovascular: absent: As Per HPI, Acrocyanosis, Chest Pain, Chest Pain at Rest, Chest Pain with Activity, Claudication, Diaphoresis, Dyspnea, Dyspnea on Exertion, Edema, Irregular Heart Rhythm, Pain Radiating to Arm/Neck/Jaw, Leg Edema, Leg Ulcers, Lightheadedness, Orthopnea, Palpitations, Paroxysmal Noc turnal Dyspnea, Pedal Edema, Radiating Pain, Rapid Heart Rate, Slow Heart Rate, Syncope, Other - Respiratory Respiratory: As Per HPI - Gastrointestinal Gastrointestinal: absent: As Per HPI, Abdominal Pain, Belching, Bloating, Change in Bowel Habits, Change in Stool Character, Coffee Ground Emesis, Constipation, Cramping, Diarrhea, Dyspepsia, Dysphagia, Early Satiety, Excessive Flatus, Fecal Incontinence, Heartburn, Hematemesis, Hematochezia, Loose Stools, Melena, Nausea, Odynophagia, Temesmus, Vomiting, Other - Genitourinary Genitourinary: absent: As Per HPI, Change in Urinary Stream, Difficulty Urinating, Dysuria, Flank Pain, Hematuria, Pyuria, Nocturia, Urinary Incontinenc e, Urinary Frequency, Urinary Hesitance, Urinary Urgency, Voiding Freq/Small Amts, Freq UTI, Hx Renal/Bladder Calculi, Hx /Renal Surgery, Bladder Distension, Other - Musculoskeletal Musculoskeletal: absent: As Per HPI, Abnormal Gait, Arthralgias, Atrophy, Back Pain, Deformity, Joint Swelling, Limited Range of Motion, Loss of Height, Muscle Cramps, Muscle Weakness, Myalgias, Neck Pain, Numbness, Radiating Pain into Limb, Stiffness, Tingling, Other - Integumentary Integumentary: absent: As Per HPI, Acne, Alopecia, Bleeding Lesions, Change in Hair, Change in Nails, Change in Pigmentation, Changing Lesions, Dry Skin, Erythema, Furuncle, Hirsutism, Lesions, New Lesions, Non-Healing Lesions, Photosensitivity, Pruritus, Rash, Skin Pain, Skin Ulcer, Sores, Striae, Swelling, Unusual Bruising, Wounds, Jaundice, Other - Neurological Neurological: absent: As Per HPI, Abnormal Gait, Abnormal Hearing, Abnormal Movements, Abnormal Speech, Behavioral Changes, Burning Sensations, Confusion, Convulsions, Disequilibrium, Dizziness, Numbness, Focal Weakness, Frequent Falls, Headaches, Lack of Coordination, Loss of Vision, Memory Loss, Paresthesias, Radicular Pain, Restless Legs, Sensory Deficit, Syncope, Tingling, Tremor, Vertigo, Weakness, Other Visual Disturbances, Other - Psychiatric Psychiatric: absent: As Per HPI, Abnormal Sleep Pattern, Anhedonia, Anxiety, Auditory Hallucinations, Behavioral Changes, Change in Appetite, Change in Li arelis, Confusion, Depression, Difficulty Concentrating, Hallucinations, Homicidal Ideation, Hopelessness, Irritability, Memory Loss, Mood Swings, Panic Attacks, Paranoia, Suicidal Ideation, Visual Hallucinations, Tactile Hallucinations, Other - Endocrine Endocrine: absent: As Per HPI, Change in Body Appearance, Change in Libido, Cold Intolorance, Deepening of Voice, Excessive Sweating, Fatigue, Flushing, Heat Intolorance, Increase in Ring/Shoe/Hat Size, Palpitations, Polydipsia, Polyphagia, Polyuria, Other - Hematologic/Lymphatic Hematologic: As Per HPI Past Patient History - Infectious Disease Hx of Infectious Diseases: None - Past Social History Smoking Status: Never Smoked - CARDIAC Hx Pacemaker: No - PULMONARY Hx Respiratory Disorders: Yes (pleural effusion) Hx Asthma: No Hx Bronchitis: No Hx Chronic Obstructive Pulmonary Disease (COPD): No Hx Emphysema: No Hx Pneumonia: No Hx Respiratory Aspiration: No Hx Respiratory Tract Infection: No Hx Sleep Apnea: No Hx Tuberculosis: No - NEUROLOGICAL Hx Neurological Disorder: Yes Hx Alzheimer's Disease: No HX Cerebrovascular Accident: No Hx Dementia: No Hx Dizziness: Yes Hx Meningitis: No Hx Migraine: No Hx Parkinson's Disease: No Hx Seizures: No Hx Transient Ischemic Attacks (TIA): No - HEENT Hx HEENT Problems: Yes Hx Blind: No Hx Cataracts: Yes Hx Deafness: No Hx Difficulty Chewing: No Hx Epistaxis: No Hx Glaucoma: No Hx Macular Degeneration: No - RENAL Hx Chronic Kidney Disease: No - ENDOCRINE/METABOLIC Hx Endocrine Disorders: No Hx Adrenal Cancer: No Hx Diabetes Insipidus: No Hx Diabetes Mellitus Type 1: No Hx Diabetes Mellitus Type 2: No Hx Hyperthyroidism: No Hx Hypothyroidism: No Hx Systemic Lupus Erythematosus: No - HEMATOLOGICAL/ONCOLOGICAL Hx Blood Transfusions: Yes Hx Blood Transfusion Reaction: No - INTEGUMENTARY Hx Dermatological Problems: No Hx Basil Cell: No Hx Eczema: No Hx Melanoma: No Hx Psoriasis: No Hx Squamous Cell: No - MUSCULOSKELETAL/RHEUMATOLOGICAL Hx Musculoskeletal Disorders: Yes - GASTROINTESTINAL Hx Gastrointestinal Disorders: Yes Hx Colostomy: No Hx Crohn's Disease: No Hx Diverticulitis: No Hx Gall Bladder Disease: No Hx Gastroesophageal Reflux: Yes Hx Ileostomy: No Hx Liver Failure: No Hx Pancreatitis: No HX Swallowing Problems: No - GENITOURINARY/GYNECOLOGICAL Hx Genitourinary Disorders: No Hx Hematuria: No Hx Incontinence: No Hx Prostate Problems: No Hx Sexually Transmitted Disorders: No Hx Urinary Tract Infection: No - PSYCHIATRIC Hx Emotional Abuse: No Hx Physical Abuse: No Hx Substance Use: No - SURGICAL HISTORY Hx Amputation: No Hx Appendectomy: No Hx Cardiac Catheterization: No Hx Cholecystectomy: No Hx Coronary Stent: No Hx Gastric Bypass Surgery: No Hx Hysterectomy: No Hx Joint Replacement: No Hx Kidney Transplant: No Hx Liver Transplant: No Hx Mastectomy: No Hx Musculoskeletal Surgery: No Hx Open Heart Surgery: No Hx Orthopedic Surgery: Yes (b/ shoulder, b/l knee) Hx Splenectomy: No Hx Valve Replacement: No - ANESTHESIA Hx Anesthesia Reactions: No Hx Malignant Hyperthermia: No Meds Allergies/Adverse Reactions: Allergies Allergy/AdvReac Type Severity Reaction Status Date / Time No Known Allergies Allergy Verified 07/30/18 21:03 - Medications Medications: Current Medications Acetaminophen (Tylenol 325mg Tab) 650 mg PO Q4H PRN PRN Reason: fever and Pain 1-3 Last Admin: 08/02/18 11:59 Dose: 650 mg Albuterol/Ipratropium (Duoneb 3 Mg/0.5 Mg (3 Ml) Ud) 3 ml IH Q2H PRN PRN Reason: Shortness of Breath Albuterol/Ipratropium (Duoneb 3 Mg/0.5 Mg (3 Ml) Ud) 3 ml IH [id number] [facility] Last Admin: 08/03/18 20:58 Dose: 3 ml Amlodipine Besylate (Norvasc) 10 mg PO DAILY [facility] Last Admin: 08/03/18 09:27 Dose: Not Given Atorvastatin Calcium (Lipitor) 10 mg PO DIN [facility] Last Admin: 08/03/18 18:00 Dose: Not Given Clonidine HCl (Catapres) 0.1 mg PO TID [facility] Last Admin: 08/03/18 17:59 Dose: Not Given Docusate Sodium (Colace) 100 mg PO BID [facility] Last Admin: 08/03/18 17:59 Dose: Not Given Enoxaparin Sodium (Lovenox) 40 mg SC DAILY [facility]; Protocol Last Admin: 08/03/18 09:26 Dose: 40 mg Furosemide (Lasix) 20 mg IVP ONCE PRN PRN Reason: transfusion Last Admin: 07/30/18 20:24 Dose: 20 mg Furosemide (Lasix) 20 mg IVP ONCE PRN PRN Reason: transfusion Last Admin: 07/31/18 00:15 Dose: 20 mg Cefepime HCl (Maxipime 1gm) 1 gm in 100 mls @ 100 mls/hr IVPB Q12 [facility]; Protocol Last Admin: 08/03/18 21:00 Dose: 100 mls/hr Sodium Chloride (Sodium Chloride 0.45%) 1,000 mls @ 80 mls/hr IV .[id number] [facility] Stop: 08/03/18 23:00 Last Admin: 08/03/18 19:40 Dose: 80 mls/hr Ondansetron HCl (Zofran Inj) 4 mg IVP Q6H PRN PRN Reason: Nausea/Vomiting Oxycodone/Acetaminophen (Percocet 5/325 Mg Tab) 1 tab PO Q6H PRN PRN Reason: Pain, severe (8-10) Stop: 08/06/18 13:43 Last Admin: 08/03/18 14:00 Dose: 1 tab Pantoprazole Sodium (Protonix Ec Tab) 40 mg PO 0600 [facility] Last Admin: 08/03/18 07:03 Dose: 40 mg Tamsulosin HCl (Flomax) 0.4 mg PO DAILY [facility] Last Admin: 08/03/18 09:27 Dose: 0.4 mg Physical Exam - Constitutional Appears: Chronically Ill - Head Exam Head Exam: ATRAUMATIC, NORMAL INSPECTION, NORMOCEPHALIC - Eye Exam Eye Exam: EOMI, Normal appearance - ENT Exam ENT Exam: Mucous Membranes Moist, Normal Exam - Neck Exam Neck exam: Positive for: Normal Inspection - Respiratory Exam Respiratory Exam: Decreased Breath Sounds, Clear to Auscultation Bilateral - Cardiovascular Exam Cardiovascular Exam: REGULAR RHYTHM, +S1, +S2 - GI/Abdominal Exam GI & Abdominal Exam: Normal Bowel Sounds, Soft - Extremities Exam Extremities exam: Positive for: normal inspection - Back Exam Back exam: NORMAL INSPECTION - Neurological Exam Neurological exam: Alert, CN II-XII Intact, Oriented x3 - Skin Skin Exam: Normal Color, Warm Results - Vital Signs Recent Vital Signs: Last Vital Signs Temp 98.2 F 08/03/18 18:46 Pulse 102 H 08/03/18 18:46 Resp 16 08/03/18 18:46 BP 136/70 08/03/18 18:46 Pulse Ox 99 08/03/18 18:46 - Labs Result Diagrams: 08/03/18 08:30 08/03/18 08:30 Labs: Laboratory Results - last 24 hr 08/01/18 08/03/18 08/03/18 06:30 08:30 08:30 WBC 15.3 H RBC 3.19 L Hgb 8.9 L Hct 28.6 L MCV 89.7 MCH 27.9 MCHC 31.1 RDW 14.9 H Plt Count 259 MPV 8.3 Gran % 79.0 H Lymph % (Auto) 13.9 L Bureau % (Auto) 5.9 Eos % (Auto) 1.1 L Baso % (Auto) 0.1 Gran # 12.08 H Lymph # (Auto) 2.1 Bureau # (Auto) 0.9 H Eos # (Auto) 0.2 Baso # (Auto) 0.01 Sodium 135 Potassium 4.6 Chloride 102 Carbon Dioxide 24 Anion Gap 14 BUN 44 H Creatinine 2.0 H Est GFR ( Amer) 39 Est GFR (Non-Af Amer) 32 Random Glucose 98 Calcium 9.0 Total Bilirubin 0.5 AST 40 ALT 36 Alkaline Phosphatase 87 Total Protein 6.8 Albumin 3.1 Globulin 3.7 Albumin/Globulin Ratio 0.8 L Beta-(1,3)-D-Glucan <31 B-(1,3)-D-Glucan Intrp Negative Assessment & Plan - Assessment and Plan (Free Text) Assessment: 1. recurrent Pleural effusion : hemorragic. Biopsy pleura negative for malignant cells. CT chest done on admission showed left pleural based mass, sclerotic lesions on ribs. Discussed with Dr. Roca for biopsy of pleural based mass for definitive diagnosis. 2. prostate cancer : PSA done on last admission was normal. No evidence of recurrence. Thank you Dr. Razo for allowing us to participate in his care. - Date & Time Date: 08/01/18 Time: 09:00
[2018-08-04] MEDS: Albuterol-Ipratrop 3 mg / 0.5 (3 ml) UD IH SCH ×4 (01:30→20:35)
[2018-08-04] MEDS: Pantoprazole 40 mg EC Tab PO SCH (05:08)
[2018-08-04] MEDS: Oxycodone/Acetaminophen 5/325 mg Tab PO PRN (05:48)
--- NOTE | 2018-08-04 08:33 | PN ---
DATE: 08/04/2018 SUBJECTIVE: The patient appears very comfortable this morning. He is not short of breath at rest. OBJECTIVE: VITAL SIGNS: Temperature is 98.6, pulse 102, respirations 18/20, blood pressure 136/91. Oxygen saturation on nasal cannula is 96%-99%. HEENT: Normocephalic, atraumatic. NECK: No JVD. CARDIOVASCULAR: Systolic ejection murmur at the lower left sternal border. No S3 gallop. LUNGS: Decreased breath sounds - left lower lobe. No rhonchi. No wheezing. EXTREMITIES: Mild edema. No cyanosis, no clubbing. Calves are nontender to palpation. GASTROINTESTINAL: Abdomen is soft, nontender and nondistended. Bowel sounds are positive. SKIN: No acute rash. NEUROLOGIC: Limited at the present time. IMPRESSION: 1. Severe anemia. 2. Recurrent left pleural effusion. 3. Rule out underlying malignancy. 4. Chronic kidney disease. PLAN: The patient appears very comfortable this morning. He is not short of breath at rest. He does state to feeling better overall. On physical exam, there is no significant bronchospasm noted. In addition, there is no significant alveolar-arterial gradient. I will continue the current nebulizer treatments for now. The patient is status post CAT scan guided biopsy of a left posterior pleural opacity/mass. Cytopathology is pending. Again, depending on the results, video-assisted thorascopic surgery may be warranted. Inputs by Infectious Disease and Internal Medicine are also noted. Clinical status of the patient appears much improved - compared to the initial presentation. However, again, given the above, the future status/prognosis for this patient remains very guarded. I will discuss the above with the attending physician. Keegan Hadley MD MTDTk
--- NOTE | 2018-08-04 08:46 | RAD ---
Date of service: 08/03/2018 HISTORY: lt lung bx COMPARISON: 07/30/2018 FINDINGS: LUNGS: PLEURA: No change in left-sided infiltrate and pleural effusion. No pneumothorax CARDIOVASCULAR: No aortic atherosclerotic calcification present. Normal cardiac size. No pulmonary vascular congestion. OSSEOUS STRUCTURES: No significant abnormalities. VISUALIZED UPPER ABDOMEN: Normal. OTHER FINDINGS: None. IMPRESSION: No evidence of pneumothorax
[2018-08-04] MEDS: Cefepime 1gm in NS 100ml 1 GM/100 ML BAG IVPB SCH ×2 (09:04→21:23)
[2018-08-04] MEDS: Enoxaparin 40 mg Syringe SC SCH (09:04)
--- NOTE | 2018-08-04 13:14 | PN ---
DATE: 08/04/2018 SUBJECTIVE: The patient is 83-year-old, seen and examined, lying in bed, complains of feeling tired, had pleural biopsy done yesterday. There was no thoracentesis done and he still has a pericatheter in place. PHYSICAL EXAMINATION: GENERAL: He is awake, alert, oriented, communicative. VITAL SIGNS: He is afebrile, pulse 102, respirations 20, blood pressure 119/70. LUNGS: Bilateral fair airflow, , left more than the right. HEART: S1 and S2 audible. ABDOMEN: Soft, obese, nontender. No rebound. No guarding. NEUROLOGIC: He is awake, alert, oriented, communicative. EXTREMITIES: Bilateral leg, no edema. LABORATORY DATA: WBC is 15.3, hemoglobin 8.9, hematocrit 59. Chemistry; sodium 135, potassium 4.6, chloride 102, CO2 24, BUN 44, creatinine 2.0. Blood sugar 98, 0.51, possible seizures. X-ray negative for pneumothorax. ASSESSMENT AND PLAN: 1. Acute pleural effusion. 2. Pleural and bony metastasis, but I still do not have tissue diagnosis. 3. Anemia status post blood transfusions. 4. Chronic kidney disease. 5. History of hypertension. 6. History of carcinoma prostate status post resection long time ago. The plan is we will advance his diet, still he was on , and we will get physical therapy evaluation, might be transferred back to hospital review. We will watch him another 24 hours and his biopsy will be followed and further management will be made. Tejinder Razo MD
--- NOTE | 2018-08-04 13:18 | CP.PCM.PN ---
Subjective - Date & Time of Evaluation Date of Evaluation: 08/03/18 Time of Evaluation: 10:45 - Subjective Subjective: Resting comfortably in bed, no fevers, not in distress, had CT-guided lung biopsy yesterday. Objective - Vital Signs/Intake and Output Vital Signs (last 24 hours): Temp Pulse Resp BP Pulse Ox 100.3 F H 116 H 20 102/57 L 97 08/02/18 12:00 08/02/18 12:00 08/02/18 12:00 08/02/18 12:00 08/02/18 06:00 Intake and Output: 08/02/18 08/02/18 06:59 18:59 Intake Total 280 Output Total 500 Balance -220 - Medications Medications: Current Medications Acetaminophen (Tylenol 325mg Tab) 650 mg PO Q4H PRN PRN Reason: fever and Pain 1-3 Last Admin: 08/02/18 11:59 Dose: 650 mg Albuterol/Ipratropium (Duoneb 3 Mg/0.5 Mg (3 Ml) Ud) 3 ml IH Q2H PRN PRN Reason: Shortness of Breath Albuterol/Ipratropium (Duoneb 3 Mg/0.5 Mg (3 Ml) Ud) 3 ml IH [id number] [facility] Last Admin: 08/02/18 07:33 Dose: 3 ml Amlodipine Besylate (Norvasc) 10 mg PO DAILY [facility] Last Admin: 08/02/18 09:33 Dose: 10 mg Atorvastatin Calcium (Lipitor) 10 mg PO DIN [facility] Last Admin: 08/01/18 17:21 Dose: 10 mg Clonidine HCl (Catapres) 0.1 mg PO TID [facility] Last Admin: 08/02/18 09:33 Dose: 0.1 mg Docusate Sodium (Colace) 100 mg PO BID [facility] Last Admin: 08/02/18 09:33 Dose: 100 mg Enoxaparin Sodium (Lovenox) 40 mg SC DAILY [facility]; Protocol Last Admin: 08/02/18 09:34 Dose: 40 mg Furosemide (Lasix) 20 mg IVP ONCE PRN PRN Reason: transfusion Last Admin: 07/30/18 20:24 Dose: 20 mg Furosemide (Lasix) 20 mg IVP ONCE PRN PRN Reason: transfusion Last Admin: 07/31/18 00:15 Dose: 20 mg Cefepime HCl (Maxipime 1gm) 1 gm in 100 mls @ 100 mls/hr IVPB Q12 [facility]; Protocol Last Admin: 08/02/18 09:33 Dose: 100 mls/hr Oxycodone/Acetaminophen (Percocet 5/325 Mg Tab) 1 tab PO Q6H PRN PRN Reason: Pain, severe (8-10) Stop: 08/02/18 21:07 Last Admin: 08/02/18 09:32 Dose: 1 tab Pantoprazole Sodium (Protonix Ec Tab) 40 mg PO 0600 [facility] Last Admin: 08/02/18 05:52 Dose: 40 mg Tamsulosin HCl (Flomax) 0.4 mg PO DAILY [facility] Last Admin: 08/02/18 09:33 Dose: 0.4 mg - Labs Labs: 08/02/18 06:15 08/02/18 06:15 PT 15.2 SECONDS (9.4-12.5) H 07/30/18 18:15 INR 1.33 07/30/18 18:15 APTT 25.6 Seconds (25.1-36.5) 08/01/18 06:30 - Constitutional Appears: Chronically Ill - Head Exam Head Exam: NORMAL INSPECTION - ENT Exam ENT Exam: Mucous Membranes Moist - Neck Exam Neck Exam: absent: Meningismus - Respiratory Exam Respiratory Exam: Decreased Breath Sounds - Cardiovascular Exam Cardiovascular Exam: +S1, +S2 - GI/Abdominal Exam GI & Abdominal Exam: Soft. absent: Tenderness Assessment and Plan - Assessment and Plan (Free Text) Plan: Assessment left sided pleural effusion S/P pleural catheter placement, R/O left sided HCAP, R/O malignancy history of sepsis due to right lower lobe HCAP HTN prostate CA PUD chronic anemia Plan gave a dose of IV Vancomycin and continue cefepime day 5 for 4-7 days; blood cx are negative; urine cx is showing Klebsiella which is probably colonization; PCT is 0.51; reviewed CXR follow up lung biopsy results discussed this with Dr. Hadley and Dr. Razo follow up Crypt Ag, Fungitell, serum Galactomannan will continue to monitor clinically
[2018-08-05] MEDS: Albuterol-Ipratrop 3 mg / 0.5 (3 ml) UD IH SCH ×4 (01:56→20:45)
[2018-08-05] MEDS: Pantoprazole 40 mg EC Tab PO SCH (05:27)
--- NOTE | 2018-08-05 07:29 | PN ---
DATE: 08/05/2018 PULMONARY NOTE SUBJECTIVE: The patient appears very comfortable this morning. He is not short of breath at rest. PHYSICAL EXAMINATION: VITALS: Temperature is 97.8, pulse on the monitor is 95, respiratory rate 18-20, blood pressure 135/68. Oxygen saturation on nasal cannula is 97%. HEENT: Normocephalic, atraumatic. No JVD. CARDIOVASCULAR: Systolic ejection murmur at the lower left sternal border. No S3 gallop. LUNGS: Decreased breath sounds - left lower lobe. No rhonchi. No wheezing. EXTREMITIES: Mild edema. No cyanosis, no clubbing. Calves are nontender to palpation. GASTROINTESTINAL: Abdomen is soft, nontender, and nondistended. Bowel sounds are positive. SKIN: No acute rash. NEUROLOGIC: Exam limited at the present time. IMPRESSION: 1. Severe anemia. 2. Recurrent left pleural effusion. 3. Rule out underlying malignancy. 4. Chronic kidney disease. PLAN: The patient appears very comfortable this morning. He is not short of breath at rest. He does state to feeling much better overall. On physical exam, there is no significant bronchospasm noted. In addition, there is no significant alveolar-arterial gradient. I will continue the current nebulizer treatments for now. The patient is status post CAT scan-guided biopsy of a left posterior pleural opacity/mass. We are still awaiting the cytopathology. Again, depending on the results, video-assisted thorascopic surgery may be warranted. Inputs by Internal Medicine and Infectious Disease are also noted. Clinical status of the patient is certainly much improved - compared to his initial presentation. However, given the above, the future status/prognosis for this patient remains very guarded. I will discuss the above with the attending physician. Keegan Hadley MD JUDAH
[2018-08-05] MEDS: Cefepime 1gm in NS 100ml 1 GM/100 ML BAG IVPB SCH (09:08)
[2018-08-05] MEDS: Enoxaparin 40 mg Syringe SC SCH (09:08)
--- NOTE | 2018-08-05 13:22 | CP.PCM.PN ---
Subjective - Date & Time of Evaluation Date of Evaluation: 08/05/18 Time of Evaluation: 11:25 - Subjective Subjective: Comfortable in bed, afebrile. Objective - Vital Signs/Intake and Output Vital Signs (last 24 hours): Temp Pulse Resp BP Pulse Ox 98 F 100 H 20 131/73 96 08/04/18 12:00 08/04/18 12:00 08/04/18 12:00 08/04/18 12:00 08/04/18 06:00 Intake and Output: 08/04/18 08/04/18 06:59 18:59 Intake Total 380 Output Total 200 Balance 180 - Medications Medications: Current Medications Acetaminophen (Tylenol 325mg Tab) 650 mg PO Q4H PRN PRN Reason: fever and Pain 1-3 Last Admin: 08/02/18 11:59 Dose: 650 mg Albuterol/Ipratropium (Duoneb 3 Mg/0.5 Mg (3 Ml) Ud) 3 ml IH Q2H PRN PRN Reason: Shortness of Breath Albuterol/Ipratropium (Duoneb 3 Mg/0.5 Mg (3 Ml) Ud) 3 ml IH [id number] [facility] Last Admin: 08/04/18 08:11 Dose: 3 ml Amlodipine Besylate (Norvasc) 10 mg PO DAILY [facility] Last Admin: 08/04/18 09:05 Dose: 10 mg Atorvastatin Calcium (Lipitor) 10 mg PO DIN [facility] Last Admin: 08/03/18 18:00 Dose: Not Given Clonidine HCl (Catapres) 0.1 mg PO TID [facility] Last Admin: 08/04/18 09:05 Dose: 0.1 mg Docusate Sodium (Colace) 100 mg PO BID [facility] Last Admin: 08/04/18 09:05 Dose: 100 mg Enoxaparin Sodium (Lovenox) 40 mg SC DAILY [facility]; Protocol Last Admin: 08/04/18 09:04 Dose: 40 mg Furosemide (Lasix) 20 mg IVP ONCE PRN PRN Reason: transfusion Last Admin: 07/30/18 20:24 Dose: 20 mg Furosemide (Lasix) 20 mg IVP ONCE PRN PRN Reason: transfusion Last Admin: 07/31/18 00:15 Dose: 20 mg Cefepime HCl (Maxipime 1gm) 1 gm in 100 mls @ 100 mls/hr IVPB Q12 [facility]; Protocol Last Admin: 08/04/18 09:04 Dose: 100 mls/hr Ondansetron HCl (Zofran Inj) 4 mg IVP Q6H PRN PRN Reason: Nausea/Vomiting Oxycodone/Acetaminophen (Percocet 5/325 Mg Tab) 1 tab PO Q6H PRN PRN Reason: Pain, severe (8-10) Stop: 08/06/18 13:43 Last Admin: 08/04/18 05:48 Dose: 1 tab Pantoprazole Sodium (Protonix Ec Tab) 40 mg PO 0600 [facility] Last Admin: 08/04/18 05:08 Dose: 40 mg Tamsulosin HCl (Flomax) 0.4 mg PO DAILY [facility] Last Admin: 08/04/18 09:05 Dose: 0.4 mg - Labs Labs: 08/03/18 08:30 08/03/18 08:30 PT 15.2 SECONDS (9.4-12.5) H 07/30/18 18:15 INR 1.33 07/30/18 18:15 APTT 25.6 Seconds (25.1-36.5) 08/01/18 06:30 - Constitutional Appears: Chronically Ill - Head Exam Head Exam: NORMAL INSPECTION - Respiratory Exam Respiratory Exam: Decreased Breath Sounds - Cardiovascular Exam Cardiovascular Exam: +S1, +S2 - GI/Abdominal Exam GI & Abdominal Exam: Soft. absent: Tenderness Assessment and Plan - Assessment and Plan (Free Text) Plan: Assessment left sided pleural effusion S/P pleural catheter placement with pleural mass, R/O left sided HCAP, S/P biopsy showing squamous cell carcinoma history of sepsis due to right lower lobe HCAP HTN prostate CA PUD chronic anemia Plan on day 6 of cefepime and will d/c antibiotics follow up further plans of Pulmonary especially after biopsy shows cancer, would suggest Heme/Onc as well to be on board will continue to monitor clinically while the patient is in the hospital
--- NOTE | 2018-08-05 14:11 | PN ---
DATE: SUBJECTIVE: The patient is 83 years old, seen and examined, complains of generalized weakness, complains of feeling tired, refuses for physical therapy. PHYSICAL EXAMINATION VITAL SIGNS: Temperature 99.3, pulse 72, respirations 20, blood pressure 98/60. LUNGS: Bilateral diffuse decreased breath sounds. HEART: S1 and S2, audible. ABDOMEN: Soft, nontender. No rebound. No guarding. NEUROLOGIC: The patient is awake, alert, oriented, able to communicate. EXTREMITIES: Bilateral leg, no edema. LABORATORY DATA: WBC is 15.3, hemoglobin 8.9, hematocrit 28.6, platelets 259. Chemistry: Sodium 135, potassium 4.6, chloride 102, CO2 of 24, BUN 44, creatinine 2.0, blood sugar of 98. ASSESSMENT: 1. Recurrent pleural effusion. 2. Symptomatic anemia, status post blood transfusion, currently holding his hemoglobin from 7.2 to 8.9. 3. Chronic kidney disease. 4. History of hypertension. PLAN: I spoke to Dr. Phillips, she will be giving me diagnosis this afternoon and I also re-consulted Dr. Milton Roca, who need to remove the catheter which is nonfunctional. He is not available today, so probably, it will be done Wednesday, and the patient will make discharge plan for Wednesday. Tejinder Razo MD
[2018-08-05] MEDS: Oxycodone/Acetaminophen 5/325 mg Tab PO PRN (15:46)
[2018-08-06] MEDS: Albuterol-Ipratrop 3 mg / 0.5 (3 ml) UD IH SCH ×4 (03:35→19:32)
[2018-08-06] MEDS: Pantoprazole 40 mg EC Tab PO SCH (05:02)
[2018-08-06 07:49] LABS: BASO # 0.01 K/mm3 (0.0-2.0); BASO % 0.1 % (0.0-3.0); EOS # 0.3 (0.0-0.7); EOS % 2.2 % (1.5-5.0); HEMOGLOBIN 7.8 g/dL (14.0-18.0); LYMPH # 0.9 (1.2-3.4); LYMPH % 7.1 % (22.0-35.0); MEAN CELL VOLUME 90.5 fl (80.0-105.0); MEAN CORPUSCULAR HEMOGLOBIN 27.5 pg (25.0-35.0); MEAN CORPUSCULAR HGB CONC 30.4 g/dl (31.0-37.0); MEAN PLATELET VOLUME 8.6 fl (7.0-11.0); MONO # 1.1 (0.1-0.6); MONO % 8.4 % (1.0-6.0); RBC 2.84 10^6/uL (3.5-6.1); RED CELL DISTRIBUTION WIDTH 14.8 % (11.5-14.5); WHITE BLOOD COUNT 13.1 10^3/uL (4.5-11.0)
[2018-08-06 08:00] LABS: ALB/GLOB RATIO 0.8 (1.1-1.8); CALCIUM 9.3 mg/dL (8.4-10.5)
[2018-08-06] MEDS: Enoxaparin 40 mg Syringe SC SCH (10:39)
--- NOTE | 2018-08-06 12:14 | PN ---
DATE: 08/06/2018 SUBJECTIVE: The patient seen in room 275, bed 1, earlier. Uneventful night. His fever has improved. PHYSICAL EXAMINATION VITAL SIGNS: On exam, temperature is 98, blood pressure is 128/70, respiratory rate of 20 and heart rate of 109. HEENT: Unremarkable. NECK: Supple. LUNGS: Have decreased breath sounds. HEART: Normal S1 and S2. ABDOMEN: Soft. LABORATORY EXAMINATION: Reveals a white count of 13,100, hemoglobin of 7 and platelets of 282. Chemistries reveals a BUN of 45 and creatinine of 2.5. Procalcitonin is 0.51. Urinalysis is noted. Serology reveals the Cryptococcus antigen is negative. Influenza is negative, is negative. Microbiology reveals the urine has Klebsiella oxytoca. Blood cultures have no growth. 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 Currently off of antibiotics. Has risk for developing nosocomial infections. We will follow with you. Juan Bonilla MD
--- NOTE | 2018-08-06 14:35 | PN ---
DATE: 08/06/2018 PULMONARY PROGRESS NOTE SUBJECTIVE: The patient offers no complaints. States he is not short of breath. The patient states that he has a minimal cough that is not productive. No additional problems reported. PHYSICAL EXAMINATION: VITAL SIGNS: Remain stable. Temperature afebrile, heart rate 80, respiratory rate 16-18, blood pressure 140/70, O2 saturation 97% on nasal cannula oxygen. HEENT: Normocephalic, atraumatic. NECK: No JVD. No bruit. CARDIOVASCULAR: Regular rhythm. S1, S2. Soft systolic ejection murmur at the lower left sternal border. No gallop appreciated. CHEST: Global decrease in breath sounds especially over the left lower lobe. Minimal rhonchi. No wheezing appreciated. ABDOMEN: Soft. Bowel sounds normoactive without mass, guarding, rebound or organomegaly. EXTREMITIES: Reveal no clubbing, cyanosis. There is trace edema of both lower extremities. There is no Steve's sign. SKIN: Moist. No rash or excoriation. NEUROLOGIC: No focal findings. LYMPHATICS: No lymphadenopathy appreciated on examination of the cervical, inguinal and axillary areas. CLINICAL IMPRESSION: 1. Recurrent left pleural effusion. 2. Underlying malignancy needs to be excluded. 3. Chronic kidney disease. 4. Severe anemia. PLAN: Continue vigorous support, diuresis, inhaled bronchodilators, etc. CT-guided biopsy of the left mass has been completed and cytopathology is pending. Etiology remains unclear. Will await cytopathologic diagnosis and institute appropriate treatment. We will follow closely with you and decide on the need for further intervention based on clinical findings. No changes at the present time. Nixon Ny MD
--- NOTE | 2018-08-06 15:13 | PN ---
DATE: 08/06/2018 SUBJECTIVE: The patient is 83 years old, seen and examined with complaint of pain at the catheter site in the left lower chest. Otherwise, he is having generalized weakness. No nausea, vomiting or diarrhea. PHYSICAL EXAMINATION: VITAL SIGNS: The patient is afebrile, pulse 105, respirations 20, blood pressure 128/61. LUNGS: Bilateral diffusely decreased breath sounds. HEART: S1 and S2 audible. ABDOMEN: Soft, obese, nontender, no rebound, no guarding. NEUROLOGIC: The patient is awake, alert, oriented. Able to communicate. EXTREMITIES: Bilateral legs, no edema. LABORATORY DATA: WBC 13.1, hemoglobin is 7.8, hematocrit 25.7, platelets 282. Chemistry: Sodium 134, potassium 5.4, chloride 101, CO2 of 23. BUN 42, creatinine 2.5. Urine positive for Klebsiella oxytoca. Pleural biopsy is positive for squamous cell carcinoma. ASSESSMENT AND PLAN: 1. Squamous cell carcinoma, probably region. 2. History of hypertension. 3. Hyperkalemia. 4. Chronic kidney disease. 5. Symptomatic anemia. 6. Deconditioning and difficulty walking. 7. Acute on chronic anemia, probably secondary to malignancy. PLAN: I will give him a dose of colestyramine, Kayexalate. He will receive two blood transfusions. Spoke to surgical dental assistant, they need to check the functionality of the catheter; if it is nonfunctioning, it should be removed. Will follow up with CBC and CMP in a.m. Tejinder Razo MD
[2018-08-07] MEDS: Albuterol-Ipratrop 3 mg / 0.5 (3 ml) UD IH SCH ×4 (01:37→20:09)
[2018-08-07] MEDS: Pantoprazole 40 mg EC Tab PO SCH (05:04)
[2018-08-07 06:33] LABS: BASO # 0.02 K/mm3 (0.0-2.0); BASO % 0.2 % (0.0-3.0); EOS # 0.3 (0.0-0.7); LYMPH # 1.3 (1.2-3.4); LYMPH % 9.8 % (22.0-35.0); MEAN CELL VOLUME 89.4 fl (80.0-105.0); MEAN CORPUSCULAR HEMOGLOBIN 28.7 pg (25.0-35.0); MEAN CORPUSCULAR HGB CONC 32.2 g/dl (31.0-37.0); MEAN PLATELET VOLUME 8.5 fl (7.0-11.0); MONO # 0.9 (0.1-0.6); MONO % 6.5 % (1.0-6.0); RBC 3.48 10^6/uL (3.5-6.1); RED CELL DISTRIBUTION WIDTH 14.7 % (11.5-14.5); WHITE BLOOD COUNT 13.1 10^3/uL (4.5-11.0)
[2018-08-07 06:48] LABS: ALB/GLOB RATIO 0.8 (1.1-1.8); CALCIUM 9.2 mg/dL (8.4-10.5)
[2018-08-07] MEDS: Enoxaparin 40 mg Syringe SC SCH (10:30)
[2018-08-07] MEDS ORDERED: Sodium Chloride 0.9% 1,000 ML IV SCH (11:00)
--- NOTE | 2018-08-07 12:52 | PN ---
DATE: 08/07/2018 SUBJECTIVE: The patient is in bed in no acute distress. PHYSICAL EXAMINATION: VITAL SIGNS: The patient does have a fever this morning with a temperature of 100.7, heart rate of 103, blood pressure is 120/60, respiratory rate of 20. HEENT: Unremarkable. NECK: Supple. LUNGS: Have decreased breath sounds. HEART: Normal S1, S2. ABDOMEN: Soft. LABORATORY EXAMINATION: Reveals a white count of 13,000 and hemoglobin of 10, platelets of 282 and chemistries reveals a BUN of 47, creatinine of 2.6. Procalcitonin is 0.51. Urinalysis is noted. Serology reveals the cryptococcal is negative. Influenza is negative. Beta-(1,3)-d-glucan is negative, less than 31. There is Klebsiella in the urine, it is pansensitive and the blood cultures are no growth. The patient is currently off of antibiotics. The patient is on Protonix, Zofran, clonidine, Flomax, Lasix. ASSESSMENT AND PLAN: This is an 83-year-old male with left-sided pleural effusion, status post pleural catheter placement, pleural mass and healthcare-associated pneumonia, biopsy showing squamous cell cancer and hypertension, prostate cancer, peptic ulcer disease and complete the antibiotics, now has a new fever and tachycardia, now has a new systemic inflammatory response syndrome. We will repeat blood cultures, urine cultures and urinalysis and sputum cultures and we will order another procalcitonin. lower extremity venous Dopplers to rule out deep venous thrombosis. We will hold off any antibiotics at this time. This patient is clinically and we will follow with you. Juan Bonilla MD
--- NOTE | 2018-08-07 14:04 | PN ---
DATE: 08/07/2018 SUBJECTIVE: The patient has no complaint of any chest pain, no shortness of breath or headache. PHYSICAL EXAMINATION: VITAL SIGNS: Temperature is 98.7, pulse of 119, blood pressure is 129/66, respirations 20. GENERAL: The patient is lying in bed, flat, comfortable. HEENT: No oral lesion. Anicteric sclerae. Moist mucosa. NECK: No JVD, adenopathy, or thyromegaly. CARDIOVASCULAR: S1 and S2, regular. No murmurs, rubs, or gallops. LUNGS: Clear to auscultation bilaterally. No wheeze, rales, or rhonchi. ABDOMEN: Bowel sounds are positive, soft, nontender and nondistended. EXTREMITIES: No cyanosis, clubbing or edema. LABORATORY DATA: White count is 13.1, hemoglobin is 10. Potassium is 5.2, creatinine is 2.6. ASSESSMENT: 1. Squamous cell carcinoma. 2. Hypertension. 3. Hyperkalemia. 4. Chronic kidney disease stage 3 with acute kidney injury. 5. Chronic anemia. 6. Gait instability. 7. Deconditioning. 8. Benign prostatic hypertrophy. PLAN: The patient is currently on clonidine for his blood pressure. He is on Colace for his constipation. He is on Flomax for his benign prostatic hypertrophy. The patient has received Lasix. He is on amlodipine for hypertension. He is on Tylenol. He has acute kidney injury. We will repeat his blood work tomorrow. He had been given Lasix. He is on Lovenox for deep venous thrombosis prophylaxis. We will need to follow this carefully, as he is in acute kidney injury and can have toxicity from this medication as this is excreted through the kidneys. I will start him on normal saline to help improve his acute kidney injury. Christopher Yeung MD
--- NOTE | 2018-08-07 18:11 | RAD ---
Date of service: 08/07/2018 PROCEDURE: CHEST RADIOGRAPH, 1 VIEW HISTORY: fever COMPARISON: Comparison is made with 08/03/2018 FINDINGS: LUNGS: Again noted is small size left lung. Partial atelectasis of the left lung is again noted likely due to large left pleural effusion. Mild pulmonary vascular congestion in the right lung P PLEURA: Suspicious for large left pleural effusion. CARDIOVASCULAR: No aortic atherosclerotic calcification present. Normal. OSSEOUS STRUCTURES: No significant abnormalities. VISUALIZED UPPER ABDOMEN: Normal. OTHER FINDINGS: None. IMPRESSION: Left large pleural effusion associated with partial collapse of the left lung.
[2018-08-08] MEDS: Albuterol-Ipratrop 3 mg / 0.5 (3 ml) UD IH SCH ×4 (01:44→20:44)
[2018-08-08] MEDS: Pantoprazole 40 mg EC Tab PO SCH (05:41)
[2018-08-08] MEDS: Oxycodone/Acetaminophen 5/325 mg Tab PO PRN (08:44)
--- NOTE | 2018-08-08 08:45 | PN ---
DATE: 08/08/2018 SUBJECTIVE: The patient appears comfortable this morning. He is not short of breath at rest. PHYSICAL EXAMINATION: VITAL SIGNS: Temperature is 98.9, pulse on the monitor is 104, respiratory rate 19, blood pressure 138/69. Oxygen saturation on nasal cannula is 96% to 97%. HEENT: Normocephalic, atraumatic. No JVD. CARDIOVASCULAR: Systolic ejection murmur at the lower left sternal border. No S3 gallop. LUNGS: Decreased breath sounds - left lower lobe. No rhonchi. No wheezing. EXTREMITIES: Mild edema. No cyanosis, no clubbing. Calves are nontender to palpation. GASTROINTESTINAL: Abdomen is soft, nontender and nondistended. Bowel sounds are positive. SKIN: No acute rash. NEUROLOGIC: Exam limited at the present time. IMPRESSION: 1. Severe anemia. 2. Recurrent left pleural effusion. 3. Rule out underlying malignancy. 4. Chronic kidney disease. PLAN: The patient appears comfortable this morning. He is not short of breath at rest. He does state to feeling better overall. I did discuss the case with the night nurse at length. The night nurse stated that the patient had an uneventful night. On physical exam, there is no significant bronchospasm noted. In addition, there is no significant alveolar-arterial gradient. I will continue the current nebulizer treatments for now. I did review the pathology on the CAT scan-guided left pleural mass. 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 I will discuss the case with pathology later this morning. Clinical status of the patient is certainly improved - compared to his initial presentation. However, given the above, the future status/prognosis for this patient appears poor. I will discuss the above with the attending physician. Keegan Hadley MD MTDD
[2018-08-08 10:43] LABS: BASO # 0.01 K/mm3 (0.0-2.0); BASO % 0.1 % (0.0-3.0); EOS # 0.1 (0.0-0.7); EOS % 0.8 % (1.5-5.0); HEMOGLOBIN 9.1 g/dL (14.0-18.0); LYMPH % 6.6 % (22.0-35.0); MEAN CELL VOLUME 89.9 fl (80.0-105.0); MEAN CORPUSCULAR HEMOGLOBIN 28.6 pg (25.0-35.0); MEAN CORPUSCULAR HGB CONC 31.8 g/dl (31.0-37.0); MEAN PLATELET VOLUME 8.5 fl (7.0-11.0); MONO # 1.3 (0.1-0.6); MONO % 8.2 % (1.0-6.0); RBC 3.18 10^6/uL (3.5-6.1); RED CELL DISTRIBUTION WIDTH 14.7 % (11.5-14.5); WHITE BLOOD COUNT 15.4 10^3/uL (4.5-11.0)
[2018-08-08 10:57] LABS: ALB/GLOB RATIO 0.8 (1.1-1.8); ALBUMIN 2.9 g/dL (3.0-4.8); CALCIUM 9.1 mg/dL (8.4-10.5)
--- NOTE | 2018-08-08 12:26 | CT ---
Date of service: 08/08/2018 PROCEDURE: CT Chest without contrast HISTORY: Assess left effusion for new Aspira catheter COMPARISON: Comparison chest radiograph and CT scan chest dated 08/07/2018 and 07/31/2018 respectively. TECHNIQUE: Contiguous axial images were obtained through the chest without intravenous contrast enhancement. Sagittal and coronal reconstructions were performed. Radiation dose: Total exam DLP = 569.06 mGy-cm. This CT exam was performed using one or more of the following dose reduction techniques: Automated exposure control, adjustment of the mA and/or kV according to patient size, and/or use of iterative reconstruction technique. FINDINGS: LUNGS: Centrilobular and paraseptal emphysematous changes again seen in the upper lobes and lung apices. There also appears to be localized pleural thickening in the right lung apex. MEDIASTINUM: Heart size within range of normal. There appears to be a tiny pericardial effusion with mild infiltration changes of the anterior pericardial fat. Ascending thoracic aorta measures approximately 3.4 cm and descending thoracic aorta measures approximately 3.1 cm. Minor aortic atherosclerotic calcification.. Pulmonary trunk measures approximately 3.3 cm. There are multiple small nonspecific mediastinal lymph nodes. Evaluation for left-sided hilar adenopathy is quite limited due to the aforementioned atelectasis and effusion and further limited by the lack of circulating intravenous contrast material.. PLEURA: Redemonstrated is a large left-sided pleural effusion with associated compressive type atelectasis.. Also again seen is a elliptical shaped soft tissue density in the posterior dependent left pleural space extending from approximately the T12 up through the T5 level of. This focus could represent neoplasm given the destructive changes of the posterior and posteromedial margins of the 11th rib as well as the posterior 10th rib.. Apparent nodular pleural thickening along the anteromedial surface of the left upper lobe as well representing neoplastic process. Previously noted small chest tube catheter left lung base no longer visible. In Localized minor pleural thickening right lung apex. BONES: Apparent lytic lesion within the sternum. See above discussion for regarding destructive changes of the left lower ribs. Multilevel degenerative spondylosis of the thoracic spine. UPPER ABDOMEN: Grossly unremarkable. OTHER FINDINGS: None. 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 Redemonstrated are invasion changes of multiple left posterior ribs as well as possible sclerotic metastasis to the right 8th rib and questionable sclerotic metastasis to the manubrium sternum. Small left pneumothorax. Interval removal left pleural drainage catheter. Increased size left sided effusion left lower lobe and lingular subsegmental atelectasis.
[2018-08-08] MEDS ORDERED: Lidocaine 2% Inj (20ml) ONE (14:14)
[2018-08-08] MEDS ORDERED: Iodixanol 320 MG/ML 100 ML BOTTLE IV ONE (14:15)
--- NOTE | 2018-08-08 15:04 | CP.PCM.PN ---
Subjective - Date & Time of Evaluation Date of Evaluation: 08/08/18 Time of Evaluation: 14:25 - Subjective Subjective: Afebrile, not in distress. Objective - Vital Signs/Intake and Output Vital Signs (last 24 hours): Temp Pulse Resp BP Pulse Ox 98.2 F 102 H 20 112/68 96 08/08/18 12:00 08/08/18 13:08 08/08/18 12:00 08/08/18 13:08 08/08/18 05:38 Intake and Output: 08/08/18 08/08/18 06:59 18:59 Intake Total 600 Output Total 200 Balance 400 - Medications Medications: Current Medications Acetaminophen (Tylenol 325mg Tab) 650 mg PO Q4H PRN PRN Reason: fever and Pain 1-3 Last Admin: 08/06/18 22:08 Dose: 650 mg Albuterol/Ipratropium (Duoneb 3 Mg/0.5 Mg (3 Ml) Ud) 3 ml IH Q2H PRN PRN Reason: Shortness of Breath Albuterol/Ipratropium (Duoneb 3 Mg/0.5 Mg (3 Ml) Ud) 3 ml IH [id number] [facility] Last Admin: 08/08/18 08:44 Dose: 3 ml Amlodipine Besylate (Norvasc) 10 mg PO DAILY [facility] Last Admin: 08/08/18 09:08 Dose: 10 mg Atorvastatin Calcium (Lipitor) 10 mg PO DIN [facility] Last Admin: 08/07/18 17:33 Dose: 10 mg Clonidine HCl (Catapres) 0.1 mg PO TID [facility] Last Admin: 08/08/18 13:08 Dose: 0.1 mg Docusate Sodium (Colace) 100 mg PO BID [facility] Last Admin: 08/08/18 09:07 Dose: 100 mg Furosemide (Lasix) 20 mg IVP ONCE PRN PRN Reason: transfusion Last Admin: 07/30/18 20:24 Dose: 20 mg Furosemide (Lasix) 20 mg IVP ONCE PRN PRN Reason: transfusion Last Admin: 07/31/18 00:15 Dose: 20 mg Heparin Sodium (Porcine) (Heparin) 5,000 units SC Q12 [facility]; Protocol Last Admin: 08/08/18 09:06 Dose: 5,000 units Ondansetron HCl (Zofran Inj) 4 mg IVP Q6H PRN PRN Reason: Nausea/Vomiting Oxycodone/Acetaminophen (Percocet 5/325 Mg Tab) 1 tab PO Q6H PRN PRN Reason: Pain, severe (8-10) Stop: 08/11/18 08:18 Last Admin: 08/08/18 08:44 Dose: 1 tab Pantoprazole Sodium (Protonix Ec Tab) 40 mg PO 0600 [facility] Last Admin: 08/08/18 05:41 Dose: 40 mg Tamsulosin HCl (Flomax) 0.4 mg PO DAILY [facility] Last Admin: 08/08/18 09:07 Dose: 0.4 mg - Labs Labs: 08/08/18 10:30 08/08/18 10:35 PT 15.2 SECONDS (9.4-12.5) H 07/30/18 18:15 INR 1.33 07/30/18 18:15 APTT 25.6 Seconds (25.1-36.5) 08/01/18 06:30 - Constitutional Appears: Chronically Ill - Head Exam Head Exam: NORMAL INSPECTION - Respiratory Exam Respiratory Exam: Decreased Breath Sounds - Cardiovascular Exam Cardiovascular Exam: +S1, +S2 - GI/Abdominal Exam GI & Abdominal Exam: Soft. absent: Tenderness Assessment and Plan - Assessment and Plan (Free Text) Plan: Assessment left sided pleural effusion S/P pleural catheter placement with pleural mass, S/P biopsy showing squamous cell carcinoma history of sepsis due to right lower lobe HCAP HTN prostate CA PUD chronic anemia Plan continue to monitor off antibiotics since he is at risk for nosocomial infections follow up further plans of Pulmonary especially after biopsy shows cancer,and Heme/Onc
[2018-08-08] MEDS ORDERED: Sodium Chloride 0.45% 1,000 ML IV SCH (16:00)
--- NOTE | 2018-08-08 17:23 | PN ---
DATE: 08/08/2018 SUBJECTIVE: The patient is 83 years old, seen and examined with complaint of having uncomfortable feeling because of his left-sided chest catheter. He has shortness of breath. The patient received blood transfusion. He complained of generalized weakness. PHYSICAL EXAMINATION: VITAL SIGNS: He is afebrile, pulse 120, respirations 18, and blood pressure 120/87. LUNGS: Bilateral fair air flow, decreased at bases left more than the right. HEART: S1 and S2 audible. ABDOMEN: Soft, obese, nontender, no rebound, no guarding. NEUROLOGIC: The patient is awake, alert, oriented, and communicative. EXTREMITIES: Bilateral legs, no edema. LABORATORY DATA: Hemoglobin is 9.1, hematocrit 28.6, and platelets 303. Chemistry: Sodium 135, potassium 4.4, chloride 104, CO2 of 23. BUN 47, creatinine 2.3. Blood sugar of 111, procalcitonin is 2.2. Urine positive for Klebsiella oxytoca. Urine culture on 08/07/2018 is negative. ASSESSMENT: 1. Squamous cell carcinoma from pleural biopsy. 2. Frequent left pleural effusion. 3. Acute on chronic kidney disease. 4. Hypertension. 5. Chronic anemia status post multiple blood transfusions. 6. Deconditioning with difficulty walking. PLAN: I spoke to Dr. Greenwood. I spoke to Dr. Milton Roca. The patient will have CT scan done today and might have to remove his existing chest tube and have to drain the fluid and replace it to the comfortable place. Dr. Greenwood will also discuss with patient's family about further management. He might have to put Port-A-Cath for future chemotherapy. I will request Dr. Milton Roca for that. Tejinder Razo MD
--- NOTE | 2018-08-08 20:31 | VASCULAR ---
Date of service: 08/08/2018 PROCEDURE: 1. Ultrasound fluoroscopically placed tunneled left pleural catheter 2. Removal the patient's malfunctioning tunneled left pleural catheter placed surgically HISTORY: Malignant left pleural effusion. Previously placed surgical tunneled catheter which is not functioning. Recurrent left pleural effusion with shortness of breath COMPARISON: TECHNIQUE: The relative risks and indications of the procedure were explained the patient consent obtained. The patient is placed right decubitus position sonography of the left chest performed. This revealed a complex moderate sized left pleural effusion. The skin and soft tissues were anesthetized 1 percent xylocaine. Conscious sedation monitoring were provided throughout the procedure by a nurse. A puncture was performed 18 gauge needle in the left posterior axillary line. A 0.035 glidewire was coiled within a pocket. Next a 7 Lao hockey stick catheter was used along with a guidewire to break up the loculations in the left chest. The catheter was eventually positioned posteriorly and superiorly. A peel-away sheath was placed. A new 15.5 Lao Aspira catheter was placed posteriorly and superiorly. 950 cc of tenorio then bloody fluid was aspirated. The new catheter was flushed and secured. The previously placed surgical Aspir catheter was prepped and draped usual sterile fashion. 1 percent xylocaine was used to anesthetize the skin and tunnel. Blunt dissection was performed. The catheter was removed out difficulty. FINDINGS: IMPRESSION: 1. Ultrasound fluoroscopically placed tunneled left pleural catheter. The loculated pleural effusion was manipulated with an angled catheter and glidewire 2. Removal the patient's malfunctioning surgically placed tunneled left pleural catheter
[2018-08-09] MEDS: Albuterol-Ipratrop 3 mg / 0.5 (3 ml) UD IH SCH ×4 (01:44→21:40)
[2018-08-09] MEDS: Pantoprazole 40 mg EC Tab PO SCH (05:10)
[2018-08-09] MEDS: Oxycodone/Acetaminophen 5/325 mg Tab PO PRN (05:53)
--- NOTE | 2018-08-09 07:55 | PN ---
DATE: 08/09/2018 PULMONARY NOTE SUBJECTIVE: The patient appears comfortable this morning. He is not short of breath at rest. PHYSICAL EXAMINATION: VITALS: Temperature is 98.5, pulse 88, respirations 18-20, blood pressure 130/84. Oxygen saturation on nasal cannula is 97%. HEENT: Normocephalic, atraumatic. NECK: No JVD. CARDIOVASCULAR: Systolic ejection murmur at the lower left sternal border. No S3 gallop. LUNGS: Decreased breath sounds - left lower lobe - somewhat improved. No rhonchi. No wheezing. EXTREMITIES: Mild edema. No cyanosis, no clubbing. Calves are nontender to palpation. GASTROINTESTINAL: Abdomen is soft, nontender, and nondistended. Bowel sounds are positive. SKIN: No acute rash. NEUROLOGIC: Exam limited at the present time. IMPRESSION: 1. Advanced squamous cell carcinoma. 2. Recurrent left pleural effusion. 3. Severe anemia. 4. Chronic kidney disease. PLAN: The patient appears quite comfortable this morning. He is not short of breath at rest. He does state to feeling better overall. I did discuss the case with the night nurse at length. The night nurse stated that the patient had an uneventful night. I did review the notes by Dr. Milton Roca. A new PleurX catheter was placed, and 900 mL of fluid was drained. Repeat x-ray is pending. I also discussed the case with Dr. Phillips (Pathology) at length yesterday. Pathology is noted above. On physical exam, there is no significant bronchospasm noted. In addition, there is no significant alveolar-arterial gradient. I will continue the current nebulizer treatments for now. Clinical status of the patient is certainly improved - compared to the initial presentation. However, given the above, the future status/prognosis for this elderly patient remains poor. I will discuss the above with the attending physician. Keegan Hadley MD [id number]
--- NOTE | 2018-08-09 10:26 | CP.PCM.PN ---
Subjective - Date & Time of Evaluation Date of Evaluation: 08/09/18 Time of Evaluation: 09:40 - Subjective Subjective: Comfortable, not short of breath at rest, no fevers. Objective - Vital Signs/Intake and Output Vital Signs (last 24 hours): Temp Pulse Resp BP Pulse Ox 98.2 F 102 H 20 112/68 96 08/08/18 12:00 08/08/18 13:08 08/08/18 12:00 08/08/18 13:08 08/08/18 05:38 Intake and Output: 08/08/18 08/08/18 06:59 18:59 Intake Total 600 Output Total 200 Balance 400 - Medications Medications: Current Medications Acetaminophen (Tylenol 325mg Tab) 650 mg PO Q4H PRN PRN Reason: fever and Pain 1-3 Last Admin: 08/06/18 22:08 Dose: 650 mg Albuterol/Ipratropium (Duoneb 3 Mg/0.5 Mg (3 Ml) Ud) 3 ml IH Q2H PRN PRN Reason: Shortness of Breath Albuterol/Ipratropium (Duoneb 3 Mg/0.5 Mg (3 Ml) Ud) 3 ml IH [id number] [facility] Last Admin: 08/08/18 14:43 Dose: Not Given Amlodipine Besylate (Norvasc) 10 mg PO DAILY [facility] Last Admin: 08/08/18 09:08 Dose: 10 mg Atorvastatin Calcium (Lipitor) 10 mg PO DIN [facility] Last Admin: 08/07/18 17:33 Dose: 10 mg Clonidine HCl (Catapres) 0.1 mg PO TID [facility] Last Admin: 08/08/18 13:08 Dose: 0.1 mg Docusate Sodium (Colace) 100 mg PO BID [facility] Last Admin: 08/08/18 09:07 Dose: 100 mg Furosemide (Lasix) 20 mg IVP ONCE PRN PRN Reason: transfusion Last Admin: 07/30/18 20:24 Dose: 20 mg Furosemide (Lasix) 20 mg IVP ONCE PRN PRN Reason: transfusion Last Admin: 07/31/18 00:15 Dose: 20 mg Heparin Sodium (Porcine) (Heparin) 5,000 units SC Q12 [facility]; Protocol Last Admin: 08/08/18 09:06 Dose: 5,000 units Ondansetron HCl (Zofran Inj) 4 mg IVP Q6H PRN PRN Reason: Nausea/Vomiting Oxycodone/Acetaminophen (Percocet 5/325 Mg Tab) 1 tab PO Q6H PRN PRN Reason: Pain, severe (8-10) Stop: 08/11/18 08:18 Last Admin: 08/08/18 08:44 Dose: 1 tab Pantoprazole Sodium (Protonix Ec Tab) 40 mg PO 0600 [facility] Last Admin: 08/08/18 05:41 Dose: 40 mg Tamsulosin HCl (Flomax) 0.4 mg PO DAILY [facility] Last Admin: 08/08/18 09:07 Dose: 0.4 mg - Labs Labs: 08/08/18 10:30 08/08/18 10:35 PT 15.2 SECONDS (9.4-12.5) H 07/30/18 18:15 INR 1.33 07/30/18 18:15 APTT 25.6 Seconds (25.1-36.5) 08/01/18 06:30 - Constitutional Appears: No Acute Distress, Chronically Ill - Head Exam Head Exam: NORMAL INSPECTION - Respiratory Exam Respiratory Exam: Decreased Breath Sounds - Cardiovascular Exam Cardiovascular Exam: +S1, +S2 - GI/Abdominal Exam GI & Abdominal Exam: Soft. absent: Tenderness Assessment and Plan - Assessment and Plan (Free Text) Plan: Assessment left sided pleural effusion S/P pleural catheter placement with pleural mass, S/P biopsy showing squamous cell carcinoma history of sepsis due to right lower lobe HCAP HTN prostate CA PUD chronic anemia Plan continue to monitor off antibiotics since he is at risk for hospital-acquired infections follow up further plans of Pulmonary especially after biopsy shows cancer,and Heme/Onc
--- NOTE | 2018-08-09 10:31 | PN ---
DATE: 08/08/2018 SUBJECTIVE: He is comfortable in bed. He is complaining of pain on the left side of the chest around the chest tube. He is getting the pain medications p.r.n. No fever. No cough with expectoration or shortness of breath. He is not ambulating. REVIEW OF SYSTEMS: As per HPI, 12-point review of system reviewed and negative. PHYSICAL EXAMINATION: GENERAL: Mild distress due to pain, left-sided. VITAL SIGNS: Blood pressure 130/84, respiratory rate 20 per minute, oxygen saturation 97% on oxygen by nasal cannula, and temperature 98.5. HEENT: Pallor positive. NECK: No lymphadenopathy. CHEST: Air entry decreased on the left side. No rhonchi. No crepitation. ABDOMEN: Soft and nontender. No hepatosplenomegaly. EXTREMITIES: No edema. CENTRAL NERVOUS SYSTEM: Alert and oriented x3. No focal sensory or motor deficit. LABORATORY DATA: White count 13.1, hemoglobin 10, hematocrit 31.1, platelet 282. Creatinine 2.6, potassium 5.2. MEDICATIONS: Tylenol 650 every 6 hours p.r.n., DuoNeb, Norvasc 10 mg daily, Lipitor 20 mg daily, Catapres 0.1 mg p.o. t.i.d., Senna, Colace, Lasix 20 mg IV daily, heparin 5000 every 12, Zofran 4 mg IV every 6 hours p.r.n., Percocet p.r.n., and Protonix 40 mg daily. ASSESSMENT: 1. Stage IV lung cancer, squamous cell. 2. Chronic kidney disease. 3. Deconditioning. 4. Hypertension. 5. Chronic obstructive pulmonary disease. PLAN: He underwent CT-guided biopsy of the left lower lobe mass, which is consistent with squamous cell carcinoma. He had lesions in the ribs sclerotic, likely metastatic in nature. I had a lengthy discussion with the son and the in the office. I explained to them about the diagnosis of squamous cell cancer likely stage IV. I gave them the option of palliative chemotherapy with single agent. He will need a PET scan for staging.. and son had lot of questions, all were answered to their satisfaction. They were not sure whether they want him to be treated. I also discussed with them the option of hospice if they decide no treatment. Both son and told me they will get back to us regarding their plan of action and level of care they want, if they want him to be treated for cancer. I also discussed with Mr. Morris about treatment of cancer, he told me to talk to his . We will discuss with Dr. Razo. He will go to subacute rehab for deconditioning. . Chronic kidney disease, creatinine 2.6; severe anemia. He received 2 units of blood transfusion. We will give one dose of Aranesp 100 mcg for severe anemia.related to CKD. Niyah Greenwood MD MTDTk
[2018-08-09] MEDS ORDERED: Lidocaine 2% Inj (20ml) ONE (12:18)
[2018-08-09] MEDS ORDERED: Midazolam 2 MG/2 ML VIAL ONE (13:17)
[2018-08-09] MEDS ORDERED: Iodixanol 320 MG/ML 100 ML BOTTLE IV ONE (13:37)
--- NOTE | 2018-08-09 13:49 | RAD ---
Date of service: 08/09/2018 HISTORY: change left pleural catheter COMPARISON: 08/07/2018 FINDINGS: LUNGS: Opacity at left base likely consolidation with superimposed pleural effusion. No right-sided infiltrate. PLEURA: Moderate left pleural effusion, decreased from prior.. Left apical chest tube. No pneumothorax. There is a small amount of fluid capping the left pulmonary apex. CARDIOVASCULAR: No aortic atherosclerotic calcification present. Normal cardiac size. No pulmonary vascular congestion. OSSEOUS STRUCTURES: No significant abnormalities. VISUALIZED UPPER ABDOMEN: Normal. OTHER FINDINGS: None. IMPRESSION: Decreased left pleural effusion. Left basilar consolidation. Left apical chest tube. No pneumothorax.
[2018-08-09] MEDS ORDERED: Sodium Chloride 0.45% 1,000 ML IV SCH (14:15)
--- NOTE | 2018-08-09 15:30 | PN ---
DATE: 08/09/2018 SUBJECTIVE: The patient is an 83-year-old, seen and examined, lying in bed. He seems to be comfortable today. He states that his left side catheter seemed to be less uncomfortable than before. His previous catheter was removed and new chest catheter was placed. PHYSICAL EXAMINATION: GENERAL: He is awake, alert, oriented and communicative. VITAL SIGNS: He is afebrile, pulse 101, respirations 20, blood pressure . LUNGS: Bilateral unfair airflow, decreased at bases left more than the right. HEART: S1 and S2 audible. ABDOMEN: Soft and nontender. No rebound. No guarding. NEUROLOGIC: The patient is awake, alert, oriented, and able to communicate. EXTREMITIES: Bilateral legs, no edema. LABORATORY DATA: WBC is 15.4, hemoglobin 9.1, hematocrit 28.6 and platelets 303. Chemistry; sodium 135, potassium 4.4, chloride 104, CO2 of 23, BUN 47, creatinine 2.3, blood sugar of 111. Procalcitonin 2.28. ASSESSMENT: 1. Squamous cell carcinoma. 2. Anemia, status post multiple blood transfusion. 3. Hypertension. 4. Chronic kidney disease. 5. Status post left replacement. PLAN: We will continue the patient on current medication. I will add small dose of beta blockers since he is running tachycardic, seen Dr. Greenwood. I spoke to the family and to the patient, he is very firm about it that he want all the treatments, so I will request to Dr. Milton Roca for Port-A-Cath placement and once Port-A-Cath is placed, the patient will be transferred back to the rehab. I will order for CBC and CMP in a.m. Tejinder Razo MD
[2018-08-09] MEDS: Metoprolol Succinate 25 mg XL Tab PO SCH (18:22)
[2018-08-10] MEDS: Albuterol-Ipratrop 3 mg / 0.5 (3 ml) UD IH SCH ×4 (04:30→21:35)
[2018-08-10] MEDS: Pantoprazole 40 mg EC Tab PO SCH (05:50)
[2018-08-10 07:09] LABS: BASO # 0.02 K/mm3 (0.0-2.0); BASO % 0.1 % (0.0-3.0); EOS # 0.3 (0.0-0.7); EOS % 1.9 % (1.5-5.0); HEMOGLOBIN 9.1 g/dL (14.0-18.0); LYMPH # 1.1 (1.2-3.4); LYMPH % 8.1 % (22.0-35.0); MEAN CELL VOLUME 90.1 fl (80.0-105.0); MEAN CORPUSCULAR HEMOGLOBIN 28.1 pg (25.0-35.0); MEAN CORPUSCULAR HGB CONC 31.2 g/dl (31.0-37.0); MEAN PLATELET VOLUME 8.8 fl (7.0-11.0); MONO # 0.8 (0.1-0.6); RBC 3.24 10^6/uL (3.5-6.1); RED CELL DISTRIBUTION WIDTH 14.9 % (11.5-14.5); WHITE BLOOD COUNT 13.9 10^3/uL (4.5-11.0)
[2018-08-10 07:30] LABS: ALB/GLOB RATIO 0.8 (1.1-1.8); ALBUMIN 2.9 g/dL (3.0-4.8); CALCIUM 9.2 mg/dL (8.4-10.5)
[2018-08-10] MEDS ORDERED: Liquid Adhesive TOP ONE (09:51)
[2018-08-10] MEDS: Metoprolol Succinate 25 mg XL Tab PO SCH (10:07)
--- NOTE | 2018-08-10 11:25 | RAD ---
Date of service: 08/10/2018 HISTORY: Shortness of breath. COMPARISON: Frontal chest radiograph 08/09/2018 FINDINGS: LUNGS: No interval right-sided infiltrate. Patchy heterogeneous infiltrate at the mid to inferior left lung zone unchanged. PLEURA: Left pleural catheter identified unchanged terminating in the left apex. Mild to moderate left pleural effusion evident. No pneumothorax bilaterally CARDIOVASCULAR: No aortic atherosclerotic calcification present. Right MediPort inserted terminating at the cavoatrial junction. Stable cardiac size. No pulmonary vascular congestion. OSSEOUS STRUCTURES: No significant abnormalities. VISUALIZED UPPER ABDOMEN: Normal. OTHER FINDINGS: None. IMPRESSION: Interval right MediPort deployment as discussed above with left pleural drainage catheter unchanged in position. [id number] left pleural effusion identified. Mid to inferior left airspace disease unchanged.
[2018-08-10] MEDS: Oxycodone/Acetaminophen 5/325 mg Tab PO PRN (11:36)
--- NOTE | 2018-08-10 13:08 | PN ---
DATE: 08/10/2018 SUBJECTIVE: The patient appears very comfortable this morning. He is not short of breath at rest. PHYSICAL EXAMINATION: VITAL SIGNS: Temperature 99.4, pulse on the monitor is 94, respiratory rate 18/20, blood pressure 140/75. Oxygen saturation on nasal cannula is 95%. HEENT: Normocephalic, atraumatic. NECK: No JVD. CARDIOVASCULAR: Systolic ejection murmur at the lower left sternal border. No S3 gallop. LUNGS: Improved breath sounds - left lower lobe. No rhonchi. No wheezing. EXTREMITIES: Mild edema. No cyanosis. No clubbing. Calves are nontender to palpation. GI: Abdomen is soft, nontender and nondistended. Bowel sounds are positive. SKIN: No acute rash. NEUROLOGIC: Exam limited at the present time. PERTINENT LABORATORY DATA: Chest x-ray was done yesterday and reviewed. There is a decrease in the left pleural effusion, with increased aeration noted to the left lower lobe. IMPRESSION: 1. Advanced squamous cell carcinoma. 2. Recurrent left pleural effusion. 3. Severe anemia. 4. Chronic kidney disease. PLAN: The patient appears very comfortable this morning. He is not short of breath at rest. He does state to feeling much better overall. I did discuss the case with night nurse at length. The night nurse stated that the patient had an uneventful night. On physical exam, there is no significant bronchospasm noted. In addition, there is no significant alveolar-arterial gradient. I would continue with the current nebulizer treatments for now. Inputs by Internal Medicine and Oncology are also noted. Clinical status of the patient is significantly improved - compared to the initial presentation. However, unfortunately, the future status/prognosis for this patient remains very poor. All are aware. Any additional therapy will be as per Dr. Greenwood (Oncology). At this point in time, the patient's pulmonary status appears much improved. There is nothing more to add from a pulmonary point of view at this point in time. I will thus follow up on this patient again as requested. I will discuss the above with the attending physician. Keegan Hadley MD MTDD
--- NOTE | 2018-08-10 14:28 | PN ---
DATE: 08/10/2018 SUBJECTIVE: The patient is 83 years old seen and examined, complained of pain in the left chest and left upper abdominal area, complained of mild shortness of breath. PHYSICAL EXAMINATION: VITAL SIGNS: He has temperature of 99.4, pulse 98, respirations 20, blood pressure 142/76. LUNGS: Decreased breath sounds at the left base. HEART: S1 and S2 audible. ABDOMEN: Soft, slightly distended in the left upper quadrant area. NEUROLOGIC: He is awake, alert, oriented, and able to communicate. EXTREMITIES: Bilateral legs, no edema. LABORATORY DATA: WBC is 13.9, hemoglobin 10.1, hematocrit 29.2 and platelets 300. Chemistry, sodium 137, potassium 5.4, chloride 105, CO2 of 22, BUN 55, creatinine 2.7, blood sugar of 92. Procalcitonin is 2.28. Urine positive for Klebsiella oxytoca. X-ray of chest done this morning shows left pleural effusion with mid to inferior left airspace disease. ASSESSMENT: 1. Squamous cell carcinoma probably from lung. 2. Hypertension. 3. Hyperlipidemia. 4. Chronic kidney disease. 5. History of carcinoma of prostate. PLAN: Currently, the patient is off of antibiotics. He is on metoprolol. He is on atorvastatin. He is on nebulizer treatment. He is scheduled for Port-A-Cath. Once Port-A-Cath is placed, we will make discharge plan. The patient seems to be uncomfortable today. He is on intermittent Lasix. I will request Dr. Davila to evaluate the patient also. Tejinder Razo MD
--- NOTE | 2018-08-10 15:47 | CON ---
DATE OF CONSULTATION: 08/10/2018 CARDIOLOGY CONSULTATION HISTORY: The patient is an 83-year-old male, who presents with shortness of breath. He was found to have recurrent left pleural effusions, for which he has had multiple thoracenteses in the past. PAST MEDICAL HISTORY: His past medical history also includes hypertension, chronic renal disease, peptic ulcer disease. No previous cardiac history according to the patient. In addition, his past medical history included severe anemia, which required transfusions. His breathing is much improved after removal of some fluid from the left pleural effusion. He denies chest pain. SOCIAL HISTORY: He is a former smoker, quit 25 years ago. REVIEW OF SYSTEMS: Review of systems is only related to his dyspnea, which is now improved. No angina. No edema in the lower extremities. PHYSICAL EXAMINATION: VITAL SIGNS: Blood pressure 146/58, heart rate is in the 90s. NECK: Negative JVD. LUNGS: Without rales with decreased breath sounds. CARDIAC: Heart rate S1, S2. EXTREMITIES: Without edema. LABORATORY DATA: EKG shows no acute changes. BUN and creatinine are 55 and 2.7. Hemoglobin is 9.1. IMPRESSION: 1. Dyspnea. 2. His dyspnea is improved since his left pleural effusion has been drained. 3. Echocardiogram reveals pulmonary hypertension with normal left ventricular function. 4. Anemia. 5. Systemic hypertension. PLAN: Given these findings, his dyspnea is clearly related to his pleural effusion. It is unlikely cardiac in nature. Milton Davila MD
[2018-08-11] MEDS: Albuterol-Ipratrop 3 mg / 0.5 (3 ml) UD IH SCH ×4 (03:15→19:27)
[2018-08-11] MEDS: Pantoprazole 40 mg EC Tab PO SCH (06:18)
[2018-08-11] MEDS: Metoprolol Succinate 25 mg XL Tab PO SCH (08:58)
[2018-08-11] MEDS: Oxycodone/Acetaminophen 5/325 mg Tab PO PRN (11:00)
[2018-08-11] MEDS: Nystatin 100,000 Units/gm Topical Pow(15 gm) TOP SCH ×2 (13:00→17:39)
--- NOTE | 2018-08-11 13:18 | CP.PCM.PN ---
Subjective - Date & Time of Evaluation Date of Evaluation: 08/10/18 Time of Evaluation: 09:55 - Subjective Subjective: No fevers, not short of breath at rest. Objective - Vital Signs/Intake and Output Vital Signs (last 24 hours): Temp Pulse Resp BP Pulse Ox 98.5 F 88 20 130/84 97 08/09/18 06:00 08/09/18 06:00 08/09/18 06:00 08/09/18 06:00 08/09/18 06:00 Intake and Output: 08/09/18 08/09/18 06:59 18:59 Intake Total 1400 Output Total 1 Balance 1399 - Medications Medications: Current Medications Acetaminophen (Tylenol 325mg Tab) 650 mg PO Q4H PRN PRN Reason: fever and Pain 1-3 Last Admin: 08/06/18 22:08 Dose: 650 mg Albuterol/Ipratropium (Duoneb 3 Mg/0.5 Mg (3 Ml) Ud) 3 ml IH Q2H PRN PRN Reason: Shortness of Breath Albuterol/Ipratropium (Duoneb 3 Mg/0.5 Mg (3 Ml) Ud) 3 ml IH [id number] [facility] Last Admin: 08/09/18 07:46 Dose: 3 ml Amlodipine Besylate (Norvasc) 10 mg PO DAILY [facility] Last Admin: 08/08/18 09:08 Dose: 10 mg Atorvastatin Calcium (Lipitor) 10 mg PO DIN [facility] Last Admin: 08/08/18 17:34 Dose: 10 mg Clonidine HCl (Catapres) 0.1 mg PO TID [facility] Last Admin: 08/08/18 17:35 Dose: 0.1 mg Docusate Sodium (Colace) 100 mg PO BID [facility] Last Admin: 08/08/18 17:34 Dose: 100 mg Furosemide (Lasix) 20 mg IVP ONCE PRN PRN Reason: transfusion Last Admin: 07/30/18 20:24 Dose: 20 mg Furosemide (Lasix) 20 mg IVP ONCE PRN PRN Reason: transfusion Last Admin: 07/31/18 00:15 Dose: 20 mg Heparin Sodium (Porcine) (Heparin) 5,000 units SC Q12 [facility]; Protocol Last Admin: 08/08/18 21:49 Dose: 5,000 units Ondansetron HCl (Zofran Inj) 4 mg IVP Q6H PRN PRN Reason: Nausea/Vomiting Oxycodone/Acetaminophen (Percocet 5/325 Mg Tab) 1 tab PO Q6H PRN PRN Reason: Pain, severe (8-10) Stop: 08/11/18 08:18 Last Admin: 08/09/18 05:53 Dose: 1 tab Pantoprazole Sodium (Protonix Ec Tab) 40 mg PO 0600 [facility] Last Admin: 08/09/18 05:10 Dose: 40 mg Tamsulosin HCl (Flomax) 0.4 mg PO DAILY [facility] Last Admin: 08/08/18 09:07 Dose: 0.4 mg - Labs Labs: 08/08/18 10:30 08/08/18 10:35 PT 15.2 SECONDS (9.4-12.5) H 07/30/18 18:15 INR 1.33 07/30/18 18:15 APTT 25.6 Seconds (25.1-36.5) 08/01/18 06:30 - Constitutional Appears: Chronically Ill - Head Exam Head Exam: NORMAL INSPECTION - ENT Exam ENT Exam: Mucous Membranes Moist - Neck Exam Neck Exam: absent: Lymphadenopathy, Meningismus - Respiratory Exam Respiratory Exam: Decreased Breath Sounds - Cardiovascular Exam Cardiovascular Exam: +S1, +S2 - GI/Abdominal Exam GI & Abdominal Exam: Soft. absent: Tenderness Assessment and Plan - Assessment and Plan (Free Text) Plan: Assessment left sided pleural effusion S/P pleural catheter placement with pleural mass, S/P biopsy showing squamous cell carcinoma history of sepsis due to right lower lobe HCAP HTN prostate CA PUD chronic anemia Plan continue to monitor off antibiotics since he is at risk for healthcare- associated infections follow up further plans of Pulmonary especially after biopsy showing cancer, and Heme/Onc plans as well
[2018-08-11] MEDS: POLYETHYLENE GLYCOL 3350 17 GM/Dose PACKET PO SCH (13:45)
[2018-08-11] MEDS ORDERED: FAMOTIDINE IVPB ONE (14:00)
[2018-08-11] MEDS ORDERED: DEXAMETHASONE IVPB ONE (14:00)
[2018-08-11] MEDS ORDERED: SODIUM CHLORIDE 0.9% IVPB ONE (14:00)
[2018-08-11] MEDS ORDERED: ONDANSETRON IVPB ONE (14:00)
--- NOTE | 2018-08-11 15:36 | PN ---
DATE: 08/11/2018 SUBJECTIVE: The patient's breathing is much improved. He is working with physical therapy. PHYSICAL EXAMINATION: VITAL SIGNS: Blood pressure 135/65, heart rate is 100. NECK: Negative JVD. LUNGS: Decreased breath sounds. HEART: S1 and S2. EXTREMITIES: Without edema. LABORATORY DATA: Hemoglobin is 9.1. Chemistries, BUN and creatinine 55 and 2.7. IMPRESSION: 1. Dyspnea, which is improved. 2. Pleural effusion. 3. Pulmonary hypertension. 4. Anemia. 5. Systemic hypertension. PLAN: Given these findings, we will continue the patient on telemetry for the next 24 hours. The patient is starting to work with physical therapy. Milton Davila MD
--- NOTE | 2018-08-11 17:46 | PN ---
DATE: 08/11/2018 SUBJECTIVE: The patient is 83 years old, seen and examined, complained of pain in the left chest and left upper abdominal area, complained of shortness of breath, otherwise doing better. PHYSICAL EXAMINATION: VITAL SIGNS: He is afebrile, pulse 110, respirations 22, blood pressure 135/65. LUNGS: Bilateral diffusely decreased breath sounds, more so in the left lower lung area. HEART: S1 and S2 audible. ABDOMEN: Soft, left upper quadrant discomfort. NEUROLOGIC: He is awake, alert, oriented, and able to communicate. LABORATORY DATA: There is no new lab available today. ASSESSMENT: 1. Recurrent left pleural effusion. 2. Squamous cell carcinoma primary probably lungs. 3. Chronic kidney disease. 4. Hypertension. 5. Anemia requiring multiple transfusions. PLAN: I spoke with Dr. Greenwood. The patient got the port yesterday. Chemotherapy is being started. We will monitor for the next 24 hours and discharge planned for either tomorrow or Wednesday back to healthcare. Tejinder Razo MD
--- NOTE | 2018-08-11 23:08 | CP.PCM.PN ---
Subjective - Date & Time of Evaluation Date of Evaluation: 08/09/18 Time of Evaluation: 08:00 - Subjective Subjective: Complaining of left side chest pain. Chest tube not draining any fluid. He is not ambulating. s/p aranesp for anemia related to CKD. Objective - Vital Signs/Intake and Output Vital Signs (last 24 hours): Temp Pulse Resp BP Pulse Ox 97.6 F 89 19 108/65 98 08/11/18 16:27 08/11/18 18:00 08/11/18 16:27 08/11/18 17:37 08/11/18 16:27 Intake and Output: 08/11/18 08/12/18 18:59 06:59 Intake Total 840 Balance 840 - Medications Medications: Current Medications Acetaminophen (Tylenol 325mg Tab) 650 mg PO Q4H PRN PRN Reason: fever and Pain 1-3 Last Admin: 08/10/18 00:59 Dose: 650 mg Albuterol/Ipratropium (Duoneb 3 Mg/0.5 Mg (3 Ml) Ud) 3 ml IH Q2H PRN PRN Reason: Shortness of Breath Albuterol/Ipratropium (Duoneb 3 Mg/0.5 Mg (3 Ml) Ud) 3 ml IH [id number] [facility] Last Admin: 08/11/18 19:27 Dose: Not Given Amlodipine Besylate (Norvasc) 10 mg PO DAILY [facility] Last Admin: 08/11/18 09:00 Dose: 10 mg Atorvastatin Calcium (Lipitor) 10 mg PO DIN [facility] Last Admin: 08/11/18 17:38 Dose: 10 mg Clonidine HCl (Catapres) 0.1 mg PO TID [facility] Last Admin: 08/11/18 17:37 Dose: 0.1 mg Docusate Sodium (Colace) 100 mg PO BID [facility] Last Admin: 08/11/18 17:38 Dose: 100 mg Furosemide (Lasix) 20 mg IVP ONCE PRN PRN Reason: transfusion Last Admin: 07/30/18 20:24 Dose: 20 mg Furosemide (Lasix) 20 mg IVP ONCE PRN PRN Reason: transfusion Last Admin: 07/31/18 00:15 Dose: 20 mg Heparin Sodium (Porcine) (Heparin) 5,000 units SC Q12 [facility]; Protocol Last Admin: 08/11/18 21:43 Dose: 5,000 units Metoprolol Succinate (Toprol Xl) 25 mg PO BRK [facility] Last Admin: 08/11/18 08:58 Dose: 25 mg Nystatin (Nystop Topical Powder) 0 gm TOP BID [facility] Last Admin: 08/11/18 17:39 Dose: 1 applic Ondansetron HCl (Zofran Inj) 4 mg IVP Q6H PRN PRN Reason: Nausea/Vomiting Oxycodone/Acetaminophen (Percocet 5/325 Mg Tab) 1 tab PO Q6H PRN PRN Reason: Pain, severe (8-10) Stop: 08/14/18 09:44 Last Admin: 08/11/18 11:00 Dose: 1 tab Pantoprazole Sodium (Protonix Ec Tab) 40 mg PO 0600 [facility] Last Admin: 08/11/18 06:18 Dose: 40 mg Polyethylene Glycol (Miralax) 17 gm PO DAILY [facility] Last Admin: 08/11/18 13:45 Dose: Not Given Polyethylene Glycol (Miralax) 17 gm PO DAILY [facility] Tamsulosin HCl (Flomax) 0.4 mg PO DAILY [facility] Last Admin: 08/11/18 09:02 Dose: 0.4 mg - Labs Labs: 08/10/18 06:30 08/10/18 06:30 PT 15.2 SECONDS (9.4-12.5) H 07/30/18 18:15 INR 1.33 07/30/18 18:15 APTT 25.6 Seconds (25.1-36.5) 08/01/18 06:30 - Constitutional Appears: Chronically Ill - Head Exam Head Exam: ATRAUMATIC, NORMAL INSPECTION, NORMOCEPHALIC - Eye Exam Eye Exam: Normal appearance - ENT Exam ENT Exam: Mucous Membranes Moist, Normal Exam - Neck Exam Neck Exam: Normal Inspection - Respiratory Exam Respiratory Exam: Decreased Breath Sounds, Clear to Ausculation Bilateral - Cardiovascular Exam Cardiovascular Exam: REGULAR RHYTHM, +S1, +S2 - GI/Abdominal Exam GI & Abdominal Exam: Soft, Normal Bowel Sounds - Extremities Exam Extremities Exam: Normal Inspection - Back Exam Back Exam: NORMAL INSPECTION - Neurological Exam Neurological Exam: Alert, Oriented x3 - Psychiatric Exam Psychiatric exam: Normal Affect, Normal Mood - Skin Skin Exam: Normal Color, Warm Assessment and Plan - Assessment and Plan (Free Text) Assessment: 1. Stage IV lung cancer. Squamous cell type. Mets bones. He communicated that he wants everything to be done including chemotherapy. he agreed with port placement. discussed with Dr. Razo. 2. labs reviewed. 3. CKD. elevated creatinine. s/p one dose of aranesp. 4. pain : continue same meds. pleurex cath will be removed tomorrow.
--- NOTE | 2018-08-11 23:17 | CP.PCM.PN ---
Subjective - Date & Time of Evaluation Date of Evaluation: 08/11/18 Time of Evaluation: 09:00 - Subjective Subjective: Comfortable in bed. Chest tube removed yesterday. Port placed. No cough, no fever. Objective - Vital Signs/Intake and Output Vital Signs (last 24 hours): Temp Pulse Resp BP Pulse Ox 97.6 F 89 19 108/65 98 08/11/18 16:27 08/11/18 18:00 08/11/18 16:27 08/11/18 17:37 08/11/18 16:27 Intake and Output: 08/11/18 08/12/18 18:59 06:59 Intake Total 840 Balance 840 - Medications Medications: Current Medications Acetaminophen (Tylenol 325mg Tab) 650 mg PO Q4H PRN PRN Reason: fever and Pain 1-3 Last Admin: 08/10/18 00:59 Dose: 650 mg Albuterol/Ipratropium (Duoneb 3 Mg/0.5 Mg (3 Ml) Ud) 3 ml IH Q2H PRN PRN Reason: Shortness of Breath Albuterol/Ipratropium (Duoneb 3 Mg/0.5 Mg (3 Ml) Ud) 3 ml IH [id number] [facility] Last Admin: 08/11/18 19:27 Dose: Not Given Amlodipine Besylate (Norvasc) 10 mg PO DAILY [facility] Last Admin: 08/11/18 09:00 Dose: 10 mg Atorvastatin Calcium (Lipitor) 10 mg PO DIN [facility] Last Admin: 08/11/18 17:38 Dose: 10 mg Clonidine HCl (Catapres) 0.1 mg PO TID [facility] Last Admin: 08/11/18 17:37 Dose: 0.1 mg Docusate Sodium (Colace) 100 mg PO BID [facility] Last Admin: 08/11/18 17:38 Dose: 100 mg Furosemide (Lasix) 20 mg IVP ONCE PRN PRN Reason: transfusion Last Admin: 07/30/18 20:24 Dose: 20 mg Furosemide (Lasix) 20 mg IVP ONCE PRN PRN Reason: transfusion Last Admin: 07/31/18 00:15 Dose: 20 mg Heparin Sodium (Porcine) (Heparin) 5,000 units SC Q12 [facility]; Protocol Last Admin: 08/11/18 21:43 Dose: 5,000 units Metoprolol Succinate (Toprol Xl) 25 mg PO BRK [facility] Last Admin: 08/11/18 08:58 Dose: 25 mg Nystatin (Nystop Topical Powder) 0 gm TOP BID [facility] Last Admin: 08/11/18 17:39 Dose: 1 applic Ondansetron HCl (Zofran Inj) 4 mg IVP Q6H PRN PRN Reason: Nausea/Vomiting Oxycodone/Acetaminophen (Percocet 5/325 Mg Tab) 1 tab PO Q6H PRN PRN Reason: Pain, severe (8-10) Stop: 08/14/18 09:44 Last Admin: 08/11/18 11:00 Dose: 1 tab Pantoprazole Sodium (Protonix Ec Tab) 40 mg PO 0600 [facility] Last Admin: 08/11/18 06:18 Dose: 40 mg Polyethylene Glycol (Miralax) 17 gm PO DAILY [facility] Last Admin: 08/11/18 13:45 Dose: Not Given Polyethylene Glycol (Miralax) 17 gm PO DAILY [facility] Tamsulosin HCl (Flomax) 0.4 mg PO DAILY [facility] Last Admin: 08/11/18 09:02 Dose: 0.4 mg - Labs Labs: 08/10/18 06:30 08/10/18 06:30 PT 15.2 SECONDS (9.4-12.5) H 07/30/18 18:15 INR 1.33 07/30/18 18:15 APTT 25.6 Seconds (25.1-36.5) 08/01/18 06:30 - Constitutional Appears: Chronically Ill - Head Exam Head Exam: ATRAUMATIC, NORMAL INSPECTION, NORMOCEPHALIC - Eye Exam Eye Exam: Normal appearance - ENT Exam ENT Exam: Mucous Membranes Moist, Normal Exam - Neck Exam Neck Exam: Normal Inspection - Respiratory Exam Respiratory Exam: Decreased Breath Sounds - Cardiovascular Exam Cardiovascular Exam: REGULAR RHYTHM, +S1, +S2 - GI/Abdominal Exam GI & Abdominal Exam: Soft, Normal Bowel Sounds - Extremities Exam Extremities Exam: Normal Inspection - Back Exam Back Exam: NORMAL INSPECTION - Neurological Exam Neurological Exam: Alert, Awake, CN II-XII Intact, Oriented x3 - Skin Skin Exam: Normal Color, Warm Assessment and Plan - Assessment and Plan (Free Text) Assessment: 1. Stage IV lung Cancer, squamous cell type. Pt. agreed for chemo. Single agent gemzar will be given today. Dose reduced to 750 mg/m2 for multiple co-morbid conditions, renal insufficiency. D1, D7 Q 3weeks planned. Carboplatin will be considered form second cycle if he tolerates chemo and renal functions improve. chemo orders,written. Written consent obtained from patient. Discussed with the patient common side effects of chemotherapy. transfer to chemo floor. 3. Heme : stable Hb/hct. 3. CKD : stable renal functions. thank you Dr. Razo for allowing us to participate in his care.
[2018-08-12] MEDS: Albuterol-Ipratrop 3 mg / 0.5 (3 ml) UD IH SCH ×4 (01:38→20:24)
[2018-08-12] MEDS: Pantoprazole 40 mg EC Tab PO SCH (06:06)
[2018-08-12 07:04] LABS: ALB/GLOB RATIO 0.7 (1.1-1.8); ALBUMIN 2.7 g/dL (3.0-4.8); CALCIUM 8.8 mg/dL (8.4-10.5)
[2018-08-12 07:09] LABS: EOS % 0.1 % (1.5-5.0); HEMOGLOBIN 7.5 g/dL (14.0-18.0); LYMPH # 0.6 (1.2-3.4); LYMPH % 3.6 % (22.0-35.0); MEAN CELL VOLUME 89.2 fl (80.0-105.0); MEAN CORPUSCULAR HGB CONC 31.4 g/dl (31.0-37.0); MEAN PLATELET VOLUME 8.9 fl (7.0-11.0); MONO # 0.3 (0.1-0.6); MONO % 1.9 % (1.0-6.0); PLATELET COUNT 330 10^3/uL (120.0-450.0); RBC 2.68 10^6/uL (3.5-6.1); WHITE BLOOD COUNT 16.8 10^3/uL (4.5-11.0)
[2018-08-12 08:08] LABS: BAND 1 % (0-2); LYMPHOCYTE 4 % (22.0-35.0); MONOCYTE 1 % (1.0-6.0); NEUTROPHIL 94 % (50.0-70.0); PLATELET ESTIMATE NORMAL (NORMAL)
[2018-08-12] MEDS: POLYETHYLENE GLYCOL 3350 17 GM/Dose PACKET PO SCH ×2 (10:22→15:08)
[2018-08-12] MEDS: Nystatin 100,000 Units/gm Topical Pow(15 gm) TOP SCH ×2 (10:22→17:29)
[2018-08-12] MEDS: Metoprolol Succinate 25 mg XL Tab PO SCH (10:26)
--- NOTE | 2018-08-12 15:06 | PN ---
DATE: 08/12/2018 SUBJECTIVE: The patient is an 83-year-old, seen and examined, lying in bed, seems to be short of breath, . PHYSICAL EXAMINATION: VITAL SIGNS: He is afebrile, pulse 94, respiration 18, and blood pressure 110/61. LUNGS: Bilateral decreased breath sounds at bases, left more than the right. HEART: S1 and S2 audible. ABDOMEN: Soft, obese, and nontender. No rebound. No guarding. NEUROLOGIC: The patient is awake, alert, oriented, and able to communicate. LABORATORY DATA: WBC 16.8, hemoglobin 7.5, hematocrit 23.9, and platelets are 330. Chemistry; sodium 137, potassium 5.4, chloride 106, CO2 of 23, BUN 64, creatinine 2.4, and blood sugar 196. ASSESSMENT: 1. Squamous cell carcinoma, primary unknown yet. The patient received chemotherapy yesterday. 2. Chronic kidney disease. 3. Hypertension. 4. Hyperlipidemia. 5. Symptomatic anemia. PLAN: The patient will receive 2 packed RBCs today. We will give him Lasix 40 mg prior to infusion and 20 mg prior to second packed RBCs and we will reevaluate in a.m. If he is stable enough, may be transferred for acute rehab in a.m. Also give him dose of and follow up with potassium in a.m. Tejinder Razo MD
[2018-08-12] MEDS: NYSTATIN 100000 UNIT/ML PO SCH (19:00)
[2018-08-13] MEDS: Albuterol-Ipratrop 3 mg / 0.5 (3 ml) UD IH SCH ×4 (01:38→19:45)
[2018-08-13] MEDS ORDERED: DiphenhydrAMINE 50 mg/ml Inj IVP STA (05:17)
[2018-08-13] MEDS: Pantoprazole 40 mg EC Tab PO SCH (06:23)
[2018-08-13] MEDS: Oxycodone/Acetaminophen 5/325 mg Tab PO PRN ×2 (06:24→15:28)
[2018-08-13 08:11] LABS: EOS # 0.1 (0.0-0.7); EOS % 0.3 % (1.5-5.0); HEMOGLOBIN 9.5 g/dL (14.0-18.0); LYMPH # 0.5 (1.2-3.4); MEAN CELL VOLUME 90.1 fl (80.0-105.0); MEAN CORPUSCULAR HEMOGLOBIN 28.4 pg (25.0-35.0); MEAN CORPUSCULAR HGB CONC 31.5 g/dl (31.0-37.0); MEAN PLATELET VOLUME 9.1 fl (7.0-11.0); MONO # 0.1 (0.1-0.6); MONO % 0.4 % (1.0-6.0); RBC 3.35 10^6/uL (3.5-6.1); RED CELL DISTRIBUTION WIDTH 15.1 % (11.5-14.5); WHITE BLOOD COUNT 15.4 10^3/uL (4.5-11.0)
[2018-08-13 08:26] LABS: ALB/GLOB RATIO 0.7 (1.1-1.8); ALBUMIN 2.8 g/dL (3.0-4.8); CALCIUM 9.3 mg/dL (8.4-10.5)
[2018-08-13] MEDS: Metoprolol Succinate 25 mg XL Tab PO SCH (09:59)
[2018-08-13] MEDS: POLYETHYLENE GLYCOL 3350 17 GM/Dose PACKET PO SCH ×2 (10:01→10:14)
[2018-08-13] MEDS: Nystatin 100,000 Units/gm Topical Pow(15 gm) TOP SCH ×2 (10:09→18:07)
[2018-08-13] MEDS: NYSTATIN 100000 UNIT/ML PO SCH ×3 (10:18→18:00)
[2018-08-13] MEDS ORDERED: Vancomycin 2.5 GM in Sodium Chloride 0.9% 500 ML IVPB ONE (10:32)
[2018-08-13] MEDS: MEROPENEM 500 MG in NS 500 MG/50 ML BAG IVPB SCH ×2 (11:45→21:42)
[2018-08-13] MEDS: Oseltamivir 6 MG/ML PO SCH (11:46)
--- NOTE | 2018-08-13 14:30 | PN ---
DATE: 08/13/2018 SUBJECTIVE: The patient is 83 years old, seen and examined, lying in bed, seems to be short of breath. PHYSICAL EXAMINATION: VITAL SIGNS: Had fever of 103.2 this morning, pulse of 125, respiration 22, and blood pressure 112/65. LUNGS: Bilateral decreased breath sounds at bases, expiratory rhonchi. HEART: S1 and S2 audible. ABDOMEN: Soft, left upper quadrant discomfort. NEUROLOGIC: The patient is awake, alert, and able to communicate. LABORATORY DATA: WBC 15.4, hemoglobin 9.5, hematocrit 30.2, and platelets are 340. Chemistry; sodium 139, potassium 4.8, chloride 107, CO2 of 23, BUN 56, creatinine 2.6, and blood sugar 129. Urine positive for Klebsiella oxytoca, repeat cultures are negative. ASSESSMENT: 1. New fever, etiology unclear yet. The patient is currently on antibiotics. 2. Squamous cell carcinoma of the lung. 3. Chronic kidney disease. 4. Hypertension. 5. Hyperlipidemia. PLAN: So the plan is, we will continue the patient on current antihypertensive, he is on nebulizer treatment. He is on deep venous thrombosis prophylaxis. He is on meropenem and analgesic as needed. I will request for consult fusing machine feeder to monitor his fluid status. Tejinder Razo MD
[2018-08-13 16:25] LABS: URINE BILIRUBIN NEGATIVE (NEGATIVE); URINE BLOOD SMALL (NEGATIVE); URINE GLUCOSE (UA) NEGATIVE (NEGATIVE); URINE LEUKOCYTE ESTERASE NEGATIVE Leu/uL (NEGATIVE); URINE PROTEIN 30 mg/dL (<30 mg/dL)
[2018-08-13 16:30] LABS: URINE APPEARANCE SL CLOUDY (CLEAR); URINE COLOR YELLOW (YELLOW)
[2018-08-13 16:43] LABS: URINE AMORPHOUS SEDIMENT FEW /hpf; URINE BACTERIA FEW /hpf
[2018-08-13 16:58] LABS: CREATININE,RANDOM URINE 94 mg/dL
--- NOTE | 2018-08-13 17:00 | CP.PCM.PN ---
Subjective - Date & Time of Evaluation Date of Evaluation: 08/13/18 Time of Evaluation: 10:20 - Subjective Subjective: Having fevers this morning, feels weak, has some cough, no abdominal pain, no nausea, no diarrhea. Objective - Vital Signs/Intake and Output Vital Signs (last 24 hours): Temp Pulse Resp BP Pulse Ox 98 F 98 H 20 123/63 96 08/11/18 12:00 08/11/18 12:00 08/11/18 12:00 08/11/18 12:00 08/11/18 08:04 Intake and Output: 08/11/18 08/11/18 06:59 18:59 Intake Total 540 Output Total 300 Balance 240 - Medications Medications: Current Medications Acetaminophen (Tylenol 325mg Tab) 650 mg PO Q4H PRN PRN Reason: fever and Pain 1-3 Last Admin: 08/10/18 00:59 Dose: 650 mg Albuterol/Ipratropium (Duoneb 3 Mg/0.5 Mg (3 Ml) Ud) 3 ml IH Q2H PRN PRN Reason: Shortness of Breath Albuterol/Ipratropium (Duoneb 3 Mg/0.5 Mg (3 Ml) Ud) 3 ml IH [id number] [facility] Last Admin: 08/11/18 08:04 Dose: 3 ml Amlodipine Besylate (Norvasc) 10 mg PO DAILY [facility] Last Admin: 08/11/18 09:00 Dose: 10 mg Atorvastatin Calcium (Lipitor) 10 mg PO DIN [facility] Last Admin: 08/10/18 18:02 Dose: 10 mg Clonidine HCl (Catapres) 0.1 mg PO TID [facility] Last Admin: 08/11/18 09:01 Dose: 0.1 mg Docusate Sodium (Colace) 100 mg PO BID [facility] Last Admin: 08/11/18 09:00 Dose: 100 mg Furosemide (Lasix) 20 mg IVP ONCE PRN PRN Reason: transfusion Last Admin: 07/30/18 20:24 Dose: 20 mg Furosemide (Lasix) 20 mg IVP ONCE PRN PRN Reason: transfusion Last Admin: 07/31/18 00:15 Dose: 20 mg Heparin Sodium (Porcine) (Heparin) 5,000 units SC Q12 [facility]; Protocol Last Admin: 08/11/18 09:01 Dose: 5,000 units Gemcitabine HCl 1,500 mg/ (Sodium Chloride) 250 mls @ 500 mls/hr IV ONCE ONE Stop: 08/11/18 14:29 Ondansetron HCl 16 mg/Dexamethasone 12 mg/Famotidine 40 mg/ Sodium Chloride 65 mls @ 195 mls/hr IVPB ONCE ONE Stop: 08/11/18 14:19 Metoprolol Succinate (Toprol Xl) 25 mg PO BRK [facility] Last Admin: 08/11/18 08:58 Dose: 25 mg Nystatin (Nystop Topical Powder) 0 gm TOP BID [facility] Ondansetron HCl (Zofran Inj) 4 mg IVP Q6H PRN PRN Reason: Nausea/Vomiting Oxycodone/Acetaminophen (Percocet 5/325 Mg Tab) 1 tab PO Q6H PRN PRN Reason: Pain, severe (8-10) Stop: 08/14/18 09:44 Last Admin: 08/11/18 11:00 Dose: 1 tab Pantoprazole Sodium (Protonix Ec Tab) 40 mg PO 0600 [facility] Last Admin: 08/11/18 06:18 Dose: 40 mg Polyethylene Glycol (Miralax) 17 gm PO DAILY [facility] Polyethylene Glycol (Miralax) 17 gm PO DAILY [facility] Tamsulosin HCl (Flomax) 0.4 mg PO DAILY [facility] Last Admin: 08/11/18 09:02 Dose: 0.4 mg - Labs Labs: 08/10/18 06:30 08/10/18 06:30 PT 15.2 SECONDS (9.4-12.5) H 07/30/18 18:15 INR 1.33 07/30/18 18:15 APTT 25.6 Seconds (25.1-36.5) 08/01/18 06:30 - Constitutional Appears: Chronically Ill - Head Exam Head Exam: NORMAL INSPECTION - Respiratory Exam Respiratory Exam: Decreased Breath Sounds - Cardiovascular Exam Cardiovascular Exam: +S1, +S2 - GI/Abdominal Exam GI & Abdominal Exam: Soft. absent: Tenderness Assessment and Plan - Assessment and Plan (Free Text) Plan: Assessment new onset SIRS with fevers, R/O sepsis from HAP, R/O Influenza left sided pleural effusion S/P pleural catheter placement with pleural mass, S/P biopsy showing squamous cell carcinoma, now on chemotherapy history of sepsis due to right lower lobe HCAP HTN prostate CA PUD chronic anemia chronic renal failure Plan started with a dose of IV Vancomycin and Merrem and started Tamiflu pending rapid flu test, blood, sputum urine cx, PCT, CXR will monitor clinically overall prognosis is poor
--- NOTE | 2018-08-13 18:27 | RAD ---
Date of service: 08/13/2018 HISTORY: rule out pneumonia COMPARISON: Comparison chest 08/10/2018 FINDINGS: In situ left-sided chest tube unchanged. Also again noted is right IJ MediPort tip in the SVC LUNGS: Left-sided effusion with left lower lobe atelectasis and or infiltrate. Suspect mild right basilar atelectasis with probable small right-sided effusion PLEURA: As above. No pneumothorax apparent. CARDIOVASCULAR: No aortic atherosclerotic calcification present. Cardiomegaly. No pulmonary vascular congestion. OSSEOUS STRUCTURES: No significant abnormalities. VISUALIZED UPPER ABDOMEN: Normal. OTHER FINDINGS: None. IMPRESSION: Again noted is a left in situ left-sided chest large left-sided effusion with patchy infiltrate and/or atelectasis left mid to lower lung field. Suspect mild right basilar atelectasis with probable small right-sided effusion
--- NOTE | 2018-08-13 18:34 | CP.PCM.CON ---
History of Present Illness - History of Present Illness History of Present Illness: Nephrology Consultation Note: Assessment: Stable Acute Kidney Injury (N17.9) likely hemodynamic ? ATN Hypertensive Chronic Kidney Disease (I12.9) Chronic Kidney Disease (N18.3) Stage 3 with ? mg proteinuria (R80.9) likely due to HTN/age related decline Anemia, malignancy of lung with malignant pleural effusion hyperkalemia sepsis Plan No acute need for renal replacement therapy at this time. Hypertension control with meds as ordered. Maintain hemodynamics stable. Avoid hypotension. Patient not on ACEI/ARB due to recent KIKO. hold norvasc as BP low side Monitor Input/Output, daily weights and renal function with basic metabolic panel gentle IVF as NS @ 50 ml/hr while pt with limited oral intake anemia management per heme. PRBC as needed low K diet Check urine analysis, spot protein/creatinine, albumin/creatinine ratio. check bladder sonogram/scan and eval for possible retention. straight cath PRN. d/w RN Check for 25-OH vitamin D, iPTH, phosphorus level. check Ferritin, TSAT, B12 level Dose meds/antibiotics for reduced GFR. Avoid fleets enema/magnesium based laxatives. Avoid nephrotoxins/NSAIDs/ iodinated contrast (unless needed emergently) Glycemic control Further work up/management as per primary team Thanks for allowing me to participate in care of your patient. Will follow patient with you. Please call if any Qs. had d/w team Dr Vel Rogel Office: [phone] Chief Complaint; unable to obtain Reason for consult: Acute Kidney Injury on CKD 3 HPI: Pt is a 83 M with hx of hypertension (years) CA prostate presented with complaints of left pleural effusion found to be pneumonia, malignant now started on chemo for lung ca. Denies OTC/herbal meds or NSAIDs No recent iodinated contrast exposure. No obvious episodes of low BP. renal consult for KIKO on CKD 3. baseline cr 1.5-1.6 in jun 2018 ROS: pt unable to provide much hx poor oral intake as per family and RN Physical Examination: family bedside General Appearance: Comfortable, in no acute respiratory distress, co-operative . ill appearing somewhat sleepy Vitals reviewed and noted as below Head; Atraumatic, normocephalic ENT: no ulcers no thrush. Tongue is midline. Oropharynx: no rash or ulcers. EYES: Pupils are equal, round and reactive to light accommodation. Eye muscles and extraocular movement intact. Sclera is anicteric. Neck; supple no lymphadenopathy, no thyromegaly or bruit Lungs: Normal respiratory rate/effort. Breath sounds reduced at left base Heart: Normal rate. s1s2 normal. No rub or gallop. Extremities: no edema. No varicose veins Neurological: Patient is sleepy but arousable Skin: Warm and dry. Normal turgor. No rash. Palpitation: Normal elasticity for age Abdomen: Abdomen is soft. Bowel sounds +. There is no abdominal tenderness, no guarding/rigidity no organomegaly Psych: unable MSK: no joint tenderness or swelling. Digits and nails normal, no deformity : kidney not palpable ? suprapubic fullness Labs/imaging reviewed. Past medical history, past surgical history, family history, social history, allergy reviewed and noted as below Family hx: no hx of CKD. 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 UA trace protein Past Patient History - Infectious Disease Hx of Infectious Diseases: None - Past Social History Smoking Status: Never Smoked - CARDIAC Hx Pacemaker: No - PULMONARY Hx Chronic Obstructive Pulmonary Disease (COPD): No - NEUROLOGICAL HX Cerebrovascular Accident: No - HEENT Hx HEENT Problems: Yes Hx Blind: No Hx Cataracts: Yes Hx Deafness: No Hx Difficulty Chewing: No Hx Epistaxis: No Hx Glaucoma: No Hx Macular Degeneration: No - RENAL Hx Chronic Kidney Disease: No - ENDOCRINE/METABOLIC Hx Diabetes Mellitus Type 1: No Hx Diabetes Mellitus Type 2: No Hx Hypothyroidism: No - HEMATOLOGICAL/ONCOLOGICAL Hx Blood Transfusions: Yes Hx Blood Transfusion Reaction: No - INTEGUMENTARY Hx Dermatological Problems: No Hx Basil Cell: No Hx Eczema: No Hx Melanoma: No Hx Psoriasis: No Hx Squamous Cell: No - MUSCULOSKELETAL/RHEUMATOLOGICAL Hx Musculoskeletal Disorders: Yes - GASTROINTESTINAL Hx Gastrointestinal Disorders: Yes Hx Colostomy: No Hx Crohn's Disease: No Hx Diverticulitis: No Hx Gall Bladder Disease: No Hx Gastroesophageal Reflux: Yes Hx Ileostomy: No Hx Liver Failure: No Hx Pancreatitis: No HX Swallowing Problems: No - GENITOURINARY/GYNECOLOGICAL Hx Genitourinary Disorders: No Hx Hematuria: No Hx Incontinence: No Hx Prostate Problems: No Hx Sexually Transmitted Disorders: No Hx Urinary Tract Infection: No - PSYCHIATRIC Hx Emotional Abuse: No Hx Physical Abuse: No Hx Substance Use: No - SURGICAL HISTORY Hx Amputation: No Hx Appendectomy: No Hx Cardiac Catheterization: No Hx Cholecystectomy: No Hx Coronary Stent: No Hx Gastric Bypass Surgery: No Hx Hysterectomy: No Hx Joint Replacement: No Hx Kidney Transplant: No Hx Liver Transplant: No Hx Mastectomy: No Hx Musculoskeletal Surgery: No Hx Open Heart Surgery: No Hx Orthopedic Surgery: Yes (b/ shoulder, b/l knee) Hx Splenectomy: No Hx Valve Replacement: No - ANESTHESIA Hx Anesthesia Reactions: No Hx Malignant Hyperthermia: No Meds Allergies/Adverse Reactions: Allergies Allergy/AdvReac Type Severity Reaction Status Date / Time No Known Allergies Allergy Verified 07/30/18 21:03 - Medications Medications: Current Medications Acetaminophen (Tylenol 325mg Tab) 650 mg PO Q4H PRN PRN Reason: fever and Pain 1-3 Last Admin: 08/13/18 05:27 Dose: 650 mg Albuterol/Ipratropium (Duoneb 3 Mg/0.5 Mg (3 Ml) Ud) 3 ml IH Q2H PRN PRN Reason: Shortness of Breath Albuterol/Ipratropium (Duoneb 3 Mg/0.5 Mg (3 Ml) Ud) 3 ml IH [id number] [facility] Last Admin: 08/13/18 14:00 Dose: Not Given Atorvastatin Calcium (Lipitor) 10 mg PO DIN [facility] Last Admin: 08/13/18 17:59 Dose: 10 mg Clonidine HCl (Catapres) 0.1 mg PO TID [facility] Last Admin: 08/13/18 17:59 Dose: 0.1 mg Docusate Sodium (Colace) 100 mg PO BID [facility] Last Admin: 08/13/18 17:59 Dose: 100 mg Heparin Sodium (Porcine) (Heparin) 5,000 units SC Q12 [facility]; Protocol Last Admin: 08/13/18 09:58 Dose: 5,000 units Meropenem/Sodium Chloride (Merrem Iv 500 Mg/Ns 50 Ml) 500 mg in 50 mls @ 100 ml s/hr IVPB Q12 [facility]; Protocol Stop: 08/20/18 10:46 Last Admin: 08/13/18 11:45 Dose: 100 mls/hr Sodium Chloride (Sodium Chloride 0.9%) 1,000 mls @ 50 mls/hr IV .Q20H [facility] Metoprolol Succinate (Toprol Xl) 25 mg PO BRK [facility] Last Admin: 08/13/18 09:59 Dose: 25 mg Nystatin (Nystop Topical Powder) 0 gm TOP BID [facility] Last Admin: 08/13/18 18:07 Dose: 1 applic Nystatin (Nystatin Oral Susp) 5 ml PO TID [facility] Last Admin: 08/13/18 18:00 Dose: Not Given Ondansetron HCl (Zofran Inj) 4 mg IVP Q6H PRN PRN Reason: Nausea/Vomiting Oseltamivir Phosphate (Tamiflu Susp) 30 mg PO DAILY [facility]; Protocol Last Admin: 08/13/18 11:46 Dose: 30 mg Oxycodone/Acetaminophen (Percocet 5/325 Mg Tab) 1 tab PO Q6H PRN PRN Reason: Pain, severe (8-10) Stop: 08/14/18 09:44 Last Admin: 08/13/18 15:28 Dose: 1 tab Pantoprazole Sodium (Protonix Ec Tab) 40 mg PO 0600 [facility] Last Admin: 08/13/18 06:23 Dose: 40 mg Polyethylene Glycol (Miralax) 17 gm PO DAILY [facility] Last Admin: 08/13/18 10:14 Dose: Not Given Polyethylene Glycol (Miralax) 17 gm PO DAILY [facility] Last Admin: 08/13/18 10:01 Dose: 17 gm Tamsulosin HCl (Flomax) 0.4 mg PO DAILY [facility] Last Admin: 08/13/18 09:59 Dose: 0.4 mg Results - Vital Signs Recent Vital Signs: Last Vital Signs Temp 100.8 F H 08/13/18 06:00 Pulse 112 H 08/13/18 17:59 Resp 20 08/13/18 06:00 BP 140/73 08/13/18 17:59 Pulse Ox 96 08/13/18 06:00 - Labs Result Diagrams: 08/13/18 07:51 08/13/18 07:51 Labs: Laboratory Results - last 24 hr 08/12/18 08/13/18 08/13/18 11:10 07:51 07:51 WBC 15.4 H RBC 3.35 L Hgb 9.5 L D Hct 30.2 L MCV 90.1 MCH 28.4 MCHC 31.5 RDW 15.1 H Plt Count 340 MPV 9.1 Neut % (Auto) 96.3 H Lymph % (Auto) 3.0 L [place] % (Auto) 0.4 L Eos % (Auto) 0.3 L Baso % (Auto) 0.0 Lymph # (Auto) 0.5 L [place] # (Auto) 0.1 Eos # (Auto) 0.1 Baso # (Auto) 0.00 Absolute Neuts (auto) 14.86 H Sodium 139 Potassium 4.8 Chloride 107 Carbon Dioxide 23 Anion Gap 14 BUN 56 H Creatinine 2.6 H Est GFR ( Amer) 29 Est GFR (Non-Af Amer) 24 POC Glucose (mg/dL) Random Glucose 129 H Calcium 9.3 Total Bilirubin 1.1 AST 91 H D ALT 53 Alkaline Phosphatase 128 H D Total Protein 6.6 Albumin 2.8 L Globulin 3.8 Albumin/Globulin Ratio 0.7 L Procalcitonin Urine Color Urine Appearance Urine pH Ur Specific [place] Urine Protein Urine Glucose (UA) Urine Ketones Urine Blood Urine Nitrate Urine Bilirubin Urine Urobilinogen Ur Leukocyte Esterase Urine RBC Urine WBC Ur Epithelial Cells Amorphous Sediment Urine Bacteria Ur Random Creatinine Ur Random Sodium Influenza Typ A,B (EIA) Blood Type A POSITIVE Antibody Screen Negative Crossmatch See Detail BBK History Checked Patient has bt 08/13/18 08/13/18 08/13/18 10:45 11:19 15:30 WBC RBC Hgb Hct MCV MCH MCHC RDW Plt Count MPV Neut % (Auto) Lymph % (Auto) [place] % (Auto) Eos % (Auto) Baso % (Auto) Lymph # (Auto) [place] # (Auto) Eos # (Auto) Baso # (Auto) Absolute Neuts (auto) Sodium Potassium Chloride Carbon Dioxide Anion Gap BUN Creatinine Est GFR ( Amer) Est GFR (Non-Af Amer) POC Glucose (mg/dL) 115 H Random Glucose Calcium Total Bilirubin AST ALT Alkaline Phosphatase Total Protein Albumin Globulin Albumin/Globulin Ratio Procalcitonin 3.86 H Urine Color Urine Appearance Urine pH Ur Specific [place] Urine Protein Urine Glucose (UA) Urine Ketones Urine Blood Urine Nitrate Urine Bilirubin Urine Urobilinogen Ur Leukocyte Esterase Urine RBC Urine WBC Ur Epithelial Cells Amorphous Sediment Urine Bacteria Ur Random Creatinine Ur Random Sodium Influenza Typ A,B (EIA) Negative for flu a/b Blood Type Antibody Screen Crossmatch BBK History Checked 08/13/18 08/13/18 16:16 16:16 WBC RBC Hgb Hct MCV MCH MCHC RDW Plt Count MPV Neut % (Auto) Lymph % (Auto) [place] % (Auto) Eos % (Auto) Baso % (Auto) Lymph # (Auto) [place] # (Auto) Eos # (Auto) Baso # (Auto) Absolute Neuts (auto) Sodium Potassium Chloride Carbon Dioxide Anion Gap BUN Creatinine Est GFR ( Amer) Est GFR (Non-Af Amer) POC Glucose (mg/dL) Random Glucose Calcium Total Bilirubin AST ALT Alkaline Phosphatase Total Protein Albumin Globulin Albumin/Globulin Ratio Procalcitonin Urine Color Yellow Urine Appearance Sl cloudy Urine pH 6.0 Ur Specific [place] 1.025 Urine Protein 30 H Urine Glucose (UA) Negative Urine Ketones Negative Urine Blood Small H Urine Nitrate Negative Urine Bilirubin Negative Urine Urobilinogen 4.0 H Ur Leukocyte Esterase Negative Urine RBC 1 - 3 H Urine WBC 2 - 5 Ur Epithelial Cells 1 - 3 Amorphous Sediment Few Urine Bacteria Few Ur Random Creatinine 94 Ur Random Sodium 24 Influenza Typ A,B (EIA) Blood Type Antibody Screen Crossmatch BBK History Checked
[2018-08-14] MEDS: Albuterol-Ipratrop 3 mg / 0.5 (3 ml) UD IH SCH ×4 (01:58→20:47)
[2018-08-14] MEDS: Sodium Chloride 0.9% 1,000 ML IV SCH (03:17)
[2018-08-14] MEDS: Pantoprazole 40 mg EC Tab PO SCH (05:35)
[2018-08-14 07:21] LABS: CALCIUM 8.6 mg/dL (8.4-10.5)
[2018-08-14] MEDS: POLYETHYLENE GLYCOL 3350 17 GM/Dose PACKET PO SCH ×2 (09:15→10:59)
[2018-08-14] MEDS: MEROPENEM 500 MG in NS 500 MG/50 ML BAG IVPB SCH ×2 (09:17→21:41)
[2018-08-14] MEDS: Metoprolol Succinate 25 mg XL Tab PO SCH (09:19)
[2018-08-14] MEDS: NYSTATIN 100000 UNIT/ML PO SCH ×3 (09:22→18:33)
[2018-08-14] MEDS: Nystatin 100,000 Units/gm Topical Pow(15 gm) TOP SCH ×2 (09:35→18:35)
[2018-08-14] MEDS: Oseltamivir 6 MG/ML PO SCH (09:36)
--- NOTE | 2018-08-14 12:41 | CP.PCM.PN ---
Subjective - Date & Time of Evaluation Date of Evaluation: 08/14/18 Time of Evaluation: 12:38 - Subjective Subjective: Nephrology Consultation Note: Assessment: Stable Acute Kidney Injury (N17.9) likely hemodynamic ? ATN Hypertensive Chronic Kidney Disease (I12.9) Chronic Kidney Disease (N18.3) Stage 3 with ? mg proteinuria (R80.9) likely due to HTN/age related decline Anemia, malignancy of lung with malignant pleural effusion hyperkalemia sepsis Plan No acute need for renal replacement therapy at this time. Hypertension control with meds as ordered. Maintain hemodynamics stable. Avoid hypotension. Patient not on ACEI/ARB due to recent KIKO. hold norvasc as BP low side Monitor Input/Output, daily weights and renal function with basic metabolic panel gentle IVF as NS @ 50 ml/hr while pt with limited oral intake and being treated for infec process anemia management per heme. PRBC as needed. defer use of ESAs to heme/onc low K diet. added iron, MVI and weekly Vit D Check urine analysis, spot protein/creatinine, albumin/creatinine ratio. check bladder sonogram/scan and eval for possible retention. straight cath PRN. d/w RN Check for 25-OH vitamin D, iPTH, phosphorus level. check Ferritin, TSAT, B12 level Dose meds/antibiotics for reduced GFR. Avoid fleets enema/magnesium based laxatives. Avoid nephrotoxins/NSAIDs/ iodinated contrast (unless needed emergently) Glycemic control Further work up/management as per primary team Thanks for allowing me to participate in care of your patient. Will follow patient with you. Please call if any Qs. had d/w team Dr Vel Rogel Office: [phone] Chief Complaint; unable to obtain Reason for consult: Acute Kidney Injury on CKD 3 HPI: Pt is a 83 M with hx of hypertension (years) CA prostate presented with complaints of left pleural effusion found to be pneumonia, malignant now started on chemo for lung ca. Denies OTC/herbal meds or NSAIDs No recent iodinated contrast exposure. No obvious episodes of low BP. renal consult for KIKO on CKD 3. baseline cr 1.5-1.6 in jun 2018 ROS: pt better and more communicative. reports difficulty in swallowing. no SOB poor oral intake as per family and RN Physical Examination: family bedside General Appearance: Comfortable, in no acute respiratory distress, co-operative . better appearing Vitals reviewed and noted as below Head; Atraumatic, normocephalic ENT: no ulcers no thrush. Tongue is midline. Oropharynx: no rash or ulcers. EYES: Pupils are equal, round and reactive to light accommodation. Eye muscles and extraocular movement intact. Sclera is anicteric. Neck; supple no lymphadenopathy, no thyromegaly or bruit Lungs: Normal respiratory rate/effort. Breath sounds reduced at left base Heart: Increased rate. s1s2 normal. No rub or gallop. Extremities: no edema. No varicose veins Neurological: Patient is awake alert, has gen weakness Skin: Warm and dry. Normal turgor. No rash. Palpitation: Normal elasticity for age Abdomen: Abdomen is soft. Bowel sounds +. There is no abdominal tenderness, no guarding/rigidity no organomegaly Psych: unable MSK: no joint tenderness or swelling. Digits and nails normal, no deformity : kidney/bladder not palpable Labs/imaging reviewed. Past medical history, past surgical history, family history, social history, allergy reviewed and noted as below Family hx: no hx of CKD. 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 UA trace protein Objective - Vital Signs/Intake and Output Vital Signs (last 24 hours): Temp Pulse Resp BP Pulse Ox 99.0 F 109 H 20 113/60 95 08/14/18 06:00 08/14/18 09:19 08/14/18 06:00 08/14/18 09:19 08/14/18 06:00 Intake and Output: 08/14/18 08/14/18 06:59 18:59 Intake Total 660 Output Total 100 Balance 560 - Medications Medications: Current Medications Acetaminophen (Tylenol 325mg Tab) 650 mg PO Q4H PRN PRN Reason: fever and Pain 1-3 Last Admin: 08/13/18 05:27 Dose: 650 mg Albuterol/Ipratropium (Duoneb 3 Mg/0.5 Mg (3 Ml) Ud) 3 ml IH Q2H PRN PRN Reason: Shortness of Breath Albuterol/Ipratropium (Duoneb 3 Mg/0.5 Mg (3 Ml) Ud) 3 ml IH [id number] MELECIO Last Admin: 08/14/18 07:39 Dose: 3 ml Atorvastatin Calcium (Lipitor) 10 mg PO DIN [facility] Last Admin: 08/13/18 17:59 Dose: 10 mg Clonidine HCl (Catapres) 0.1 mg PO TID [facility] Last Admin: 08/14/18 09:16 Dose: 0.1 mg Docusate Sodium (Colace) 100 mg PO BID [facility] Last Admin: 08/14/18 09:15 Dose: 100 mg Ferrous Gluconate (Fergon) 324 mg PO TID [facility] Last Admin: 08/14/18 11:00 Dose: 324 mg Heparin Sodium (Porcine) (Heparin) 5,000 units SC Q12 [facility]; Protocol Last Admin: 08/14/18 09:15 Dose: 5,000 units Meropenem/Sodium Chloride (Merrem Iv 500 Mg/Ns 50 Ml) 500 mg in 50 mls @ 100 mls/hr IVPB Q12 [facility]; Protocol Stop: 08/20/18 10:46 Last Admin: 08/14/18 09:17 Dose: 100 mls/hr Sodium Chloride (Sodium Chloride 0.9%) 1,000 mls @ 50 mls/hr IV .Q20H [facility] Last Admin: 08/14/18 03:17 Dose: 50 mls/hr Metoprolol Succinate (Toprol Xl) 25 mg PO BRK [facility] Last Admin: 08/14/18 09:19 Dose: 25 mg Nystatin (Nystop Topical Powder) 0 gm TOP BID [facility] Last Admin: 08/14/18 09:35 Dose: 1 applic Nystatin (Nystatin Oral Susp) 5 ml PO TID [facility] Last Admin: 08/14/18 09:22 Dose: 5 ml Ondansetron HCl (Zofran Inj) 4 mg IVP Q6H PRN PRN Reason: Nausea/Vomiting Oseltamivir Phosphate (Tamiflu Susp) 30 mg PO DAILY [facility]; Protocol Last Admin: 08/14/18 09:36 Dose: 30 mg Pantoprazole Sodium (Protonix Ec Tab) 40 mg PO 0600 [facility] Last Admin: 08/14/18 05:35 Dose: 40 mg Polyethylene Glycol (Miralax) 17 gm PO DAILY [facility] Last Admin: 08/14/18 09:15 Dose: 17 gm Polyethylene Glycol (Miralax) 17 gm PO DAILY [facility] Last Admin: 08/14/18 10:59 Dose: Not Given Tamsulosin HCl (Flomax) 0.4 mg PO DAILY [facility] Last Admin: 08/14/18 09:15 Dose: 0.4 mg Vitamin B Complex/Vit C/Folic Acid (Nephro-Ojvanna) 1 tab PO 0800 [facility] - Labs Labs: 08/13/18 07:51 08/14/18 07:00 PT 15.2 SECONDS (9.4-12.5) H 07/30/18 18:15 INR 1.33 07/30/18 18:15 APTT 25.6 Seconds (25.1-36.5) 08/01/18 06:30
[2018-08-14] MEDS ORDERED: Ergocalciferol 50,000 Intl Units Cap PO SCH (12:45)
--- NOTE | 2018-08-14 19:42 | PN ---
DATE: 08/14/2018 SUBJECTIVE: The patient is an 83-year-old, seen and examined. Complained of generalized weakness. No appetite. Feels weak. PHYSICAL EXAMINATION: VITAL SIGNS: He is afebrile. Pulse 109, respirations 22 and blood pressure 113/60. LUNGS: Bilateral diffusely decreased breath sounds. Few expiratory rhonchi. Decreased breath sounds at bases, left more than the right. HEART: S1 and S2 audible. ABDOMEN: Soft and nontender. No rebound. No guarding. NEUROLOGIC: The patient is awake, alert and able to communicate. LABORATORY DATA: WBC 15.4, hemoglobin 9.5, hematocrit 30.2 and platelets 340. Chemistry: Sodium 140, potassium 4.6, chloride 110, CO2 of 22, BUN 63 and creatinine 2.5. His iron is 44. Procalcitonin 3.86. ASSESSMENT: 1. Squamous cell carcinoma. 2. Left pleural effusion, status post thoracentesis. 3. History of carcinoma of the prostate. 4. Chronic anemia. 5. Acute on chronic kidney failure. 6. Deconditioning. PLAN: Currently, the patient is on IV antibiotic. He is on nebulizer treatment. He received blood transfusion. He is on clonidine. He is on stool softener. We will continue nebulizer treatment. He is on iron sulfate. He is on meropenem and Protonix. He has been started on prophylaxis and follow up his electrolyte, CBC, and CMP in a.m. Tejinder Razo MD
--- NOTE | 2018-08-14 20:50 | CP.PCM.PN ---
Subjective - Date & Time of Evaluation Date of Evaluation: 08/12/18 Time of Evaluation: 09:00 - Subjective Subjective: Comfortable in bed. Hb declined to 7.4 gm/dl today. Pain controlled with current meds. Not ambulating. Objective - Vital Signs/Intake and Output Vital Signs (last 24 hours): Temp Pulse Resp BP Pulse Ox 99.0 F 88 20 116/62 95 08/14/18 06:00 08/14/18 18:02 08/14/18 06:00 08/14/18 18:02 08/14/18 06:00 Intake and Output: 08/14/18 08/15/18 18:59 06:59 Intake Total 550 Balance 550 - Medications Medications: Current Medications Acetaminophen (Tylenol 325mg Tab) 650 mg PO Q4H PRN PRN Reason: fever and Pain 1-3 Last Admin: 08/14/18 13:32 Dose: 650 mg Albuterol/Ipratropium (Duoneb 3 Mg/0.5 Mg (3 Ml) Ud) 3 ml IH Q2H PRN PRN Reason: Shortness of Breath Albuterol/Ipratropium (Duoneb 3 Mg/0.5 Mg (3 Ml) Ud) 3 ml IH [id number] [facility] Last Admin: 08/14/18 07:39 Dose: 3 ml Atorvastatin Calcium (Lipitor) 10 mg PO DIN [facility] Last Admin: 08/14/18 18:03 Dose: 10 mg Clonidine HCl (Catapres) 0.1 mg PO TID [facility] Last Admin: 08/14/18 18:02 Dose: 0.1 mg Docusate Sodium (Colace) 100 mg PO BID [facility] Last Admin: 08/14/18 18:01 Dose: 100 mg Ergocalciferol (Drisdol 50,000 Intl Units Cap) 1 cap PO Q7D [facility] Last Admin: 08/14/18 13:32 Dose: 1 cap Ferrous Gluconate (Fergon) 324 mg PO TID [facility] Last Admin: 08/14/18 18:01 Dose: 324 mg Heparin Sodium (Porcine) (Heparin) 5,000 units SC Q12 [facility]; Protocol Last Admin: 08/14/18 09:15 Dose: 5,000 units Meropenem/Sodium Chloride (Merrem Iv 500 Mg/Ns 50 Ml) 500 mg in 50 mls @ 100 mls/hr IVPB Q12 [facility]; Protocol Stop: 08/20/18 10:46 Last Admin: 08/14/18 09:17 Dose: 100 mls/hr Sodium Chloride (Sodium Chloride 0.9%) 1,000 mls @ 50 mls/hr IV .Q20H [facility] Last Admin: 08/14/18 03:17 Dose: 50 mls/hr Metoprolol Succinate (Toprol Xl) 25 mg PO BRK [facility] Last Admin: 08/14/18 09:19 Dose: 25 mg Nystatin (Nystop Topical Powder) 0 gm TOP BID [facility] Last Admin: 08/14/18 18:35 Dose: 1 applic Nystatin (Nystatin Oral Susp) 5 ml PO TID [facility] Last Admin: 08/14/18 18:33 Dose: 5 ml Ondansetron HCl (Zofran Inj) 4 mg IVP Q6H PRN PRN Reason: Nausea/Vomiting Oseltamivir Phosphate (Tamiflu Susp) 30 mg PO DAILY [facility]; Protocol Last Admin: 08/14/18 09:36 Dose: 30 mg Oxycodone/Acetaminophen (Percocet 5/325 Mg Tab) 1 tab PO Q6H PRN PRN Reason: Pain, severe (8-10) Stop: 08/17/18 14:25 Pantoprazole Sodium (Protonix Ec Tab) 40 mg PO 0600 [facility] Last Admin: 08/14/18 05:35 Dose: 40 mg Polyethylene Glycol (Miralax) 17 gm PO DAILY [facility] Last Admin: 08/14/18 09:15 Dose: 17 gm Polyethylene Glycol (Miralax) 17 gm PO DAILY [facility] Last Admin: 08/14/18 10:59 Dose: Not Given Tamsulosin HCl (Flomax) 0.4 mg PO DAILY [facility] Last Admin: 08/14/18 09:15 Dose: 0.4 mg Vitamin B Complex/Vit C/Folic Acid (Nephro-Jovanna) 1 tab PO 0800 [facility] - Labs Labs: 08/13/18 07:51 08/14/18 07:00 PT 15.2 SECONDS (9.4-12.5) H 07/30/18 18:15 INR 1.33 07/30/18 18:15 APTT 25.6 Seconds (25.1-36.5) 08/01/18 06:30 - Constitutional Appears: Chronically Ill - Head Exam Head Exam: ATRAUMATIC, NORMAL INSPECTION, NORMOCEPHALIC - Eye Exam Eye Exam: Normal appearance Pupil Exam: NORMAL ACCOMODATION - ENT Exam ENT Exam: Mucous Membranes Moist, Normal Exam - Neck Exam Neck Exam: Normal Inspection - Respiratory Exam Respiratory Exam: Decreased Breath Sounds, NORMAL BREATHING PATTERN - Cardiovascular Exam Cardiovascular Exam: REGULAR RHYTHM, +S1, +S2 - GI/Abdominal Exam GI & Abdominal Exam: Soft, Normal Bowel Sounds - Extremities Exam Extremities Exam: Normal Inspection - Back Exam Back Exam: NORMAL INSPECTION - Neurological Exam Neurological Exam: Alert, Awake, Oriented x3 - Skin Skin Exam: Normal Color, Warm Assessment and Plan - Assessment and Plan (Free Text) Assessment: 1. 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 s/p Gemcitabine. 2. Hb declined to 7.4 gm/dl. 2 units of PRBC to be given today. He will need DONALDO to maintain normal HB. One dose 100 mcgm to be given. 3. Metastatic work up as out patient. PET scan will be scheduled. 4. Placement awaited.
--- NOTE | 2018-08-14 21:52 | PN ---
DATE: 08/14/2018 SUBJECTIVE: The patient is in bed, in no acute distress, nontoxic. PHYSICAL EXAMINATION: VITAL SIGNS: Temperature is 99, T-max is 103.2 yesterday, blood pressure is 113/60, heart rate of 120, respiratory rate of 20. HEENT: Unremarkable. NECK: Supple. LUNGS: Have decreased breath sounds. HEART: Normal S1 and S2. ABDOMEN: Soft, nontender. LABORATORY EXAMINATION: Reveals a white count of 15,400, hemoglobin of 9. Chemistries reveal a BUN of 63, creatinine of 2.5. Urinalysis is noted. Procalcitonin is 3.86. Serology is noted. Microbiology reveals the cultures to be negative at 24 hours. Review of orders reveals the patient to be on meropenem, intermittent vancomycin. The patient had a chest x-ray yesterday which revealed suspect of basilar atelectasis, probable left-sided chest effusion, possible infiltrates, may be atelectasis. This reading was by Dr. Nico Negron. Dr. Rogel's progress note is reviewed. ASSESSMENT AND PLAN: This is an 83 years old with new onset of SIRS (systemic inflammatory response syndrome), must rule out sepsis and healthcare-associated pneumonia. On vancomycin, meropenem, and Tamiflu. Pending pancultures and workup results. Juan Bonilla MD
[2018-08-15] MEDS: Sodium Chloride 0.9% 1,000 ML IV SCH (02:03)
--- NOTE | 2018-08-15 02:52 | CP.PCM.PN ---
Subjective - Date & Time of Evaluation Date of Evaluation: 08/15/18 Time of Evaluation: 02:47 - Subjective Subjective: PGY-3 for House Doc CC: Fever 103.7 s/p tylenol Mr Morris was admitted for new onset SIRS with fevers, R/O sepsis from HAP, R/O Influenza. He had a left sided pleural effusion S/P pleural catheter placement with pleural mass, S/P biopsy showing squamous cell carcinoma, now on chemotherapy. He also had hx of prostate ca and CKD. He is on Vancomycin and day 2 of Merrem and Tamiflu. Pt had chills, when examined, no acute complaint. AAOx3 A: Fever failed tylenol SIRS with fevers, R/O sepsis from HAP, R/O Influenza immunocompromised P: For fever, tylenol approaching max allowable dose of 4g. cannot flip-flop motrin/tylenol because of CKD. Ordered cooling blanket. While waiting for cooling blanket, use tepid sponge bath. Continue antibiotics per ID. today is day 2 of treatment. continue to trend VS, cbc, Objective - Vital Signs/Intake and Output Vital Signs (last 24 hours): Temp Pulse Resp BP Pulse Ox 103.7 F H 123 H 24 148/72 95 08/15/18 00:32 08/15/18 00:00 08/15/18 00:00 08/15/18 00:00 08/15/18 00:00 Intake and Output: 08/14/18 08/15/18 18:59 06:59 Intake Total 550 640 Balance 550 640 - Medications Medications: Current Medications Acetaminophen (Tylenol 325mg Tab) 650 mg PO Q4H PRN PRN Reason: fever and Pain 1-3 Last Admin: 08/15/18 00:32 Dose: 650 mg Albuterol/Ipratropium (Duoneb 3 Mg/0.5 Mg (3 Ml) Ud) 3 ml IH [id number] [facility] Last Admin: 08/14/18 20:47 Dose: 3 ml Atorvastatin Calcium (Lipitor) 10 mg PO DIN [facility] Last Admin: 08/14/18 18:03 Dose: 10 mg Clonidine HCl (Catapres) 0.1 mg PO TID [facility] Last Admin: 08/14/18 18:02 Dose: 0.1 mg Docusate Sodium (Colace) 100 mg PO BID [facility] Last Admin: 08/14/18 18:01 Dose: 100 mg Ergocalciferol (Drisdol 50,000 Intl Units Cap) 1 cap PO Q7D [facility] Last Admin: 08/14/18 13:32 Dose: 1 cap Ferrous Gluconate (Fergon) 324 mg PO TID [facility] Last Admin: 08/14/18 18:01 Dose: 324 mg Heparin Sodium (Porcine) (Heparin) 5,000 units SC Q12 [facility]; Protocol Last Admin: 08/14/18 21:42 Dose: 5,000 units Meropenem/Sodium Chloride (Merrem Iv 500 Mg/Ns 50 Ml) 500 mg in 50 mls @ 100 mls/hr IVPB Q12 [facility]; Protocol Stop: 08/20/18 10:46 Last Admin: 08/14/18 21:41 Dose: 100 mls/hr Sodium Chloride (Sodium Chloride 0.9%) 1,000 mls @ 50 mls/hr IV .Q20H [facility] Last Admin: 08/15/18 02:03 Dose: 50 mls/hr Metoprolol Succinate (Toprol Xl) 25 mg PO BRK [facility] Last Admin: 08/14/18 09:19 Dose: 25 mg Nystatin (Nystop Topical Powder) 0 gm TOP BID [facility] Last Admin: 08/14/18 18:35 Dose: 1 applic Nystatin (Nystatin Oral Susp) 5 ml PO TID [facility] Last Admin: 08/14/18 18:33 Dose: 5 ml Ondansetron HCl (Zofran Inj) 4 mg IVP Q6H PRN PRN Reason: Nausea/Vomiting Oseltamivir Phosphate (Tamiflu Susp) 30 mg PO DAILY [facility]; Protocol Last Admin: 08/14/18 09:36 Dose: 30 mg Oxycodone/Acetaminophen (Percocet 5/325 Mg Tab) 1 tab PO Q6H PRN PRN Reason: Pain, severe (8-10) Stop: 08/17/18 14:25 Pantoprazole Sodium (Protonix Ec Tab) 40 mg PO 0600 [facility] Last Admin: 08/14/18 05:35 Dose: 40 mg Polyethylene Glycol (Miralax) 17 gm PO DAILY [facility] Last Admin: 08/14/18 09:15 Dose: 17 gm Polyethylene Glycol (Miralax) 17 gm PO DAILY [facility] Last Admin: 08/14/18 10:59 Dose: Not Given Tamsulosin HCl (Flomax) 0.4 mg PO DAILY [facility] Last Admin: 08/14/18 09:15 Dose: 0.4 mg Vitamin B Complex/Vit C/Folic Acid (Nephro-Jovanna) 1 tab PO 0800 [facility] - Labs Labs: 08/13/18 07:51 08/14/18 07:00 PT 15.2 SECONDS (9.4-12.5) H 07/30/18 18:15 INR 1.33 07/30/18 18:15 APTT 25.6 Seconds (25.1-36.5) 08/01/18 06:30
[2018-08-15] MEDS: Albuterol-Ipratrop 3 mg / 0.5 (3 ml) UD IH SCH ×4 (04:05→19:43)
[2018-08-15] MEDS: Pantoprazole 40 mg EC Tab PO SCH (05:44)
[2018-08-15] MEDS: Multivitamin Vitamin B Complex (Nephro-Vite) Tab PO SCH (08:57)
[2018-08-15] MEDS: Metoprolol Succinate 25 mg XL Tab PO SCH (08:57)
--- NOTE | 2018-08-15 09:16 | PN ---
DATE: 08/15/2018 SUBJECTIVE: He spiked fever, T max was 103.7. Flu serologies are negative. Recent blood cultures negative. T-max yesterday was 100.1. No pain. No cough with expectoration. He is not able to ambulate. REVIEW OF SYSTEMS: As per HPI. Rest of 12-point review of systems reviewed and negative. PHYSICAL EXAMINATION: GENERAL: Comfortable in bed, in no acute distress. VITAL SIGNS: Temperature 98.6, heart rate 109, blood pressure 130/70 and pulse ox is 98% on oxygen by nasal cannula. HEENT: Pallor positive. NECK: No lymphadenopathy. CHEST: Air entry decreased on the left side. CARDIOVASCULAR: S1 and S2 normal. No murmur or gallop. ABDOMEN: Soft and nontender. No hepatosplenomegaly. EXTREMITIES: 1+ edema. LABORATORY DATA: Flu serology negative. White count 15.4, hemoglobin 9.5, hematocrit 30.2 and platelet 354. Sodium 140, potassium 4.6 and creatinine 2.5. MEDICATIONS: Tylenol 650 every 6 hour p.r.n., Lipitor 10 mg daily, Catapres 0.1 mg p.o. t.i.d., Colace, ferrous sulfate t.i.d., heparin 5000 subcu every 12 hours, meropenem 500 mg every 12 hours, metoprolol 25 mg daily, nystatin mouth washes, Zofran p.r.n., Tamiflu 30 mg daily, Percocet, Protonix, MiraLax and Flomax. ASSESSMENT AND PLAN: 1. 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 2. Fever. Blood cultures negative, on Tamiflu also and flu serology negative. Final awaited. Infectious Diseases Dr. Bonilla following. 3. Hematology; anemia status post 2 units of blood transfusion, current hemoglobin is 9.5. White count is still elevated at 15.4. 4. Renal functions. Creatinine of 2.5, stable electrolytes and creatinine. 5. History of prostate cancer. No evidence of recurrence. Prognosis poor. Discussed with and son at length. Thank you Dr. Razo, for allowing us to participate in Mr. Calvin's care. Niyah Greenwood MD [id number]
[2018-08-15 09:41] LABS: HEMOGLOBIN 8.9 g/dL (14.0-18.0); MEAN CELL VOLUME 90.9 fl (80.0-105.0); MEAN CORPUSCULAR HEMOGLOBIN 28.9 pg (25.0-35.0); MEAN CORPUSCULAR HGB CONC 31.8 g/dl (31.0-37.0); MEAN PLATELET VOLUME 8.4 fl (7.0-11.0); RBC 3.08 10^6/uL (3.5-6.1); RED CELL DISTRIBUTION WIDTH 15.4 % (11.5-14.5); WHITE BLOOD COUNT 11.9 10^3/uL (4.5-11.0)
[2018-08-15] MEDS: MEROPENEM 500 MG in NS 500 MG/50 ML BAG IVPB SCH ×2 (09:51→22:48)
[2018-08-15] MEDS: POLYETHYLENE GLYCOL 3350 17 GM/Dose PACKET PO SCH ×2 (09:52)
[2018-08-15] MEDS: Nystatin 100,000 Units/gm Topical Pow(15 gm) TOP SCH ×2 (09:52→17:26)
[2018-08-15 09:54] LABS: CALCIUM 8.9 mg/dL (8.4-10.5)
[2018-08-15] MEDS: NYSTATIN 100000 UNIT/ML PO SCH ×3 (10:10→17:26)
[2018-08-15] MEDS: Oseltamivir 6 MG/ML PO SCH (10:10)
[2018-08-15] MEDS ORDERED: Vancomycin 2.5 GM in Sodium Chloride 0.9% 500 ML IVPB ONE (10:18)
--- NOTE | 2018-08-15 11:22 | CP.PCM.PN ---
Subjective - Date & Time of Evaluation Date of Evaluation: 08/15/18 Time of Evaluation: 11:19 - Subjective Subjective: Nephrology Consultation Note: Assessment: Stable Acute Kidney Injury (N17.9) likely hemodynamic ? 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 Hypertension control with meds as ordered. Maintain hemodynamics stable. Avoid hypotension. Patient not on ACEI/ARB due to recent KIKO. hold norvasc as BP low side Monitor Input/Output, daily weights and renal function with basic metabolic panel plan to d/c IVF soon. anemia management per heme. PRBC as needed. defer use of ESAs to heme/onc low K diet. added MVI and weekly Vit D. stopped iron due to very high ferritin 8190 Dose meds/antibiotics for reduced GFR. Avoid fleets enema/magnesium based laxatives. Avoid nephrotoxins/NSAIDs/ iodinated contrast (unless needed ry rgently) Glycemic control Further work up/management as per primary team Thanks for allowing me to participate in care of your patient. Will follow patient with you. Please call if any Qs. had d/w team Dr Vel Rogel Office: [phone] Chief Complaint; unable to obtain Reason for consult: Acute Kidney Injury on CKD 3 HPI: Pt is a 83 M with hx of hypertension (years) CA prostate presented with complaints of left pleural effusion found to be pneumonia, malignant now started on chemo for lung ca. Denies OTC/herbal meds or NSAIDs No recent iodinated contrast exposure. No obvious episodes of low BP. renal consult for KIKO on CKD 3. baseline cr 1.5-1.6 in jun 2018 ROS: pt better and more communicative. reports feeling better. no SOB poor oral solid intake as per pt and RN Physical Examination: family bedside General Appearance: Comfortable, in no acute respiratory distress, co-operative . better appearing Vitals reviewed and noted as below Head; Atraumatic, normocephalic ENT: no ulcers no thrush. Tongue is midline. Oropharynx: no rash or ulcers. EYES: Pupils are equal, round and reactive to light accommodation. Eye muscles and extraocular movement intact. Sclera is anicteric. Neck; supple no lymphadenopathy, no thyromegaly or bruit Lungs: Normal respiratory rate/effort. Breath sounds reduced at left base Heart: normal rate. s1s2 normal. No rub or gallop. Extremities: no edema. No varicose veins Neurological: Patient is awake alert, has gen weakness Skin: Warm and dry. Normal turgor. No rash. Palpitation: Normal elasticity for age Abdomen: Abdomen is soft. Bowel sounds +. There is no abdominal tenderness, no guarding/rigidity no organomegaly Psych: improve insight. normal affect MSK: no joint tenderness or swelling. Digits and nails normal, no deformity : kidney/bladder not palpable Labs/imaging reviewed. Past medical history, past surgical history, family history, social history, allergy reviewed and noted as below Family hx: no hx of CKD. 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 UA trace protein Objective - Vital Signs/Intake and Output Vital Signs (last 24 hours): Temp Pulse Resp BP Pulse Ox 98.6 F 108 H 20 136/74 96 08/15/18 08:50 08/15/18 10:09 08/15/18 08:50 08/15/18 10:09 08/15/18 08:50 Intake and Output: 08/15/18 08/15/18 06:59 18:59 Intake Total 1340 Balance 1340 - Medications Medications: Current Medications Acetaminophen (Tylenol 325mg Tab) 650 mg PO Q4H PRN PRN Reason: fever and Pain 1-3 Last Admin: 08/15/18 00:32 Dose: 650 mg Albuterol/Ipratropium (Duoneb 3 Mg/0.5 Mg (3 Ml) Ud) 3 ml IH [id number] [facility] Last Admin: 08/15/18 07:51 Dose: 3 ml Atorvastatin Calcium (Lipitor) 10 mg PO DIN [facility] Last Admin: 08/14/18 18:03 Dose: 10 mg Ergocalciferol (Drisdol 50,000 Intl Units Cap) 1 cap PO Q7D [facility] Last Admin: 08/14/18 13:32 Dose: 1 cap Heparin Sodium (Porcine) (Heparin) 5,000 units SC Q12 [facility]; Protocol Last Admin: 08/15/18 09:50 Dose: 5,000 units Meropenem/Sodium Chloride (Merrem Iv 500 Mg/Ns 50 Ml) 500 mg in 50 mls @ 100 mls/hr IVPB Q12 [facility]; Protocol Stop: 08/20/18 10:46 Last Admin: 08/15/18 09:51 Dose: 100 mls/hr Vancomycin HCl 2.5 gm/ Sodium (Chloride) 500 mls @ 170 mls/hr IVPB ONCE ONE; Protocol Stop: 08/15/18 13:14 Metoprolol Succinate (Toprol Xl) 25 mg PO BRK [facility] Last Admin: 08/15/18 08:57 Dose: 25 mg Nystatin (Nystop Topical Powder) 0 gm TOP BID [facility] Last Admin: 08/15/18 09:52 Dose: 1 applic Nystatin (Nystatin Oral Susp) 5 ml PO TID [facility] Last Admin: 08/15/18 10:10 Dose: 5 ml Ondansetron HCl (Zofran Inj) 4 mg IVP Q6H PRN PRN Reason: Nausea/Vomiting Oseltamivir Phosphate (Tamiflu Susp) 30 mg PO DAILY [facility]; Protocol Last Admin: 08/15/18 10:10 Dose: 30 mg Oxycodone/Acetaminophen (Percocet 5/325 Mg Tab) 1 tab PO Q6H PRN PRN Reason: Pain, severe (8-10) Stop: 08/17/18 14:25 Pantoprazole Sodium (Protonix Ec Tab) 40 mg PO 0600 [facility] Last Admin: 08/15/18 05:44 Dose: 40 mg Polyethylene Glycol (Miralax) 17 gm PO DAILY [facility] Last Admin: 08/15/18 09:52 Dose: Not Given Polyethylene Glycol (Miralax) 17 gm PO DAILY [facility] Last Admin: 08/15/18 09:52 Dose: Not Given Tamsulosin HCl (Flomax) 0.4 mg PO DAILY [facility] Last Admin: 08/15/18 09:50 Dose: 0.4 mg Vitamin B Complex/Vit C/Folic Acid (Nephro-Jovanna) 1 tab PO 0800 [facility] Last Admin: 08/15/18 08:57 Dose: 1 tab - Labs Labs: 08/15/18 09:30 08/15/18 09:30 PT 15.2 SECONDS (9.4-12.5) H 07/30/18 18:15 INR 1.33 07/30/18 18:15 APTT 25.6 Seconds (25.1-36.5) 08/01/18 06:30
--- NOTE | 2018-08-15 13:55 | CP.PCM.PN ---
Subjective - Date & Time of Evaluation Date of Evaluation: 08/15/18 Time of Evaluation: 10:00 - Subjective Subjective: Patient is still having fevers, has mild SOB at rest, no abdominal pain, no chest pain, no diarrhea. Objective - Vital Signs/Intake and Output Vital Signs (last 24 hours): Temp Pulse Resp BP Pulse Ox 99.6 F 108 H 20 136/74 96 08/15/18 10:50 08/15/18 10:09 08/15/18 08:50 08/15/18 10:09 08/15/18 08:50 Intake and Output: 08/15/18 08/15/18 06:59 18:59 Intake Total 1340 Balance 1340 - Medications Medications: Current Medications Acetaminophen (Tylenol 325mg Tab) 650 mg PO Q4H PRN PRN Reason: fever and Pain 1-3 Last Admin: 08/15/18 09:50 Dose: 650 mg Albuterol/Ipratropium (Duoneb 3 Mg/0.5 Mg (3 Ml) Ud) 3 ml IH [id number] [facility] Last Admin: 08/15/18 13:31 Dose: 3 ml Atorvastatin Calcium (Lipitor) 10 mg PO DIN [facility] Last Admin: 08/14/18 18:03 Dose: 10 mg Ergocalciferol (Drisdol 50,000 Intl Units Cap) 1 cap PO Q7D [facility] Last Admin: 08/14/18 13:32 Dose: 1 cap Heparin Sodium (Porcine) (Heparin) 5,000 units SC Q12 [facility]; Protocol Last Admin: 08/15/18 09:50 Dose: 5,000 units Meropenem/Sodium Chloride (Merrem Iv 500 Mg/Ns 50 Ml) 500 mg in 50 mls @ 100 mls/hr IVPB Q12 [facility]; Protocol Stop: 08/20/18 10:46 Last Admin: 08/15/18 09:51 Dose: 100 mls/hr Metoprolol Succinate (Toprol Xl) 25 mg PO BRK [facility] Last Admin: 08/15/18 08:57 Dose: 25 mg Nystatin (Nystop Topical Powder) 0 gm TOP BID [facility] Last Admin: 08/15/18 09:52 Dose: 1 applic Nystatin (Nystatin Oral Susp) 5 ml PO TID [facility] Last Admin: 08/15/18 10:10 Dose: 5 ml Ondansetron HCl (Zofran Inj) 4 mg IVP Q6H PRN PRN Reason: Nausea/Vomiting Oseltamivir Phosphate (Tamiflu Susp) 30 mg PO DAILY [facility]; Protocol Last Admin: 08/15/18 10:10 Dose: 30 mg Oxycodone/Acetaminophen (Percocet 5/325 Mg Tab) 1 tab PO Q6H PRN PRN Reason: Pain, severe (8-10) Stop: 08/17/18 14:25 Pantoprazole Sodium (Protonix Ec Tab) 40 mg PO 0600 [facility] Last Admin: 08/15/18 05:44 Dose: 40 mg Polyethylene Glycol (Miralax) 17 gm PO DAILY [facility] Last Admin: 08/15/18 09:52 Dose: Not Given Polyethylene Glycol (Miralax) 17 gm PO DAILY [facility] Last Admin: 08/15/18 09:52 Dose: Not Given Tamsulosin HCl (Flomax) 0.4 mg PO DAILY [facility] Last Admin: 08/15/18 09:50 Dose: 0.4 mg Vitamin B Complex/Vit C/Folic Acid (Nephro-Jovanna) 1 tab PO 0800 [facility] Last Admin: 08/15/18 08:57 Dose: 1 tab - Labs Labs: 08/15/18 09:30 08/15/18 09:30 PT 15.2 SECONDS (9.4-12.5) H 07/30/18 18:15 INR 1.33 07/30/18 18:15 APTT 25.6 Seconds (25.1-36.5) 08/01/18 06:30 - Constitutional Appears: Chronically Ill - Head Exam Head Exam: NORMAL INSPECTION - Respiratory Exam Respiratory Exam: Decreased Breath Sounds - Cardiovascular Exam Cardiovascular Exam: +S1, +S2 - GI/Abdominal Exam GI & Abdominal Exam: Soft. absent: Tenderness Assessment and Plan - Assessment and Plan (Free Text) Plan: Assessment new onset SIRS with fevers, R/O sepsis from HAP, R/O Influenza left sided pleural effusion S/P pleural catheter placement with pleural mass, S/P biopsy showing squamous cell carcinoma, now on chemotherapy history of sepsis due to right lower lobe HCAP HTN prostate CA PUD chronic anemia chronic renal failure Plan will give another dose of IV Vancomycin and continue Merrem day 3 and Tamiflu and will repeat blood cx will continue to monitor clinically overall prognosis is poor
--- NOTE | 2018-08-15 14:07 | PN ---
DATE: 08/15/2018 SUBJECTIVE: The patient is a 83-year-old, seen and examined. Had spiked fever. Complained of feeling weak. Poor appetite. PHYSICAL EXAMINATION VITAL SIGNS: He is afebrile, pulse 108, respirations 20, and blood pressure 136/74. LUNGS: Bilateral upper lung area soft crackle and decreased breath sounds in left lower lung. HEART: S1 and S2 audible. ABDOMEN: Soft and nontender. No rebound. No guarding. NEUROLOGIC: The patient is awake, alert, oriented, and able to communicate. EXTREMITIES: Bilateral leg no edema. LABORATORY DATA: WBC 11.9, hemoglobin 8.9, hematocrit 28, and platelets 276. Chemistry; sodium 142, potassium 4.3, chloride 112, CO2 of 22, BUN 63, creatinine 2.5 and blood sugar of 103. Urine positive for Gram-negative, blood cultures are negative. ASSESSMENT: 1. Metastatic squamous cell carcinoma. 2. History of hypertension. 3. Chronic kidney disease. 4. History of carcinoma of prostate. 5. Chronic anemia status post multiple blood transfusion. 6. Acute and chronic kidney failure. 7. Deconditioning. 8. Poor oral intake. PLAN: Currently the patient is on nebulizer treatment. He is getting Flomax. He is on Statin. He is on meropenem. We will followup the patient in a.m. Tejinder Razo MD
[2018-08-16] MEDS: Pantoprazole 40 mg EC Tab PO SCH (05:40)
[2018-08-16] MEDS: Albuterol-Ipratrop 3 mg / 0.5 (3 ml) UD IH SCH ×3 (08:08→20:36)
[2018-08-16] MEDS: Metoprolol Succinate 25 mg XL Tab PO SCH (09:01)
[2018-08-16] MEDS: Multivitamin Vitamin B Complex (Nephro-Vite) Tab PO SCH (09:01)
[2018-08-16] MEDS: MEROPENEM 500 MG in NS 500 MG/50 ML BAG IVPB SCH ×2 (09:11→21:31)
[2018-08-16] MEDS: POLYETHYLENE GLYCOL 3350 17 GM/Dose PACKET PO SCH ×2 (09:17)
[2018-08-16] MEDS: NYSTATIN 100000 UNIT/ML PO SCH ×3 (09:17→18:50)
[2018-08-16] MEDS: Nystatin 100,000 Units/gm Topical Pow(15 gm) TOP SCH ×2 (09:18→18:49)
[2018-08-16] MEDS: Oseltamivir 6 MG/ML PO SCH (09:18)
--- NOTE | 2018-08-16 12:40 | CP.PCM.PN ---
Subjective - Date & Time of Evaluation Date of Evaluation: 08/16/18 Time of Evaluation: 12:39 - Subjective Subjective: Nephrology Consultation Note: Assessment: Stable Acute Kidney Injury (N17.9) likely hemodynamic ? 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 Hypertension control with meds as ordered. Maintain hemodynamics stable. Avoid hypotension. Patient not on ACEI/ARB due to recent KIKO. hold norvasc as BP low side Monitor Input/Output, daily weights and renal function with basic metabolic panel anemia management per heme. PRBC as needed. defer use of ESAs to heme/onc low K diet. added MVI and weekly Vit D. stopped iron due to very high ferritin 8190 Dose meds/antibiotics for reduced GFR. Avoid fleets enema/magnesium based laxatives. Avoid nephrotoxins/NSAIDs/ iodinated contrast (unless needed emergently) Glycemic control Further work up/management as per primary team overall stable from renal perspective Thanks for allowing me to participate in care of your patient. Will follow patient with you. Please call if any Qs. had d/w team Dr Vel Rogel Office: [phone] Chief Complaint; unable to obtain Reason for consult: Acute Kidney Injury on CKD 3 HPI: Pt is a 83 M with hx of hypertension (years) CA prostate presented with complaints of left pleural effusion found to be pneumonia, malignant now started on chemo for lung ca. Denies OTC/herbal meds or NSAIDs No recent iodinated contrast exposure. No obvious episodes of low BP. renal consult for KIKO on CKD 3. baseline cr 1.5-1.6 in jun 2018 ROS: pt better and more communicative. reports feeling better. no SOB poor oral solid intake as per pt and RN Physical Examination: family bedside General Appearance: Comfortable, in no acute respiratory distress, co-operative . better appearing Vitals reviewed and noted as below Head; Atraumatic, normocephalic ENT: no ulcers no thrush. Tongue is midline. Oropharynx: no rash or ulcers. EYES: Pupils are equal, round and reactive to light accommodation. Eye muscles and extraocular movement intact. Sclera is anicteric. Neck; supple no lymphadenopathy, no thyromegaly or bruit Lungs: Normal respiratory rate/effort. Breath sounds reduced at left base Heart: normal rate. s1s2 normal. No rub or gallop. Extremities: no edema. No varicose veins Neurological: Patient is awake alert, has gen weakness Skin: Warm and dry. Normal turgor. No rash. Palpitation: Normal elasticity for age Abdomen: Abdomen is soft. Bowel sounds +. There is no abdominal tenderness, no guarding/rigidity no organomegaly Psych: improve insight. normal affect MSK: no joint tenderness or swelling. Digits and nails normal, no deformity : kidney/bladder not palpable Labs/imaging reviewed. Past medical history, past surgical history, family history, social history, allergy reviewed and noted as below Family hx: no hx of CKD. 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 UA trace protein Objective - Vital Signs/Intake and Output Vital Signs (last 24 hours): Temp Pulse Resp BP Pulse Ox 98.9 F 104 H 20 144/77 95 08/16/18 08:06 08/16/18 09:01 08/16/18 08:06 08/16/18 09:01 08/16/18 08:06 Intake and Output: 08/16/18 08/16/18 06:59 18:59 Intake Total 360 Balance 360 - Medications Medications: Current Medications Acetaminophen (Tylenol 325mg Tab) 650 mg PO Q4H PRN PRN Reason: fever and Pain 1-3 Last Admin: 08/16/18 04:12 Dose: 650 mg Albuterol/Ipratropium (Duoneb 3 Mg/0.5 Mg (3 Ml) Ud) 3 ml IH [id number] [facility] Last Admin: 08/16/18 08:08 Dose: 3 ml Atorvastatin Calcium (Lipitor) 10 mg PO DIN [facility] Last Admin: 08/15/18 17:26 Dose: 10 mg Ergocalciferol (Drisdol 50,000 Intl Units Cap) 1 cap PO Q7D [facility] Last Admin: 08/14/18 13:32 Dose: 1 cap Heparin Sodium (Porcine) (Heparin) 5,000 units SC Q12 [facility]; Protocol Last Admin: 08/16/18 09:10 Dose: 5,000 units Meropenem/Sodium Chloride (Merrem Iv 500 Mg/Ns 50 Ml) 500 mg in 50 mls @ 100 mls/hr IVPB Q12 [facility]; Protocol Stop: 08/20/18 10:46 Last Admin: 08/16/18 09:11 Dose: 100 mls/hr Metoprolol Succinate (Toprol Xl) 25 mg PO BRK [facility] Last Admin: 08/16/18 09:01 Dose: 25 mg Nystatin (Nystop Topical Powder) 0 gm TOP BID [facility] Last Admin: 08/16/18 09:18 Dose: 1 applic Nystatin (Nystatin Oral Susp) 5 ml PO TID [facility] Last Admin: 08/16/18 09:17 Dose: 5 ml Ondansetron HCl (Zofran Inj) 4 mg IVP Q6H PRN PRN Reason: Nausea/Vomiting Oseltamivir Phosphate (Tamiflu Susp) 30 mg PO DAILY [facility]; Protocol Last Admin: 08/16/18 09:18 Dose: 30 mg Oxycodone/Acetaminophen (Percocet 5/325 Mg Tab) 1 tab PO Q6H PRN PRN Reason: Pain, severe (8-10) Stop: 08/17/18 14:25 Pantoprazole Sodium (Protonix Ec Tab) 40 mg PO 0600 [facility] Last Admin: 08/16/18 05:40 Dose: 40 mg Polyethylene Glycol (Miralax) 17 gm PO DAILY [facility] Last Admin: 08/16/18 09:17 Dose: Not Given Polyethylene Glycol (Miralax) 17 gm PO DAILY [facility] Last Admin: 08/16/18 09:17 Dose: Not Given Tamsulosin HCl (Flomax) 0.4 mg PO DAILY [facility] Last Admin: 08/16/18 09:10 Dose: 0.4 mg Vitamin B Complex/Vit C/Folic Acid (Nephro-Jovanna) 1 tab PO 0800 [facility] Last Admin: 08/16/18 09:01 Dose: 1 tab - Labs Labs: 08/15/18 09:30 08/15/18 09:30 PT 15.2 SECONDS (9.4-12.5) H 07/30/18 18:15 INR 1.33 07/30/18 18:15 APTT 25.6 Seconds (25.1-36.5) 08/01/18 06:30
--- NOTE | 2018-08-16 14:10 | CP.PCM.PN ---
Subjective - Date & Time of Evaluation Date of Evaluation: 08/16/18 Time of Evaluation: 10:20 - Subjective Subjective: Still having low grade fevers but feeling a little better, not in distress, no diarrhea. Objective - Vital Signs/Intake and Output Vital Signs (last 24 hours): Temp Pulse Resp BP Pulse Ox 99.6 F 108 H 20 136/74 96 08/15/18 10:50 08/15/18 10:09 08/15/18 08:50 08/15/18 10:09 08/15/18 08:50 Intake and Output: 08/15/18 08/15/18 06:59 18:59 Intake Total 1340 Balance 1340 - Medications Medications: Current Medications Acetaminophen (Tylenol 325mg Tab) 650 mg PO Q4H PRN PRN Reason: fever and Pain 1-3 Last Admin: 08/15/18 09:50 Dose: 650 mg Albuterol/Ipratropium (Duoneb 3 Mg/0.5 Mg (3 Ml) Ud) 3 ml IH [id number] [facility] Last Admin: 08/15/18 13:31 Dose: 3 ml Atorvastatin Calcium (Lipitor) 10 mg PO DIN [facility] Last Admin: 08/14/18 18:03 Dose: 10 mg Ergocalciferol (Drisdol 50,000 Intl Units Cap) 1 cap PO Q7D [facility] Last Admin: 08/14/18 13:32 Dose: 1 cap Heparin Sodium (Porcine) (Heparin) 5,000 units SC Q12 [facility]; Protocol Last Admin: 08/15/18 09:50 Dose: 5,000 units Meropenem/Sodium Chloride (Merrem Iv 500 Mg/Ns 50 Ml) 500 mg in 50 mls @ 100 mls/hr IVPB Q12 [facility]; Protocol Stop: 08/20/18 10:46 Last Admin: 08/15/18 09:51 Dose: 100 mls/hr Metoprolol Succinate (Toprol Xl) 25 mg PO BRK [facility] Last Admin: 08/15/18 08:57 Dose: 25 mg Nystatin (Nystop Topical Powder) 0 gm TOP BID [facility] Last Admin: 08/15/18 09:52 Dose: 1 applic Nystatin (Nystatin Oral Susp) 5 ml PO TID [facility] Last Admin: 08/15/18 10:10 Dose: 5 ml Ondansetron HCl (Zofran Inj) 4 mg IVP Q6H PRN PRN Reason: Nausea/Vomiting Oseltamivir Phosphate (Tamiflu Susp) 30 mg PO DAILY [facility]; Protocol Last Admin: 08/15/18 10:10 Dose: 30 mg Oxycodone/Acetaminophen (Percocet 5/325 Mg Tab) 1 tab PO Q6H PRN PRN Reason: Pain, severe (8-10) Stop: 08/17/18 14:25 Pantoprazole Sodium (Protonix Ec Tab) 40 mg PO 0600 [facility] Last Admin: 08/15/18 05:44 Dose: 40 mg Polyethylene Glycol (Miralax) 17 gm PO DAILY [facility] Last Admin: 08/15/18 09:52 Dose: Not Given Polyethylene Glycol (Miralax) 17 gm PO DAILY [facility] Last Admin: 08/15/18 09:52 Dose: Not Given Tamsulosin HCl (Flomax) 0.4 mg PO DAILY [facility] Last Admin: 08/15/18 09:50 Dose: 0.4 mg Vitamin B Complex/Vit C/Folic Acid (Nephro-Jovanna) 1 tab PO 0800 [facility] Last Admin: 08/15/18 08:57 Dose: 1 tab - Labs Labs: 08/15/18 09:30 08/15/18 09:30 PT 15.2 SECONDS (9.4-12.5) H 07/30/18 18:15 INR 1.33 07/30/18 18:15 APTT 25.6 Seconds (25.1-36.5) 08/01/18 06:30 - Constitutional Appears: Chronically Ill - Head Exam Head Exam: NORMAL INSPECTION - Respiratory Exam Respiratory Exam: Decreased Breath Sounds - Cardiovascular Exam Cardiovascular Exam: +S1, +S2 - GI/Abdominal Exam GI & Abdominal Exam: Soft. absent: Tenderness Assessment and Plan - Assessment and Plan (Free Text) Plan: Assessment new onset SIRS with fevers, R/O sepsis from HAP, R/O Influenza, R/O UTI with Pseudomonas left sided pleural effusion S/P pleural catheter placement with pleural mass, S/P biopsy showing squamous cell carcinoma, now on chemotherapy history of sepsis due to right lower lobe HCAP HTN prostate CA PUD chronic anemia chronic renal failure Plan on intermittent IV Vancomycin and continue Merrem day 4 and Tamiflu and follow up repeat blood cx will continue to monitor clinically overall prognosis is poor
--- NOTE | 2018-08-16 16:37 | PN ---
DATE: 08/15/2018 SUBJECTIVE: The patient is 83 years old, seen and examined, lying in bed, seems to be comfortable. He states he feels weak. He cannot eat. He says his dentures are loose since he lost weight. Spoke to Dr. Greenwood. No plan for chemotherapy this week because of his active UTI. PHYSICAL EXAMINATION GENERAL: He is awake and alert, able to communicate. VITAL SIGNS: He is afebrile, pulse 104, respirations 20, and blood pressure 144/77. LUNGS: Bilateral fair airflow, decreased at bases, left more than the right. HEART: S1 and S2 audible, tachycardiac. ABDOMEN: Soft and nontender. No rebound. No guarding. NEUROLOGIC: The patient is awake, alert, oriented, able to communicate. EXTREMITIES: Bilateral leg, no edema. LABORATORY DATA: WBC is 11.9, hemoglobin 8.9, hematocrit 28, and platelets 276. Chemistry: Sodium 142, potassium 4.3, chloride 112, CO2 of 22, BUN 63, creatinine 2.5. Vitamin D is 14.5. Urine culture, positive Pseudomonas aeruginosa. ASSESSMENT 1. Pseudomonas aeruginosa urinary tract infection. 2. Pulmonary infiltrate. 3. Squamous cell carcinoma. 4. Left pleural effusion, the patient will have cath done through spiral catheter today. 5. Chronic kidney disease. 6. History of hypertension. PLAN: Currently, the patient is on nebulizer treatment. He is getting Flomax. He is on DVT prophylaxis. He is on statins. He is on meropenem. He is on stool softener. He is on Percocet as needed. He is getting Protonix. Tomorrow will be first for Tamiflu and I will request for physical therapy evaluation. Once he is fever free for 24 hours and his white count is trending down, we will make discharge plan to transfer him to subacute rehab. Tejinedr Razo MD
[2018-08-17] MEDS: Oxycodone/Acetaminophen 5/325 mg Tab PO PRN ×2 (01:32→09:38)
[2018-08-17] MEDS: Albuterol-Ipratrop 3 mg / 0.5 (3 ml) UD IH SCH ×4 (01:52→19:20)
[2018-08-17] MEDS: Pantoprazole 40 mg EC Tab PO SCH (06:05)
[2018-08-17] MEDS: Metoprolol Succinate 25 mg XL Tab PO SCH (09:37)
[2018-08-17] MEDS: MEROPENEM 500 MG in NS 500 MG/50 ML BAG IVPB SCH ×2 (09:37→21:07)
[2018-08-17] MEDS: Multivitamin Vitamin B Complex (Nephro-Vite) Tab PO SCH (09:39)
[2018-08-17] MEDS: Nystatin 100,000 Units/gm Topical Pow(15 gm) TOP SCH ×2 (10:00→17:25)
[2018-08-17] MEDS: Oseltamivir 6 MG/ML PO SCH (10:30)
[2018-08-17] MEDS: POLYETHYLENE GLYCOL 3350 17 GM/Dose PACKET PO SCH ×2 (10:31→10:32)
[2018-08-17] MEDS: NYSTATIN 100000 UNIT/ML PO SCH (10:34)
--- NOTE | 2018-08-17 14:02 | CP.PCM.PN ---
Subjective - Date & Time of Evaluation Date of Evaluation: 08/17/18 Time of Evaluation: 10:00 - Subjective Subjective: Still with low grade fevers, not in distress, still feels weak. No cough currently, no SOB at rest currently. Objective - Vital Signs/Intake and Output Vital Signs (last 24 hours): Temp Pulse Resp BP Pulse Ox 98.9 F 104 H 20 144/77 95 08/16/18 08:06 08/16/18 09:01 08/16/18 08:06 08/16/18 09:01 08/16/18 08:06 Intake and Output: 08/16/18 08/16/18 06:59 18:59 Intake Total 360 Balance 360 - Medications Medications: Current Medications Acetaminophen (Tylenol 325mg Tab) 650 mg PO Q4H PRN PRN Reason: fever and Pain 1-3 Last Admin: 08/16/18 04:12 Dose: 650 mg Albuterol/Ipratropium (Duoneb 3 Mg/0.5 Mg (3 Ml) Ud) 3 ml IH [id number] [facility] Last Admin: 08/16/18 13:16 Dose: 3 ml Atorvastatin Calcium (Lipitor) 10 mg PO DIN [facility] Last Admin: 08/15/18 17:26 Dose: 10 mg Ergocalciferol (Drisdol 50,000 Intl Units Cap) 1 cap PO Q7D [facility] Last Admin: 08/14/18 13:32 Dose: 1 cap Heparin Sodium (Porcine) (Heparin) 5,000 units SC Q12 [facility]; Protocol Last Admin: 08/16/18 09:10 Dose: 5,000 units Meropenem/Sodium Chloride (Merrem Iv 500 Mg/Ns 50 Ml) 500 mg in 50 mls @ 100 mls/hr IVPB Q12 [facility]; Protocol Stop: 08/20/18 10:46 Last Admin: 08/16/18 09:11 Dose: 100 mls/hr Metoprolol Succinate (Toprol Xl) 25 mg PO BRK [facility] Last Admin: 08/16/18 09:01 Dose: 25 mg Nystatin (Nystop Topical Powder) 0 gm TOP BID [facility] Last Admin: 08/16/18 09:18 Dose: 1 applic Nystatin (Nystatin Oral Susp) 5 ml PO TID [facility] Last Admin: 08/16/18 09:17 Dose: 5 ml Ondansetron HCl (Zofran Inj) 4 mg IVP Q6H PRN PRN Reason: Nausea/Vomiting Oseltamivir Phosphate (Tamiflu Susp) 30 mg PO DAILY [facility]; Protocol Last Admin: 08/16/18 09:18 Dose: 30 mg Oxycodone/Acetaminophen (Percocet 5/325 Mg Tab) 1 tab PO Q6H PRN PRN Reason: Pain, severe (8-10) Stop: 08/17/18 14:25 Pantoprazole Sodium (Protonix Ec Tab) 40 mg PO 0600 [facility] Last Admin: 08/16/18 05:40 Dose: 40 mg Polyethylene Glycol (Miralax) 17 gm PO DAILY [facility] Last Admin: 08/16/18 09:17 Dose: Not Given Polyethylene Glycol (Miralax) 17 gm PO DAILY [facility] Last Admin: 08/16/18 09:17 Dose: Not Given Tamsulosin HCl (Flomax) 0.4 mg PO DAILY [facility] Last Admin: 08/16/18 09:10 Dose: 0.4 mg Vitamin B Complex/Vit C/Folic Acid (Nephro-Jovanna) 1 tab PO 0800 [facility] Last Admin: 08/16/18 09:01 Dose: 1 tab - Labs Labs: 08/15/18 09:30 08/15/18 09:30 PT 15.2 SECONDS (9.4-12.5) H 07/30/18 18:15 INR 1.33 07/30/18 18:15 APTT 25.6 Seconds (25.1-36.5) 08/01/18 06:30 - Constitutional Appears: Chronically Ill - Head Exam Head Exam: NORMAL INSPECTION - ENT Exam ENT Exam: Mucous Membranes Moist - Respiratory Exam Respiratory Exam: Decreased Breath Sounds - Cardiovascular Exam Cardiovascular Exam: +S1, +S2 - GI/Abdominal Exam GI & Abdominal Exam: Soft. absent: Tenderness Assessment and Plan - Assessment and Plan (Free Text) Plan: Assessment new onset SIRS with fevers, R/O sepsis from HAP, R/O Influenza, R/O UTI with Pseudomonas left sided pleural effusion S/P pleural catheter placement with pleural mass, S/P biopsy showing squamous cell carcinoma, now on chemotherapy history of sepsis due to right lower lobe HCAP HTN prostate CA PUD chronic anemia chronic renal failure Plan on intermittent IV Vancomycin and continue Merrem day 5 and Tamiflu and repeat blood cx negative so far will continue to monitor clinically discussed with family at bedside overall prognosis is poor
--- NOTE | 2018-08-17 15:37 | PN ---
DATE: 08/17/2018 SUBJECTIVE: The patient is 83 years old, seen and examined, lying in bed, seems to be comfortable, mild shortness of breath. No nausea or vomiting, no diarrhea, had bowel movement yesterday. PHYSICAL EXAMINATION: VITAL SIGNS: He has temperature of 100.7, pulse 101, respirations 20, and blood pressure 151/83. LUNGS: Bilateral fair airflow in the upper lung region, decreased breath sounds at bases. HEART: S1 and S2 audible. ABDOMEN: Soft, obese, and nontender. No rebound, no guarding. NEUROLOGIC: The patient is awake, alert, and oriented, able to communicate, has generalized weakness. ASSESSMENT: 1. Metastatic squamous cell carcinoma. 2. Hypertension. 3. Recurrent pleural effusion, status post a spiral catheter. 4. Chronic anemia, status post multiple blood transfusions. 5. Deconditioning. 6. Pseudomonas aeruginosa urinary tract infection, on culture on 08/13/2018. PLAN: Currently, the patient is on meropenem. He is getting Tamiflu. Case was discussed with the patient's daughter, who was at bedside and granddaughter. They are thinking to transfer him to subacute group home close to [place]. I spoke to Mr. Feldman's yesterday. She want him to be treated in [facility], so, I advised them to have a family meeting and conclude further disposition and plan because once the patient is afebrile for 24 hours, he can be transferred to subacute rehab. His chemo is on hold for now until he is afebrile for some time and he finish his course of antibiotics. So, we will reevaluate in the a.m. We will reach out to the family again. Tejinder Razo MD
--- NOTE | 2018-08-17 16:07 | CP.PCM.PN ---
Subjective - Date & Time of Evaluation Date of Evaluation: 08/17/18 Time of Evaluation: 16:05 - Subjective Subjective: Nephrology Consultation Note: Assessment: Stable Acute Kidney Injury (N17.9) likely hemodynamic ? 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 check labs in am Hypertension control with meds as ordered. Maintain hemodynamics stable. Avoid hypotension. Patient not on ACEI/ARB due to recent KIKO. hold norvasc as BP low s henry Monitor Input/Output, daily weights and renal function with basic metabolic panel anemia management per heme. PRBC as needed. defer use of ESAs to heme/onc low K diet. added MVI and weekly Vit D. stopped iron due to very high ferritin 8190 Dose meds/antibiotics for reduced GFR. Avoid fleets enema/magnesium based laxatives. Avoid nephrotoxins/NSAIDs/ iodinated contrast (unless needed emergent ly) Glycemic control Further work up/management as per primary team overall stable from renal perspective Thanks for allowing me to participate in care of your patient. Will follow patient with you. Please call if any Qs. had d/w team and Dr YatesVelfelicia Rogel Office: [phone] Chief Complaint; unable to obtain Reason for consult: Acute Kidney Injury on CKD 3 HPI: Pt is a 83 M with hx of hypertension (years) CA prostate presented with complaints of left pleural effusion found to be pneumonia, malignant now started on chemo for lung ca. Denies OTC/herbal meds or NSAIDs No recent iodinated contrast exposure. No obvious episodes of low BP. renal consult for KIKO on CKD 3. baseline cr 1.5-1.6 in jun 2018 ROS: pt better and more communicative. reports feeling better. no SOB poor oral solid intake as per pt and RN Physical Examination: family bedside General Appearance: Comfortable, in no acute respiratory distress, co-operative . better appearing Vitals reviewed and noted as below Head; Atraumatic, normocephalic ENT: no ulcers no thrush. Tongue is midline. Oropharynx: no rash or ulcers. EYES: Pupils are equal, round and reactive to light accommodation. Eye muscles and extraocular movement intact. Sclera is anicteric. Neck; supple no lymphadenopathy, no thyromegaly or bruit Lungs: Normal respiratory rate/effort. Breath sounds reduced at left base Heart: normal rate. s1s2 normal. No rub or gallop. Extremities: no edema. No varicose veins Neurological: Patient is awake alert, has gen weakness Skin: Warm and dry. Normal turgor. No rash. Palpitation: Normal elasticity for age Abdomen: Abdomen is soft. Bowel sounds +. There is no abdominal tenderness, no guarding/rigidity no organomegaly Psych: improve insight. normal affect MSK: no joint tenderness or swelling. Digits and nails normal, no deformity : kidney/bladder not palpable Labs/imaging reviewed. Past medical history, past surgical history, family history, social history, a llergy reviewed and noted as below Family hx: no hx of CKD. 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 UA trace protein Objective - Vital Signs/Intake and Output Vital Signs (last 24 hours): Temp Pulse Resp BP Pulse Ox 100.7 F H 101 H 20 151/83 H 95 08/17/18 08:35 08/17/18 09:37 08/17/18 08:35 08/17/18 09:37 08/17/18 08:35 Intake and Output: 08/17/18 08/17/18 06:59 18:59 Intake Total 480 Output Total 250 Balance 230 - Medications Medications: Current Medications Acetaminophen (Tylenol 325mg Tab) 650 mg PO Q4H PRN PRN Reason: fever and Pain 1-3 Last Admin: 08/17/18 10:35 Dose: 650 mg Albuterol/Ipratropium (Duoneb 3 Mg/0.5 Mg (3 Ml) Ud) 3 ml IH [id number] [facility] Last Admin: 08/17/18 13:50 Dose: 3 ml Atorvastatin Calcium (Lipitor) 10 mg PO DIN [facility] Last Admin: 08/16/18 18:49 Dose: 10 mg Clotrimazole (Mycelex Shanti) 10 mg MT 5XD [facility] Ergocalciferol (Drisdol 50,000 Intl Units Cap) 1 cap PO Q7D [facility] Last Admin: 08/14/18 13:32 Dose: 1 cap Heparin Sodium (Porcine) (Heparin) 5,000 units SC Q12 [facility]; Protocol Last Admin: 08/17/18 09:38 Dose: 5,000 units Meropenem/Sodium Chloride (Merrem Iv 500 Mg/Ns 50 Ml) 500 mg in 50 mls @ 100 mls/hr IVPB Q12 [facility]; Protocol Stop: 08/20/18 10:46 Last Admin: 08/17/18 09:37 Dose: 100 mls/hr Metoprolol Succinate (Toprol Xl) 25 mg PO BRK [facility] Last Admin: 08/17/18 09:37 Dose: 25 mg Nystatin (Nystop Topical Powder) 0 gm TOP BID [facility] Last Admin: 08/17/18 10:00 Dose: Not Given Ondansetron HCl (Zofran Inj) 4 mg IVP Q6H PRN PRN Reason: Nausea/Vomiting Oseltamivir Phosphate (Tamiflu Susp) 30 mg PO DAILY [facility]; Protocol Last Admin: 08/17/18 10:30 Dose: 30 mg Pantoprazole Sodium (Protonix Ec Tab) 40 mg PO 0600 [facility] Last Admin: 08/17/18 06:05 Dose: 40 mg Polyethylene Glycol (Miralax) 17 gm PO DAILY [facility] Last Admin: 08/17/18 10:31 Dose: Not Given Polyethylene Glycol (Miralax) 17 gm PO DAILY [facility] Last Admin: 08/17/18 10:32 Dose: Not Given Tamsulosin HCl (Flomax) 0.4 mg PO DAILY [facility] Last Admin: 08/17/18 09:38 Dose: 0.4 mg Vitamin B Complex/Vit C/Folic Acid (Nephro-Jovanna) 1 tab PO 0800 [facility] Last Admin: 08/17/18 09:39 Dose: 1 tab - Labs Labs: 08/15/18 09:30 08/15/18 09:30 PT 15.2 SECONDS (9.4-12.5) H 07/30/18 18:15 INR 1.33 07/30/18 18:15 APTT 25.6 Seconds (25.1-36.5) 08/01/18 06:30
--- NOTE | 2018-08-17 23:52 | CP.PCM.PN ---
Subjective - Date & Time of Evaluation Date of Evaluation: 08/16/18 Time of Evaluation: 08:00 - Subjective Subjective: DATE: 08/16/2018 SUBJECTIVE: Fever spike decreased. Flu serologies are negative. Recent blood cultures negative. T-max yesterday was 100.1. No pain. No cough with expectoration. He is not able to ambulate. complaining of difficulty swallowing. REVIEW OF SYSTEMS: As per HPI. Rest of 12-point review of systems reviewed and negative. PHYSICAL EXAMINATION: GENERAL: Comfortable in bed, in no acute distress. VITAL SIGNS: reviewed. HEENT: Pallor positive. NECK: No lymphadenopathy. CHEST: Air entry decreased on the left side. CARDIOVASCULAR: S1 and S2 normal. No murmur or gallop. ABDOMEN: Soft and nontender. No hepatosplenomegaly. EXTREMITIES: 1+ edema. LABORATORY DATA: Flu serology negative. reviewed. MEDICATIONS: Tylenol 650 every 6 hour p.r.n., Lipitor 10 mg daily, Catapres 0.1 mg p.o. t.i.d., Colace, ferrous sulfate t.i.d., heparin 5000 subcu every 12 hours, meropenem 500 mg every 12 hours, metoprolol 25 mg daily, nystatin mouth washes, Zofran p.r.n., Tamiflu 30 mg daily, Percocet, Protonix, MiraLax and Flomax. ASSESSMENT AND PLAN: 1. 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 2. Fever. Blood cultures negative, on Tamiflu also and flu serology negative. Final awaited. Infectious Diseases Dr. Bonilla following. fever curve decreased. 3. Hematology; anemia status post 2 units of blood transfusion, current hemoglobin improved.. White count is still elevated at 15.4. aranesp 100 mcgm weekly to continue. 4. Renal functions. Creatinine of 2.5, stable electrolytes and creatinine. 5. History of prostate cancer. No evidence of recurrence. Prognosis poor. Thank you Dr. Razo, for allowing us to participate in Mr. Calvin's care. Niyah Greenwood MD Objective - Vital Signs/Intake and Output Vital Signs (last 24 hours): Temp Pulse Resp BP Pulse Ox 98.3 F 115 H 19 154/89 H 97 08/17/18 16:59 08/17/18 18:00 08/17/18 16:59 08/17/18 16:59 08/17/18 16:59 - Medications Medications: Current Medications Acetaminophen (Tylenol 325mg Tab) 650 mg PO Q4H PRN PRN Reason: fever and Pain 1-3 Last Admin: 08/17/18 17:25 Dose: 650 mg Albuterol/Ipratropium (Duoneb 3 Mg/0.5 Mg (3 Ml) Ud) 3 ml IH [id number] [facility] Last Admin: 08/17/18 19:20 Dose: Not Given Atorvastatin Calcium (Lipitor) 10 mg PO DIN [facility] Last Admin: 08/17/18 17:28 Dose: 10 mg Clotrimazole (Mycelex Shanti) 10 mg MT 5XD [facility] Last Admin: 08/17/18 21:08 Dose: 10 mg Ergocalciferol (Drisdol 50,000 Intl Units Cap) 1 cap PO Q7D [facility] Last Admin: 08/14/18 13:32 Dose: 1 cap Heparin Sodium (Porcine) (Heparin) 5,000 units SC Q12 [facility]; Protocol Last Admin: 08/17/18 21:07 Dose: 5,000 units Meropenem/Sodium Chloride (Merrem Iv 500 Mg/Ns 50 Ml) 500 mg in 50 mls @ 100 mls/hr IVPB Q12 [facility]; Protocol Stop: 08/20/18 10:46 Last Admin: 08/17/18 21:07 Dose: 100 mls/hr Metoprolol Succinate (Toprol Xl) 25 mg PO BRK [facility] Last Admin: 08/17/18 09:37 Dose: 25 mg Nystatin (Nystop Topical Powder) 0 gm TOP BID [facility] Last Admin: 08/17/18 17:25 Dose: Not Given Ondansetron HCl (Zofran Inj) 4 mg IVP Q6H PRN PRN Reason: Nausea/Vomiting Oseltamivir Phosphate (Tamiflu Susp) 30 mg PO DAILY [facility]; Protocol Last Admin: 08/17/18 10:30 Dose: 30 mg Pantoprazole Sodium (Protonix Ec Tab) 40 mg PO 0600 [facility] Last Admin: 08/17/18 06:05 Dose: 40 mg Polyethylene Glycol (Miralax) 17 gm PO DAILY [facility] Last Admin: 08/17/18 10:31 Dose: Not Given Polyethylene Glycol (Miralax) 17 gm PO DAILY [facility] Last Admin: 08/17/18 10:32 Dose: Not Given Tamsulosin HCl (Flomax) 0.4 mg PO DAILY [facility] Last Admin: 08/17/18 09:38 Dose: 0.4 mg Vitamin B Complex/Vit C/Folic Acid (Nephro-Jovanna) 1 tab PO 0800 [facility] Last Admin: 08/17/18 09:39 Dose: 1 tab - Labs Labs: 08/15/18 09:30 08/15/18 09:30 PT 15.2 SECONDS (9.4-12.5) H 07/30/18 18:15 INR 1.33 07/30/18 18:15 APTT 25.6 Seconds (25.1-36.5) 08/01/18 06:30
[2018-08-18] MEDS: Albuterol-Ipratrop 3 mg / 0.5 (3 ml) UD IH SCH ×4 (01:45→19:34)
[2018-08-18] MEDS: Pantoprazole 40 mg EC Tab PO SCH (05:35)
[2018-08-18 06:40] LABS: EOS % 0.3 % (1.5-5.0); HEMOGLOBIN 9.1 g/dL (14.0-18.0); LYMPH # 0.7 (1.2-3.4); MEAN CELL VOLUME 90.7 fl (80.0-105.0); MEAN CORPUSCULAR HEMOGLOBIN 28.2 pg (25.0-35.0); MEAN CORPUSCULAR HGB CONC 31.1 g/dl (31.0-37.0); MEAN PLATELET VOLUME 8.9 fl (7.0-11.0); MONO # 0.5 (0.1-0.6); MONO % 4.1 % (1.0-6.0); RBC 3.23 10^6/uL (3.5-6.1); RED CELL DISTRIBUTION WIDTH 15.3 % (11.5-14.5); WHITE BLOOD COUNT 11.6 10^3/uL (4.5-11.0)
[2018-08-18 08:12] VITALS: RESP 20
[2018-08-18] MEDS: Multivitamin Vitamin B Complex (Nephro-Vite) Tab PO SCH (08:13)
[2018-08-18] MEDS: Metoprolol Succinate 25 mg XL Tab PO SCH (08:13)
[2018-08-18] MEDS: POLYETHYLENE GLYCOL 3350 17 GM/Dose PACKET PO SCH ×2 (09:35)
[2018-08-18] MEDS: MEROPENEM 500 MG in NS 500 MG/50 ML BAG IVPB SCH ×2 (09:35→21:31)
[2018-08-18] MEDS: Nystatin 100,000 Units/gm Topical Pow(15 gm) TOP SCH ×2 (09:36→17:18)
[2018-08-18] MEDS: Oseltamivir 6 MG/ML PO SCH (10:10)
--- NOTE | 2018-08-18 13:21 | CP.PCM.PN ---
Subjective - Date & Time of Evaluation Date of Evaluation: 08/18/18 Time of Evaluation: 10:50 - Subjective Subjective: Feeling a little better, no fevers overnight. Objective - Vital Signs/Intake and Output Vital Signs (last 24 hours): Temp Pulse Resp BP Pulse Ox 100.7 F H 101 H 20 151/83 H 95 08/17/18 08:35 08/17/18 09:37 08/17/18 08:35 08/17/18 09:37 08/17/18 08:35 Intake and Output: 08/17/18 08/17/18 06:59 18:59 Intake Total 480 Output Total 250 Balance 230 - Medications Medications: Current Medications Acetaminophen (Tylenol 325mg Tab) 650 mg PO Q4H PRN PRN Reason: fever and Pain 1-3 Last Admin: 08/17/18 10:35 Dose: 650 mg Albuterol/Ipratropium (Duoneb 3 Mg/0.5 Mg (3 Ml) Ud) 3 ml IH [id number] [facility] Last Admin: 08/17/18 13:50 Dose: 3 ml Atorvastatin Calcium (Lipitor) 10 mg PO DIN [facility] Last Admin: 08/16/18 18:49 Dose: 10 mg Ergocalciferol (Drisdol 50,000 Intl Units Cap) 1 cap PO Q7D [facility] Last Admin: 08/14/18 13:32 Dose: 1 cap Heparin Sodium (Porcine) (Heparin) 5,000 units SC Q12 [facility]; Protocol Last Admin: 08/17/18 09:38 Dose: 5,000 units Meropenem/Sodium Chloride (Merrem Iv 500 Mg/Ns 50 Ml) 500 mg in 50 mls @ 100 mls/hr IVPB Q12 [facility]; Protocol Stop: 08/20/18 10:46 Last Admin: 08/17/18 09:37 Dose: 100 mls/hr Metoprolol Succinate (Toprol Xl) 25 mg PO BRK [facility] Last Admin: 08/17/18 09:37 Dose: 25 mg Nystatin (Nystop Topical Powder) 0 gm TOP BID [facility] Last Admin: 08/17/18 10:00 Dose: Not Given Nystatin (Nystatin Oral Susp) 5 ml PO TID [facility] Last Admin: 08/17/18 10:34 Dose: 5 ml Ondansetron HCl (Zofran Inj) 4 mg IVP Q6H PRN PRN Reason: Nausea/Vomiting Oseltamivir Phosphate (Tamiflu Susp) 30 mg PO DAILY [facility]; Protocol Last Admin: 08/17/18 10:30 Dose: 30 mg Oxycodone/Acetaminophen (Percocet 5/325 Mg Tab) 1 tab PO Q6H PRN PRN Reason: Pain, severe (8-10) Stop: 08/17/18 14:25 Last Admin: 08/17/18 09:38 Dose: 1 tab Pantoprazole Sodium (Protonix Ec Tab) 40 mg PO 0600 [facility] Last Admin: 08/17/18 06:05 Dose: 40 mg Polyethylene Glycol (Miralax) 17 gm PO DAILY [facility] Last Admin: 08/17/18 10:31 Dose: Not Given Polyethylene Glycol (Miralax) 17 gm PO DAILY [facility] Last Admin: 08/17/18 10:32 Dose: Not Given Tamsulosin HCl (Flomax) 0.4 mg PO DAILY [facility] Last Admin: 08/17/18 09:38 Dose: 0.4 mg Vitamin B Complex/Vit C/Folic Acid (Nephro-Jovanna) 1 tab PO 0800 [facility] Last Admin: 08/17/18 09:39 Dose: 1 tab - Labs Labs: 08/15/18 09:30 08/15/18 09:30 PT 15.2 SECONDS (9.4-12.5) H 07/30/18 18:15 INR 1.33 07/30/18 18:15 APTT 25.6 Seconds (25.1-36.5) 08/01/18 06:30 - Constitutional Appears: Chronically Ill - Head Exam Head Exam: NORMAL INSPECTION - Respiratory Exam Respiratory Exam: Decreased Breath Sounds - Cardiovascular Exam Cardiovascular Exam: +S1, +S2 - GI/Abdominal Exam GI & Abdominal Exam: Soft. absent: Tenderness Assessment and Plan - Assessment and Plan (Free Text) Plan: Assessment new onset SIRS with fevers, R/O sepsis from HAP, R/O Influenza, R/O UTI with Pseudomonas left sided pleural effusion S/P pleural catheter placement with pleural mass, S/P biopsy showing squamous cell carcinoma, now on chemotherapy history of sepsis due to right lower lobe HCAP HTN prostate CA PUD chronic anemia chronic renal failure Plan on intermittent IV Vancomycin and continue Merrem day 6 up to 7 days and completed 5 days of Tamiflu and repeat blood cx negative so far will continue to monitor clinically overall prognosis is poor
--- NOTE | 2018-08-18 13:52 | PN ---
DATE: 08/18/2018 SUBJECTIVE: The patient is 83-year-old seen and examined, seem short of breath, had 1000 mL fluid removed from Aspira catheter 3 days ago. Seems to be short of breath again. PHYSICAL EXAMINATION VITAL SIGNS: He is afebrile, pulse 115, respirations 20 and blood pressure 157/84. LUNGS: Decreased breath sounds at the left lower lung area. HEART: S1 and S2 is audible. ABDOMEN: Soft, obese and nontender. No rebound or guarding. NEUROLOGIC: He is awake and alert. Able to communicate. EXTREMITIES: Bilateral leg no edema. LABORATORY DATA: WBC 11.6, hemoglobin 9.1, hematocrit and platelet 155. Chemistry, sodium 139, potassium 4.3, chloride 109, CO2 of 23, BUN 57, creatinine 2 and blood sugar of 92. ASSESSMENT: 1. Squamous cell carcinoma of lung. 2. Recurrent pleural effusion, status post multiple thoracenteses. 3. History of hypertension. 4. Chronic kidney disease. 5. Chronic anemia requiring intermittent blood transfusion. PLAN: Currently, the patient is on Tamiflu. He is getting Protonix. He is on Mycelex Shanti. He is getting meropenem. He is on DVT prophylaxis. He still has low grade fever. We will observe for next 24 hour. If he remains fever free, he will be transferred to subacute rehab tomorrow. Tejinder Razo MD
--- NOTE | 2018-08-18 15:04 | CP.PCM.PN ---
Subjective - Date & Time of Evaluation Date of Evaluation: 08/18/18 Time of Evaluation: 15:02 - Subjective Subjective: Nephrology Consultation Note: Assessment: Stable Acute Kidney Injury (N17.9) likely hemodynamic ? 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 renal function improving Hypertension control with meds as ordered. Maintain hemodynamics stable. Avoid hypotension. Patient not on ACEI/ARB due to recent KIKO. held norvasc as BP low side earlier. may need to resume soon. monitor BP Monitor Input/Output, daily weights and renal function with basic metabolic panel anemia management per heme. PRBC as needed. defer use of ESAs to heme/onc low K diet. added MVI and weekly Vit D. stopped iron due to very high ferritin 8190 Dose meds/antibiotics for reduced GFR. Avoid fleets enema/magnesium based laxatives. Avoid nephrotoxins/NSAIDs/ iodinated contrast (unless needed emergently) Glycemic control Further work up/management as per primary team overall stable from renal perspective Thanks for allowing me to participate in care of your patient. Will follow patient with you. Please call if any Qs. had d/w team and Vel Rogel Office: [phone] Chief Complaint; unable to obtain Reason for consult: Acute Kidney Injury on CKD 3 HPI: Pt is a 83 M with hx of hypertension (years) CA prostate presented with complaints of left pleural effusion found to be pneumonia, malignant now started on chemo for lung ca. Denies OTC/herbal meds or NSAIDs No recent iodinated contrast exposure. No obvious episodes of low BP. renal consult for KIKO on CKD 3. baseline cr 1.5-1.6 in jun 2018 ROS: pt better and more communicative. reports feeling better. no SOB. no urine complaints pt says able to eat better Physical Examination: family bedside General Appearance: Comfortable, in no acute respiratory distress, co-operative . better appearing Vitals reviewed and noted as below Head; Atraumatic, normocephalic ENT: no ulcers no thrush. Tongue is midline. Oropharynx: no rash or ulcers. EYES: Pupils are equal, round and reactive to light accommodation. Eye muscles and extraocular movement intact. Sclera is anicteric. Neck; supple no lymphadenopathy, no thyromegaly or bruit Lungs: Normal respiratory rate/effort. Breath sounds reduced at left base Heart: normal rate. s1s2 normal. No rub or gallop. Extremities: no edema. No varicose veins Neurological: Patient is awake alert, has gen weakness Skin: Warm and dry. Normal turgor. No rash. Palpitation: Normal elasticity for age Abdomen: Abdomen is soft. Bowel sounds +. There is no abdominal tenderness, no guarding/rigidity no organomegaly Psych: improve insight. normal affect MSK: no joint tenderness or swelling. Digits and nails normal, no deformity : kidney/bladder not palpable Labs/imaging reviewed. Past medical history, past surgical history, family history, social history, allergy reviewed and noted as below Family hx: no hx of CKD. 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 UA trace protein Objective - Vital Signs/Intake and Output Vital Signs (last 24 hours): Temp Pulse Resp BP Pulse Ox 99.2 F 114 H 20 137/84 96 08/18/18 08:11 08/18/18 10:00 08/18/18 08:11 08/18/18 08:13 08/18/18 08:11 Intake and Output: 08/18/18 08/18/18 06:59 18:59 Intake Total 240 Output Total 200 Balance 40 - Medications Medications: Current Medications Acetaminophen (Tylenol 325mg Tab) 650 mg PO Q4H PRN PRN Reason: fever and Pain 1-3 Last Admin: 08/17/18 17:25 Dose: 650 mg Albuterol/Ipratropium (Duoneb 3 Mg/0.5 Mg (3 Ml) Ud) 3 ml IH [id number] [facility] Last Admin: 08/18/18 13:09 Dose: 3 ml Atorvastatin Calcium (Lipitor) 10 mg PO DIN [facility] Last Admin: 08/17/18 17:28 Dose: 10 mg Clotrimazole (Mycelex Shanti) 10 mg MT 5XD [facility] Last Admin: 08/18/18 13:32 Dose: 10 mg Ergocalciferol (Drisdol 50,000 Intl Units Cap) 1 cap PO Q7D [facility] Last Admin: 08/14/18 13:32 Dose: 1 cap Heparin Sodium (Porcine) (Heparin) 5,000 units SC Q12 [facility]; Protocol Last Admin: 08/18/18 09:35 Dose: 5,000 units Meropenem/Sodium Chloride (Merrem Iv 500 Mg/Ns 50 Ml) 500 mg in 50 mls @ 100 mls/hr IVPB Q12 [facility]; Protocol Stop: 08/20/18 10:46 Last Admin: 08/18/18 09:35 Dose: 100 mls/hr Metoprolol Succinate (Toprol Xl) 25 mg PO BRK [facility] Last Admin: 08/18/18 08:13 Dose: 25 mg Nystatin (Nystop Topical Powder) 0 gm TOP BID [facility] Last Admin: 08/18/18 09:36 Dose: Not Given Ondansetron HCl (Zofran Inj) 4 mg IVP Q6H PRN PRN Reason: Nausea/Vomiting Oseltamivir Phosphate (Tamiflu Susp) 30 mg PO DAILY [facility]; Protocol Last Admin: 08/18/18 10:10 Dose: 30 mg Pantoprazole Sodium (Protonix Ec Tab) 40 mg PO 0600 [facility] Last Admin: 08/18/18 05:35 Dose: 40 mg Polyethylene Glycol (Miralax) 17 gm PO DAILY [facility] Last Admin: 08/18/18 09:35 Dose: Not Given Polyethylene Glycol (Miralax) 17 gm PO DAILY [facility] Last Admin: 08/18/18 09:35 Dose: Not Given Tamsulosin HCl (Flomax) 0.4 mg PO DAILY [facility] Last Admin: 08/18/18 09:35 Dose: 0.4 mg Vitamin B Complex/Vit C/Folic Acid (Nephro-Jovanna) 1 tab PO 0800 [facility] Last Admin: 08/18/18 08:13 Dose: 1 tab - Labs Labs: 08/18/18 06:20 08/18/18 06:20 PT 15.2 SECONDS (9.4-12.5) H 07/30/18 18:15 INR 1.33 07/30/18 18:15 APTT 25.6 Seconds (25.1-36.5) 08/01/18 06:30
--- NOTE | 2018-08-18 15:51 | RAD ---
Date of service: 08/18/2018 HISTORY: SOB, L pleural cath COMPARISON: 08/13/2018 FINDINGS: Right-sided central venous catheter terminates at the cavoatrial junction LUNGS: The right lung is clear. There is compressive atelectasis in the left lower lobe PLEURA: Moderate loculated left pleural effusion. Stable position of left pleural catheter. No pneumothorax. CARDIOVASCULAR: Persistent mild cardiomegaly. No aortic atherosclerotic calcifications present. OSSEOUS STRUCTURES: Within normal limits for the patient's age. VISUALIZED UPPER ABDOMEN: Normal. OTHER FINDINGS: None. IMPRESSION: Little interval change in loculated moderate left pleural effusion.
[2018-08-19] MEDS: Albuterol-Ipratrop 3 mg / 0.5 (3 ml) UD IH SCH ×2 (01:08→07:28)
[2018-08-19] MEDS: Pantoprazole 40 mg EC Tab PO SCH (05:41)
[2018-08-19 07:23] VITALS: TEMP 98.6; O2SAT 98
[2018-08-19] MEDS: POLYETHYLENE GLYCOL 3350 17 GM/Dose PACKET PO SCH ×2 (09:24→09:31)
[2018-08-19] MEDS: Multivitamin Vitamin B Complex (Nephro-Vite) Tab PO SCH (09:24)
[2018-08-19] MEDS: Metoprolol Succinate 25 mg XL Tab PO SCH (09:26)
[2018-08-19] MEDS: MEROPENEM 500 MG in NS 500 MG/50 ML BAG IVPB SCH (09:26)
[2018-08-19] MEDS: Nystatin 100,000 Units/gm Topical Pow(15 gm) TOP SCH (09:30)
[2018-08-19] MEDS: Oseltamivir 6 MG/ML PO SCH (10:06)
[2018-08-19] MEDS ORDERED: Albuterol-Ipratrop 3 mg / 0.5 (3 ml) UD IH PRN (10:41)
[2018-08-19] MEDS ORDERED: Oxycodone/Acetaminophen 5/325 mg Tab PO PRN (10:46)
--- NOTE | 2018-08-19 12:59 | CP.PCM.PN ---
Subjective - Date & Time of Evaluation Date of Evaluation: 08/19/18 Time of Evaluation: 11:30 - Subjective Subjective: No more fevers, feeling better, but still feels weak. Objective - Vital Signs/Intake and Output Vital Signs (last 24 hours): Temp Pulse Resp BP Pulse Ox 99.2 F 114 H 20 137/84 96 08/18/18 08:11 08/18/18 10:00 08/18/18 08:11 08/18/18 08:13 08/18/18 08:11 Intake and Output: 08/18/18 08/18/18 06:59 18:59 Intake Total 240 Output Total 200 Balance 40 - Medications Medications: Current Medications Acetaminophen (Tylenol 325mg Tab) 650 mg PO Q4H PRN PRN Reason: fever and Pain 1-3 Last Admin: 08/17/18 17:25 Dose: 650 mg Albuterol/Ipratropium (Duoneb 3 Mg/0.5 Mg (3 Ml) Ud) 3 ml IH [id number] [facility] Last Admin: 08/18/18 13:09 Dose: 3 ml Atorvastatin Calcium (Lipitor) 10 mg PO DIN [facility] Last Admin: 08/17/18 17:28 Dose: 10 mg Clotrimazole (Mycelex Shanti) 10 mg MT 5XD [facility] Last Admin: 08/18/18 09:35 Dose: 10 mg Ergocalciferol (Drisdol 50,000 Intl Units Cap) 1 cap PO Q7D [facility] Last Admin: 08/14/18 13:32 Dose: 1 cap Heparin Sodium (Porcine) (Heparin) 5,000 units SC Q12 [facility]; Protocol Last Admin: 08/18/18 09:35 Dose: 5,000 units Meropenem/Sodium Chloride (Merrem Iv 500 Mg/Ns 50 Ml) 500 mg in 50 mls @ 100 mls/hr IVPB Q12 [facility]; Protocol Stop: 08/20/18 10:46 Last Admin: 08/18/18 09:35 Dose: 100 mls/hr Metoprolol Succinate (Toprol Xl) 25 mg PO BRK [facility] Last Admin: 08/18/18 08:13 Dose: 25 mg Nystatin (Nystop Topical Powder) 0 gm TOP BID [facility] Last Admin: 08/18/18 09:36 Dose: Not Given Ondansetron HCl (Zofran Inj) 4 mg IVP Q6H PRN PRN Reason: Nausea/Vomiting Oseltamivir Phosphate (Tamiflu Susp) 30 mg PO DAILY [facility]; Protocol Last Admin: 08/18/18 10:10 Dose: 30 mg Pantoprazole Sodium (Protonix Ec Tab) 40 mg PO 0600 [facility] Last Admin: 08/18/18 05:35 Dose: 40 mg Polyethylene Glycol (Miralax) 17 gm PO DAILY [facility] Last Admin: 08/18/18 09:35 Dose: Not Given Polyethylene Glycol (Miralax) 17 gm PO DAILY [facility] Last Admin: 08/18/18 09:35 Dose: Not Given Tamsulosin HCl (Flomax) 0.4 mg PO DAILY [facility] Last Admin: 08/18/18 09:35 Dose: 0.4 mg Vitamin B Complex/Vit C/Folic Acid (Nephro-Jovanna) 1 tab PO 0800 [facility] Last Admin: 08/18/18 08:13 Dose: 1 tab - Labs Labs: 08/18/18 06:20 08/18/18 06:20 PT 15.2 SECONDS (9.4-12.5) H 07/30/18 18:15 INR 1.33 07/30/18 18:15 APTT 25.6 Seconds (25.1-36.5) 08/01/18 06:30 - Constitutional Appears: Chronically Ill - Head Exam Head Exam: NORMAL INSPECTION - Respiratory Exam Respiratory Exam: Decreased Breath Sounds - Cardiovascular Exam Cardiovascular Exam: +S1, +S2 - GI/Abdominal Exam GI & Abdominal Exam: Soft. absent: Tenderness Assessment and Plan - Assessment and Plan (Free Text) Plan: Assessment new onset SIRS with fevers, R/O sepsis from HAP, R/O Influenza, R/O UTI with Pseudomonas left sided pleural effusion S/P pleural catheter placement with pleural mass, S/P biopsy showing squamous cell carcinoma, now on chemotherapy history of sepsis due to right lower lobe HCAP HTN prostate CA PUD chronic anemia chronic renal failure Plan on intermittent IV Vancomycin and continue Merrem day 7 up to 7 days and completed 5 days of Tamiflu and repeat blood cx negative so far will continue to monitor clinically overall prognosis is poor
[2018-08-19] MEDS ORDERED: Albuterol-Ipratrop 3 mg / 0.5 (3 ml) UD IH SCH (14:00)
[2018-08-19 14:46] VITALS: BP 150/80; PULSE 109
--- NOTE | 2018-08-19 17:08 | DS ---
HISTORY OF PRESENT ILLNESS: The patient is 83 years old, seen and examined. The patient came in because of generalized weakness and increasing shortness of breath. He was found to be anemic, was given blood transfusion. He started to spike fever. He was started on IV antibiotics. The patient was found to have bilateral pneumonia. The patient also has left pleural effusion and thoracentesis was done through Aspira catheter. On Wednesday, he had 100 mL bloody effusion, so last week, the patient got his first chemo. Post chemo, he spiked fever. He was re-evaluated by IV and was restarted on antibiotics. PHYSICAL EXAMINATION: GENERAL: On examination today, he was short of breath, generalized weakness, does not want to get out of bed. VITAL SIGNS: He is afebrile, pulse 105, respirations 20, blood pressure 152/81. LUNGS: Bilateral decreased breath sounds, left base more than the right. HEART: S1 and S2 audible. Tachycardic. ABDOMEN: Soft and nontender. No rebound. No guarding. NEUROLOGIC: The patient is awake and alert, able to communicate. EXTREMITIES: Bilateral legs, no edema. LABORATORY DATA: Sodium 139, potassium 4.3, chloride 109, CO2 of 23, BUN 57, creatinine 2.0. Urine positive for Pseudomonas aeruginosa. On 07/30, he had Klebsiella oxytoca; on 08/13, he was growing Pseudomonas aeruginosa. X-ray chest done yesterday, there is not much pleural fluid accumulation. I spoke to , there is no need for thoracentesis today. ASSESSMENT 1. Squamous cell carcinoma. 2. Recurrent pleural effusion. 3. Anemia. 4. Chronic kidney disease. 5. Hypertension. PLAN: The patient is being transferred back to [place]. He will finish his meropenem today, and he will be given Tamiflu for a total of 10 days. We will follow up his CBC, CMP. Intermittently, he will receive physical therapy. I spoke to Dr. Greenwood, who will arrange for chemotherapy on 08/31. Tejinder Razo MD
--- NOTE | 2018-08-19 21:22 | CP.PCM.PN ---
Subjective - Date & Time of Evaluation Date of Evaluation: 08/19/18 Time of Evaluation: 13:00 - Subjective Subjective: Nephrology Consultation Note: Assessment: Stable Acute Kidney Injury (N17.9) likely hemodynamic ? 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 renal function improving Hypertension control with meds as ordered. Patient not on ACEI/ARB due to recent KIKO. earlier. Monitor Input/Output, daily weights and renal function with basic metabolic panel anemia management per heme. PRBC as needed. defer use of ESAs to heme/onc low K diet. added MVI and weekly Vit D. for possible dc to rehab today Physical Examination: family bedside General Appearance: Comfortable, in no acute respiratory distress, co-operative . better appearing Vitals reviewed and noted as below Head; Atraumatic, normocephalic ENT: no ulcers EYES: Eye muscles and extraocular movement intact. Sclera is anicteric. Neck; supple no lymphadenopathy, no thyromegaly or bruit Lungs: Normal respiratory rate/effort. Breath sounds reduced at left base Heart: normal rate. s1s2 normal. No rub or gallop. Extremities: no edema. No varicose veins Neurological: Patient is awake alert, has gen weakness Skin: Warm and dry Abdomen: Abdomen is soft. Bowel sounds +. There is no abdominal tenderness, no guarding/rigidity no organomegaly Psych: improve insight. normal affect MSK: no joint tenderness or swelling Objective - Vital Signs/Intake and Output Vital Signs (last 24 hours): Temp Pulse Resp BP Pulse Ox 98.6 F 109 H 20 150/80 98 08/19/18 06:00 08/19/18 14:37 08/19/18 06:00 08/19/18 14:37 08/19/18 10:00 - Labs Labs: 08/18/18 06:20 08/18/18 06:20 PT 15.2 SECONDS (9.4-12.5) H 07/30/18 18:15 INR 1.33 07/30/18 18:15 APTT 25.6 Seconds (25.1-36.5) 08/01/18 06:30
== END 2018-08-19 16:58 | DRG 180 ==
LOC: ED 17:12 → ERH 19:49 → 2RSO 21:18 → 3RNO 08-11 15:39
PROVIDERS: ADMIT Internal Medicine; ATTEND Internal Medicine
PROC: 30233N1 Transfusion of Nonautologous Red Blood Cells into Peripheral Vein, Percutaneous Approach (ICD-10-PCS; 2018-07-30)
PROC: 3E0F7GC Introduction of Other Therapeutic Substance into Respiratory Tract, Via Natural or Artificial Opening (ICD-10-PCS; 2018-07-31)
PROC: 0BBP3ZX Excision of Left Pleura, Percutaneous Approach, Diagnostic (ICD-10-PCS; principal; 2018-08-03 13:45)
PROC: 0W9B30Z Drainage of Left Pleural Cavity with Drainage Device, Percutaneous Approach (ICD-10-PCS; 2018-08-08)
PROC: 0BPQ30Z Removal of Drainage Device from Pleura, Percutaneous Approach (ICD-10-PCS; 2018-08-08)
PROC: 3E03305 Introduction of Other Antineoplastic into Peripheral Vein, Percutaneous Approach (ICD-10-PCS; 2018-08-11)
DX: C34.90 Malignant neoplasm of unspecified part of unspecified bronchus or lung (principal); J91.0 Malignant pleural effusion; J18.9 Pneumonia, unspecified organism; N17.0 Acute kidney failure with tubular necrosis; C79.51 Secondary malignant neoplasm of bone; N39.0 Urinary tract infection, site not specified; J44.0 Chronic obstructive pulmonary disease with (acute) lower respiratory infection; R65.10 Systemic inflammatory response syndrome (SIRS) of non-infectious origin without acute organ dysfunction; K59.00 Constipation, unspecified; N18.3 Chronic kidney disease, stage 3 (moderate); B96.5 Pseudomonas (aeruginosa) (mallei) (pseudomallei) as the cause of diseases classified elsewhere; I12.9 Hypertensive chronic kidney disease with stage 1 through stage 4 chronic kidney disease, or unspecified chronic kidney disease; D63.0 Anemia in neoplastic disease; D63.1 Anemia in chronic kidney disease; I27.20 Pulmonary hypertension, unspecified; E78.5 Hyperlipidemia, unspecified; N40.0 Benign prostatic hyperplasia without lower urinary tract symptoms; R26.2 Difficulty in walking, not elsewhere classified; E87.5 Hyperkalemia; Z85.46 Personal history of malignant neoplasm of prostate; K27.9 Peptic ulcer, site unspecified, unspecified as acute or chronic, without hemorrhage or perforation; Z87.891 Personal history of nicotine dependence

== ENCOUNTER 2018-08-30 10:24 | Inpatient (IN) | payer MEDICARE ==
[2018-08-30] MEDS ORDERED: Sodium Chloride 0.9% 1,000 ML IV STA (10:44)
--- NOTE | 2018-08-30 11:24 | ED PDOC ---
Arrival/HPI - General Chief Complaint: Abnormal Labs Historian: Patient - History of Present Illness Narrative History of Present Illness (Text): 08/30/18 11:20 83 year old male, whose past medical history includes recurrent left sided pleural effusion, hypertension, hx prostate CA, Chronic Kidney Disease, Peptic ulcer disease, and Anemia [facility] for evaluation of low hemoglobin today. Patient denies any somatic complaints. Patient denies any fever, chills, nausea, vomiting, abdominal pain, chest pain, shortness of breath, headache, dizziness or any other complaints. PMD: Dr. Razo Time/Duration: Prior to Arrival Symptom Onset: Gradual Symptom Course: Unchanged Activities at Onset: Light Context: Other (Assisted) Past Medical History - Provider Review Nursing Documentation Reviewed: Yes - Infectious Disease Hx of Infectious Diseases: None - Cardiac Hx Cardiac Disorders: Yes Hx Hypertension: Yes - Pulmonary Hx Chronic Obstructive Pulmonary Disease (COPD): No - Neurological HX Cerebrovascular Accident: No - HEENT Hx HEENT Disorder: Yes Hx Cataracts: Yes - Renal Hx Renal Disorder: No - Endocrine/Metabolic Hx Diabetes Mellitus Type 1: No Hx Diabetes Mellitus Type 2: No Hx Hypothyroidism: No - Hematological/Oncological Hx Blood Transfusions: Yes Hx Blood Transfusion Reaction: No - Integumentary Hx Dermatological Disorder: No Hx Basal Cell Carcinoma: No Hx Eczema: No Hx Melanoma: No Hx Psoriasis: No Hx Squamous Cell Carcinoma: No - Musculoskeletal/Rheumatological Hx Musculoskeletal Disorders: Yes - Gastrointestinal Hx Gastrointestinal Disorders: Yes Hx Colostomy: No Hx Crohn's Disease: No Hx Diverticulitis: No Hx Gall Bladder Disease: No Hx Gastroesophageal Reflux: Yes Hx Ileostomy: No Hx Liver Failure: No Hx Pancreatitis: No HX Swallowing Problems: No - Genitourinary/Gynecological Hx Genitourinary Disorders: No Hx Hematuria: No Hx Incontinence: No Hx Prostate Problems: No Hx Sexually Transmitted Diseases: No Hx Urinary Tract Infection: No - Psychiatric Hx Emotional Abuse: No Hx Physical Abuse: No Hx Substance Use: No - Surgical History Hx Amputation: No Hx Appendectomy: No Hx Cardiac Catheterization: No Hx Cholecystectomy: No Hx Coronary Stent: No Hx Gastric Bypass Surgery: No Hx Hysterectomy: No Hx Joint Replacement: No Hx Kidney Transplant: No Hx Liver Transplant: No Hx Mastectomy: No Hx Musculoskeletal Surgery: No Hx Open Heart Surgery: No Hx Orthopedic Surgery: Yes (b/ shoulder, b/l knee) Hx Splenectomy: No Hx Valve Replacement: No - Anesthesia Hx Anesthesia Reactions: No Hx Malignant Hyperthermia: No Family/Social History - Physician Review Nursing Documentation Reviewed: Yes Family/Social History: Unknown Family HX Smoking Status: Never Smoked Hx Alcohol Use: No Hx Substance Use: No Allergies/Home Meds Allergies/Adverse Reactions: Allergies No Known Allergies Allergy (Verified 07/30/18 21:03) Review of Systems - Physician Review All systems were reviewed & negative as marked: Yes - Review of Systems Constitutional: absent: Fevers Respiratory: absent: SOB, Cough Cardiovascular: absent: Chest Pain Genitourinary Male: absent: Dysuria, Urinary Output Changes Musculoskeletal: absent: Back Pain, Neck Pain Skin: absent: Rash Neurological: absent: Headache, Dizziness Hemo/Lymphatic: Other (Low hemoglobin) Psychiatric: absent: Anxiety Physical Exam Vital Signs Reviewed: Yes Temperature: Afebrile Blood Pressure: Normal Pulse: Tachycardic Respiratory Rate: Normal Appearance: Positive for: Well-Appearing, Non-Toxic, Comfortable Pain Distress: None Mental Status: Positive for: other (Alert and oriented x2) - Systems Exam Head: Present: Atraumatic, Normocephalic Pupils: Present: PERRL Extroacular Muscles: Present: EOMI Conjunctiva: Present: Normal Mouth: Present: Moist Mucous Membranes Respiratory/Chest: Present: Clear to Auscultation, Good Air Exchange, Other (palpable port to right upper thorax ). No: Respiratory Distress, Accessory Muscle Use Cardiovascular: Present: Regular Rate and Rhythm, Normal S1, S2. No: Murmurs Abdomen: No: Tenderness, Distention, Peritoneal Signs Rectal: Present: Hemorrhoids, Normal Rectal Tone. No: Occult Blood, Gross Blood, Melena Back: Present: Decubitus Ulcer (Stage II) Upper Extremity: Present: Normal Inspection. No: Cyanosis, Edema Lower Extremity: Present: Normal Inspection. No: Edema Neurological: Present: GCS=15, Speech Normal Skin: Present: Warm, Dry, Normal Color. No: Rashes Psychiatric: Present: Alert, Normal Insight, Normal Concentration Medical Decision Making ED Course and Treatment: 08/30/18 10:44 Impression: 83 year old male presents to the ED for evaluation of low hemoglobin. Differential Diagnosis included but are not limited to: -- Symptomatic anemia -- Lower GI bleed Plan: -- VBG -- Labs -- IV Fluids -- Blood Culture -- Urine Culture -- Urinalysis --Zosyn --Vancomycin -- Reassess and disposition Prior Visits: Notes and results from previous visits were reviewed. Progress Notes: 08/30/18 10:44 Guaiac negative. 08/30/18 11:44 Labs reviewed with tachycardia, leukocytosis and elevated lactate noted. CODE SEPSIS ACTIVATED. Vancomycin and Zosyn. 30cc/kg NSS ordered. 08/30/18 12:[address] Razo(PCP), who is aware and agrees with ED management plan, accepts patient under her service. - Lab Interpretations Lab Results: 08/30/18 11:05 08/30/18 11:05 Lab Results 08/30/18 11:05: Blood Type A POSITIVE, Antibody Screen Negative, Crossmatch See Detail, BBK History Checked Patient has bt 08/30/18 11:05: Sodium 135, Chloride 104, Potassium 5.5 H, Carbon Dioxide 24, Anion Gap 13, BUN 51 H, Creatinine 1.8 H, Est GFR ( Amer) 44, Est GFR (Non-Af Amer) 36, Random Glucose 130 H, Calcium 10.2, Magnesium 2.0, Total Bilirubin 0.6, AST 53, ALT 48, Alkaline Phosphatase 156 H D, Troponin I < 0.01 D, NT-Pro-B Natriuret Pep 548 H, Total Protein 6.8, Albumin 2.7 L, Globulin 4.0, Albumin/Globulin Ratio 0.7 L 08/30/18 11:05: pO2 109 H, VBG pH 7.37, VBG pCO2 43.0, VBG HCO3 24.9, VBG Total CO2 26.2, VBG O2 Sat (Calc) 99.9 H, VBG Base Excess -0.4 L, VBG Potassium 5.6 H, Sodium 135.0, Chloride 107.0, Glucose 131 H, Lactate 2.0, FiO2 21.0, Crit Value Called To [place], Crit Value Called By Ab, Blood Gas Notified Time 1139, Venous Blood Potassium 5.6 H 08/30/18 11:05: PT 20.4 H, INR 1.81, APTT 29.0 08/30/18 11:05: WBC 18.8 H D, RBC 2.56 L, Hgb 7.3 L, Hct 24.3 L, MCV 94.9 D, MCH 28.5, MCHC 30.0 L, RDW 15.5 H, Plt Count 404, MPV 8.7, Neut % (Auto) 83.6 H, Lymph % (Auto) 4.2 L, [place] % (Auto) 10.4 H, Eos % (Auto) 1.6, Baso % (Auto) 0.2, Lymph # (Auto) 0.8 L, [place] # (Auto) 2.0 H, Eos # (Auto) 0.3, Baso # (Auto) 0.03, Absolute Neuts (auto) 15.72 H, Neutrophils % (Manual) 76 H, Band Neutrophils % 1, Lymphocytes % (Manual) 11 L, Monocytes % (Manual) 9 H, Eosinophils % (Manual) 3 I have reviewed the lab results: Yes - RAD Interpretation Narrative RAD Interpretations (Text): 08/30/18 13:43 Chest X-ray reviewed by radiologist, shows: FINDINGS: LUNGS: Extensive opacity in lower left carlene thorax common, mildly increased from prior examination. No abnormal right-sided opacity. PLEURA: Probable moderate left pleural effusion. Fluid caps the left pulmonary apex as on prior examination. Left chest tube is curled in the left apex unchanged from prior examination no right pleural effusion. No pneumothorax. CARDIOVASCULAR: No aortic atherosclerotic calcification present. Heart size grossly normal. No congestive change. Right central venous infusion port. OSSEOUS STRUCTURES: No significant abnormalities. VISUALIZED UPPER ABDOMEN: Normal. OTHER FINDINGS: None. IMPRESSION: Increasing opacity at left lung base. Possible pneumonia. Moderate left pleural effusion. Left chest tube. Thermostat Machine Tender: Radiologist - EKG Interpretation EKG Interpretation (Text): 08/30/18 10:56 EKG reviewed, shows sinus tachycardia @ 121 bpm, No ST elevations, slightly peaked T waves in V2-V3. Interpreted by ED Physician: Yes Type: 12 lead EKG - Medication Orders Current Medication Orders: Sodium Chloride (Sodium Chloride 0.9%) 1,000 mls @ 999 mls/hr IV .Q1H1M STA Stop: 08/30/18 11:44 Last Admin: 08/30/18 11:14 Dose: 999 mls/hr eMAR Start Stop Document 08/30/18 11:14 EQ (Rec: 08/30/18 11:14 EQ [id number] Intravenous Solution Start Date 08/30/18 Start Time 11:14 Acetaminophen (Tylenol 325mg Tab) 650 mg PO Q6H PRN PRN Reason: Fever >100.4 F Last Admin: 09/02/18 21:02 Dose: 650 mg MAR Pain/Vitals Document 09/02/18 21:02 RM (Rec: 09/02/18 21:02 RM [id number]) Pain Reassessment Is This A Pain ReAssessment? No Sleep Is patient sleeping during reassessment? No Presence of Pain Presence of Pain No Vitals Temperature (97.6 F-99.6 F) 102 F Temperature Source Oral Re-Assess: MAR Pain/Vitals Document 09/02/18 22:02 RM (Rec: 09/03/18 00:27 RM [id number]) Pain Reassessment Is This A Pain ReAssessment? No Sleep Is patient sleeping during reassessment? No Presence of Pain Presence of Pain No Vitals Temperature (97.6 F-99.6 F) 99.7 F Temperature Source Rectal Acetaminophen (Tylenol 325mg Tab) 650 mg PO Q8H [facility] Last Admin: 09/05/18 14:10 Dose: Not Given Non-Admin Reason: patient has a temperature 98.3 Albuterol/Ipratropium (Duoneb 3 Mg/0.5 Mg (3 Ml) Ud) 3 ml IH [id number] [facility] Last Admin: 09/05/18 13:17 Dose: 3 ml Albuterol/Ipratropium (Duoneb 3 Mg/0.5 Mg (3 Ml) Ud) 3 ml IH Q2H PRN PRN Reason: Shortness of Breath Atorvastatin Calcium (Lipitor) 10 mg PO DIN [facility] Last Admin: 09/04/18 18:05 Dose: 10 mg Clonidine HCl (Catapres) 0.1 mg PO TID [facility] Last Admin: 09/05/18 14:04 Dose: 0.1 mg MAR Pulse and Blood Pressure Document 09/05/18 14:04 MTIZY (Rec: 09/05/18 14:07 MITZY [id number]) Pulse Pulse Rate (60-90 beats/min) 109 Blood Pressure Blood Pressure (100/60-150/90 mm Hg) 125/66 Docusate Sodium (Colace) 100 mg PO BID [facility] Last Admin: 09/05/18 09:26 Dose: 100 mg Heparin Sodium (Porcine) (Heparin) 5,000 units SC Q12 [facility]; Protocol Last Admin: 09/05/18 09:26 Dose: 5,000 units Subcutaneous Administrations Document 09/05/18 09:26 MITZY (Rec: 09/05/18 09:26 [facility]) Injection Site MAR Injection Site Left Abdomen Charges for Administration # of Subcutaneous Administrations 1 Meropenem (Merrem Iv 1 Gm Premix) 1 gm in 50 mls @ 100 mls/hr IVPB Q12 [facility]; Protocol Stop: 09/06/18 22:01 Last Admin: 09/05/18 09:22 Dose: 100 mls/hr eMAR Start Stop Document 09/05/18 09:22 MITZY (Rec: 09/05/18 09:23 [facility]) Intravenous Solution Start Date 09/05/18 Start Time 09:22 End Date 09/05/18 End time 09:52 Total Infusion Time 30 Levofloxacin/Dextrose (Levaquin 250mg) 250 mg in 50 mls @ 50 mls/hr IVPB DAILY [facility] Stop: 09/12/18 14:01 Last Admin: 09/05/18 09:22 Dose: 50 mls/hr eMAR Start Stop Document 09/05/18 09:22 MITZY (Rec: 09/05/18 09:22 [facility]) Intravenous Solution Start Date 09/05/18 Start Time 09:22 End Date 09/05/18 End time 10:22 Total Infusion Time 60 Metoprolol Tartrate (Lopressor) 25 mg PO BRKDIN [facility] Last Admin: 09/05/18 08:27 Dose: 25 mg MAR Pulse and Blood Pressure Document 09/05/18 08:27 MITZY (Rec: 09/05/18 08:27 [facility]) Pulse Pulse Rate (60-90 beats/min) 109 Blood Pressure Blood Pressure (100/60-150/90 mm Hg) 129/71 Polyethylene Glycol (Miralax) 17 gm PO DAILY [facility] Last Admin: 09/05/18 14:09 Dose: Not Given Non-Admin Reason: Patient Refused Polysaccharide Iron Complex (Ferrex-150) 150 mg PO DAILY [facility] Last Admin: 09/05/18 09:26 Dose: 150 mg Tamsulosin HCl (Flomax) 0.4 mg PO DAILY [facility] Last Admin: 09/05/18 09:28 Dose: 0.4 mg Discontinued Medications Albuterol Sulfate (Albuterol 0.083% Inhal Cyndie (2.5 Mg/3 Ml) Ud) 2.5 mg INH STAT STA Stop: 08/30/18 12:04 Last Admin: 08/30/18 12:27 Dose: 2.5 mg Dextrose (Dextrose 50% Inj) 50 ml IVP STAT STA Stop: 08/30/18 12:04 Last Admin: 08/30/18 12:29 Dose: 50 ml IVP Administration Document 08/30/18 12:29 EQ (Rec: 08/30/18 12:29 EQ [facility] Charges for Administration # of IVP Administrations 1 Sodium Chloride (Sodium Chloride 0.9%) 1,000 mls @ 999 mls/hr IV .Q1H1M STA Stop: 08/30/18 11:44 Last Admin: 08/30/18 11:14 Dose: 999 mls/hr eMAR Start Stop Document 08/30/18 11:14 EQ (Rec: 08/30/18 11:14 EQ [facility]) Intravenous Solution Start Date 08/30/18 Start Time 11:14 Sodium Chloride 2,640 ml/ IV (SUPPLIES) 2,640 mls @ 5,282.52 mls/hr IV ONCE ONE Stop: 08/30/18 12:12 Last Admin: 08/30/18 11:54 Dose: 5,282.52 mls/hr eMAR Start Stop Document 08/30/18 11:54 EQ (Rec: 08/30/18 11:54 EQ [facility]) Intravenous Solution Start Date 08/30/18 Start Time 11:54 Piperacillin Sod/Tazobactam Sod (Zosyn 4.5 Gm In Ns 100ml) 4.5 gm in 100 mls @ 200 mls/hr IVPB STAT STA; Protocol Stop: 08/30/18 12:12 Last Admin: 08/30/18 11:53 Dose: 200 mls/hr eMAR Start Stop Document 08/30/18 11:53 EQ (Rec: 08/30/18 11:53 EQ [facility]) Intravenous Solution Start Date 08/30/18 Start Time 11:53 Vancomycin HCl (Vancomycin 1gm) 1 gm in 250 mls @ 167 mls/hr IVPB STAT STA; Protocol Stop: 08/30/18 13:14 Last Admin: 08/30/18 12:26 Dose: 167 mls/hr eMAR Start Stop Document 08/30/18 12:26 EQ (Rec: 08/30/18 12:26 EQ [facility] Intravenous Solution Start Date 08/30/18 Start Time 12:26 Vancomycin HCl 2 gm/ Sodium (Chloride) 500 mls @ 170 mls/hr IVPB ONCE ONE; Protocol Stop: 09/03/18 00:56 Last Admin: 09/02/18 21:59 Dose: 170 mls/hr eMAR Start Stop Document 09/02/18 21:59 RM (Rec: 09/02/18 22:00 RM [id number]) Intravenous Solution Start Date 09/02/18 Start Time 22:26 End Date 09/03/18 End time 01:23 Total Infusion Time 177 Vancomycin HCl (Vancomycin 1gm) 1 gm in 250 mls @ 167 mls/hr IVPB STAT STA; Protocol Stop: 09/03/18 15:25 Last Admin: 09/03/18 15:33 Dose: 167 mls/hr eMAR Start Stop Document 09/03/18 15:33 CHERYL (Rec: 09/03/18 15:33 CHERYL [id number] Intravenous Solution Start Date 09/03/18 Start Time 15:33 Levofloxacin/Dextrose (Levaquin 500mg) 500 mg in 100 mls @ 100 mls/hr IVPB STAT STA; Protocol Stop: 09/03/18 15:14 Last Admin: 09/03/18 16:15 Dose: 100 mls/hr eMAR Start Stop Document 09/03/18 16:15 CHERYL (Rec: 09/03/18 16:15 CHERYL [id number] Intravenous Solution Start Date 09/03/18 Start Time 16:15 Insulin Human Regular (Humulin R) 10 units IVP ONCE ONE Stop: 08/30/18 12:05 Last Admin: 08/30/18 12:27 Dose: 10 units MAR Blood Glucose Document 08/30/18 12:27 EQ (Rec: 08/30/18 12:27 EQ [facility] Blood Glucose Finger Stick Blood Glucose (70-120) 118 IVP Administration Document 08/30/18 12:27 EQ (Rec: 08/30/18 12:27 EQ [id number]) Charges for Administration # of IVP Administrations 1 Metoprolol Succinate (Toprol Xl) 25 mg PO STAT STA Stop: 09/02/18 21:32 Last Admin: 09/02/18 21:56 Dose: 25 mg MAR Pulse and Blood Pressure Document 09/02/18 21:56 RM (Rec: 09/02/18 21:56 RM [id number]) Pulse Pulse Rate (60-90 beats/min) 131 Metoprolol Tartrate (Lopressor) 25 mg PO STAT STA Stop: 09/03/18 20:34 Last Admin: 09/03/18 21:45 Dose: 25 mg MAR Pulse and Blood Pressure Document 09/03/18 21:45 AJP (Rec: 09/03/18 21:45 AJP [facility] Pulse Pulse Rate (60-90 beats/min) 120 Oxycodone/Acetaminophen (Percocet 5/325 Mg Tab) 1 tab PO Q6H PRN PRN Reason: Pain, moderate (4-7) Stop: 09/05/18 12:26 Last Admin: 09/04/18 18:04 Dose: 1 tab [facility] Pain Assessment Document 09/04/18 18:04 CHERYL (Rec: 09/04/18 18:04 CHERYL [id number] Pain Reassessment Is this a pain reassessment? No Sleep Is patient sleeping during reassessment? No Presence of Pain Presence of Pain Yes Pain Scale Used Protocol: PSCALES Pain Scale Used Numeric Location Pain Location Body Site Generalized Re-Assess: [facility] Pain Assessment Document 09/04/18 19:04 RS (Rec: 09/04/18 21:00 RS [id number] Pain Reassessment Is this a pain reassessment? Yes Sleep Is patient sleeping during reassessment? Yes Sodium Polystyrene Sulfonate (Kayexalate) 30 gm PO ONCE ONE Stop: 09/03/18 09:51 Last Admin: 09/03/18 11:37 Dose: 30 gm - Scribe Statement The provider has reviewed the documentation as recorded by the Monicaibremigio Ortiz. All medical record entries made by the Monicaibremigio were at my direction and personally dictated by me. I have reviewed the chart and agree that the record accurately reflects my personal performance of the history, physical exam, medical decision making, and the department course for this patient. I have also personally directed, reviewed, and agree with the discharge instructions and disposition. Disposition/Present on Arrival - Present on Arrival Any Indicators Present on Arrival: No History of DVT/PE: No History of Uncontrolled Diabetes: No Urinary Catheter: No History of Decub. Ulcer: No History Surgical Site Infection Following: None - Disposition Have Diagnosis and Disposition been Completed?: Yes Diagnosis: Anemia, Sepsis, Pneumonia Disposition: HOSPITALIZED Disposition Time: 12:09 Patient Plan: Admission Condition: GUARDED
[2018-08-30 11:30] LABS: BASO # 0.03 {null, K/mm3} (0.0-2.0); BASO % 0.2 % (0.0-3.0); EOS # 0.3 (0.0-0.7); EOS % 1.6 % (1.5-5.0); HEMOGLOBIN 7.3 g/dL (14.0-18.0); LYMPH # 0.8 (1.2-3.4); LYMPH % 4.2 % (22.0-35.0); MEAN CELL VOLUME 94.9 fl (80.0-105.0); MEAN CORPUSCULAR HEMOGLOBIN 28.5 pg (25.0-35.0); MEAN PLATELET VOLUME 8.7 fl (7.0-11.0); MONO % 10.4 % (1.0-6.0); PLATELET COUNT 404 {null, 10^3/uL} (120.0-450.0); RBC 2.56 {null, 10^6/uL} (3.5-6.1); RED CELL DISTRIBUTION WIDTH 15.5 % (11.5-14.5); WHITE BLOOD COUNT 18.8 {null, 10^3/uL} (4.5-11.0)
[2018-08-30 11:38] LABS: INR 1.81; PROTHROMBIN TIME 20.4 SECONDS (9.4-12.5)
[2018-08-30 11:40] LABS: VENOUS BLOOD GAS BASE EXCESS -0.4 mmol/L (0.0-2.0); VENOUS BLOOD GAS PO2 109 mm/Hg (30-55); VENOUS BLOOD PH 7.37 (7.32-7.43)
[2018-08-30] MEDS ORDERED: Piperacill/Tazo 4.5gm in NS 4.5 GM/100 ML BAG IVPB STA (11:43)
[2018-08-30] MEDS ORDERED: Vancomycin 1gm in NS 250ml 1 GM/250 ML BAG IVPB STA (11:45)
[2018-08-30 11:49] LABS: B-TYPE NATRIURETIC PEPTIDE 548 pg/mL (0-450); TROPONIN I < 0.01 ng/mL
[2018-08-30 11:51] LABS: ALB/GLOB RATIO 0.7 (1.1-1.8); ALBUMIN 2.7 g/dL (3.0-4.8); ALT/SGPT 48 U/L (7-56); AST/SGOT 53 U/L (17-59); BLOOD UREA NITROGEN 51 mg/dL (7-21); CALCIUM 10.2 mg/dL (8.4-10.5); GFR NON-AFRICAN AMERICAN 36
[2018-08-30 11:57] LABS: BAND 1 % (0-2); EOSINOPHIL 3 % (0.0-3.0); LYMPHOCYTE 11 % (22.0-35.0); MONOCYTE 9 % (1.0-6.0); NEUTROPHIL 76 % (50.0-70.0)
[2018-08-30] MEDS ORDERED: Albuterol 0.083% Inhal Sol (2.5 mg/3 mL) UD INH STA (12:03)
[2018-08-30] MEDS ORDERED: Dextrose 50% SYRINGE Inj (50 ml) IVP STA (12:03)
[2018-08-30] MEDS ORDERED: Insulin Regular 1 UNITS/0.01 ML ML IVP ONE (12:04)
[2018-08-30] MEDS ORDERED: Albuterol-Ipratrop 3 mg / 0.5 (3 ml) UD IH PRN (12:52)
[2018-08-30 13:25] LABS: URINE BILIRUBIN NEGATIVE (NEGATIVE); URINE BLOOD SMALL (NEGATIVE); URINE GLUCOSE (UA) NEGATIVE (NEGATIVE); URINE LEUKOCYTE ESTERASE NEGATIVE Leu/uL (NEGATIVE); URINE PROTEIN TRACE mg/dL (<30 mg/dL); URINE UROBILINOGEN 0.2 E.U./dL (<1 E.U./dL)
--- NOTE | 2018-08-30 13:27 | RAD ---
Date of service: 08/30/2018 HISTORY: sob COMPARISON: 08/18/2018 FINDINGS: LUNGS: Extensive opacity in lower left carlene thorax common, mildly increased from prior examination. No abnormal right-sided opacity. PLEURA: Probable moderate left pleural effusion. Fluid caps the left pulmonary apex as on prior examination. Left chest tube is curled in the left apex unchanged from prior examination no right pleural effusion. No pneumothorax. CARDIOVASCULAR: No aortic atherosclerotic calcification present. Heart size grossly normal. No congestive change. Right central venous infusion port. OSSEOUS STRUCTURES: No significant abnormalities. VISUALIZED UPPER ABDOMEN: Normal. OTHER FINDINGS: None. IMPRESSION: Increasing opacity at left lung base. Possible pneumonia. Moderate left pleural effusion. Left chest tube.
[2018-08-30 13:29] LABS: URINE APPEARANCE CLEAR (CLEAR); URINE COLOR YELLOW (YELLOW)
[2018-08-30 13:57] LABS: URINE BACTERIA MANY /hpf; URINE WBC 0 - 2 /hpf (0-6)
[2018-08-30 13:58] LABS: URINE COARSE GRANULAR CAST SMALL /hpf; URINE FINE GRANULAR CAST 0 - 2 /hpf
[2018-08-30 13:59] LABS: URINE AMORPHOUS SEDIMENT SMALL /hpf
--- NOTE | 2018-08-30 15:05 | PCM.SEPTIC ---
Sepsis Progress Note - Reassessment Type Date of Evaluation: 08/30/18 Time of Evaluation: 15:04 Reassessment Type: Non-invasive reassessment - Non Invasive Reassessment Were the most recent vital sign reviewed: Yes Vital Sign (Latest): Temp Pulse Resp BP Pulse Ox 97.5 F L 99 H 18 116/65 100 08/30/18 11:22 08/30/18 14:17 08/30/18 14:17 08/30/18 14:17 08/30/18 14:17 Cardiovascular: Yes: Regular Rate, Rhythm, Chest Non Tender. No: Edema, Gallop, JVD, Murmur Respiratory: Yes: Crackles (LLL crackles auscultated, but no acute respiratory distress), Rales. No: Accessory Muscle Use, Rhonchi, Wheezing, Respiratory Distress Capillary Refill: Normal (Less than 2 sec) Pulses: Normal Radial, Normal Dorsalis Pedis, Normal Posterior Tibialis Skin: Warm, Dry
[2018-08-30 15:20] LABS: VENOUS BLOOD GAS BASE EXCESS -1.6 mmol/L (0.0-2.0); VENOUS BLOOD GAS PO2 191 mm/Hg (30-55); VENOUS BLOOD PH 7.45 (7.32-7.43)
[2018-08-30] MEDS: Albuterol-Ipratrop 3 mg / 0.5 (3 ml) UD IH SCH ×2 (15:39→20:17)
--- NOTE | 2018-08-30 16:29 | CP.PCM.CON ---
History of Present Illness - History of Present Illness History of Present Illness: 83 year old male with PMH of recurrent left sided pleural effusion, HTN, prostate CA, PUD, chronic anemia was recently in [facility] diagnosed with left sided lung squamous cell carcinoma. He was also treated for possible hospital-acquired pneumonia. [facility] hemoglobin for further evaluation. The patient also feels weak and tired, denies shortness of breath at rest but has dry cough, no fevers, no headache, no chest pain, no abdominal pain , no diarrhea. He is also found to have leukocytosis in the ED, and CXR is showing increased opacity on the left side. Infectious Diseases consult is requested to further evaluate and manage. Review of Systems - Review of Systems All systems: reviewed and no additional remarkable complaints except (as per HPI) Past Patient History - Infectious Disease Hx of Infectious Diseases: None - Past Social History Smoking Status: Never Smoked - CARDIAC Hx Cardiac Disorders: Yes Hx Hypertension: Yes - PULMONARY Hx Chronic Obstructive Pulmonary Disease (COPD): No - NEUROLOGICAL HX Cerebrovascular Accident: No - HEENT Hx HEENT Problems: Yes Hx Cataracts: Yes - RENAL Hx Chronic Kidney Disease: No - ENDOCRINE/METABOLIC Hx Diabetes Mellitus Type 1: No Hx Diabetes Mellitus Type 2: No Hx Hypothyroidism: No - HEMATOLOGICAL/ONCOLOGICAL Hx Blood Transfusions: Yes Hx Blood Transfusion Reaction: No - INTEGUMENTARY Hx Dermatological Problems: No Hx Basil Cell: No Hx Eczema: No Hx Melanoma: No Hx Psoriasis: No Hx Squamous Cell: No - MUSCULOSKELETAL/RHEUMATOLOGICAL Hx Musculoskeletal Disorders: Yes - GASTROINTESTINAL Hx Gastrointestinal Disorders: Yes Hx Colostomy: No Hx Crohn's Disease: No Hx Diverticulitis: No Hx Gall Bladder Disease: No Hx Gastroesophageal Reflux: Yes Hx Ileostomy: No Hx Liver Failure: No Hx Pancreatitis: No HX Swallowing Problems: No - GENITOURINARY/GYNECOLOGICAL Hx Genitourinary Disorders: No Hx Hematuria: No Hx Incontinence: No Hx Prostate Problems: No Hx Sexually Transmitted Disorders: No Hx Urinary Tract Infection: No - PSYCHIATRIC Hx Emotional Abuse: No Hx Physical Abuse: No Hx Substance Use: No - SURGICAL HISTORY Hx Amputation: No Hx Appendectomy: No Hx Cardiac Catheterization: No Hx Cholecystectomy: No Hx Coronary Stent: No Hx Gastric Bypass Surgery: No Hx Hysterectomy: No Hx Joint Replacement: No Hx Kidney Transplant: No Hx Liver Transplant: No Hx Mastectomy: No Hx Musculoskeletal Surgery: No Hx Open Heart Surgery: No Hx Orthopedic Surgery: Yes (b/ shoulder, b/l knee) Hx Splenectomy: No Hx Valve Replacement: No - ANESTHESIA Hx Anesthesia Reactions: No Hx Malignant Hyperthermia: No Meds Allergies/Adverse Reactions: Allergies Allergy/AdvReac Type Severity Reaction Status Date / Time No Known Allergies Allergy Verified 07/30/18 21:03 - Medications Medications: Current Medications Albuterol/Ipratropium (Duoneb 3 Mg/0.5 Mg (3 Ml) Ud) 3 ml IH [id number] MELECIO Albuterol/Ipratropium (Duoneb 3 Mg/0.5 Mg (3 Ml) Ud) 3 ml IH Q2H PRN PRN Reason: Shortness of Breath Atorvastatin Calcium (Lipitor) 10 mg PO DIN MELECIO Clonidine HCl (Catapres) 0.1 mg PO TID MELECIO Docusate Sodium (Colace) 100 mg PO BID MELECIO Furosemide (Lasix) 40 mg IVP DAILY MELECIO Heparin Sodium (Porcine) (Heparin) 5,000 units SC Q12 MELECIO; Protocol Polyethylene Glycol (Miralax) 17 gm PO DAILY MELECIO Polysaccharide Iron Complex (Ferrex-150) 150 mg PO DAILY MELECIO Tamsulosin HCl (Flomax) 0.4 mg PO DAILY MELECIO Physical Exam - Constitutional Appears: Chronically Ill - Head Exam Head Exam: NORMAL INSPECTION - Respiratory Exam Respiratory Exam: Decreased Breath Sounds - Cardiovascular Exam Cardiovascular Exam: +S1, +S2 - GI/Abdominal Exam GI & Abdominal Exam: Soft. absent: Tenderness Results - Vital Signs Recent Vital Signs: Last Vital Signs Temp 97.5 F L 08/30/18 11:22 Pulse 99 H 08/30/18 14:17 Resp 18 08/30/18 14:17 BP 116/65 08/30/18 14:17 Pulse Ox 100 08/30/18 14:17 - Labs Result Diagrams: 08/30/18 11:05 08/30/18 11:05 Labs: Laboratory Results - last 24 hr 08/30/18 08/30/18 08/30/18 11:05 11:05 11:05 WBC 18.8 H D RBC 2.56 L Hgb 7.3 L Hct 24.3 L MCV 94.9 D MCH 28.5 MCHC 30.0 L RDW 15.5 H Plt Count 404 MPV 8.7 Neut % (Auto) 83.6 H Lymph % (Auto) 4.2 L Alpine % (Auto) 10.4 H Eos % (Auto) 1.6 Baso % (Auto) 0.2 Lymph # (Auto) 0.8 L Alpine # (Auto) 2.0 H Eos # (Auto) 0.3 Baso # (Auto) 0.03 Absolute Neuts (auto) 15.72 H Neutrophils % (Manual) 76 H Band Neutrophils % 1 Lymphocytes % (Manual) 11 L Monocytes % (Manual) 9 H Eosinophils % (Manual) 3 PT 20.4 H INR 1.81 APTT 29.0 pO2 109 H VBG pH 7.37 VBG pCO2 43.0 VBG HCO3 24.9 VBG Total CO2 26.2 VBG O2 Sat (Calc) 99.9 H VBG Base Excess -0.4 L VBG Potassium 5.6 H Sodium 135.0 Chloride 107.0 Glucose 131 H Lactate 2.0 FiO2 21.0 Crit Value Called To [place] Crit Value Called By Ab Blood Gas Notified Time 1139 Potassium Carbon Dioxide Anion Gap BUN Creatinine Est GFR ( Amer) Est GFR (Non-Af Amer) POC Glucose (mg/dL) Random Glucose Calcium Magnesium Total Bilirubin AST ALT Alkaline Phosphatase Troponin I NT-Pro-B Natriuret Pep Total Protein Albumin Globulin Albumin/Globulin Ratio Venous Blood Potassium 5.6 H Urine Color Urine Appearance Urine pH Ur Specific Tabor Urine Protein Urine Glucose (UA) Urine Ketones Urine Blood Urine Nitrate Urine Bilirubin Urine Urobilinogen Ur Leukocyte Esterase Urine RBC Urine WBC Ur Epithelial Cells Amorphous Sediment Urine Bacteria Fine Granular Casts Coarse Granular Casts Urine Other Blood Type Antibody Screen BBK History Checked 08/30/18 08/30/18 08/30/18 11:05 11:05 12:15 WBC RBC Hgb Hct MCV MCH MCHC RDW Plt Count MPV Neut % (Auto) Lymph % (Auto) Alpine % (Auto) Eos % (Auto) Baso % (Auto) Lymph # (Auto) Alpine # (Auto) Eos # (Auto) Baso # (Auto) Absolute Neuts (auto) Neutrophils % (Manual) Band Neutrophils % Lymphocytes % (Manual) Monocytes % (Manual) Eosinophils % (Manual) PT INR APTT pO2 VBG pH VBG pCO2 VBG HCO3 VBG Total CO2 VBG O2 Sat (Calc) VBG Base Excess VBG Potassium Sodium 135 Chloride 104 Glucose Lactate FiO2 Crit Value Called To Crit Value Called By Blood Gas Notified Time Potassium 5.5 H Carbon Dioxide 24 Anion Gap 13 BUN 51 H Creatinine 1.8 H Est GFR ( Amer) 44 Est GFR (Non-Af Amer) 36 POC Glucose (mg/dL) 116 H Random Glucose 130 H Calcium 10.2 Magnesium 2.0 Total Bilirubin 0.6 AST 53 ALT 48 Alkaline Phosphatase 156 H D Troponin I < 0.01 D NT-Pro-B Natriuret Pep 548 H Total Protein 6.8 Albumin 2.7 L Globulin 4.0 Albumin/Globulin Ratio 0.7 L Venous Blood Potassium Urine Color Urine Appearance Urine pH Ur Specific Tabor Urine Protein Urine Glucose (UA) Urine Ketones Urine Blood Urine Nitrate Urine Bilirubin Urine Urobilinogen Ur Leukocyte Esterase Urine RBC Urine WBC Ur Epithelial Cells Amorphous Sediment Urine Bacteria Fine Granular Casts Coarse Granular Casts Urine Other Blood Type A POSITIVE Antibody Screen Negative BBK History Checked Patient has bt 08/30/18 13:00 WBC RBC Hgb Hct MCV MCH MCHC RDW Plt Count MPV Neut % (Auto) Lymph % (Auto) Alpine % (Auto) Eos % (Auto) Baso % (Auto) Lymph # (Auto) Alpine # (Auto) Eos # (Auto) Baso # (Auto) Absolute Neuts (auto) Neutrophils % (Manual) Band Neutrophils % Lymphocytes % (Manual) Monocytes % (Manual) Eosinophils % (Manual) PT INR APTT pO2 VBG pH VBG pCO2 VBG HCO3 VBG Total CO2 VBG O2 Sat (Calc) VBG Base Excess VBG Potassium Sodium Chloride Glucose Lactate FiO2 Crit Value Called To Crit Value Called By Blood Gas Notified Time Potassium Carbon Dioxide Anion Gap BUN Creatinine Est GFR ( Amer) Est GFR (Non-Af Amer) POC Glucose (mg/dL) Random Glucose Calcium Magnesium Total Bilirubin AST ALT Alkaline Phosphatase Troponin I NT-Pro-B Natriuret Pep Total Protein Albumin Globulin Albumin/Globulin Ratio Venous Blood Potassium Urine Color Yellow Urine Appearance Clear Urine pH 6.0 Ur Specific Tabor 1.025 Urine Protein Trace H Urine Glucose (UA) Negative Urine Ketones Negative Urine Blood Small H Urine Nitrate Negative Urine Bilirubin Negative Urine Urobilinogen 0.2 Ur Leukocyte Esterase Negative Urine RBC 5 - 10 H Urine WBC 0 - 2 Ur Epithelial Cells 1 - 3 Amorphous Sediment Small Urine Bacteria Many Fine Granular Casts 0 - 2 Coarse Granular Casts Small Urine Other Uyeast Blood Type Antibody Screen BBK History Checked Assessment & Plan - Assessment and Plan (Free Text) Plan: Assessment systemic inflammatory response syndrome, R/O sepsis from left sided HAP in this patient with lung cancer history of sepsis from HAP, R/O Influenza, R/O UTI with Pseudomonas left sided pleural effusion S/P pleural catheter placement with pleural mass, S/P biopsy showing squamous cell carcinoma, now on chemotherapy history of sepsis due to right lower lobe HCAP HTN prostate CA PUD chronic anemia chronic renal failure Plan given a dose of IV Vancomycin and started Merrem pending blood, urine cx, PCT; reviewed CXR overall prognosis is poor
[2018-08-30 19:07] VITALS: BMI 26.3
--- NOTE | 2018-08-30 21:03 | HP ---
DATE OF EXAM: 08/30/2018 HISTORY OF PRESENT ILLNESS: The patient is an 83-year-old, known to me from multiple previous admissions. Transferred from [place] because of increasing weakness. He has short of breath. His blood work shows his hemoglobin is 7.5. The patient has received multiple transfusions in the past, so he is being transferred for blood transfusion and take care of other multiple medical issues. He complains of feeling weak, tired, and short of breath. No abdominal pain. No nausea or vomiting. No diarrhea. PAST MEDICAL HISTORY: 1. Recently diagnosed squamous cell carcinoma, stage IV. 2. Recurrent malignant pleural effusion, status post multiple thoracenteses. 3. Chronic anemia. 4. Chronic kidney disease. 5. Hypertension. 6. History of CA prostate in remote past. ALLERGY: HE IS NOT ALLERGIC TO ANY MEDICATION. MEDICATIONS AT HOME: He is on tramadol 50 mg three times a day, prednisone 10 mg daily, Percocet as needed, clonidine 0.1 mg t.i.d., 10 mg daily, Flomax 0.4 mg daily, simethicone as needed, MiraLax as needed, iron supplementation, Lasix 40 mg intermittent, atorvastatin 10 mg at given time. SOCIAL HISTORY: He used to . He is and he has very supportive . He used to drink socially. REVIEW OF SYSTEMS: Generalized weakness, shortness of breath, and poor appetite. PHYSICAL EXAMINATION: GENERAL: He looks short of breath, looks weak as well lost amount of weight. VITAL SIGNS: He is afebrile, pulse 118, respiration 18, and blood pressure 127/58. LUNGS: Decreased breath sounds at bases, left more than the right. HEART: S1 and S2 audible. ABDOMEN: Soft, obese, and nontender. No rebound. No guarding. NEUROLOGIC: He is awake and alert who had generalized weakness. LABORATORY DATA: WBC is 18.8, hemoglobin 7.3, hematocrit 24.3, and platelet 404. PT 20.4, INR 1.81. Chemistry; sodium 135, potassium 5.5, chloride 104, CO2 of 24, BUN 51, and creatinine 1.3. Blood sugar of 116 and close to 156. X-ray of chest shows left lower lobe infiltrate versus effusion. ASSESSMENT: 1. Symptomatic anemia. 2. Stage IV squamous cell carcinoma of the lung. 3. Recurrent malignant pleural effusion, status post a spiral catheter placement. 4. Chronic kidney disease. 5. Hypertension. 6. Deconditioning and difficulty walking. PLAN: The patient will be admitted. We will start him on nebulizer treatment. He will receive 2 pack RBCs. We will give him IV antibiotics empirically. I request for ID evaluation and Nephrology evaluation, and we will follow up his H and H and CMP. Tejinder Razo MD
[2018-08-30] MEDS: Meropenem IV 1 gm in NS 1 GM/50 ML BAG IVPB SCH (21:28)
--- NOTE | 2018-08-30 22:38 | CARD ---
APPROVED REPORT Date of service: 08/30/2018 EKG Measurement Heart [id number] <Conclusion> Sinus tachycardia Baseline artifact Otherwise normal ECG
[2018-08-31] MEDS: Albuterol-Ipratrop 3 mg / 0.5 (3 ml) UD IH SCH ×4 (03:33→21:05)
[2018-08-31 07:08] LABS: BASO # 0.03 {null, K/mm3} (0.0-2.0); BASO % 0.2 % (0.0-3.0); EOS # 0.4 (0.0-0.7); LYMPH # 1.2 (1.2-3.4); LYMPH % 6.3 % (22.0-35.0); MEAN CELL VOLUME 94.9 fl (80.0-105.0); MEAN CORPUSCULAR HEMOGLOBIN 28.7 pg (25.0-35.0); MEAN CORPUSCULAR HGB CONC 30.2 g/dl (31.0-37.0); MEAN PLATELET VOLUME 8.6 fl (7.0-11.0); MONO # 1.4 (0.1-0.6); MONO % 7.4 % (1.0-6.0); RBC 2.37 {null, 10^6/uL} (3.5-6.1); RED CELL DISTRIBUTION WIDTH 15.8 % (11.5-14.5); WHITE BLOOD COUNT 18.8 {null, 10^3/uL} (4.5-11.0)
[2018-08-31 07:25] LABS: HEMOGLOBIN 6.8 g/dL (14.0-18.0)
[2018-08-31 07:34] LABS: ALB/GLOB RATIO 0.6 (1.1-1.8); ALBUMIN 2.5 g/dL (3.0-4.8)
--- NOTE | 2018-08-31 10:25 | CP.PCM.APN ---
Subjective - Date & Time of Evaluation Date of Evaluation: 08/31/18 Time of Evaluation: 10:00 - Subjective Subjective: pt seen and examined at bedside, pt awake , in no distress and offers no complaints except feeling weak today. pt denies cp or SOB. Review of Systems - Constitutional Constitutional: Lethargy, Malaise Objective - Vital Signs/Intake and Output Vital Signs (last 24 hours): Temp Pulse Resp BP Pulse Ox 100.7 F H 103 H 20 129/77 98 08/31/18 08:48 08/31/18 08:48 08/31/18 08:48 08/31/18 08:48 08/31/18 08:48 Intake and Output: 08/31/18 08/31/18 06:59 18:59 Intake Total 180 Balance 180 - Medications Medications: Current Medications Acetaminophen (Tylenol 325mg Tab) 650 mg PO Q6H PRN PRN Reason: Fever >100.4 F Last Admin: 08/31/18 04:56 Dose: 650 mg Acetaminophen (Tylenol 325mg Tab) 650 mg PO Q8H MELECIO Albuterol/Ipratropium (Duoneb 3 Mg/0.5 Mg (3 Ml) Ud) 3 ml IH [id number] MELECIO Last Admin: 08/31/18 07:45 Dose: 3 ml Albuterol/Ipratropium (Duoneb 3 Mg/0.5 Mg (3 Ml) Ud) 3 ml IH Q2H PRN PRN Reason: Shortness of Breath Atorvastatin Calcium (Lipitor) 10 mg PO DIN COUNTS INCLUDE 234 BEDS AT THE [facility] Last Admin: 08/30/18 18:26 Dose: 10 mg Clonidine HCl (Catapres) 0.1 mg PO TID MELECIO Last Admin: 08/30/18 18:26 Dose: 0.1 mg Docusate Sodium (Colace) 100 mg PO BID MELECIO Last Admin: 08/30/18 18:26 Dose: 100 mg Furosemide (Lasix) 40 mg IVP DAILY COUNTS INCLUDE 234 BEDS AT THE [facility] Heparin Sodium (Porcine) (Heparin) 5,000 units SC Q12 COUNTS INCLUDE 234 BEDS AT THE [facility]; Protocol Last Admin: 08/30/18 21:28 Dose: 5,000 units Meropenem (Merrem Iv 1 Gm Premix) 1 gm in 50 mls @ 100 mls/hr IVPB Q12 COUNTS INCLUDE 234 BEDS AT THE [facility]; Protocol Stop: 09/06/18 22:01 Last Admin: 08/30/18 21:28 Dose: 100 mls/hr Polyethylene Glycol (Miralax) 17 gm PO DAILY COUNTS INCLUDE 234 BEDS AT THE [facility] Polysaccharide Iron Complex (Ferrex-150) 150 mg PO DAILY COUNTS INCLUDE 234 BEDS AT THE [facility] Tamsulosin HCl (Flomax) 0.4 mg PO DAILY COUNTS INCLUDE 234 BEDS AT THE [facility] - Labs Labs: 08/31/18 06:45 08/31/18 06:45 PT 20.4 SECONDS (9.4-12.5) H 08/30/18 11:05 INR 1.81 08/30/18 11:05 APTT 29.0 Seconds (26.9-38.3) 08/30/18 11:05 - Constitutional Appears: No Acute Distress - Eye Exam Eye Exam: Normal appearance Pupil Exam: NORMAL ACCOMODATION - Respiratory Exam Respiratory Exam: Decreased Breath Sounds, NORMAL BREATHING PATTERN - Cardiovascular Exam Cardiovascular Exam: +S1, +S2 Additional comments: port to chest wall - intact - GI/Abdominal Exam GI & Abdominal Exam: Soft, Normal Bowel Sounds - Rectal Exam Rectal Exam: Deferred - Extremities Exam Extremities Exam: Normal Capillary Refill - Back Exam Back Exam: NORMAL INSPECTION - Neurological Exam Neurological Exam: Awake - Psychiatric Exam Psychiatric exam: Normal Affect, Normal Mood - Skin Skin Exam: Dry, Intact Assessment and Plan - Assessment and Plan (Free Text) Plan: Impressions Chest X-Ray 08/30/18 12:06 IMPRESSION: Increasing opacity at left lung base. Possible pneumonia. Moderate left pleural effusion. Left chest tube. Medication Orders 08/30/18 10:44 Sodium Chloride 0.9% 1,000 ml IV 999 mls/hr Sodium Chloride 0.9% 2,640 ml IV Supplies [Empty IV Bag] 1 IV ONCE 08/30/18 12:52 Albuterol/Ipratropium [Duoneb 3 mg/0.5 mg (3 ml) UD] 3 ml IH Q2H PRN 08/30/18 13:00 Heparin 5,000 units SC Q12 Anticoagulation Clinical Indication: DVT/PE Prevention 08/30/18 14:00 Albuterol/Ipratropium [Duoneb 3 mg/0.5 mg (3 ml) UD] 3 ml IH [id number] cloNIDine [Catapres] 0.1 mg PO TID 08/30/18 17:00 Atorvastatin [Lipitor] 10 mg PO DIN 08/30/18 18:00 Docusate [Colace] 100 mg PO BID 08/30/18 19:58 Acetaminophen [Tylenol 325mg tab] 650 mg PO Q6H PRN 08/30/18 22:00 Meropenem IV 1 gm in NS [Merrem IV 1 gm Premix] 1 gm in 50 ml IVPB Q12 Meropenem Indication: HAP 08/31/18 10:00 Furosemide [Lasix] 40 mg IVP DAILY Iron Polysaccharide [Ferrex-150] 150 mg PO DAILY Polyethylene Glycol 3350 [Miralax] 17 gm PO DAILY Tamsulosin [Flomax] 0.4 mg PO DAILY 08/31/18 10:15 Acetaminophen [Tylenol 325mg tab] 650 mg PO Q8H 83 yr old pt with pmh sig for htn, chronic effusion, pvd, chronic anemia, lung ca, hx of HCAP who presented from skilled nursing with lethargay now admitted for mgmt amd treatment of acute anemia and sepsis undergoing ID eval. pt had 1 unit of blood and will receive another unit if afebrile today per discussion with RN pt with panculture, ID consultation and IV antibiotic regimen in place All Active Problems KIKO (acute kidney injury) (Acute) Abdominal pain (Acute) Anemia (Acute) Fall (Acute) Hyperkalemia (Acute) Leukocytosis (Acute) Pleural effusion (Acute) Pneumonia (Acute) Renal insufficiency (Acute) Thrombocytosis (Acute) discuss plan with Rn and cm will discuss with pmd plan re : possible GI eval and vasc eval for left effusion. will continue to follow clinically BPCI/TIC - BPCIA/TIC Educated pt/family on BPCIA/CIR/Med to Bed Programs: Yes Flyers given, including [facility] Beneficiary letter: Yes Pt/family verbalized understanding & agreed to program: Yes
[2018-08-31] MEDS: Iron Complex Polysacch 150mg Cap PO SCH (11:34)
[2018-08-31] MEDS: POLYETHYLENE GLYCOL 3350 17 GM/Dose PACKET PO SCH (11:35)
[2018-08-31] MEDS: Meropenem IV 1 gm in NS 1 GM/50 ML BAG IVPB SCH ×2 (11:35→22:00)
--- NOTE | 2018-08-31 17:47 | CP.PCM.PN ---
Subjective - Date & Time of Evaluation Date of Evaluation: 08/31/18 Time of Evaluation: 10:50 - Subjective Subjective: Still having low grade fevers, still feeling weak. Objective - Vital Signs/Intake and Output Vital Signs (last 24 hours): Temp Pulse Resp BP Pulse Ox 97.5 F L 100 H 18 124/62 100 08/30/18 11:22 08/30/18 15:40 08/30/18 15:40 08/30/18 15:40 08/30/18 15:40 - Medications Medications: Current Medications Albuterol/Ipratropium (Duoneb 3 Mg/0.5 Mg (3 Ml) Ud) 3 ml IH [id number] MELECIO Last Admin: 08/30/18 15:39 Dose: 3 ml Albuterol/Ipratropium (Duoneb 3 Mg/0.5 Mg (3 Ml) Ud) 3 ml IH Q2H PRN PRN Reason: Shortness of Breath Atorvastatin Calcium (Lipitor) 10 mg PO DIN MELECIO Clonidine HCl (Catapres) 0.1 mg PO TID [facility] Last Admin: 08/30/18 15:39 Dose: Not Given Docusate Sodium (Colace) 100 mg PO BID MELECIO Furosemide (Lasix) 40 mg IVP DAILY [facility] Heparin Sodium (Porcine) (Heparin) 5,000 units SC Q12 [facility]; Protocol Last Admin: 08/30/18 15:39 Dose: 5,000 units Meropenem (Merrem Iv 1 Gm Premix) 1 gm in 50 mls @ 100 mls/hr IVPB Q12 [facility]; Protocol Stop: 09/06/18 22:01 Polyethylene Glycol (Miralax) 17 gm PO DAILY [facility] Polysaccharide Iron Complex (Ferrex-150) 150 mg PO DAILY MELECIO Tamsulosin HCl (Flomax) 0.4 mg PO DAILY [facility] - Labs Labs: 08/30/18 11:05 08/30/18 11:05 PT 20.4 SECONDS (9.4-12.5) H 08/30/18 11:05 INR 1.81 08/30/18 11:05 APTT 29.0 Seconds (26.9-38.3) 08/30/18 11:05 - Constitutional Appears: Chronically Ill - Head Exam Head Exam: NORMAL INSPECTION - Respiratory Exam Respiratory Exam: Decreased Breath Sounds - Cardiovascular Exam Cardiovascular Exam: +S1, +S2 - GI/Abdominal Exam GI & Abdominal Exam: Soft. absent: Tenderness Assessment and Plan - Assessment and Plan (Free Text) Plan: Assessment systemic inflammatory response syndrome, R/O sepsis from left sided HAP in this patient with lung cancer history of sepsis from HAP, R/O Influenza, R/O UTI with Pseudomonas left sided pleural effusion S/P pleural catheter placement with pleural mass, S/P biopsy showing squamous cell carcinoma, now on chemotherapy history of sepsis due to right lower lobe HCAP HTN prostate CA PUD chronic anemia chronic renal failure Plan given a dose of IV Vancomycin and continue Merrem day 2; follow up blood, urine cx, PCT; reviewed CXR overall prognosis is poor
[2018-09-01] MEDS: Albuterol-Ipratrop 3 mg / 0.5 (3 ml) UD IH SCH ×4 (02:04→19:43)
[2018-09-01 07:23] LABS: HEMOGLOBIN 7.6 g/dL (14.0-18.0); MEAN CELL VOLUME 92.5 fl (80.0-105.0); MEAN CORPUSCULAR HEMOGLOBIN 28.6 pg (25.0-35.0); MEAN CORPUSCULAR HGB CONC 30.9 g/dl (31.0-37.0); MEAN PLATELET VOLUME 8.3 fl (7.0-11.0); RBC 2.66 {null, 10^6/uL} (3.5-6.1); RED CELL DISTRIBUTION WIDTH 16.2 % (11.5-14.5)
[2018-09-01 07:51] LABS: ALB/GLOB RATIO 0.6 (1.1-1.8); ALBUMIN 2.4 g/dL (3.0-4.8)
--- NOTE | 2018-09-01 08:23 | PN ---
DATE: 08/31/2018 SUBJECTIVE: The patient is 83 years old, seen and examined. Sleepy, but arousable, shortness of breath, looks sick, has been spiking a fever. Attempted to give blood transfusion last night, but he has fever of 101. PHYSICAL EXAMINATION: GENERAL: He has shortness of breath, looks pale. VITAL SIGNS: Temperature 100.7, pulse 103, respirations 20, blood pressure 129/77. LUNGS: Bilateral fair airflow. No rhonchi or crackles. HEART: S1 and S2, audible. Tachycardic. ABDOMEN: Soft and nontender. No rebound. No guarding. NEUROLOGIC: He is awake. He is sleepy, but arousable. LABORATORY DATA: WBC is 18.8, hemoglobin 6.8, hematocrit 22.5, and platelets 375. Chemistry; sodium 138, potassium 5.1, chloride 108, CO2 of 23, BUN 44, creatinine 1.8, blood sugar of 85. Procalcitonin is 2.83. His blood cultures are pending. His x-ray of chest shows increasing in the left lung base, moderate left pleural effusion and has a ___ catheter in his left chest. ASSESSMENT: 1. Stage IV lung carcinoma. 2. Chronic kidney disease. 3. Anemia. 4. Leukocytosis and spiking fever. PLAN: So plan is, we will give him Tylenol around the clock. Once temperature is below 99, we will give transfusion, continue on nebulizer treatment. He is on iron supplementation. He is on deep venous thrombosis prophylaxis. He has been started on meropenem. We will follow up his electrolytes, CBC in the a.m. Tejinder Razo MD
[2018-09-01] MEDS: Meropenem IV 1 gm in NS 1 GM/50 ML BAG IVPB SCH ×2 (10:19→21:04)
[2018-09-01] MEDS: POLYETHYLENE GLYCOL 3350 17 GM/Dose PACKET PO SCH (10:19)
[2018-09-01] MEDS: Iron Complex Polysacch 150mg Cap PO SCH (10:20)
--- NOTE | 2018-09-01 13:28 | CP.PCM.APN ---
Subjective - Date & Time of Evaluation Date of Evaluation: 09/01/18 Time of Evaluation: 11:00 - Subjective Subjective: pt seen and examiend at bedside, family present, pt asking to get OOB per discussion with RN - pt foe 2 additonal units prbc pt denies sob or cp, pt is tachycardic on exam. Review of Systems - Review of Systems All systems: reviewed and no additional remarkable complaints except - Constitutional Constitutional: Weakness - Cardiovascular Cardiovascular: Rapid Heart Rate Objective - Vital Signs/Intake and Output Vital Signs (last 24 hours): Temp Pulse Resp BP Pulse Ox 98.2 F 97 H 20 128/72 96 09/01/18 10:22 09/01/18 10:20 09/01/18 09:00 09/01/18 10:20 09/01/18 09:00 Intake and Output: 09/01/18 09/01/18 06:59 18:59 Intake Total 480 Balance 480 - Medications Medications: Current Medications Acetaminophen (Tylenol 325mg Tab) 650 mg PO Q6H PRN PRN Reason: Fever >100.4 F Last Admin: 09/01/18 04:27 Dose: 650 mg Acetaminophen (Tylenol 325mg Tab) 650 mg PO Q8H [facility] Last Admin: 09/01/18 10:22 Dose: Not Given Albuterol/Ipratropium (Duoneb 3 Mg/0.5 Mg (3 Ml) Ud) 3 ml IH [id number] [facility] Last Admin: 09/01/18 08:11 Dose: 3 ml Albuterol/Ipratropium (Duoneb 3 Mg/0.5 Mg (3 Ml) Ud) 3 ml IH Q2H PRN PRN Reason: Shortness of Breath Atorvastatin Calcium (Lipitor) 10 mg PO DIN [facility] Last Admin: 08/31/18 18:27 Dose: 10 mg Clonidine HCl (Catapres) 0.1 mg PO TID [facility] Last Admin: 09/01/18 10:20 Dose: 0.1 mg Docusate Sodium (Colace) 100 mg PO BID [facility] Last Admin: 09/01/18 10:19 Dose: 100 mg Heparin Sodium (Porcine) (Heparin) 5,000 units SC Q12 [facility]; Protocol Last Admin: 09/01/18 10:19 Dose: 5,000 units Meropenem (Merrem Iv 1 Gm Premix) 1 gm in 50 mls @ 100 mls/hr IVPB Q12 [facility]; Protocol Stop: 09/06/18 22:01 Last Admin: 09/01/18 10:19 Dose: 100 mls/hr Polyethylene Glycol (Miralax) 17 gm PO DAILY [facility] Last Admin: 09/01/18 10:19 Dose: 17 gm Polysaccharide Iron Complex (Ferrex-150) 150 mg PO DAILY [facility] Last Admin: 09/01/18 10:20 Dose: 150 mg Tamsulosin HCl (Flomax) 0.4 mg PO DAILY [facility] Last Admin: 09/01/18 10:19 Dose: 0.4 mg - Labs Labs: 09/01/18 07:00 09/01/18 07:00 PT 20.4 SECONDS (9.4-12.5) H 08/30/18 11:05 INR 1.81 08/30/18 11:05 APTT 29.0 Seconds (26.9-38.3) 08/30/18 11:05 - Constitutional Appears: Non-toxic, No Acute Distress, Chronically Ill - ENT Exam ENT Exam: Normal Exam - Respiratory Exam Respiratory Exam: Decreased Breath Sounds, NORMAL BREATHING PATTERN - Cardiovascular Exam Cardiovascular Exam: Tachycardia, +S1, +S2 - GI/Abdominal Exam GI & Abdominal Exam: Soft, Normal Bowel Sounds - Neurological Exam Neurological Exam: Alert, Awake Assessment and Plan - Assessment and Plan (Free Text) Plan: ITS Impressions Chest X-Ray 08/30/18 12:06 IMPRESSION: Increasing opacity at left lung base. Possible pneumonia. Moderate left pleural effusion. Left chest tube. Microbiology 08/30/18 11:35 Blood Blood Culture - Preliminary NO GROWTH AFTER 48 HOURS 08/30/18 11:05 Blood Blood Culture - Preliminary NO GROWTH AFTER 48 HOURS 08/30/18 13:00 Urine,Catheterized Urine Culture - Final No Growth (<1,000 CFU/ML) No Known Allergies Allergy (Verified 07/30/18 21:03) All Active Problems KIKO (acute kidney injury) (Acute) Abdominal pain (Acute) Anemia (Acute) Fall (Acute) Hyperkalemia (Acute) Leukocytosis (Acute) Pleural effusion (Acute) Pneumonia (Acute) Renal insufficiency (Acute) Thrombocytosis (Acute) 83 yr old pt with pmh sig for htn, chronic effusion, pvd, chronic anemia, lung ca, hx of HCAP who presented from intermediate with lethargay now admitted for mgmt amd treatment of acute anemia and sepsis undergoing ID eval. pt with panculture, ID consultation and IV antibiotic regimen in place pt had 1 unit of blood on admission, 2nd unit initally held due to fvers, pt is for 2 units prbc today pt on IV meren per ID discuss plan with Rn and cm will continue to follow clinically BPCI/TIC - BPCIA/TIC Flyers given, including CMS Beneficiary letter: Yes Pt/family verbalized understanding & agreed to program: Yes
--- NOTE | 2018-09-01 22:40 | CP.PCM.PN ---
Subjective - Date & Time of Evaluation Date of Evaluation: 09/01/18 Time of Evaluation: 12:20 - Subjective Subjective: No fevers overnight, not in distress, still feels somewhat weak. Objective - Vital Signs/Intake and Output Vital Signs (last 24 hours): Temp Pulse Resp BP Pulse Ox 98.2 F 107 H 20 133/77 96 08/31/18 17:06 08/31/18 17:06 08/31/18 17:06 08/31/18 17:06 08/31/18 17:06 Intake and Output: 08/31/18 08/31/18 06:59 18:59 Intake Total 180 20 Balance 180 20 - Medications Medications: Current Medications Acetaminophen (Tylenol 325mg Tab) 650 mg PO Q6H PRN PRN Reason: Fever >100.4 F Last Admin: 08/31/18 04:56 Dose: 650 mg Acetaminophen (Tylenol 325mg Tab) 650 mg PO Q8H [facility] Last Admin: 08/31/18 11:37 Dose: 650 mg Albuterol/Ipratropium (Duoneb 3 Mg/0.5 Mg (3 Ml) Ud) 3 ml IH [id number] [facility] Last Admin: 08/31/18 13:45 Dose: 3 ml Albuterol/Ipratropium (Duoneb 3 Mg/0.5 Mg (3 Ml) Ud) 3 ml IH Q2H PRN PRN Reason: Shortness of Breath Atorvastatin Calcium (Lipitor) 10 mg PO DIN [facility] Last Admin: 08/30/18 18:26 Dose: 10 mg Clonidine HCl (Catapres) 0.1 mg PO TID [facility] Last Admin: 08/31/18 11:33 Dose: 0.1 mg Docusate Sodium (Colace) 100 mg PO BID [facility] Last Admin: 08/31/18 11:33 Dose: 100 mg Heparin Sodium (Porcine) (Heparin) 5,000 units SC Q12 [facility]; Protocol Last Admin: 08/31/18 11:34 Dose: 5,000 units Meropenem (Merrem Iv 1 Gm Premix) 1 gm in 50 mls @ 100 mls/hr IVPB Q12 [facility]; Protocol Stop: 09/06/18 22:01 Last Admin: 08/31/18 11:35 Dose: 100 mls/hr Polyethylene Glycol (Miralax) 17 gm PO DAILY [facility] Last Admin: 08/31/18 11:35 Dose: 17 gm Polysaccharide Iron Complex (Ferrex-150) 150 mg PO DAILY [facility] Last Admin: 08/31/18 11:34 Dose: 150 mg Tamsulosin HCl (Flomax) 0.4 mg PO DAILY [facility] Last Admin: 08/31/18 11:34 Dose: 0.4 mg - Labs Labs: 08/31/18 06:45 08/31/18 06:45 PT 20.4 SECONDS (9.4-12.5) H 08/30/18 11:05 INR 1.81 08/30/18 11:05 APTT 29.0 Seconds (26.9-38.3) 08/30/18 11:05 - Constitutional Appears: Chronically Ill - Head Exam Head Exam: NORMAL INSPECTION - Respiratory Exam Respiratory Exam: Decreased Breath Sounds - Cardiovascular Exam Cardiovascular Exam: +S1, +S2 - GI/Abdominal Exam GI & Abdominal Exam: Soft. absent: Tenderness Assessment and Plan - Assessment and Plan (Free Text) Plan: Assessment systemic inflammatory response syndrome, R/O sepsis from left sided HAP in this patient with lung cancer history of sepsis from HAP, R/O Influenza, R/O UTI with Pseudomonas left sided pleural effusion S/P pleural catheter placement with pleural mass, S/P biopsy showing squamous cell carcinoma, now on chemotherapy history of sepsis due to right lower lobe HCAP HTN prostate CA PUD chronic anemia chronic renal failure Plan given a dose of IV Vancomycin and continue Merrem day 3; cultures are negative, PCT is elevated but patient has chronic renal failure; reviewed CXR overall prognosis is poor
[2018-09-02] MEDS: Albuterol-Ipratrop 3 mg / 0.5 (3 ml) UD IH SCH ×4 (01:10→20:35)
[2018-09-02 05:51] LABS: BASO # 0.03 {null, K/mm3} (0.0-2.0); BASO % 0.1 % (0.0-3.0); EOS # 0.3 (0.0-0.7); EOS % 1.7 % (1.5-5.0); HEMOGLOBIN 9.3 g/dL (14.0-18.0); LYMPH # 0.9 (1.2-3.4); LYMPH % 4.7 % (22.0-35.0); MEAN CELL VOLUME 92.8 fl (80.0-105.0); MEAN CORPUSCULAR HEMOGLOBIN 29.2 pg (25.0-35.0); MEAN CORPUSCULAR HGB CONC 31.4 g/dl (31.0-37.0); MEAN PLATELET VOLUME 8.8 fl (7.0-11.0); MONO # 2.1 (0.1-0.6); MONO % 10.6 % (1.0-6.0); RBC 3.19 {null, 10^6/uL} (3.5-6.1); RED CELL DISTRIBUTION WIDTH 15.7 % (11.5-14.5); WHITE BLOOD COUNT 20.2 {null, 10^3/uL} (4.5-11.0)
--- NOTE | 2018-09-02 06:28 | PQF ---
PROVIDER RESPONSE TEXT: Sepsis with left sided HCAP, suspected gram negative organisms REVIEWER QUERY TEXT: Rule Out Sepsis Clarification Rule out Sepsis is documented in the Medical Record. Please clarify whether: -- Patient has sepsis - Please document confirmed, suspected or probable causative organism - Please document confirmed, suspected or probable localized infection - Please clarify if sepsis is related to a device - Please clarify if sepsis was present on admission -- Sepsis was ruled out (include corresponding diagnosis for patient?s clinical picture and treatment ) -- Patient had sepsis which is resolved -- Other, please specify The patient's Clinical Indicators include: Your consultation and subsequent documentation note "r/o sepsis from left sided HCAP". Please document if sepsis and pneumonia were present on admission, were ruled out. Query created by: Ana Luisa Foster on 09/01/2018 2:06 PM Electronically signed by: Elpidio Stuart MD 09/02/2018 6:24 AM
[2018-09-02 07:21] LABS: ALB/GLOB RATIO 0.6 (1.1-1.8); ALBUMIN 2.5 g/dL (3.0-4.8); CALCIUM 10.4 mg/dL (8.4-10.5)
--- NOTE | 2018-09-02 08:50 | PN ---
DATE: 09/01/2018 SUBJECTIVE: The patient is an 83-year-old seen and examined. He looks a little better. He does not have fever today. Oral intake is not good. PHYSICAL EXAMINATION: VITAL SIGNS: He is afebrile, pulse 97, respirations 20, blood pressure 128/72. LUNGS: Decreased breath sounds at the bases, left more than the right. HEART: S1 and S2 audible. ABDOMEN: Soft. Nontender. No rebound. No guarding. NEUROLOGICAL: He is awake and alert. Able to communicate. EXTREMITIES: Bilateral legs, no edema. LABORATORY DATA: WBC is 18, hemoglobin 7.6, hematocrit 24.6, platelets 338. Chemistry: Sodium 136, potassium 5.1, chloride 107, CO2 of 23, BUN 43, creatinine 1.7, blood sugar of 81. X-ray of the chest shows increased opacity of the left lung base, possible pneumonia, moderate left pleural effusion. ASSESSMENT AND PLAN: 1. Spiking fever, probably underlying pneumonia. 2. Malignant effusion. 3. Stage IV lung carcinoma. 4. Chronic kidney disease, stage 4. 5. Anemia. PLAN: The patient will receive 2 packed RBCs. Continue nebulizer treatment. He is getting IV iron. He is on DVT prophylaxis. He is on meropenem. He will receive 2 packed RBCs today and will request Dr. Milton Roca or his information services assistant to drain his recurrent effusion. Tejinder Razo MD
[2018-09-02] MEDS: Meropenem IV 1 gm in NS 1 GM/50 ML BAG IVPB SCH ×2 (11:56→21:56)
[2018-09-02] MEDS: Iron Complex Polysacch 150mg Cap PO SCH (12:00)
[2018-09-02] MEDS: POLYETHYLENE GLYCOL 3350 17 GM/Dose PACKET PO SCH (12:02)
--- NOTE | 2018-09-02 14:17 | PN ---
DATE: 09/02/2018 SUBJECTIVE: The patient is 83 years old, seen and examined, spiked fever again, has mild shortness of breath, poor oral intake. PHYSICAL EXAMINATION VITAL SIGNS: The patient has temperature of 100.4, pulse 100, respirations 20, blood pressure 140/68. LUNGS: Decreased breath sounds in the left lower lung area. HEART: S1 and S2, audible. ABDOMEN: Soft, nontender. No rebound. No guarding. NEUROLOGIC: The patient is awake and alert, able to communicate. EXTREMITIES: He has stage III sacral decubitus. Bilateral legs, no edema. LABORATORY DATA: WBC is 20.2, hemoglobin 9.3, hematocrit 29, platelets 328. Chemistry: Sodium 135, potassium 5.5, chloride 105, CO2 of 25, BUN 42, creatinine 1.6, blood sugar of 89. Blood culture and urine cultures are negative. ASSESSMENT 1. Stage IV lung cancer. 2. Malignant pleural effusion, possibly will be drained today. 3. Chronic anemia. 4. Hypertension. 5. Chronic kidney disease. PLAN: Currently, the patient is on clonidine. He is on stool softener. We will give him analgesics as needed. He is currently on meropenem. We will follow up with CBC and CMP in a.m. Tejinder Razo MD
--- NOTE | 2018-09-02 16:38 | CP.PCM.PN ---
Subjective - Date & Time of Evaluation Date of Evaluation: 09/02/18 Time of Evaluation: 13:00 - Subjective Subjective: Still having low grade fevers, but breathing a little better, still feels weak. Objective - Vital Signs/Intake and Output Vital Signs (last 24 hours): Temp Pulse Resp BP Pulse Ox 99 F 76 24 134/76 96 09/01/18 20:30 09/01/18 20:30 09/01/18 20:30 09/01/18 20:30 09/01/18 09:00 Intake and Output: 09/01/18 09/02/18 18:59 06:59 Intake Total 325 935 Balance 325 935 - Medications Medications: Current Medications Acetaminophen (Tylenol 325mg Tab) 650 mg PO Q6H PRN PRN Reason: Fever >100.4 F Last Admin: 09/01/18 04:27 Dose: 650 mg Acetaminophen (Tylenol 325mg Tab) 650 mg PO Q8H [facility] Last Admin: 09/01/18 17:17 Dose: Not Given Albuterol/Ipratropium (Duoneb 3 Mg/0.5 Mg (3 Ml) Ud) 3 ml IH [id number] [facility] Last Admin: 09/01/18 19:43 Dose: 3 ml Albuterol/Ipratropium (Duoneb 3 Mg/0.5 Mg (3 Ml) Ud) 3 ml IH Q2H PRN PRN Reason: Shortness of Breath Atorvastatin Calcium (Lipitor) 10 mg PO DIN [facility] Last Admin: 09/01/18 17:05 Dose: 10 mg Clonidine HCl (Catapres) 0.1 mg PO TID [facility] Last Admin: 09/01/18 17:05 Dose: 0.1 mg Docusate Sodium (Colace) 100 mg PO BID [facility] Last Admin: 09/01/18 17:06 Dose: 100 mg Heparin Sodium (Porcine) (Heparin) 5,000 units SC Q12 [facility]; Protocol Last Admin: 09/01/18 21:04 Dose: 5,000 units Meropenem (Merrem Iv 1 Gm Premix) 1 gm in 50 mls @ 100 mls/hr IVPB Q12 [facility]; Protocol Stop: 09/06/18 22:01 Last Admin: 09/01/18 21:04 Dose: 100 mls/hr Polyethylene Glycol (Miralax) 17 gm PO DAILY [facility] Last Admin: 09/01/18 10:19 Dose: 17 gm Polysaccharide Iron Complex (Ferrex-150) 150 mg PO DAILY [facility] Last Admin: 09/01/18 10:20 Dose: 150 mg Tamsulosin HCl (Flomax) 0.4 mg PO DAILY [facility] Last Admin: 09/01/18 10:19 Dose: 0.4 mg - Labs Labs: 09/01/18 07:00 09/01/18 07:00 PT 20.4 SECONDS (9.4-12.5) H 08/30/18 11:05 INR 1.81 08/30/18 11:05 APTT 29.0 Seconds (26.9-38.3) 08/30/18 11:05 - Constitutional Appears: Chronically Ill - Head Exam Head Exam: NORMAL INSPECTION - Respiratory Exam Respiratory Exam: Decreased Breath Sounds - Cardiovascular Exam Cardiovascular Exam: +S1, +S2 - GI/Abdominal Exam GI & Abdominal Exam: Soft. absent: Tenderness Assessment and Plan - Assessment and Plan (Free Text) Plan: Assessment systemic inflammatory response syndrome, R/O sepsis from left sided HAP in this patient with lung cancer history of sepsis from HAP, R/O Influenza, R/O UTI with Pseudomonas left sided pleural effusion S/P pleural catheter placement with pleural mass, S/P biopsy showing squamous cell carcinoma, now on chemotherapy history of sepsis due to right lower lobe HCAP HTN prostate CA PUD chronic anemia chronic renal failure Plan given a dose of IV Vancomycin and continue Merrem day 4; cultures are negative, PCT is elevated but patient has chronic renal failure; reviewed CXR target 4-7 days of antibiotics overall prognosis is poor
[2018-09-02] MEDS ORDERED: Metoprolol Succinate 25 mg XL Tab PO STA (21:31)
[2018-09-02] MEDS ORDERED: Vancomycin 2 GM in Sodium Chloride 0.9% 500 ML IVPB ONE (22:00)
[2018-09-03] MEDS: Albuterol-Ipratrop 3 mg / 0.5 (3 ml) UD IH SCH ×4 (02:56→19:40)
--- NOTE | 2018-09-03 09:48 | PQF ---
PROVIDER RESPONSE TEXT: CKD STAGE 4 REVIEWER QUERY TEXT: Kidney Disease, Chronic CKD Stage Chronic Kidney Disease (CKD) is documented in the Medical Record. Please specify the disease stage ( includes probable or suspected) Such as: -- Chronic kidney disease Stage 1 -- Chronic kidney disease Stage 2 -- Chronic kidney disease Stage 3 -- Chronic kidney disease Stage 4 -- Chronic kidney disease Stage 5 -- Chronic kidney disease Stage 5, requiring dialysis -- End Stage Renal Disease -- Other, please specify Stages are defined by the [employer] as follows: CKD Stage I GFR >= 90 ml / min per 1.73 m2 and persistent albuminuria CKD Stage 2 GFR between 60 and 89 with persistent albuminuria CKD Stage 3 GFR between 30 and 59 CKD Stage 4 GFR between 15 and 29 CKD Stage 5 GFR between <15 or End Stage Renal Disease The patient's Clinical Indicators include: Other documentation notes chronic renal failure and acute renal insufficiency. BUN/creatinine elevated. Please stage the CKD. Query created by: Ana Luisa Foster on 09/01/2018 2:03 PM Electronically signed by: Tejinder Razo MD 09/03/2018 9:46 AM
[2018-09-03] MEDS: Iron Complex Polysacch 150mg Cap PO SCH (11:37)
[2018-09-03] MEDS: POLYETHYLENE GLYCOL 3350 17 GM/Dose PACKET PO SCH (11:38)
[2018-09-03] MEDS: Meropenem IV 1 gm in NS 1 GM/50 ML BAG IVPB SCH ×2 (11:38→21:45)
[2018-09-03] MEDS ORDERED: Vancomycin 1gm in NS 250ml 1 GM/250 ML BAG IVPB STA (13:56)
[2018-09-03] MEDS ORDERED: levoFLOXacin 500 mg in D5W 500 MG/100 ML BAG IVPB STA (14:15)
--- NOTE | 2018-09-03 16:01 | PN ---
DATE: 09/03/2018 SUBJECTIVE: The patient is an 83-year-old, seen and examined. He is awake and alert, but seems short of breath, answers appropriately. Oral intake is very poor, has been losing weight. Thoracentesis was attempted yesterday, minimal fluid was drained. PHYSICAL EXAMINATION: VITAL SIGNS: He is afebrile, temperature 98.4, respirations 20, blood pressure 130/72. LUNGS: Decreased breath sounds at the base, left more than right. HEART: S1 and S2 audible, tachycardic. ABDOMEN: Soft, nontender, no rebound, no guarding. NEUROLOGICAL: The patient is awake and alert, able to communicate, answers appropriately, has generalized weakness. He has stage III sacral decubitus. EXTREMITIES: Bilateral leg no edema. LABORATORY DATA: WBC 5.5. BUN 42, creatinine 1.6. Blood cultures and urine cultures are negative. ASSESSMENT: 1. Symptomatic anemia. 2. Recurrent effusion. 3. Underlying pneumonia. 4. Carcinoma of lungs. 5. Deconditioning, difficulty walking. 6. Sacral decubiti. 7. Chronic kidney disease. PLAN: I will give him one dose of Kayexalate, followup CBC and CPM in a.m. Continue on p.o. iron supplementation. He is on Flomax. He is on DVT prophylaxis. Continue meropenem, analgesic as needed. We will follow up the patient. Tejinder Razo MD
[2018-09-03] MEDS: Oxycodone/Acetaminophen 5/325 mg Tab PO PRN (18:56)
--- NOTE | 2018-09-03 19:40 | PN ---
DATE: 09/03/2018 SUBJECTIVE: The patient is in bed, in no acute distress, nontoxic. The patient was still having fevers yesterday. PHYSICAL EXAMINATION: VITAL SIGNS: Temperature is 98, T-max is 102 late last night, blood pressure of 132/70, respiratory rate 20. HEENT: Unremarkable. NECK: Supple. LUNGS: Have decreased breath sounds. HEART: Normal S1 and S2. ABDOMEN: Soft, nontender. LABORATORY EXAMINATION: Reveals a white count of 20,000, hemoglobin of 9. platelets of 328. Coagulation is noted. Chemistries reveal a BUN of 42, creatinine of 1.6. Procalcitonin is 2.83. Urinalysis is noted. Influenza is negative. Microbiology is noted. Blood cultures are negative. Urine cultures are negative. REVIEW OF ORDERS: Reveals the patient to have meropenem, vancomycin intermittently. Dr. Razo's suggestion clarification review is noted. ASSESSMENT AND PLAN: This is an 83-year-old male, seen in [facility], bed 1 with systemic inflammatory response syndrome, was ruled out healthcare-associated pneumonia with lung cancer and sepsis. Negative blood cultures. Port-A-Cath infection less likely. On day #5 of meropenem. Intermittent vancomycin. We will continue to monitor the fever. Review of the electrocardiogram reveals QTc of 411. Review of the chest x-ray reveals that the increasing opacity of the lung base. We will give another order of vancomycin 1 g. Add Levaquin for atypical coverage. Asked for urine for Legionella antigen and also asked for a vancomycin random level in the morning. I will make further recommendations. Juan Bonilla MD
[2018-09-04] MEDS: Albuterol-Ipratrop 3 mg / 0.5 (3 ml) UD IH SCH ×4 (01:48→20:01)
[2018-09-04 07:52] LABS: BASO # 0.03 {null, K/mm3} (0.0-2.0); BASO % 0.1 % (0.0-3.0); EOS # 0.2 (0.0-0.7); EOS % 1.1 % (1.5-5.0); LYMPH # 0.7 (1.2-3.4); LYMPH % 3.4 % (22.0-35.0); MEAN CELL VOLUME 96.4 fl (80.0-105.0); MEAN CORPUSCULAR HEMOGLOBIN 29.4 pg (25.0-35.0); MEAN CORPUSCULAR HGB CONC 30.5 g/dl (31.0-37.0); MEAN PLATELET VOLUME 8.7 fl (7.0-11.0); MONO # 1.9 (0.1-0.6); MONO % 8.8 % (1.0-6.0); PLATELET COUNT 300 {null, 10^3/uL} (120.0-450.0); RBC 3.06 {null, 10^6/uL} (3.5-6.1); RED CELL DISTRIBUTION WIDTH 15.4 % (11.5-14.5); WHITE BLOOD COUNT 21.2 {null, 10^3/uL} (4.5-11.0)
[2018-09-04 08:03] LABS: ALB/GLOB RATIO 0.7 (1.1-1.8); ALBUMIN 2.4 g/dL (3.0-4.8); CALCIUM 10.2 mg/dL (8.4-10.5)
[2018-09-04 09:01] LABS: BAND 3 % (0-2); EOSINOPHIL 1 % (0.0-3.0); HYPOCHROMIA 1+; LYMPHOCYTE 6 % (22.0-35.0); MONOCYTE 3 % (1.0-6.0); NEUTROPHIL 87 % (50.0-70.0); PLATELET ESTIMATE NORMAL (NORMAL); POLYCHROMASIA SLIGHT
[2018-09-04 09:02] LABS: ANISOCYTOSIS 1+
[2018-09-04] MEDS: Iron Complex Polysacch 150mg Cap PO SCH (10:48)
[2018-09-04] MEDS: POLYETHYLENE GLYCOL 3350 17 GM/Dose PACKET PO SCH (10:49)
[2018-09-04] MEDS: Meropenem IV 1 gm in NS 1 GM/50 ML BAG IVPB SCH ×2 (10:49→21:42)
[2018-09-04] MEDS: levoFLOXacin 250 mg in D5W 250 MG/50 ML BAG IVPB SCH (11:23)
[2018-09-04] MEDS: Oxycodone/Acetaminophen 5/325 mg Tab PO PRN (18:04)
--- NOTE | 2018-09-04 20:26 | PN ---
DATE: 09/04/2018 SUBJECTIVE: Patient has no complaints of any chest pain. No shortness of breath or headaches. PHYSICAL EXAMINATION: VITAL SIGNS: Temperature is 99.5, pulse of 96, blood pressure is 110/60, respiration is 20. GENERAL: The patient is lying in bed, flat, comfortable. HEENT: No oral lesion. Anicteric sclerae. Moist mucosa. NECK: No JVD, adenopathy, or thyromegaly. CARDIOVASCULAR: S1 and S2, regular. No murmurs, rubs, or gallops. LUNGS: Clear to auscultation bilaterally. No wheeze, rales, or rhonchi. ABDOMEN: Bowel sounds are positive, soft, nontender and nondistended. EXTREMITIES: no cyanosis, clubbing or edema. LABS: White count of 21.2, hemoglobin is 9, creatinine is 1.5. ASSESSMENT: 1. Symptomatic anemia. 2. Lung cancer. 3. Deconditioning with gait dysfunction. 4. Chronic kidney disease, stage III. 5. Hypokalemia, improved. 7. Hypertension. 8. Dyslipidemia. PLAN: Patient is going to be admitted. He is currently on clonidine for hypertension. He is on Colace for his constipation. We are going to continue with iron. The patient is on DVT prophylaxis with heparin. He is receiving Lipitor for dyslipidemia. He is also on MiraLax for his constipation. I would renew his Percocet for his pain. Patient is on Tylenol for pain as well. He is on a heart healthy diet. He has breast cancer. Christopher Yeung MD
[2018-09-05] MEDS: Albuterol-Ipratrop 3 mg / 0.5 (3 ml) UD IH SCH ×4 (01:24→19:42)
[2018-09-05 08:23] VITALS: RESP 20
--- NOTE | 2018-09-05 09:11 | PN ---
DATE: 09/04/2018 SUBJECTIVE: The patient is in bed in no acute distress. PHYSICAL EXAMINATION VITAL SIGNS: On exam, temperature is 99, blood pressure is 130/60, respiratory rate of 20 and heart rate of 96. HEENT: Unremarkable. NECK: Supple. LUNGS: Have decreased breath sounds. HEART: Normal S1, and S2. ABDOMEN: Soft and nontender. LABORATORY DATA: Initial laboratory examination reveals a white count of 21,000, hemoglobin of 9 and platelets of 300,000. BUN of 39 and creatinine of 1.5. Microbiology reveals the blood cultures are negative. ASSESSMENT AND PLAN: This is an 83-year-old male with systemic inflammatory response syndrome, healthcare-associated pneumonia, lung cancer sepsis and negative blood cultures, day #6 of meropenem and on intermittent vancomycin. Also random vancomycin level this morning is 18.4. The patient is also on day #2 of Levaquin. Awaiting for urine for Legionella antigen and the patient is also on meropenem. The patient's temperature has resolved since yesterday. We will follow with you. Juan Bonilla MD
[2018-09-05] MEDS: Meropenem IV 1 gm in NS 1 GM/50 ML BAG IVPB SCH ×2 (09:22→21:22)
[2018-09-05] MEDS: levoFLOXacin 250 mg in D5W 250 MG/50 ML BAG IVPB SCH (09:22)
[2018-09-05] MEDS: POLYETHYLENE GLYCOL 3350 17 GM/Dose PACKET PO SCH ×2 (09:25→14:09)
[2018-09-05] MEDS: Iron Complex Polysacch 150mg Cap PO SCH (09:26)
--- NOTE | 2018-09-05 11:46 | RAD ---
Date of service: 09/05/2018 HISTORY: followup COMPARISON: Comparison made with prior chest radiograph dated 08/30/2018. Comparison also made with CT chest dated 07/31/2018 FINDINGS: In situ left-sided chest tube again noted unchanged in position LUNGS: Left lower lobe opacification consistent with combination of large effusion left lower lobe atelectasis and infiltrate.. Previously described centrilobular and paraseptal emphysematous changes upper lobes and lung apices less well seen on this study compared to high-resolution CT scan chest PLEURA: No significant pleural effusion identified, no pneumothorax apparent. CARDIOVASCULAR: No aortic atherosclerotic calcification present. Heart is size difficult to assess due to silhouetting left cardiac border OSSEOUS STRUCTURES: No significant abnormalities. VISUALIZED UPPER ABDOMEN: Normal. OTHER FINDINGS: None. IMPRESSION: In situ left-sided chest tube again noted unchanged in position left lower lobe opacification consistent with combination of large effusion left lower lobe atelectasis and infiltrate.. Previously described centrilobular and paraseptal emphysematous changes upper lobes and lung apices less well seen on this study compared to high-resolution CT scan chest
[2018-09-05 12:23] LABS: BASO # 0.03 {null, K/mm3} (0.0-2.0); BASO % 0.1 % (0.0-3.0); EOS # 0.2 (0.0-0.7); EOS % 0.9 % (1.5-5.0); HEMOGLOBIN 8.8 g/dL (14.0-18.0); LYMPH # 0.9 (1.2-3.4); LYMPH % 3.8 % (22.0-35.0); MEAN CELL VOLUME 95.3 fl (80.0-105.0); MEAN CORPUSCULAR HEMOGLOBIN 29.5 pg (25.0-35.0); MEAN PLATELET VOLUME 8.5 fl (7.0-11.0); MONO # 1.7 (0.1-0.6); MONO % 7.1 % (1.0-6.0); RBC 2.98 {null, 10^6/uL} (3.5-6.1); RED CELL DISTRIBUTION WIDTH 15.3 % (11.5-14.5); WHITE BLOOD COUNT 23.9 {null, 10^3/uL} (4.5-11.0)
--- NOTE | 2018-09-05 15:46 | PN ---
DATE: 09/05/2018 SUBJECTIVE: The patient is an 83-year-old, seen and examined. Looks sick, poor oral intake and mild shortness of breath. No nausea or vomiting, but has poor appetite and seems to be malnourished. Complaint of lower back pain because of the sacral decubiti. PHYSICAL EXAMINATION: VITAL SIGNS: He is afebrile. Pulse 109, respiration 20 and blood pressure 129/71. LUNGS: Bilateral decreased breath sounds at the bases. HEART: S1 and S2, audible. ABDOMEN: Soft and nontender. No rebound. No guarding. NEUROLOGICAL: The patient is awake, alert and able to communicate, but short of breath. EXTREMITIES: Bilateral leg no edema. He has stage III sacral decubitus. LABORATORY DATA: WBC 23.9, hemoglobin 8.8, hematocrit 28.4 and platelet 274. Chemistry; sodium 135, potassium 4.9, chloride 106, CO2 of 26, BUN 39, creatinine 1.5, blood sugar of 82 and procalcitonin 2.83. Blood culture and urine cultures are negative. ASSESSMENT: 1. Malignant pleural effusion. 2. Leukocytosis. 3. Underlying pneumonia. 4. Stage IV lung cancer. 5. Poor oral intake. 6. Chronic kidney disease. 7. Malnutrition. PLAN: So currently, the patient is on nebulizer treatment. He is on Flomax. He is on DVT prophylaxis. He is on Levaquin. statins and meropenem. Prognosis is poor. We will get discuss further options with patient and patient's family. Tejinder Razo MD
--- NOTE | 2018-09-05 16:39 | CP.PCM.PN ---
Subjective - Date & Time of Evaluation Date of Evaluation: 09/05/18 Time of Evaluation: 11:40 - Subjective Subjective: Still feeling weak, no fevers. Objective - Vital Signs/Intake and Output Vital Signs (last 24 hours): Temp Pulse Resp BP Pulse Ox 99.4 F 109 H 20 129/71 95 09/05/18 08:23 09/05/18 09:27 09/05/18 08:23 09/05/18 09:27 09/05/18 08:23 Intake and Output: 09/05/18 09/05/18 06:59 18:59 Intake Total 540 Balance 540 - Medications Medications: Current Medications Acetaminophen (Tylenol 325mg Tab) 650 mg PO Q6H PRN PRN Reason: Fever >100.4 F Last Admin: 09/02/18 21:02 Dose: 650 mg Acetaminophen (Tylenol 325mg Tab) 650 mg PO Q8H [facility] Last Admin: 09/05/18 03:24 Dose: Not Given Albuterol/Ipratropium (Duoneb 3 Mg/0.5 Mg (3 Ml) Ud) 3 ml IH [id number] [facility] Last Admin: 09/05/18 08:10 Dose: 3 ml Albuterol/Ipratropium (Duoneb 3 Mg/0.5 Mg (3 Ml) Ud) 3 ml IH Q2H PRN PRN Reason: Shortness of Breath Atorvastatin Calcium (Lipitor) 10 mg PO DIN [facility] Last Admin: 09/04/18 18:05 Dose: 10 mg Clonidine HCl (Catapres) 0.1 mg PO TID [facility] Last Admin: 09/05/18 09:27 Dose: 0.1 mg Docusate Sodium (Colace) 100 mg PO BID [facility] Last Admin: 09/05/18 09:26 Dose: 100 mg Heparin Sodium (Porcine) (Heparin) 5,000 units SC Q12 [facility]; Protocol Last Admin: 09/05/18 09:26 Dose: 5,000 units Meropenem (Merrem Iv 1 Gm Premix) 1 gm in 50 mls @ 100 mls/hr IVPB Q12 [facility]; Protocol Stop: 09/06/18 22:01 Last Admin: 09/05/18 09:22 Dose: 100 mls/hr Levofloxacin/Dextrose (Levaquin 250mg) 250 mg in 50 mls @ 50 mls/hr IVPB DAILY [facility] Stop: 09/12/18 14:01 Last Admin: 09/05/18 09:22 Dose: 50 mls/hr Metoprolol Tartrate (Lopressor) 25 mg PO BRKDIN [facility] Last Admin: 09/05/18 08:27 Dose: 25 mg Oxycodone/Acetaminophen (Percocet 5/325 Mg Tab) 1 tab PO Q6H PRN PRN Reason: Pain, moderate (4-7) Stop: 09/05/18 12:26 Last Admin: 09/04/18 18:04 Dose: 1 tab Polyethylene Glycol (Miralax) 17 gm PO DAILY [facility] Last Admin: 09/04/18 10:49 Dose: Not Given Polysaccharide Iron Complex (Ferrex-150) 150 mg PO DAILY [facility] Last Admin: 09/05/18 09:26 Dose: 150 mg Tamsulosin HCl (Flomax) 0.4 mg PO DAILY [facility] Last Admin: 09/05/18 09:28 Dose: 0.4 mg - Labs Labs: 09/04/18 06:45 09/04/18 06:45 PT 20.4 SECONDS (9.4-12.5) H 08/30/18 11:05 INR 1.81 08/30/18 11:05 APTT 29.0 Seconds (26.9-38.3) 08/30/18 11:05 - Constitutional Appears: Chronically Ill - Head Exam Head Exam: NORMAL INSPECTION - Respiratory Exam Respiratory Exam: Decreased Breath Sounds - Cardiovascular Exam Cardiovascular Exam: +S1, +S2 - GI/Abdominal Exam GI & Abdominal Exam: Soft. absent: Tenderness Assessment and Plan - Assessment and Plan (Free Text) Plan: Assessment systemic inflammatory response syndrome, R/O sepsis from left sided HAP in this patient with lung cancer history of sepsis from HAP, R/O Influenza, R/O UTI with Pseudomonas left sided pleural effusion S/P pleural catheter placement with pleural mass, S/P biopsy showing squamous cell carcinoma, now on chemotherapy history of sepsis due to right lower lobe HCAP HTN prostate CA PUD chronic anemia chronic renal failure Plan given a dose of IV Vancomycin and continue Merrem day 7; cultures are negative, PCT is elevated but patient has chronic renal failure; reviewed CXR target 4-7 days of antibiotics overall prognosis is poor
[2018-09-06] MEDS: Albuterol-Ipratrop 3 mg / 0.5 (3 ml) UD IH SCH ×4 (02:06→19:24)
[2018-09-06] MEDS: POLYETHYLENE GLYCOL 3350 17 GM/Dose PACKET PO SCH ×2 (10:59→11:30)
[2018-09-06] MEDS: Iron Complex Polysacch 150mg Cap PO SCH (10:59)
[2018-09-06] MEDS: levoFLOXacin 250 mg in D5W 250 MG/50 ML BAG IVPB SCH (11:00)
[2018-09-06] MEDS: Meropenem IV 1 gm in NS 1 GM/50 ML BAG IVPB SCH ×2 (11:00→21:52)
[2018-09-06] MEDS ORDERED: Oxycodone/Acetaminophen 5/325 mg Tab PO PRN (13:18)
[2018-09-06] MEDS: Lidocaine 5% Patch TD SCH (13:41)
--- NOTE | 2018-09-06 14:38 | CP.PCM.CON ---
History of Present Illness - History of Present Illness History of Present Illness: Palliative consult requested by Dr Kimberly Razo Reason: Goals of care 83 year old male with history of who was sent from [facility] with shortness of breath and weakness. The patient denies fever, chills, nausea, vomiting, dizziness, chest pain,abdominal pain headache, dysuria. Today the patient complains of left posterior rib pain near chest tube site. Labs on admission: Wbc 18.8, Hgb 7.3, Plt 404Na 135, K 5.5, BUN 51, Finance Officer 1.8, glucose 130, AST 53, ALT 48, Alk Phos 156, BNP 548, Procalcitonin 2.83. H Flu negative Chest x ray: left chest tube. Left lower lobe opacification consistent with combination of large effusion and left lwerlobe atelectasis> prevously described centrilobular and paraseptal emphysematous changes in in upper lobe and lung apices CT chest 09/05: result pending PMH: squamous cell lung carcinoma, pleural effusion, anemia, CKD,HTN, prostate cancer, bilateral cataracts PSH:thoracentisis, bilateral knee replacement Social History: Former smoker, occasional alcohol. live Family History: Non contributory Review of Systems: As per HPI,12 point review negative Past Patient History - Infectious Disease Hx of Infectious Diseases: None - Past Social History Smoking Status: Never Smoked - CARDIAC Hx Cardiac Disorders: Yes Hx Hypertension: Yes - PULMONARY Hx Chronic Obstructive Pulmonary Disease (COPD): No - NEUROLOGICAL HX Cerebrovascular Accident: No - HEENT Hx HEENT Problems: Yes Hx Cataracts: Yes - RENAL Hx Chronic Kidney Disease: No - ENDOCRINE/METABOLIC Hx Diabetes Mellitus Type 1: No Hx Diabetes Mellitus Type 2: No Hx Hypothyroidism: No - HEMATOLOGICAL/ONCOLOGICAL Hx Blood Transfusions: Yes Hx Blood Transfusion Reaction: No - INTEGUMENTARY Hx Dermatological Problems: No Hx Basil Cell: No Hx Eczema: No Hx Melanoma: No Hx Psoriasis: No Hx Squamous Cell: No - MUSCULOSKELETAL/RHEUMATOLOGICAL Hx Musculoskeletal Disorders: Yes - GASTROINTESTINAL Hx Gastrointestinal Disorders: Yes Hx Colostomy: No Hx Crohn's Disease: No Hx Diverticulitis: No Hx Gall Bladder Disease: No Hx Gastroesophageal Reflux: Yes Hx Ileostomy: No Hx Liver Failure: No Hx Pancreatitis: No HX Swallowing Problems: No - GENITOURINARY/GYNECOLOGICAL Hx Genitourinary Disorders: No Hx Hematuria: No Hx Incontinence: No Hx Prostate Problems: No Hx Sexually Transmitted Disorders: No Hx Urinary Tract Infection: No - PSYCHIATRIC Hx Emotional Abuse: No Hx Physical Abuse: No Hx Substance Use: No - SURGICAL HISTORY Hx Amputation: No Hx Appendectomy: No Hx Cardiac Catheterization: No Hx Cholecystectomy: No Hx Coronary Stent: No Hx Gastric Bypass Surgery: No Hx Hysterectomy: No Hx Joint Replacement: No Hx Kidney Transplant: No Hx Liver Transplant: No Hx Mastectomy: No Hx Musculoskeletal Surgery: No Hx Open Heart Surgery: No Hx Orthopedic Surgery: Yes (b/ shoulder, b/l knee) Hx Splenectomy: No Hx Valve Replacement: No - ANESTHESIA Hx Anesthesia Reactions: No Hx Malignant Hyperthermia: No Meds Allergies/Adverse Reactions: Allergies Allergy/AdvReac Type Severity Reaction Status Date / Time No Known Allergies Allergy Verified 07/30/18 21:03 - Medications Medications: Current Medications Acetaminophen (Tylenol 325mg Tab) 650 mg PO Q6H PRN PRN Reason: Fever >100.4 F Last Admin: 09/02/18 21:02 Dose: 650 mg Acetaminophen (Tylenol 325mg Tab) 650 mg PO Q8H [facility] Last Admin: 09/06/18 11:03 Dose: Not Given Albuterol/Ipratropium (Duoneb 3 Mg/0.5 Mg (3 Ml) Ud) 3 ml IH [id number] [facility] Last Admin: 09/06/18 13:32 Dose: 3 ml Albuterol/Ipratropium (Duoneb 3 Mg/0.5 Mg (3 Ml) Ud) 3 ml IH Q2H PRN PRN Reason: Shortness of Breath Atorvastatin Calcium (Lipitor) 10 mg PO DIN [facility] Last Admin: 09/05/18 17:30 Dose: 10 mg Clonidine HCl (Catapres) 0.1 mg PO TID [facility] Last Admin: 09/06/18 11:02 Dose: 0.1 mg Cyproheptadine HCl (Periactin) 2 mg PO TID [facility] Docusate Sodium (Colace) 100 mg PO BID [facility] Last Admin: 09/06/18 10:59 Dose: 100 mg Heparin Sodium (Porcine) (Heparin) 5,000 units SC Q12 [facility]; Protocol Last Admin: 09/06/18 11:58 Dose: 5,000 units Meropenem (Merrem Iv 1 Gm Premix) 1 gm in 50 mls @ 100 mls/hr IVPB Q12 [facility]; Protocol Stop: 09/06/18 22:01 Last Admin: 09/06/18 11:00 Dose: 100 mls/hr Levofloxacin/Dextrose (Levaquin 250mg) 250 mg in 50 mls @ 50 mls/hr IVPB DAILY [facility] Stop: 09/12/18 14:01 Last Admin: 09/06/18 11:00 Dose: 50 mls/hr Lidocaine (Lidoderm) 1 ea TD DAILY [facility] Last Admin: 09/06/18 13:41 Dose: 1 ea Metoprolol Tartrate (Lopressor) 25 mg PO BRKDIN [facility] Last Admin: 09/06/18 08:50 Dose: 25 mg Oxycodone/Acetaminophen (Percocet 5/325 Mg Tab) 1 tab PO Q8H PRN PRN Reason: Pain, severe (8-10) Stop: 09/09/18 13:19 Polyethylene Glycol (Miralax) 17 gm PO DAILY [facility] Last Admin: 09/06/18 11:30 Dose: Not Given Polysaccharide Iron Complex (Ferrex-150) 150 mg PO DAILY [facility] Last Admin: 09/06/18 10:59 Dose: 150 mg Tamsulosin HCl (Flomax) 0.4 mg PO DAILY [facility] Last Admin: 09/06/18 10:59 Dose: 0.4 mg Physical Exam - Constitutional Appears: Chronically Ill - Eye Exam Eye Exam: Normal appearance - ENT Exam ENT Exam: Mucous Membranes Moist, Normal Oropharynx - Respiratory Exam Additional comments: decreased breath sounds L - Cardiovascular Exam Cardiovascular Exam: REGULAR RHYTHM, +S1 - GI/Abdominal Exam GI & Abdominal Exam: Normal Bowel Sounds, Soft Additional comments: no tenderness - Extremities Exam Additional comments: left arm edematous - Back Exam Back exam: NORMAL INSPECTION - Neurological Exam Neurological exam: Alert Additional comments: oriented to place and self - Skin Skin Exam: Dry, Pallor - Additional Findings Additional findings: palliative performance scale raring 40% Results - Vital Signs Recent Vital Signs: Last Vital Signs Temp 98.7 F 09/06/18 11:03 Pulse 106 H 09/06/18 11:02 Resp 20 09/06/18 06:00 BP 141/84 09/06/18 11:02 Pulse Ox 97 09/06/18 06:00 - Labs Result Diagrams: 09/05/18 12:10 09/04/18 06:45 Assessment & Plan - Assessment and Plan (Free Text) Assessment: 83 year old male with history of metastatic squamous cell lung cancer, left pleural effusion, anemia, CKD and HTN who is admitted with recurring left pleural effusion s/p thoracentisis and catheter placement, symptomatic anemia, shortness of breath, weakness and deconditioining The patients daughter Sasha at bedside. Hospice care discussed with patient. Hospice services explained. Patient verbalizes understanding of this service. He states that he wants to go home with hospice care. Later in the day I met with patient's Myra. Hospice explained. in agreement then met with Yaritza hospice rn and signed consent for home hospice care. Time spent in goals of care with apitn and family, 45 minutes Plan: Goals of care Hospice evaluation Lidocaine patch to left posterior rib area Percocet 5/325 1 tab as needed for pain Continue Merrem IR to evaluate for removal of left chest drainage catheter
--- NOTE | 2018-09-06 15:38 | CP.PCM.PN ---
Subjective - Date & Time of Evaluation Date of Evaluation: 09/06/18 Time of Evaluation: 11:50 - Subjective Subjective: Not in distress in bed but still feels weak. No fevers. Objective - Vital Signs/Intake and Output Vital Signs (last 24 hours): Temp Pulse Resp BP Pulse Ox 99.4 F 109 H 20 125/66 95 09/05/18 08:23 09/05/18 14:04 09/05/18 08:23 09/05/18 14:04 09/05/18 08:23 Intake and Output: 09/05/18 09/05/18 06:59 18:59 Intake Total 540 400 Balance 540 400 - Medications Medications: Current Medications Acetaminophen (Tylenol 325mg Tab) 650 mg PO Q6H PRN PRN Reason: Fever >100.4 F Last Admin: 09/02/18 21:02 Dose: 650 mg Acetaminophen (Tylenol 325mg Tab) 650 mg PO Q8H [facility] Last Admin: 09/05/18 14:10 Dose: Not Given Albuterol/Ipratropium (Duoneb 3 Mg/0.5 Mg (3 Ml) Ud) 3 ml IH [id number] [facility] Last Admin: 09/05/18 13:17 Dose: 3 ml Albuterol/Ipratropium (Duoneb 3 Mg/0.5 Mg (3 Ml) Ud) 3 ml IH Q2H PRN PRN Reason: Shortness of Breath Atorvastatin Calcium (Lipitor) 10 mg PO DIN [facility] Last Admin: 09/04/18 18:05 Dose: 10 mg Clonidine HCl (Catapres) 0.1 mg PO TID [facility] Last Admin: 09/05/18 14:04 Dose: 0.1 mg Docusate Sodium (Colace) 100 mg PO BID [facility] Last Admin: 09/05/18 09:26 Dose: 100 mg Heparin Sodium (Porcine) (Heparin) 5,000 units SC Q12 [facility]; Protocol Last Admin: 09/05/18 09:26 Dose: 5,000 units Meropenem (Merrem Iv 1 Gm Premix) 1 gm in 50 mls @ 100 mls/hr IVPB Q12 [facility]; Protocol Stop: 09/06/18 22:01 Last Admin: 09/05/18 09:22 Dose: 100 mls/hr Levofloxacin/Dextrose (Levaquin 250mg) 250 mg in 50 mls @ 50 mls/hr IVPB DAILY [facility] Stop: 09/12/18 14:01 Last Admin: 09/05/18 09:22 Dose: 50 mls/hr Metoprolol Tartrate (Lopressor) 25 mg PO BRKDIN [facility] Last Admin: 09/05/18 08:27 Dose: 25 mg Polyethylene Glycol (Miralax) 17 gm PO DAILY [facility] Last Admin: 09/05/18 14:09 Dose: Not Given Polysaccharide Iron Complex (Ferrex-150) 150 mg PO DAILY [facility] Last Admin: 09/05/18 09:26 Dose: 150 mg Tamsulosin HCl (Flomax) 0.4 mg PO DAILY [facility] Last Admin: 09/05/18 09:28 Dose: 0.4 mg - Labs Labs: 09/05/18 12:10 09/04/18 06:45 PT 20.4 SECONDS (9.4-12.5) H 08/30/18 11:05 INR 1.81 08/30/18 11:05 APTT 29.0 Seconds (26.9-38.3) 08/30/18 11:05 - Constitutional Appears: Chronically Ill - Head Exam Head Exam: NORMAL INSPECTION - Respiratory Exam Respiratory Exam: Decreased Breath Sounds - Cardiovascular Exam Cardiovascular Exam: +S1, +S2 - GI/Abdominal Exam GI & Abdominal Exam: Soft. absent: Tenderness Assessment and Plan - Assessment and Plan (Free Text) Plan: Assessment systemic inflammatory response syndrome, R/O sepsis from left sided HAP in this patient with lung cancer history of sepsis from HAP, R/O Influenza, R/O UTI with Pseudomonas left sided pleural effusion S/P pleural catheter placement with pleural mass, S/P biopsy showing squamous cell carcinoma, now on chemotherapy history of sepsis due to right lower lobe HCAP HTN prostate CA PUD chronic anemia chronic renal failure Plan given a dose of IV Vancomycin and continue Merrem day 8 and Levaquin; cultures are negative, PCT is elevated but patient has chronic renal failure; reviewed CXR consider d/c of antibiotics in the next 24-48 hours overall prognosis is poor
--- NOTE | 2018-09-06 15:51 | PN ---
DATE: 09/06/2018 SUBJECTIVE: The patient is an 83-year-old, seen and examined, looks weak, losing weight, poor appetite, and short of breath. PHYSICAL EXAMINATION: VITAL SIGNS: He is afebrile, pulse 106, respiration 20, and blood pressure 141/84. LUNGS: Bilateral decreased breath sounds. HEART: S1 and S2 audible. ABDOMEN: Soft and nontender. No rebound. No guarding. NEUROLOGIC: He is awake and alert. Looks exhausted and weak. Has generalized weakness. He has stage III sacral decubitus. LABORATORY DATA: Has repeat CT scan of the chest done. ASSESSMENT AND PLAN: I spoke to Dr. Milton Roca his progression of his tumor as small loculated that is difficult to drain. I will request for Palliative Care consult and there is a meeting with the family today. We will conclude and might be able to . Overall prognosis is poor. For the time being, we will continue on current medications. He is on deep venous thrombosis prophylaxis. He is on IV Levaquin. He is on meropenem. We will start him on Periactin and we will discuss with the patient's family about hospice care. Tejinder Razo MD
--- NOTE | 2018-09-06 15:53 | CT ---
Date of service: 09/05/2018 PROCEDURE: CT Chest without contrast HISTORY: malig left effusion and tunneled catheter. SOB COMPARISON: 08/08/2018 TECHNIQUE: Contiguous axial images were obtained through the chest without intravenous contrast enhancement. Sagittal and coronal reconstructions were performed. Radiation dose (DLP): 544.98 mGy-cm. This CT exam was performed using one or more of the following dose reduction techniques: Automated exposure control, adjustment of the mA and/or kV according to patient size, and/or use of iterative reconstruction technique. FINDINGS: LUNGS: Minimal right lower lobe compressive atelectasis. Segmental/subsegmental left lower lobe atelectasis and left upper lobe subsegmental atelectasis. 1.4 cm pleural-based nodule left upper lobe, anterior/lateral. This has enlarged since the prior CT examination at which time this measured approximately 9 mm in diameter. No other pulmonary mass is identified. MEDIASTINUM: Unremarkable thoracic aorta. No aneurysm. Normal sized heart. Main pulmonary artery unremarkable. No vascular congestion. No lymphadenopathy. Right central venous infusion port noted. There is minimal atherosclerotic calcification of the thoracic aorta. PLEURA: Moderate to large left pleural effusion. Heterogeneous attenuation within this pleural effusion may reflect blood products or tumor. Small caliber left chest tube noted. No pneumothorax. Trace right pleural effusion. BONES: No fracture. Once again, there is a lytic process involving multiple medial left posterior ribs, including the 9th, 10th and 11th ribs. Presumed secondary to neoplasm in pleural space extending through the ribs to the posterior chest wall. Soft tissue mass in left lumbar is muscles measuring approximately 4.7 cm in diameter. This has increased in size compared to the prior examination.. UPPER ABDOMEN: Two nonspecific low-density masses in left lobe of liver, 1.5 cm and 1.6 cm, respectively. OTHER FINDINGS: None. 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 Left chest tube. No pneumothorax. Increasing size of left upper pleural-based mass.
[2018-09-07] MEDS: Albuterol-Ipratrop 3 mg / 0.5 (3 ml) UD IH SCH ×3 (02:30→13:36)
[2018-09-07 09:19] VITALS: TEMP 98.7; O2SAT 99
[2018-09-07] MEDS: Lidocaine 5% Patch TD SCH (10:46)
[2018-09-07] MEDS: POLYETHYLENE GLYCOL 3350 17 GM/Dose PACKET PO SCH (10:49)
[2018-09-07] MEDS: levoFLOXacin 250 mg in D5W 250 MG/50 ML BAG IVPB SCH (10:50)
[2018-09-07] MEDS: Iron Complex Polysacch 150mg Cap PO SCH (10:53)
--- NOTE | 2018-09-07 14:50 | CP.PCM.PN ---
Subjective - Date & Time of Evaluation Date of Evaluation: 09/07/18 Time of Evaluation: 11:10 - Subjective Subjective: Still feels weak, no fevers. Objective - Vital Signs/Intake and Output Vital Signs (last 24 hours): Temp Pulse Resp BP Pulse Ox 98.7 F 105 H 20 132/77 97 09/06/18 11:03 09/06/18 14:56 09/06/18 06:00 09/06/18 14:56 09/06/18 06:00 Intake and Output: 09/06/18 09/06/18 06:59 18:59 Intake Total 120 Balance 120 - Medications Medications: Current Medications Acetaminophen (Tylenol 325mg Tab) 650 mg PO Q6H PRN PRN Reason: Fever >100.4 F Last Admin: 09/02/18 21:02 Dose: 650 mg Acetaminophen (Tylenol 325mg Tab) 650 mg PO Q8H [facility] Last Admin: 09/06/18 11:03 Dose: Not Given Albuterol/Ipratropium (Duoneb 3 Mg/0.5 Mg (3 Ml) Ud) 3 ml IH [id number] [facility] Last Admin: 09/06/18 13:32 Dose: 3 ml Albuterol/Ipratropium (Duoneb 3 Mg/0.5 Mg (3 Ml) Ud) 3 ml IH Q2H PRN PRN Reason: Shortness of Breath Atorvastatin Calcium (Lipitor) 10 mg PO DIN [facility] Last Admin: 09/05/18 17:30 Dose: 10 mg Clonidine HCl (Catapres) 0.1 mg PO TID [facility] Last Admin: 09/06/18 14:56 Dose: 0.1 mg Cyproheptadine HCl (Periactin) 2 mg PO TID [facility] Last Admin: 09/06/18 14:56 Dose: 2 mg Docusate Sodium (Colace) 100 mg PO BID [facility] Last Admin: 09/06/18 10:59 Dose: 100 mg Heparin Sodium (Porcine) (Heparin) 5,000 units SC Q12 [facility]; Protocol Last Admin: 09/06/18 11:58 Dose: 5,000 units Meropenem (Merrem Iv 1 Gm Premix) 1 gm in 50 mls @ 100 mls/hr IVPB Q12 [facility]; Protocol Stop: 09/06/18 22:01 Last Admin: 09/06/18 11:00 Dose: 100 mls/hr Levofloxacin/Dextrose (Levaquin 250mg) 250 mg in 50 mls @ 50 mls/hr IVPB DAILY [facility] Stop: 09/12/18 14:01 Last Admin: 09/06/18 11:00 Dose: 50 mls/hr Lidocaine (Lidoderm) 1 ea TD DAILY [facility] Last Admin: 09/06/18 13:41 Dose: 1 ea Metoprolol Tartrate (Lopressor) 25 mg PO BRKDIN [facility] Last Admin: 09/06/18 08:50 Dose: 25 mg Oxycodone/Acetaminophen (Percocet 5/325 Mg Tab) 1 tab PO Q8H PRN PRN Reason: Pain, severe (8-10) Stop: 09/09/18 13:19 Polyethylene Glycol (Miralax) 17 gm PO DAILY [facility] Last Admin: 09/06/18 11:30 Dose: Not Given Polysaccharide Iron Complex (Ferrex-150) 150 mg PO DAILY [facility] Last Admin: 09/06/18 10:59 Dose: 150 mg Tamsulosin HCl (Flomax) 0.4 mg PO DAILY [facility] Last Admin: 09/06/18 10:59 Dose: 0.4 mg - Labs Labs: 09/05/18 12:10 09/04/18 06:45 PT 20.4 SECONDS (9.4-12.5) H 08/30/18 11:05 INR 1.81 08/30/18 11:05 APTT 29.0 Seconds (26.9-38.3) 08/30/18 11:05 - Constitutional Appears: Chronically Ill - Head Exam Head Exam: NORMAL INSPECTION - Respiratory Exam Respiratory Exam: Decreased Breath Sounds - Cardiovascular Exam Cardiovascular Exam: +S1, +S2 - GI/Abdominal Exam GI & Abdominal Exam: Soft. absent: Tenderness Assessment and Plan - Assessment and Plan (Free Text) Plan: Assessment systemic inflammatory response syndrome, R/O sepsis from left sided HAP in this patient with lung cancer history of sepsis from HAP, R/O Influenza, R/O UTI with Pseudomonas left sided pleural effusion S/P pleural catheter placement with pleural mass, S/P biopsy showing squamous cell carcinoma, now on chemotherapy history of sepsis due to right lower lobe HCAP HTN prostate CA PUD chronic anemia chronic renal failure Plan given a dose of IV Vancomycin and continue Levaquin and d/c Merrem; cultures are negative, PCT is elevated but patient has chronic renal failure; reviewed CXR and CT chest, showing increasing size of the left sided pleural-based mass consider d/c of antibiotics in the next 24 hours overall prognosis is poor
[2018-09-07 15:02] VITALS: BP 117/65; PULSE 112
--- NOTE | 2018-09-08 00:15 | DS ---
HISTORY OF PRESENT ILLNESS: The patient is an 83-year-old who came in because of increasing weakness and shortness of breath. He was found to be anemic, so he received blood transfusion. The patient was recently diagnosed because of recurrent pleural effusion. He was diagnosed with stage IV metastatic lung CA by CT-guided biopsy. He received one chemotherapy. The patient has been really sick, deconditioned, was in [place], but has been frequently going back and forth to hospital, and on this admission, his overall condition was very poor. He is malnourished, poor appetite, not eating and drinking, and complained of back pain. So, we reached out to the family, they made him hospice and the patient wanted to go home and in his own home, so he is being discharged to hospice care at home. PHYSICAL EXAMINATION: GENERAL: Today; he look weak and malnourished with poor appetite. VITAL SIGNS: He is afebrile, pulse 112, respirations 20, and blood pressure 117/65. LUNGS: Bilateral poor airflow left more than the right. HEART: S1 and S2 audible. ABDOMEN: Soft and nontender. No rebound. No guarding. NEUROLOGIC: The patient is awake and alert, but weak and lethargic. EXTREMITIES: Bilateral leg, no edema. He has sacral decubiti, third stage. ASSESSMENT: 1. Metastatic terminal cancer of lung. 2. Squamous cell carcinoma. 3. Chronic kidney disease. 4. Hypertension. 5. Recurrent pleural effusion. 6. History of hypertension. PLAN: The patient is discharged to [facility] at home for comfort care. Tejinder Razo MD
--- NOTE | 2018-09-14 10:11 | PQF ---
PROVIDER RESPONSE TEXT: Sever 3rd degree REVIEWER QUERY TEXT: Malnutrition Severity Malnutrition is documented in the Medical Record. Please specify the severity Such as: -- Mild - first degree -- Moderate - second degree -- Severe - third degree -- Severe malnutrition with marasmus -- Other, please specify The patient's Clinical Indicators include: Your PN of 09/05 notes patient has malnutrition. Please specify severity. Query created by: Ana Luisa Foster on 09/07/2018 8:10 AM Electronically signed by: Tejinder Razo MD 09/14/2018 10:07 AM
== END 2018-09-07 18:53 | disposition hospice, home (50) | DRG 871 ==
LOC: ED 10:24 → ERH 12:15 → 3RSO 18:54
PROVIDERS: ADMIT Internal Medicine; ATTEND Internal Medicine
PROC: 30233N1 Transfusion of Nonautologous Red Blood Cells into Peripheral Vein, Percutaneous Approach (ICD-10-PCS; principal; 2018-08-31)
DX: A41.9 Sepsis, unspecified organism (principal); L89.153 Pressure ulcer of sacral region, stage 3; J18.9 Pneumonia, unspecified organism; E43 Unspecified severe protein-calorie malnutrition; C34.90 Malignant neoplasm of unspecified part of unspecified bronchus or lung; J91.0 Malignant pleural effusion; N18.4 Chronic kidney disease, stage 4 (severe); J98.11 Atelectasis; I12.9 Hypertensive chronic kidney disease with stage 1 through stage 4 chronic kidney disease, or unspecified chronic kidney disease; E87.5 Hyperkalemia; D63.1 Anemia in chronic kidney disease; E78.5 Hyperlipidemia, unspecified; K27.9 Peptic ulcer, site unspecified, unspecified as acute or chronic, without hemorrhage or perforation; Z51.5 Encounter for palliative care; Z85.46 Personal history of malignant neoplasm of prostate; Z87.891 Personal history of nicotine dependence; Z68.26 Body mass index [BMI] 26.0-26.9, adult